=== PATIENT | female | born 1930 | race Caucasian/White ===

== ENCOUNTER 2017-12-04 20:55 | Inpatient (IN) | payer OTHER, BC ==
--- NOTE | 2017-12-04 21:02 | PDOC ---
History of Present Illness - General Stated Complaint: FALL/BACK PAIN Time Seen by Provider: 12/04/17 21:00 History Source: Patient - History of Present Illness Initial Comments: 12/04/17 21:14 87 y.o. female with a PMH of Breast CA (s/p radiation) presents following a fall @ home today. Patient states she was standing with her walker at home when her knees felt weak and she fell backward hitting her head. At baseline patient ambulates with a walker. Patient is uncertain of LOC and has no active medical complaints besides dry throat. Patient denies any pre-fall chest pain, shortness of breath, lightheadedness, palpitations. Allergy: Penicillin Surgery: B/L knee repair, R hip repair PMD: Dr. Saldivar Past History - Past Medical History Allergies/Adverse Reactions: Allergies Allergy/AdvReac Type Severity Reaction Status Date / Time Penicillins Allergy Hives Verified 12/04/17 21:05 Home Medications: Ambulatory Orders Aspirin Coated [Ecotrin -] 81 mg PO DAILY 12/21/11 Clopidogrel Bisulfate [Plavix -] 75 mg PO DAILY 12/21/11 Montelukast Na [Singulair -] 10 mg PO HS 12/21/11 [place]-3/Dha/Epa/Fish Oil [Fish Oil 1,000 mg Softgel] 1 tab PO DAILY 12/21/11 Tramadol HCl/Acetaminophen [Tramadol-Acetaminophn 37.5-325] 1 tab PO DAILY 03/01 Hydrochlorothiazide [Hctz] 25 mg PO DAILY 03/05/12 Atorvastatin Ca [Lipitor] 40 mg PO HS 05/22/12 Lidocaine 5% Patch [Lidoderm -] 1 each TD DAILY PRN 05/22/12 Metoprolol Succinate [Toprol XL -] 25 mg PO BID 05/22/12 Multivitamin [Multivitamins] 1 each PO DAILY 05/22/12 Pregabalin [Lyrica] 25 mg PO BID 05/22/12 Amlodipine Besylate [Norvasc -] 5 mg PO DAILY 08/16/13 Omeprazole [Prilosec (RX)] 40 mg PO DAILY 08/16/13 Polyethylene Glycol 3350 [Miralax 119 gm Btl -] 17 gm PO BID 10/03/14 Esomeprazole Mag Trihydrate [Nexium] 40 mg PO DAILY 12/16/14 Quinapril HCl [Accupril] 20 mg PO DAILY 12/16/14 Tamoxifen Citrate 20 mg PO DAILY 12/16/14 Anemia: No Asthma: No Cancer: Yes (BREAST W/ LUMPECTOMY & RADIATION) Cardiac Disorders: Yes (ASHD W/ CARDIAC STENT) CVA: No COPD: No CHF: No Dementia: No Diabetes: No GI Disorders: Yes (REFLUX,DIVERTICULOSIS) Disorders: No HTN: Yes Hypercholesterolemia: Yes Liver Disease: No Seizures: No Thyroid Disease: No - Surgical History Abdominal Surgery: Yes () Appendectomy: No (?) Cardiac Surgery: Yes (Stents 2005) Cholecystectomy: No Lung Surgery: No Neurologic Surgery: Yes (Epidural) Orthopedic Surgery: Yes (Hip Replacement Right,Juan Knee Replacements) - Family Disease History Family Disease History: Heart Disease: Father, Mother, Brother, CA: Grandparents - Suicide/Smoking/Psychosocial Hx Smoking History: Never smoked Have you smoked in the past 12 months: No If you are a former smoker, when did you quit?: Hx Alcohol Use: No Drug/Substance Use Hx: No Substance Use Type: None Hx Substance Use Treatment: No Review of Systems - Review of Systems Constitutional: No: Chills, Fever HEENTM: Yes: Cataracts. No: Recent change in vision, Double Vision Cardiac (ROS): No: Chest Pain, Palpitations, Syncope, Chest Tightness ABD/GI: No: Nausea, Vomiting : No: Burning, Dysuria Musculoskeletal: Yes: Muscle Weakness *Physical Exam - Physical Exam General Appearance: Yes: Nourished, Other (alert, no C-spine, vertebral tenderness, moving all 4 extremities) HEENT: positive: EOMI, RADHA, TMs Normal, Other ((-) aguilera sign; no oral lacerations/lesions). negative: TM Bulging, TM Dull, TM Erythema Neck: positive: Trachea midline, Supple. negative: Rigidity Respiratory/Chest: positive: Lungs Clear Cardiovascular: positive: S1, S2 Extremity: positive: Normal Capillary Refill, Normal Inspection Integumentary: positive: Normal Color, Warm Neurologic: positive: Fully Oriented, Alert, Other (labored non-slurred speech) . negative: Confused, Disoriented Deep Tendon Reflexes: Knee (L): 2+, Knee (R): 2+, Bicep (L): 2+, Bicep (R): 2+ ED Treatment Course - LABORATORY CBC & Chemistry Diagram: 12/05/17 06:30 12/05/17 06:30 Medical Decision Making - Medical Decision Making 12/04/17 21:03 44 y.o. female presents following fall @ home. Patient is limited historian -- will do broad spectrum w/u to r/o infectious, cardiac, neurologic etiology of possible syncope and LOC including Head CT, Troponin, CBC/CMP and UA. Reasess. 12/04/17 21:[address] negative for acute bleed or ischemia. Patient's family @ bedside, note patient's labored speech is baseline. 12/04/17 22:54 Troponin 0.7 - case d/w Dr. Rogers, as patient not c/o chest pain, non-ischemic EKG, will trend troponin and withold Heparin at this time. Case d/w hospitalist. Agrees with admission and troponin trend. Pain control with Tylenol + Tramadol (patient notes she takes ultram @ home with minimal adverse effects). Patient and patient family counseled on plan of care. Will continue to monitor while in ED. Patient signed out to Dr. Hernandez (Resident) under care of Dr. Christensen (Attending). *DC/Admit/Observation/Transfer Diagnosis at time of Disposition: Falls - Referrals - Patient Instructions - Post Discharge Activity
--- NOTE | 2017-12-04 21:03 | PDOC ---
Attending Attestation - Resident Resident Name: Veronica Truong - ED Attending Attestation I have performed the following: I have examined & evaluated the patient, The case was reviewed & discussed with the resident, I agree w/resident's findings & plan, Exceptions are as noted - HPI HPI: 12/04/17 21:02 87 yo female BIBA from home . Her neighbors found her on the floor and called an ambulance - Physicial Exam PE: 12/04/17 22:47 alert and conversant 87 yo female found onher floor, states her knees gave out about 3pm and she is not clear if she actually had LOC head no scalp laceration neck supple lung cta b/l cvs [id number] abd nontender ext no deformities neuro axox3,no gross focal deficits skin dry mucus membranes - Medical Decision Making 12/04/17 22:50 - ct scan of head negative for any acute intracranial pathology positive trop 0.7, pt denies any chest pain Dr Pepe Rogers consulted ADMIT telemetry 12/04/17 23:00
[2017-12-04 21:57] LABS: BASO % 0.5 % (0-2.0); EOS % 0.3 % (0-4.5); HEMATOCRIT 36.9 % (32.4-45.2); HEMOGLOBIN 12.2 GM/dL (10.7-15.3); LYMPH % 7.9 % (8-40); MCHC 32.9 g/dl (32.0-36.0); MEAN CELL VOLUME 91.1 fl (80-96); MEAN PLT VOLUME 10.1 fl (7.5-11.1); MONO % 5.3 % (3.8-10.2); PLATELET COUNT 193 K/MM3 (134-434); RBC 4.05 M/mm3 (3.60-5.2); RDW 14.6 % (11.6-15.6); WHITE BLOOD COUNT 12.5 K/mm3 (4.0-10.0)
[2017-12-04 22:14] LABS: INR 0.99 (0.82-1.09); PROTHROMBIN TIME (PATIENT) 11.2 SEC (9.98-11.88)
[2017-12-04 22:26] LABS: ALBUMIN 3.9 g/dl (3.4-5.0); ALK PHOS 62 U/L (45-117); ANION GAP 11 (8-16); BILIRUBIN,TOTAL 0.5 mg/dL (0.2-1.0); BLOOD UREA NITROGEN 47 mg/dL (7-18); CALCIUM 8.5 mg/dL (8.5-10.1); CHLORIDE 106 mmol/L (98-107); CO2 20 mmol/L (21-32); CREATININE 1.4 mg/dL (0.55-1.02); GLUCOSE,RANDOM 110 mg/dL (74-106); POTASSIUM 3.8 mmol/L (3.5-5.1); SGOT/AST 24 U/L (15-37); SGPT/ALT 24 U/L (12-78); SODIUM 137 mmol/L (136-145); TOT PROT 6.7 g/dl (6.4-8.2)
[2017-12-04] MEDS ORDERED: ACETAMINOPHEN 1000 MG/100 ML VIAL (NON FORMULARY) IVPB ONE ×2 (22:32→22:35)
[2017-12-04] MEDS ORDERED: traMADol HCL 50 MG TABLET PO ONE (22:32)
[2017-12-04] MEDS ORDERED: traMADol HCL 50 MG TABLET ONE (22:44)
[2017-12-04] MEDS ORDERED: ACETAMINOPHEN INJECTION 100 ML IVPB ONE (22:44)
[2017-12-04] MEDS ORDERED: HEPARIN NA (PORCINE) 5,000 UNITS/ML 1ML VIAL SQ ONE (22:47)
[2017-12-04] MEDS ORDERED: HEPARIN NA (PORCINE) 5,000 UNITS/ML 1ML VIAL IVPUSH PRN ×2 (22:48)
[2017-12-04] MEDS ORDERED: HEPARIN - 25,000 UNIT in SODIUM CHLORIDE 495 ML IV SCH (23:00)
--- NOTE | 2017-12-04 23:12 | PN ---
Teaching Attending Note Name of Resident: Erica Miller ATTENDING PHYSICIAN STATEMENT I saw and evaluated the patient. I reviewed the resident's note and discussed the case with the resident. I agree with the resident's findings and plan as documented. SUBJECTIVE: 87 yo F with Pmhx of Breast Ca (s/p radiation/lumpectomy), ASHD s/p Stent (06), GERD, diverticulosis, htn, Hld, who presents s/p fall. Notes she felt her knees go weak as she was standing with a walker. She fell and hit the back of her head , unsure if she hit the back of her neck. States she felt her legs have the shakes, but states she was consciouss the whole time and she fell. Denies any prior chest pain, pressure, dizziness, or ligthheadedness. No fevers or chills. States she currently has neck pain. Notes she often has chronic low back pain. States she is often constipated, Notes last BM yesterday OBJECTIVE: Physical: VS: Vital Signs Period Temp Pulse Resp BP Sys/Canas Pulse Ox Last 24 Hr 98.7 F 76 14 119/82 97 GEN: NAD, resting in bed, AA0X3 HEENT: NCAT, PERRL, Throat without erythema or exudates CARD: RRR S1, S2 RESP: CTAB ABD: BSx4, NTD to palpation, Distended EXT:- C/C/E MS + 5/5 UE, +3/5 LE. Sensation intact CBCD WBC 12.5 K/mm3 (4.0-10.0) H D 12/04/17 21:50 RBC 4.05 M/mm3 (3.60-5.2) 12/04/17 21:50 Hgb 12.2 GM/dL (10.7-15.3) 12/04/17 21:50 Hct 36.9 % (32.4-45.2) 12/04/17 21:50 MCV 91.1 fl (80-96) 12/04/17 21:50 MCHC 32.9 g/dl (32.0-36.0) 12/04/17 21:50 RDW 14.6 % (11.6-15.6) 12/04/17 21:50 Plt Count 193 K/MM3 (134-434) 12/04/17 21:50 MPV 10.1 fl (7.5-11.1) 12/04/17 21:50 CMP Sodium 137 mmol/L (136-145) 12/04/17 21:50 Potassium 3.8 mmol/L (3.5-5.1) 12/04/17 21:50 Chloride 106 mmol/L (98-107) 12/04/17 21:50 Carbon Dioxide 20 mmol/L (21-32) L 12/04/17 21:50 Anion Gap 11 (8-16) 12/04/17 21:50 BUN 47 mg/dL (7-18) H 12/04/17 21:50 Creatinine 1.4 mg/dL (0.55-1.02) H 12/04/17 21:50 Creat Clearance w eGFR 35.74 (>60) 12/04/17 21:50 Random Glucose 110 mg/dL (74-106) H 12/04/17 21:50 Calcium 8.5 mg/dL (8.5-10.1) 12/04/17 21:50 Total Bilirubin 0.5 mg/dL (0.2-1.0) D 12/04/17 21:50 AST 24 U/L (15-37) 12/04/17 21:50 ALT 24 U/L (12-78) 12/04/17 21:50 Alkaline Phosphatase 62 U/L (45-117) 12/04/17 21:50 Total Protein 6.7 g/dl (6.4-8.2) 12/04/17 21:50 Albumin 3.9 g/dl (3.4-5.0) 12/04/17 21:50 CARDIAC ENZYMES Creatine Kinase 288 IU/L (26-192) H 12/04/17 21:38 Troponin I Cancelled 12/04/17 21:50 EKG: CXR- PENDING CT HEAD- No definate interval change from 12/16/14. No acute intercranial Hemmorage, mass effect or Hydrocephalus. Ambulatory Orders Ambulatory Orders Aspirin Coated [Ecotrin -] 81 mg PO DAILY 12/21/11 Clopidogrel Bisulfate [Plavix -] 75 mg PO DAILY 12/21/11 Montelukast Na [Singulair -] 10 mg PO HS 12/21/11 [place]-3/Dha/Epa/Fish Oil [Fish Oil 1,000 mg Softgel] 1 tab PO DAILY 12/21/11 Tramadol HCl/Acetaminophen [Tramadol-Acetaminophn 37.5-325] 1 tab PO DAILY 03/01 Hydrochlorothiazide [Hctz] 25 mg PO DAILY 03/05/12 Atorvastatin Ca [Lipitor] 40 mg PO HS 05/22/12 Lidocaine 5% Patch [Lidoderm -] 1 each TD DAILY PRN 05/22/12 Metoprolol Succinate [Toprol XL -] 25 mg PO BID 05/22/12 Multivitamin [Multivitamins] 1 each PO DAILY 05/22/12 Pregabalin [Lyrica] 25 mg PO BID 05/22/12 Amlodipine Besylate [Norvasc -] 5 mg PO DAILY 08/16/13 Omeprazole [Prilosec (RX)] 40 mg PO DAILY 08/16/13 Polyethylene Glycol 3350 [Miralax 119 gm Btl -] 17 gm PO BID 10/03/14 Esomeprazole Mag Trihydrate [Nexium] 40 mg PO DAILY 12/16/14 Quinapril HCl [Accupril] 20 mg PO DAILY 12/16/14 Tamoxifen Citrate 20 mg PO DAILY 12/16/14 ASSESSMENT AND PLAN: 87 F with Pmhx of breast ca, HTN, HLD, CAD, Bilateral knee replacements, who presents with fall, 1.) Fall - Mechanical - CT Neck wo Con - CT Head as above - PT/OT - NEEDS repeat CT HEAD as, pt. was on Plavix 2.) Weakness LE - B12/Folate/TSH - When Able consider MRI T/L spine 3.) Elevated Troponin/CAD - Most likely Demand - Cardio consulted by ED, No hep. gtt at this time - ASA - Hold Plavix until repeat CT Head - , - Echo/Trend Trop/EKg 4.) HLD - Chk. Lipid Panel - C/W Statin 5.) HTN - C/W Home meds 6.) Dvt ppx - Scds
--- NOTE | 2017-12-05 00:38 | HP ---
CHIEF COMPLAINT: fall PCP: Dr. Saldivar HISTORY OF PRESENT ILLNESS: The patient is an 87 yo f w/ PMH Breast Ca, CAD, HTN who comes into the ED c/o fall at home. Patient was walking around her house with her walker when her "knees started shaking" and she fell backwards, striking her bottom and head on the floor. The patient was on the floor for 5 hours before being found by neighbors. Patient states she felt dizzy prior to falling, but denies any changes in vision, palpitations, chest pain, SOB or loss of consciousness. Patient complains of pain on the back of her head and in her neck. The patient also complains of abdominal distension over the past few days. She has a history of constipation and her last bowel movement was yesterday. Patient denies fevers, chills, abdominal pain. Patient lives at home alone and has an aide for 2 hrs per day. ER course was notable for: (1) CT head negative (2) troponin .7 (3) CXR negative Recent Travel: none PAST MEDICAL HISTORY: Breast Ca CAD GERD HTN PAST SURGICAL HISTORY: Stenting Hip replacement Spinal surgery Social History: Smoking: previous smoker, quit in Alcohol: socially Drugs: denies Family History: non-contributory Allergies Penicillins Allergy (Verified 12/04/17 21:05) Hives HOME MEDICATIONS: Home Medications Medication Instructions Recorded Aspirin Coated [Ecotrin -] 81 mg PO DAILY 12/21/11 Clopidogrel Bisulfate [Plavix -] 75 mg PO DAILY 12/21/11 Montelukast Na [Singulair -] 10 mg PO HS 12/21/11 [place]-3/Dha/Epa/Fish Oil [Fish Oil 1 tab PO DAILY 12/21/11 1,000 mg Softgel] Tramadol HCl/Acetaminophen 1 tab PO DAILY 03/01/12 [Tramadol-Acetaminophn 37.5-325] Hydrochlorothiazide [Hctz] 25 mg PO DAILY 03/05/12 Atorvastatin Ca [Lipitor] 40 mg PO HS 05/22/12 Lidocaine 5% Patch [Lidoderm -] 1 each TD DAILY PRN 05/22/12 Metoprolol Succinate [Toprol XL -] 25 mg PO BID 05/22/12 Multivitamin [Multivitamins] 1 each PO DAILY 05/22/12 Pregabalin [Lyrica] 25 mg PO BID 05/22/12 Amlodipine Besylate [Norvasc -] 5 mg PO DAILY 08/16/13 Omeprazole [Prilosec (RX)] 40 mg PO DAILY 08/16/13 Polyethylene Glycol 3350 [Miralax 17 gm PO BID 10/03/14 119 gm Btl -] Esomeprazole Mag Trihydrate 40 mg PO DAILY 12/16/14 [Nexium] Quinapril HCl [Accupril] 20 mg PO DAILY 12/16/14 Tamoxifen Citrate 20 mg PO DAILY 12/16/14 REVIEW OF SYSTEMS CONSTITUTIONAL: Absent: fever, chills, diaphoresis, generalized weakness, malaise, loss of appetite, weight change HEENT: Absent: rhinorrhea, nasal congestion, throat pain, throat swelling, difficulty swallowing, mouth swelling, ear pain, eye pain, visual changes CARDIOVASCULAR: Absent: chest pain, syncope, palpitations, irregular heart rate, peripheral edema RESPIRATORY: Absent: cough, shortness of breath, dyspnea with exertion, orthopnea, wheezing, stridor, hemoptysis GASTROINTESTINAL: Absent: abdominal pain, nausea, vomiting, melena, hematochezia GENITOURINARY: Absent: dysuria, frequency, urgency, hesitancy, hematuria, flank pain, genital pain MUSCULOSKELETAL: Absent: myalgia, arthralgia, joint swelling SKIN: Absent: rash, itching, pallor HEMATOLOGIC/IMMUNOLOGIC: Absent: easy bleeding, easy bruising, lymphadenopathy, frequent infections ENDOCRINE: Absent: unexplained weight gain, unexplained weight loss, heat intolerance, cold intolerance NEUROLOGIC: Absent: headache, focal weakness or paresthesias, dizziness, unsteady gait, seizure, mental status changes, bladder or bowel incontinence PSYCHIATRIC: Absent: anxiety, depression, suicidal or homicidal ideation, hallucinations. PHYSICAL EXAMINATION Vital Signs - 24 hr 12/04/17 21:05 Temperature 98.7 F Pulse Rate 76 Respiratory 14 Rate Blood Pressure 119/82 O2 Sat by Pulse 97 Oximetry (%) GENERAL: Awake, alert, and fully oriented, in no acute distress. HEAD: Normal with no signs of trauma. EYES: Pupils equal, round and reactive to light, extraocular movements intact, sclera anicteric, conjunctiva clear. No lid lag. EARS, NOSE, THROAT: Ears normal, nares patent, oropharynx clear without exudates. Moist mucous membranes. NECK: Normal range of motion, supple without lymphadenopathy, JVD, or masses. LUNGS: Breath sounds equal, clear to auscultation bilaterally. No wheezes, and no crackles. No accessory muscle use. HEART: Regular rate and rhythm, normal S1 and S2 without murmur, rub or gallop. ABDOMEN: Soft, nontender, normoactive bowel sounds, no guarding, no rebound, no masses. abdomen markedly distended. MUSCULOSKELETAL: Normal range of motion at all joints. No bony deformities or tenderness. No CVA tenderness. UPPER EXTREMITIES: 2+ pulses, warm, well-perfused. No cyanosis. No clubbing. No peripheral edema. LOWER EXTREMITIES: 2+ pulses, warm, well-perfused. No calf tenderness. No peripheral edema. NEUROLOGICAL: Cranial nerves II-X intact. Normal speech. 2/5 strength in both lower extremities. PSYCHIATRIC: Cooperative. Good eye contact. Appropriate mood and affect. SKIN: Warm, dry, normal turgor, no rashes or lesions noted, normal capillary refill. Laboratory Results - last 24 hr 12/04/17 12/04/17 12/04/17 21:38 21:50 21:50 WBC 12.5 H D RBC 4.05 Hgb 12.2 Hct 36.9 MCV 91.1 MCH 30.0 MCHC 32.9 RDW 14.6 Plt Count 193 MPV 10.1 Neutrophils % 86.0 H D Lymphocytes % 7.9 L D Monocytes % 5.3 Eosinophils % 0.3 D Basophils % 0.5 PT with INR 11.20 INR 0.99 Sodium Potassium Chloride Carbon Dioxide Anion Gap BUN Creatinine Creat Clearance w eGFR Random Glucose Calcium Total Bilirubin AST ALT Alkaline Phosphatase Creatine Kinase 288 H Creatine Kinase Index 2.4 CK-MB (CK-2) 7.002 H Troponin I 0.70 H* Total Protein Albumin 12/04/17 12/04/17 21:50 21:50 WBC RBC Hgb Hct MCV MCH MCHC RDW Plt Count MPV Neutrophils % Lymphocytes % Monocytes % Eosinophils % Basophils % PT with INR INR Sodium 137 Potassium 3.8 Chloride 106 Carbon Dioxide 20 L Anion Gap 11 BUN 47 H Creatinine 1.4 H Creat Clearance w eGFR 35.74 Random Glucose 110 H Calcium 8.5 Total Bilirubin 0.5 D AST 24 ALT 24 Alkaline Phosphatase 62 Creatine Kinase Creatine Kinase Index CK-MB (CK-2) Troponin I Cancelled Total Protein 6.7 Albumin 3.9 ASSESSMENT/PLAN: The patient is an 87 yo f w/ PMH HTN and CAD who is being admitted for further workup of a fall at home. #s/p fall 2/2 syncope r/o cardiac etiology -CT head negative x1, will repeat in 12 hr -TSH -Vit B12 -CT cspine as patient c/o neck pain -Will hold plavix this evening until bleed r/o -Neuro consult to eval leg weakness -UA #Troponemia likley 2/2 demand ischemia -patient not complaining of CP or SOB at this time -ED resident spoke w/ Dr. Rogers; less likely 2/2 ACS and holding heparin for now -Cardio consult -Echo in AM -carotid doppler in am -Trend troponin #Abdominal distension likely 2/2 constipation -KUB -laxatives #HLD -c/w statin -AM lipid panel #HTN -c/w home meds #FEN -no fluids -lytes wnl -fat controlled diet #Prophys -SCDs until bleed ruled out #Dispo -admit to tele Visit type - Emergency Visit Emergency Visit: Yes ED Registration Date: 12/04/17 Care time: The patient presented to the Emergency Department on the above date and was hospitalized for further evaluation of their emergent condition. - New Patient This patient is new to me today: Yes Date on this admission: 12/05/17 - Critical Care Critical Care patient: No Hospitalist Screening - Colonoscopy Questionnaire Colonoscopy Questionnaire: Colonoscopy Questionnaire - Patient: 50 - 75 years old and never had a screening colonoscopy: Unknown History of colon or rectal polyps, or CA: Unknown History of IBD, Crohn's disease or UC: Unknown History of abdominal radiation therapy as a child: Unknown - Relative: 1 with colon or rectal CA, or polyps at age 60 or younger: Unknown Colon or rectal CA diagnosed at age 45 or younger: Unknown Multiple relatives with colon or rectal CA: Unknown - Outcome: Screening Result: Negative Screen
[2017-12-05] MEDS ORDERED: SENNOSIDES 8.6MG TABLET (FP) PO ONE (01:39)
[2017-12-05] MEDS ORDERED: HEPARIN NA (PORCINE) 5,000 UNITS/ML 1ML VIAL SQ SCH (02:00)
[2017-12-05 03:09] VITALS: BMI 27.1
[2017-12-05 07:08] LABS: HEMATOCRIT 35.7 % (32.4-45.2); HEMOGLOBIN 11.9 GM/dL (10.7-15.3); MCH 30.1 pg (25.7-33.7); MCHC 33.2 g/dl (32.0-36.0); MEAN CELL VOLUME 90.6 fl (80-96); MEAN PLT VOLUME 9.9 fl (7.5-11.1); PLATELET COUNT 184 K/MM3 (134-434); RBC 3.94 M/mm3 (3.60-5.2); RDW 14.6 % (11.6-15.6); WHITE BLOOD COUNT 11.1 K/mm3 (4.0-10.0)
[2017-12-05 07:24] LABS: ALBUMIN 3.6 g/dl (3.4-5.0); CALCIUM 8.2 mg/dL (8.5-10.1); CHLORIDE 107 mmol/L (98-107); POTASSIUM 3.7 mmol/L (3.5-5.1); SODIUM 138 mmol/L (136-145)
[2017-12-05 07:35] LABS: CHOLESTEROL 133 mg/dL (50-200); HDL CHOLESTEROL 76 mg/dL (40-60); LDL CHOLESTEROL (ONLY SJRH) 49 mg/dL (5-100); TRIGLYCERIDES 96 mg/dL (35-160)
[2017-12-05 07:38] LABS: ALK PHOS 56 U/L (45-117); ANION GAP 12 (8-16); BILIRUBIN,TOTAL 0.6 mg/dL (0.2-1.0); BLOOD UREA NITROGEN 44 mg/dL (7-18); CO2 19 mmol/L (21-32); CREATININE 1.3 mg/dL (0.55-1.02); GLUCOSE,RANDOM 77 mg/dL (74-106); MAGNESIUM 1.7 mg/dL (1.8-2.4); PHOSPHOROUS 3.7 mg/dL (2.5-4.9); SGOT/AST 26 U/L (15-37); SGPT/ALT 23 U/L (12-78); TOT PROT 6.2 g/dl (6.4-8.2)
[2017-12-05] MEDS ORDERED: HYDROCHLOROTHIAZIDE 25 MG TABLET (FP) PO SCH (10:00)
[2017-12-05] MEDS ORDERED: POLYETHYLENE GLYCOL 3350 119 GM BTL PO SCH ×2 (10:00)
[2017-12-05] MEDS: TAMOXIFEN CITRATE 10 MG TABLET PO SCH (10:23)
[2017-12-05] MEDS: QUINAPRIL HCL 20 MG TABLET (FP) PO SCH (10:24)
[2017-12-05] MEDS: PANTOPRAZOLE 40 MG TABLET (FP) PO SCH (10:24)
[2017-12-05] MEDS: ASPIRIN COATED 81 MG TABLET.EC PO SCH (10:24)
[2017-12-05] MEDS: amLODIPine BESYLATE 5 MG TABLET (FP) PO SCH (10:24)
[2017-12-05] MEDS: PREGABALIN 25 MG CAPSULE PO SCH ×2 (10:24→21:52)
[2017-12-05] MEDS: metoPROLOL SUCCINATE 25 MG TAB.SR.24H (FP) PO SCH ×2 (10:24→21:52)
--- NOTE | 2017-12-05 12:16 | PN ---
Progress Note, Physician Chief Complaint: Pt lying in bed in no acute distress. noticed severe abd distention, appears right quadrant, firm, tender. pt reports she feels full upon po intake and has been having intermittent diarrhea. Pt denies chest discomfort, sob, n/v. - Current Medication List Current Medications: Active Medications Amlodipine Besylate (Norvasc -) 5 mg PO DAILY [facility] Last Admin: 12/05/17 10:24 Dose: 5 mg Aspirin (Ecotrin -) 81 mg PO DAILY [facility] Last Admin: 12/05/17 10:24 Dose: 81 mg Atorvastatin Calcium (Lipitor -) 40 mg PO HS [facility] Hydrochlorothiazide (Hctz -) 25 mg PO DAILY [facility] Last Admin: 12/05/17 10:24 Dose: 25 mg Metoprolol Succinate (Toprol Xl -) 25 mg PO BID [facility] Last Admin: 12/05/17 10:24 Dose: 25 mg Montelukast Sodium (Singulair -) 10 mg PO HS [facility] Pantoprazole Sodium (Protonix -) 40 mg PO DAILY [facility] Last Admin: 12/05/17 10:24 Dose: 40 mg Polyethylene Glycol (Miralax (For Daily Use) -) 17 gm PO BID [facility] Last Admin: 12/05/17 10:28 Dose: 17 gm Pregabalin (Lyrica -) 25 mg PO BID [facility] Last Admin: 12/05/17 10:24 Dose: 25 mg Quinapril HCl (Accupril -) 20 mg PO DAILY [facility] Last Admin: 12/05/17 10:24 Dose: 20 mg Senna (Senna -) 1 tab PO [facility] Tamoxifen Citrate (Tamoxifen Citrate) 20 mg PO DAILY [facility] Last Admin: 12/05/17 10:23 Dose: 20 mg - Objective Vital Signs: Vital Signs Temperature 98 F 12/05/17 08:15 Pulse Rate 75 12/05/17 08:15 Respiratory Rate 18 12/05/17 08:15 Blood Pressure 148/80 12/05/17 08:15 O2 Sat by Pulse Oximetry (%) 96 12/05/17 08:00 Constitutional: Yes: Well Nourished, No Distress Cardiovascular: Yes: WNL, Regular Rate and Rhythm. No: Bruit, Gallop, Murmur Respiratory: Yes: WNL, Regular, CTA Bilaterally. No: Rales, Rhonchi, SOB, Wheezes Gastrointestinal: Yes: Normal Bowel Sounds, Distention, Tenderness. No: Tenderness, Rebound, Vomiting Genitourinary: Yes: Bladder Distention Musculoskeletal: Yes: Back Pain Edema: No Neurological: Yes: Alert, Confusion Psychiatric: Yes: Alert Labs: CBC, BMP 12/05/17 06:30 12/05/17 06:30 INR, PTT INR 0.99 (0.82-1.09) 12/04/17 21:50 Problem List - Problems (1) Dehydration Assessment/Plan: appears dehydrated ns 500ml bolus NS 75mL/hr encourage po intake Code(s): E86.0 - DEHYDRATION (2) Fecal impaction Assessment/Plan: CT w/ fecal impaction with stercoral colitis disimpacted at bedside trial with po dulcolax miralax, colace gi consult appreciated will monitor Code(s): K56.41 - FECAL IMPACTION (3) Bladder distension Assessment/Plan: distended during assessment seen on CT improved s/p justice will monitor urology consult pending Code(s): N32.89 - OTHER SPECIFIED DISORDERS OF BLADDER (4) Acute metabolic encephalopathy Assessment/Plan: pt currently confused, mild leukocytosis friend reports pt has been having recent intermittent confusion UA/UC pending chest xray without sig changes ertapenem per ID ID consult appreciated neuro consult pending Code(s): G93.41 - METABOLIC ENCEPHALOPATHY (5) Elevated troponin Assessment/Plan: troponin elevated, trending down trend monitored carotid us reviewed, eca occlusion echo, mild dis dysfunction, pEF cardiology following Code(s): R74.8 - ABNORMAL LEVELS OF OTHER SERUM ENZYMES (6) JASMIN (acute kidney injury) Assessment/Plan: secondary to prerenal IVF monitor renal function Code(s): N17.9 - ACUTE KIDNEY FAILURE, UNSPECIFIED (7) Abdominal distension Assessment/Plan: severely distended upon assessment, pt confused Abd/pelvis CT stat ordered, case discussed with surgery and radiologist, no acute obstruction, however fecal impaction with stercoral colitis lactic acid level wnl mild leukocytosis, possibly due to dehydration justice inserted - 1950ml uop disimpaction performed, moderate amount, distention improved after disimpaction Miralax, colace, dulcolax 500mL NS bolus IVF GI/Surgery/ID consult appreciated Code(s): R14.0 - ABDOMINAL DISTENSION (GASEOUS) (8) Fall Assessment/Plan: s/p fall at home with trauma to head repeat head CT neg PT cardiology consult appreciated Code(s): W19.XXXA - UNSPECIFIED FALL, INITIAL ENCOUNTER Qualifiers: Encounter type: initial encounter Qualified Code(s): W19.XXXA - Unspecified fall, initial encounter (9) HTN (hypertension) Assessment/Plan: stable continue home meds hold hct in the setting of dehydration Code(s): I10 - ESSENTIAL (PRIMARY) HYPERTENSION Qualifiers: Hypertension type: essential hypertension Qualified Code(s): I10 - Essential (primary) hypertension (10) HLD (hyperlipidemia) Assessment/Plan: stable continue atorvastatin Code(s): E78.5 - HYPERLIPIDEMIA, UNSPECIFIED Qualifiers: Hyperlipidemia type: unspecified Qualified Code(s): E78.5 - Hyperlipidemia , unspecified (11) CAD (coronary artery disease) Assessment/Plan: s/p GLEN LAD, 2006 continue aspirin plavix d/c'd per cardiology recs Code(s): I25.10 - ATHSCL HEART DISEASE OF [place] CORONARY ARTERY W/O ANG PCTRS Qualifiers: Coronary Disease-Associated Artery/Lesion type: [place] artery [place] vs. transplanted heart: [place] heart Associated angina: without angina Qualified Code(s): I25.10 - Atherosclerotic heart disease of [place] coronary artery without angina pectoris (12) Osteoarthritis Assessment/Plan: back, b/l knees continue PT Code(s): M19.90 - UNSPECIFIED OSTEOARTHRITIS, UNSPECIFIED SITE Qualifiers: Osteoarthritis location: knee Osteoarthritis type: primary Laterality: bilateral Qualified Code(s): M17.0 - Bilateral primary osteoarthritis of knee (13) History of total bilateral knee replacement (TKR) Assessment/Plan: s/p b/l tkr in 2009 Code(s): Z96.653 - PRESENCE OF ARTIFICIAL KNEE JOINT, BILATERAL (14) History of breast cancer Assessment/Plan: s/p left partial mastectomy/radiation on tamoxifen Code(s): Z85.3 - PERSONAL HISTORY OF MALIGNANT NEOPLASM OF BREAST (15) History of right hip replacement Assessment/Plan: s/p r hip replacement, 1995 Code(s): Z96.641 - PRESENCE OF RIGHT ARTIFICIAL HIP JOINT (16) Spinal stenosis Assessment/Plan: moderate, c5-6,c6-7 followed by outpt Code(s): M48.00 - SPINAL STENOSIS, SITE UNSPECIFIED Qualifiers: Spinal region: cervical Qualified Code(s): M48.02 - Spinal stenosis, cervical region
[2017-12-05] MEDS ORDERED: MAGNESIUM SULF 50% (8.12 MEQ/2 ML-1 GM VIAL) IVPB ONE ×2 (12:27→17:00)
[2017-12-05] MEDS ORDERED: POTASSIUM CHLORIDE TABS 20 MEQ TABLET.ER (FP) PO ONE ×2 (12:27→15:45)
[2017-12-05] MEDS ORDERED: BISACODYL 5 MG TABLET.DR (FP) PO ONE ×2 (12:47→16:15)
--- NOTE | 2017-12-05 13:38 | CON.ID ---
Consult Consult Specialty:: infectious diseases Reason for Consultation:: intestinal obstruction,abd pain - History of Present Illness Chief Complaint: abd pain,fall History of Present Illness: 87yo F with multiple medical issues including HTN, HLD, CAD s/p stent on asa/ plavix, macular degeneration , h/o left breast CA s/p lumpectomy on tamoxifen, h /o multiple joint replacements, who fell at home when her knees gave out while she was standing with her walker and was found after 5 hours downtime (per H&P) - remembers landing on her behind; patient on the floor was admitted by the hospitalist team. I was called to see the patient because of leukocytosis and dirrhoea and also suspicion of uti as we did not know when was the last time patient had urinated. patient also was having high wbc and looks like the patient was also dehydrated patient was c/o of abd pain and was very frustrated about the lump which was seen and it was bothering her patient has her daughter in room she has been started on iv fluids and on her lab work up is showing leukocytosis patient does not know when she had last bowel movement - History Source History Provided By: Patient, Medical Record Limitations to Obtaining History: Poor Historian - Past Medical History Cardio/Vascular: Yes: CAD, HTN Musculoskeletal: Yes: Osteoarthritis ENT: Yes: Other - Past Surgical History Past Surgical History: Yes: Joint Replacement, Stent - Alcohol/Substance Use Hx Alcohol Use: No - Smoking History Smoking history: Never smoked Have you smoked in the past 12 months: No If you are a former smoker, when did you quit?: Home Medications - Allergies Allergies/Adverse Reactions: Allergies Allergy/AdvReac Type Severity Reaction Status Date / Time Penicillins Allergy Hives Verified 12/04/17 21:05 - Home Medications Home Medications: Ambulatory Orders Aspirin Coated [Ecotrin -] 81 mg PO DAILY 12/21/11 Clopidogrel Bisulfate [Plavix -] 75 mg PO DAILY 12/21/11 Montelukast Na [Singulair -] 10 mg PO HS 12/21/11 [place]-3/Dha/Epa/Fish Oil [Fish Oil 1,000 mg Softgel] 1 tab PO DAILY 12/21/11 Tramadol HCl/Acetaminophen [Tramadol-Acetaminophn 37.5-325] 1 tab PO DAILY 03/01 Hydrochlorothiazide [Hctz] 25 mg PO DAILY 03/05/12 Atorvastatin Ca [Lipitor] 40 mg PO HS 05/22/12 Lidocaine 5% Patch [Lidoderm -] 1 each TD DAILY PRN 05/22/12 Metoprolol Succinate [Toprol XL -] 25 mg PO BID 05/22/12 Multivitamin [Multivitamins] 1 each PO DAILY 05/22/12 Pregabalin [Lyrica] 25 mg PO BID 05/22/12 Amlodipine Besylate [Norvasc -] 5 mg PO DAILY 08/16/13 Omeprazole [Prilosec (RX)] 40 mg PO DAILY 08/16/13 Polyethylene Glycol 3350 [Miralax 119 gm Btl -] 17 gm PO BID 10/03/14 Esomeprazole Mag Trihydrate [Nexium] 40 mg PO DAILY 12/16/14 Quinapril HCl [Accupril] 20 mg PO DAILY 12/16/14 Tamoxifen Citrate 20 mg PO DAILY 12/16/14 Review of Systems - Review of Systems Constitutional: reports: No Symptoms, Weakness. denies: Chills, Fever Eyes: reports: No Symptoms HENT: reports: No Symptoms Neck: reports: No Symptoms Cardiovascular: reports: No Symptoms Respiratory: reports: No Symptoms Gastrointestinal: reports: Abdominal Pain, Bloating, Constipation. denies: Vomiting Genitourinary: reports: Other Musculoskeletal: reports: No Symptoms Integumentary: reports: No Symptoms Neurological: reports: No Symptoms Endocrine: reports: No Symptoms Hematology/Lymphatic: reports: No Symptoms Psychiatric: reports: No Symptoms Physical Exam Vital Signs: Vital Signs Temperature 98 F 12/05/17 08:15 Pulse Rate 75 12/05/17 08:15 Respiratory Rate 18 12/05/17 08:15 Blood Pressure 148/80 12/05/17 08:15 O2 Sat by Pulse Oximetry (%) 96 12/05/17 08:00 Constitutional: Yes: Calm, Mild Distress, Thin Eyes: Yes: Conjunctiva Clear Cardiovascular: Yes: Regular Rate and Rhythm Respiratory: Yes: Regular, CTA Bilaterally Gastrointestinal: Yes: Distention, Tenderness, Other (absent bowel sounds) Musculoskeletal: Yes: WNL Extremities: Yes: WNL Neurological: Yes: Alert, Oriented, Confusion Psychiatric: Yes: Alert Labs: CBC, BMP 12/05/17 06:30 12/05/17 06:30 Assessment/Plan after evaluating the patient and looking at the abd xray patient has developed intestinal obstruction which could be mainly due to fecal impaction as well could ahve other process going on she has no gas seen in the rectum Problem List - Problems (1) Fecal impaction Thank you for the opportunity to participate in the care of this patient. Code(s): K56.41 - FECAL IMPACTION (2) Acute urinary retention Code(s): R33.8 - OTHER RETENTION OF URINE (3) Dehydration Code(s): E86.0 - DEHYDRATION (4) JASMIN (acute kidney injury) Code(s): N17.9 - ACUTE KIDNEY FAILURE, UNSPECIFIED (5) Fall as cause of accidental injury in home as place of occurrence Code(s): W19.XXXA - UNSPECIFIED FALL, INITIAL ENCOUNTER; Y92.009 - UNSP PLACE IN UNSP NON-INSTITUT (PRIVATE) RESIDENCE PLACE Qualifiers: Encounter type: initial encounter Qualified Code(s): W19.XXXA - Unspecified fall, initial encounter; Y92.009 - Unspecified place in unspecified non-institutional (private) residence as the place of occurrence of the external cause; Y92.009 - Unspecified place in unspecified non-institutional ( private) residence as the place of occurrence of the external cause (6) Encephalopathy acute Code(s): G93.40 - ENCEPHALOPATHY, UNSPECIFIED (7) CAD (coronary artery disease) Code(s): I25.10 - ATHSCL HEART DISEASE OF [place] CORONARY ARTERY W/O ANG PCTRS Qualifiers: Coronary Disease-Associated Artery/Lesion type: [place] artery [place] vs. transplanted heart: [place] heart Associated angina: without angina Qualified Code(s): I25.10 - Atherosclerotic heart disease of [place] coronary artery without angina pectoris (8) HTN (hypertension) Code(s): I10 - ESSENTIAL (PRIMARY) HYPERTENSION Qualifiers: Hypertension type: essential hypertension Qualified Code(s): I10 - Essential (primary) hypertension (9) HLD (hyperlipidemia) Code(s): E78.5 - HYPERLIPIDEMIA, UNSPECIFIED Qualifiers: Hyperlipidemia type: unspecified Qualified Code(s): E78.5 - Hyperlipidemia , unspecified (10) History of breast cancer Code(s): Z85.3 - PERSONAL HISTORY OF MALIGNANT NEOPLASM OF BREAST plan will start patient on abx as there is chance of translocation of bacteria ct scan of the abdomen surgical consult npo hydration once we have diagnosis will decide how to proceed further
[2017-12-05] MEDS ORDERED: DOCUSATE SODIUM 100 MG CAPSULE (FP) PO SCH (14:00)
--- NOTE | 2017-12-05 14:11 | EKG ---
Test Reason : Blood Pressure : / mmHG Vent. Rate : 076 BPM Atrial Rate : 076 BPM P-R Int : 256 ms QRS Dur : 082 ms QT Int : 422 ms P-R-T Axes : 027 006 066 degrees QTc Int : 474 ms SINUS RHYTHM WITH 1ST DEGREE A-V BLOCK OTHERWISE NORMAL ECG WHEN COMPARED WITH ECG OF 04-DEC-2017 21:36, SINUS RHYTHM IS NO LONGER WITH 2ND DEGREE A-V BLOCK (MOBITZ I) Confirmed by MD Hillary, Pedro ([id number]) on 12/05/2017 2:10:54 PM Referred By: JORGE MERCADO Confirmed By:Pedro Thornton MD
--- NOTE | 2017-12-05 14:17 | EKG ---
Test Reason : Blood Pressure : / mmHG Vent. Rate : 073 BPM Atrial Rate : 080 BPM P-R Int : 000 ms QRS Dur : 078 ms QT Int : 402 ms P-R-T Axes : 060 003 032 degrees QTc Int : 442 ms SINUS RHYTHM WITH 2ND DEGREE A-V BLOCK (MOBITZ I) LOW VOLTAGE QRS ABNORMAL ECG WHEN COMPARED WITH ECG OF 16-DEC-2014 12:10, SINUS RHYTHM IS NOW WITH 2ND DEGREE A-V BLOCK (MOBITZ I) Confirmed by MD Hillary, Pedro ([id number]) on 12/05/2017 2:17:03 PM Referred By: Confirmed By:Pedro Thornton MD
[2017-12-05] MEDS ORDERED: SODIUM CHLORIDE 500 ML IV STA (14:28)
--- NOTE | 2017-12-05 16:12 | CONSULT ---
Consult Consult Specialty:: General Surgery Referred by:: Dr. Gill/Leana Graves Reason for Consultation:: abdominal distention ?obstruction - History of Present Illness Chief Complaint: abdominal distention, constipation, fell at home History of Present Illness: 87yo F with multiple medical issues including HTN, HLD, CAD s/p stent on asa/ plavix, macular degeneration (per friend), h/o left breast CA s/p lumpectomy on tamoxifen, h/o multiple joint replacements, who fell at home when her knees gave out while she was standing with her walker and was found after 5 hours downtime (per H&P) - remembers landing on her behind; ER note states she fell backward and hit her head. She was admitted to telemetry through the ER yesterday. Head and c-spine CTs showed no acute injuries but some chronic changes. She was afebrile, wbc slightly up at 12.5, down to 11 today, BUN/Cr elevated at 47/1.4, down to 44/1.3 today, though she had not been on maintenance fluids. She reported a history of constipation, and recent abdominal distention, with some diarrhea, and told the ER her last BM had been the day before. It is unclear from the history when she had last urinated, though she has had some wetness in diapers here. Troponin was elevated 0.7 and edgardo today to 1.85, though she denies chest pain. She had all her home antihypertensives this morning, including HCTZ. BEN Graves started IV fluids today, and ID saw patient, who was concerned about abdominal distention and possible obstruction, so surgery was consulted. Abd/pelv CT was pending and pt was taken for it just prior to my exam, though AXR had already been done showing likely fecal impaction and additional pelvic opacity, possibly related to bladder distention. By report, pt had been noted to be distended but nontender. Pt seen and examined with BEN Graves just after CT scan, reported as large fecal impaction and bladder distention. 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 Court does not think pt has any history of dementia or Alzheimer's disease, but admits that the patient's current level of confusion is more than she has observed in the past. ER noted no specific confusion. Pt was unclear about possible LOC at the time of the fall. Patient denies chest pain or trouble breathing. She did admit to self- disimpaction at times at home during our performance of the same. "I can do that myself, I do it at home." - History Source History Provided By: Patient, Friend (Court at bedside), Medical Record Limitations to Obtaining History: Poor Historian (pt very confused, mostly from record) - Past Medical History Cardio/Vascular: Yes: CAD, HTN Reproductive: Yes: Postmenopausal Heme/Onc: Yes: Cancer (breast s/p left lumpectomy/radiation, on tamoxifen) Musculoskeletal: Yes: Osteoarthritis Additional Medical History: macular degeneration - Past Surgical History Past Surgical History: Yes: Breast Biopsy (with left lumpectomy), Joint Replacement (hip), Stent Additional Surgical History: lower midline scar - Alcohol/Substance Use Hx Alcohol Use: No - Smoking History Smoking history: Former smoker Have you smoked in the past 12 months: No If you are a former smoker, when did you quit?: Home Medications - Allergies Allergies/Adverse Reactions: Allergies Allergy/AdvReac Type Severity Reaction Status Date / Time Penicillins Allergy Hives Verified 12/04/17 21:05 - Home Medications Home Medications: Ambulatory Orders Aspirin Coated [Ecotrin -] 81 mg PO DAILY 12/21/11 Clopidogrel Bisulfate [Plavix -] 75 mg PO DAILY 12/21/11 Montelukast Na [Singulair -] 10 mg PO HS 12/21/11 [place]ma-3/Dha/Epa/Fish Oil [Fish Oil 1,000 mg Softgel] 1 tab PO DAILY 12/21/11 Tramadol HCl/Acetaminophen [Tramadol-Acetaminophn 37.5-325] 1 tab PO DAILY 03/01 Hydrochlorothiazide [Hctz] 25 mg PO DAILY 03/05/12 Atorvastatin Ca [Lipitor] 40 mg PO HS 05/22/12 Lidocaine 5% Patch [Lidoderm -] 1 each TD DAILY PRN 05/22/12 Metoprolol Succinate [Toprol XL -] 25 mg PO BID 05/22/12 Multivitamin [Multivitamins] 1 each PO DAILY 05/22/12 Pregabalin [Lyrica] 25 mg PO BID 05/22/12 Amlodipine Besylate [Norvasc -] 5 mg PO DAILY 08/16/13 Omeprazole [Prilosec (RX)] 40 mg PO DAILY 08/16/13 Polyethylene Glycol 3350 [Miralax 119 gm Btl -] 17 gm PO BID 10/03/14 Esomeprazole Mag Trihydrate [Nexium] 40 mg PO DAILY 12/16/14 Quinapril HCl [Accupril] 20 mg PO DAILY 12/16/14 Tamoxifen Citrate 20 mg PO DAILY 12/16/14 Family Disease History - Family Disease History Family History: Unable to Obtain (pt confused) Review of Systems Unable to obtain ROS, reason: ltd, very confused - Review of Systems Constitutional: reports: Weakness HENT: reports: Difficult Swallowing ("something sticks in my throat sometimes") Cardiovascular: denies: Chest Pain, Shortness of Breath Respiratory: denies: SOB Gastrointestinal: reports: Bloating, Constipation Neurological: reports: Confusion (per friend - has been getting intermittently confused at home recently but has no history of dementia), Unsteady Gait (uses walker at home), Other (fell at home and was down 5 hours, says she landed on her bottom) Physical Exam Vital Signs: Vital Signs Temperature 98 F 12/05/17 08:15 Pulse Rate 75 12/05/17 08:15 Respiratory Rate 18 12/05/17 08:15 Blood Pressure 148/80 12/05/17 08:15 O2 Sat by Pulse Oximetry (%) 96 12/05/17 08:00 Constitutional: Yes: Well Nourished, No Distress, Anxious Eyes: Yes: Conjunctiva Clear, EOM Intact HENT: Yes: Atraumatic, Normocephalic Neck: Yes: Supple, Trachea Midline Cardiovascular: Yes: Regular Rate and Rhythm. No: Murmur Respiratory: Yes: Regular, CTA Bilaterally Gastrointestinal: Yes: Soft, Distention (prior to Valdovinos placement - flat afterward), Tenderness (mild lower abd after Valdovinos and disimpaction), Other ( well-healed lower midline scar). No: Tenderness, Rebound ...Rectal Exam: Yes: Sphincter Tone Poor, Other (few external skin tags; one piece of soft, formed brown stool evacuated after Valdovinos placed; with [employer] PACK[employer] Star, disimpacted of moderate to large amount of more soft, formed brown stool; got to much softer, pasty stool higher up in vault and stopped for now) Renal/: Yes: Bladder Distention, Incontinence (likely overflow), Other (16 Fr Valdovinos catheter placed with 2L of yellow urine output initially, UA and Cx sent off Valdovinos port - distended abdomen became flat after bladder evacuation and disimpaction) Musculoskeletal: Yes: Joint Stiffness (hips somewhat), Other (scar on right knee ) Extremities: No: Cool, Cyanosis Edema: No Peripheral Pulses WNL: Yes Integumentary: No: Jaundice, Rash Neurological: Yes: Alert, Confusion (states bedrail "doesn't belong to me," wants to go "upstairs" to get dressed; asked where she was, she stated "at the races here," but when told she is at hospital, "I knew that." Knows today is Monday, knows friend's full name. Able to say she was down for five hours at home, remembers falling and landing on her bottom. Was trying to get out of bed after our exam while with friend, who indicated she is more confused than she had ever seen her before. VS normal at that time (BP 137/70s, pulse ox high 90s) ) Psychiatric: Yes: Alert, Agitated (very mildly - confused and at times trying to get out of bed) Labs: CBC, BMP 12/05/17 06:30 12/05/17 06:30 CMP Sodium 138 mmol/L (136-145) 12/05/17 06:30 Potassium 3.7 mmol/L (3.5-5.1) 12/05/17 06:30 Chloride 107 mmol/L (98-107) 12/05/17 06:30 Carbon Dioxide 19 mmol/L (21-32) L 12/05/17 06:30 Anion Gap 12 (8-16) 12/05/17 06:30 BUN 44 mg/dL (7-18) H 12/05/17 06:30 Creatinine 1.3 mg/dL (0.55-1.02) H 12/05/17 06:30 Creat Clearance w eGFR 38.93 (>60) 12/05/17 06:30 Random Glucose 77 mg/dL (74-106) 12/05/17 06:30 Lactic Acid 0.9 mmol/L (0.0-2.0) 12/05/17 13:48 Calcium 8.2 mg/dL (8.5-10.1) L 12/05/17 06:30 Phosphorus 3.7 mg/dL (2.5-4.9) 12/05/17 06:30 Magnesium 1.7 mg/dL (1.8-2.4) L 12/05/17 06:30 Total Bilirubin 0.6 mg/dL (0.2-1.0) 12/05/17 06:30 AST 26 U/L (15-37) 12/05/17 06:30 ALT 23 U/L (12-78) 12/05/17 06:30 Alkaline Phosphatase 56 U/L (45-117) 12/05/17 06:30 Creatine Kinase 288 IU/L (26-192) H 12/04/17 21:38 Creatine Kinase Index 2.4 % (0.0-5.0) 12/04/17 21:38 CK-MB (CK-2) 7.002 ng/mL (0.5-3.6) H 12/04/17 21:38 Troponin I 1.61 ng/ml (0.00-0.05) H* 12/05/17 13:25 Total Protein 6.2 g/dl (6.4-8.2) L 12/05/17 06:30 Albumin 3.6 g/dl (3.4-5.0) 12/05/17 06:30 Triglycerides 96 mg/dL (35-160) 12/05/17 06:30 Cholesterol 133 mg/dL (50-200) 12/05/17 06:30 Total LDL Cholesterol 49 mg/dL (5-100) 12/05/17 06:30 HDL Cholesterol 76 mg/dL (40-60) H 12/05/17 06:30 Vitamin B12 700 pg/ml (180-914) 12/05/17 06:30 TSH 0.57 uIU/ml (0.358-3.74) 12/05/17 06:30 INR, PTT INR 0.99 (0.82-1.09) 12/04/17 21:50 Urine Test Results Urine Color Yellow 12/05/17 15:30 Urine Appearance Clear 12/05/17 15:30 Urine pH 5.0 (5.0-8.0) 12/05/17 15:30 Ur Specific Omar 1.015 (1.001-1.035) 12/05/17 15:30 Urine Protein Negative (NEGATIVE) 12/05/17 15:30 Urine Glucose (UA) Negative (NEGATIVE) 12/05/17 15:30 Urine Ketones Trace (NEGATIVE) H 12/05/17 15:30 Urine Blood Negative (NEGATIVE) 12/05/17 15:30 Urine Nitrite Negative (NEGATIVE) 12/05/17 15:30 Urine Bilirubin Negative (NEGATIVE) 12/05/17 15:30 Ur Leukocyte Esterase Negative (NEGATIVE) 12/05/17 15:30 Imaging - Results X-ray: Report Reviewed, Image Reviewed (image personally seen - appears to be significant fecal impaction, possibly with bladder distention superimposed ( prior to CT)) Cat Scan: Image Reviewed (massive urinary retention and significant fecal impaction noted - images seen and reviewed with BEN Graves just prior to examining patient with her) EKG: Report Reviewed Problem List - Problems (1) Fecal impaction Assessment/Plan: pt able to pass first stool spontaneously, but significantly more soft, formed stool manually disimpacted by myself and BEN Graves at bedside pt admits to self-disimpacting at times at home perineal bulging resolved after vault disimpacted much softer, pasty stool reached after a while primary team will address with po dulcolax initially and repeated SENTHIL's with disimpaction as indicated at some point, soap suds enemas may help with evacuation of remaining stool would avoid mag citrate, Fleet's until JASMIN resolves could follow stool burden with AXR/KUB once no stool left in vault on SENTHIL ( could take a couple days or more) recommend incorporating motility agent(s) into pt's home bowel regimen eventually - she is on Miralax at home, which is only softener/osmotic agent consider regular use of dulcolax or senna po discussed and patient seen and examined with EBN Graves no acute surgical issues at this time will remain available and follow peripherally please call with any questions Thank you for the opportunity to participate in the care of this patient. Code(s): K56.41 - FECAL IMPACTION (2) Acute urinary retention Assessment/Plan: Valdovinos placed at bedside - 16Fr under sterile conditions by myself with [employer] Star present 2L yellow urine initial output UA and culture sent off port abdomen flattened almost entirely after placement pt reports feeling better would plan to leave Valdovinos at least 5-7 days to allow bladder to regain tone fecal impaction should be fully cleared or retention is likely to recur consider urology consultation pt might need to be discharged with Valdovinos for a time, pending clinical course Code(s): R33.8 - OTHER RETENTION OF URINE (3) Dehydration Assessment/Plan: agree with IVF resuscitation, strict I/O's monitor labs replete lytes prn Code(s): E86.0 - DEHYDRATION (4) JASMIN (acute kidney injury) Assessment/Plan: most likely prerenal and partially related to retention now with Valdovinos catheter hold home diuretic agree with continuing fluid resuscitation monitor output with strict I/O's Code(s): N17.9 - ACUTE KIDNEY FAILURE, UNSPECIFIED (5) Fall as cause of accidental injury in home as place of occurrence Assessment/Plan: pt remembers falling at home head CT and c-spine CT negative for acute injuries was down for 5 hours before being found and brought to hospital likely contributed to dehydration could still have concussion? Code(s): W19.XXXA - UNSPECIFIED FALL, INITIAL ENCOUNTER; Y92.009 - UNSP PLACE IN UNSP NON-INSTITUT (PRIVATE) RESIDENCE PLACE Qualifiers: Encounter type: initial encounter Qualified Code(s): W19.XXXA - Unspecified fall, initial encounter; Y92.009 - Unspecified place in unspecified non-institutional (private) residence as the place of occurrence of the external cause; Y92.009 - Unspecified place in unspecified non-institutional ( private) residence as the place of occurrence of the external cause (6) Encephalopathy acute Assessment/Plan: unclear if pt has recently been having symptoms of mild dementia neurology consulted head CT neg for acute injuries, bleed could still have concussion? pt confused - monitor fluid status, vitals, labs/electrolytes closely consider 1 to 1 if needed Code(s): G93.40 - ENCEPHALOPATHY, UNSPECIFIED (7) CAD (coronary artery disease) Assessment/Plan: troponin peaked, but elevated cardio consulted Code(s): I25.10 - ATHSCL HEART DISEASE OF [place] CORONARY ARTERY W/O ANG PCTRS Qualifiers: Coronary Disease-Associated Artery/Lesion type: [place] artery [place] vs. transplanted heart: [place] heart Associated angina: without angina Qualified Code(s): I25.10 - Atherosclerotic heart disease of [place] coronary artery without angina pectoris (8) HTN (hypertension) Assessment/Plan: continue home meds but would hold diuretic cardiology consulted for elevated troponins Code(s): I10 - ESSENTIAL (PRIMARY) HYPERTENSION Qualifiers: Hypertension type: essential hypertension Qualified Code(s): I10 - Essential (primary) hypertension (9) HLD (hyperlipidemia) Code(s): E78.5 - HYPERLIPIDEMIA, UNSPECIFIED Qualifiers: Hyperlipidemia type: unspecified Qualified Code(s): E78.5 - Hyperlipidemia , unspecified (10) History of breast cancer Assessment/Plan: left, on tamoxifen, s/p lumpectomy Code(s): Z85.3 - PERSONAL HISTORY OF MALIGNANT NEOPLASM OF BREAST
[2017-12-05] MEDS: SODIUM CHLORIDE 1,000 ML IV SCH (16:35)
[2017-12-05] MEDS: MEROPENEM 1 GM in DEXTROSE 5%-WATER - 100 ML IVPB SCH (16:35)
[2017-12-05 16:59] LABS: URINE APPEARANCE CLEAR; URINE BILIRUBIN NEGATIVE (NEGATIVE); URINE BLOOD NEGATIVE (NEGATIVE); URINE COLOR YELLOW; URINE GLUCOSE (UA) NEGATIVE (NEGATIVE); URINE KETONE TRACE (NEGATIVE); URINE LEUK ESTERASE NEGATIVE (NEGATIVE); URINE NITRITE NEGATIVE (NEGATIVE); URINE PROTEIN NEGATIVE (NEGATIVE); URINE UROBILINOGEN NEGATIVE mg/dL (0.2-1.0)
[2017-12-05] MEDS ORDERED: traMADol HCL 50 MG TABLET PO PRN (17:09)
[2017-12-05] MEDS ORDERED: MAG HYDROX/AL HYDROX/SIMETH 30 ML UNIT-DOSE CUP PO ONE (17:15)
--- NOTE | 2017-12-05 18:48 | CON.GI ---
Consult Consult Specialty:: Gastroeneterology Referred by:: CHRIS San Reason for Consultation:: Distended abdomen - History of Present Illness Chief Complaint: Nola is confused. Answers simple questions. Denies abdominal pain. History of Present Illness: 87F apparently told the ER staff that she fall backward striking the back of her head at home and was unable to summon help. Head CT unremarkable. She was found to have a distended abdomen and told the ER staff that she had moved her bowel one day before the fall. She admits to chronic constipation with me and denies pain but is not able to give a reliable history and does nit recognize me. She has been managed by our team for constipation and fecal impaction in the past. 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 Her brother had colon cancer ( see attached office data). CT scan revealed a fecal impaction and bladder distension leading to ureteral dilation. The abdominal distension was relieved by insertion of a Valdovinos catheter which yielded over 2 liters. - History Source History Provided By: Patient, Medical Record Limitations to Obtaining History: Other (confused) - Past Medical History Cardio/Vascular: Yes: CAD (has coronary stent), HTN, Hyperlipdemia Gastrointestinal: Yes: Constipation, Diverticulosis, GI Bleed ([place] related duodenal ulcer and cecal ulceration bleed 1996), Peptic Ulcer Disease ([place] related duodenal ulcer and cecal ulceration bleed 1996), Other (serrated cecal adenoma removed 08/14) Reproductive: Yes: Postmenopausal Musculoskeletal: Yes: Chronic low back pain (lumbar radiculopathy and disc disease, spinal stenosis), Osteoarthritis (severe degenerative) ENT: Yes: Other Additional Medical History: macular degeneration. detached retina. spinal stenosis - Past Surgical History Past Surgical History: Yes: Breast Biopsy, Cataract Removal (bilateral), Colonoscopy, Joint Replacement (right hip and bilateral knees), Mastectomy ( left lumpectomy for breast cancer), Stent (coronary stent), Tonsillectomy Additional Surgical History: exploratory laparotomy for sepsis. 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 Place of : [facility] Home Medications - Allergies Allergies/Adverse Reactions: Allergies Allergy/AdvReac Type Severity Reaction Status Date / Time Penicillins Allergy Hives Verified 12/04/17 21:05 - Home Medications Home Medications: Ambulatory Orders Aspirin Coated [Ecotrin -] 81 mg PO DAILY 12/21/11 Clopidogrel Bisulfate [Plavix -] 75 mg PO DAILY 12/21/11 Montelukast Na [Singulair -] 10 mg PO HS 12/21/11 [place]-3/Dha/Epa/Fish Oil [Fish Oil 1,000 mg Softgel] 1 tab PO DAILY 12/21/11 Tramadol HCl/Acetaminophen [Tramadol-Acetaminophn 37.5-325] 1 tab PO DAILY 03/01 Hydrochlorothiazide [Hctz] 25 mg PO DAILY 03/05/12 Atorvastatin Ca [Lipitor] 40 mg PO HS 05/22/12 Lidocaine 5% Patch [Lidoderm -] 1 each TD DAILY PRN 05/22/12 Metoprolol Succinate [Toprol XL -] 25 mg PO BID 05/22/12 Multivitamin [Multivitamins] 1 each PO DAILY 05/22/12 Pregabalin [Lyrica] 25 mg PO BID 05/22/12 Amlodipine Besylate [Norvasc -] 5 mg PO DAILY 08/16/13 Omeprazole [Prilosec (RX)] 40 mg PO DAILY 08/16/13 Polyethylene Glycol 3350 [Miralax 119 gm Btl -] 17 gm PO BID 10/03/14 Esomeprazole Mag Trihydrate [Nexium] 40 mg PO DAILY 12/16/14 Quinapril HCl [Accupril] 20 mg PO DAILY 12/16/14 Tamoxifen Citrate 20 mg PO DAILY 12/16/14 Family Disease History - Family Disease History Family Disease History: Heart Disease: Father ( [place] age 80, had ulcer), Mother ( [place] age 70), CA: Brother (colon cancer) Other Family History: aunt with breast and kidney cancer. aunt with sarcoma Review of Systems Unable to obtain ROS, reason: patient confused Physical Exam-GI Vital Signs: Vital Signs Temperature 98 F 12/05/17 08:15 Pulse Rate 75 12/05/17 08:15 Respiratory Rate 18 12/05/17 08:15 Blood Pressure 148/80 12/05/17 08:15 O2 Sat by Pulse Oximetry (%) 96 12/05/17 08:00 CBC,CMP WBC 11.1 K/mm3 (4.0-10.0) H 12/05/17 06:30 RBC 3.94 M/mm3 (3.60-5.2) 12/05/17 06:30 Hgb 11.9 GM/dL (10.7-15.3) 12/05/17 06:30 Hct 35.7 % (32.4-45.2) 12/05/17 06:30 MCV 90.6 fl (80-96) 12/05/17 06:30 MCH 30.1 pg (25.7-33.7) 12/05/17 06:30 MCHC 33.2 g/dl (32.0-36.0) 12/05/17 06:30 RDW 14.6 % (11.6-15.6) 12/05/17 06:30 Plt Count 184 K/MM3 (134-434) 12/05/17 06:30 MPV 9.9 fl (7.5-11.1) 12/05/17 06:30 Neutrophils % 86.0 % (42.8-82.8) H D 12/04/17 21:50 Lymphocytes % 7.9 % (8-40) L D 12/04/17 21:50 Monocytes % 5.3 % (3.8-10.2) 12/04/17 21:50 Eosinophils % 0.3 % (0-4.5) D 12/04/17 21:50 Basophils % 0.5 % (0-2.0) 12/04/17 21:50 Sodium 138 mmol/L (136-145) 12/05/17 06:30 Potassium 3.7 mmol/L (3.5-5.1) 12/05/17 06:30 Chloride 107 mmol/L (98-107) 12/05/17 06:30 Carbon Dioxide 19 mmol/L (21-32) L 12/05/17 06:30 Anion Gap 12 (8-16) 12/05/17 06:30 BUN 44 mg/dL (7-18) H 12/05/17 06:30 Creatinine 1.3 mg/dL (0.55-1.02) H 12/05/17 06:30 Creat Clearance w eGFR 38.93 (>60) 12/05/17 06:30 Random Glucose 77 mg/dL (74-106) 12/05/17 06:30 Lactic Acid 0.9 mmol/L (0.0-2.0) 12/05/17 13:48 Calcium 8.2 mg/dL (8.5-10.1) L 12/05/17 06:30 Phosphorus 3.7 mg/dL (2.5-4.9) 12/05/17 06:30 Magnesium 1.7 mg/dL (1.8-2.4) L 12/05/17 06:30 Total Bilirubin 0.6 mg/dL (0.2-1.0) 12/05/17 06:30 AST 26 U/L (15-37) 12/05/17 06:30 ALT 23 U/L (12-78) 12/05/17 06:30 Alkaline Phosphatase 56 U/L (45-117) 12/05/17 06:30 Creatine Kinase 288 IU/L (26-192) H 12/04/17 21:38 Creatine Kinase Index 2.4 % (0.0-5.0) 12/04/17 21:38 CK-MB (CK-2) 7.002 ng/mL (0.5-3.6) H 12/04/17 21:38 Troponin I 1.61 ng/ml (0.00-0.05) H* 12/05/17 13:25 Total Protein 6.2 g/dl (6.4-8.2) L 12/05/17 06:30 Albumin 3.6 g/dl (3.4-5.0) 12/05/17 06:30 Triglycerides 96 mg/dL (35-160) 12/05/17 06:30 Cholesterol 133 mg/dL (50-200) 12/05/17 06:30 Total LDL Cholesterol 49 mg/dL (5-100) 12/05/17 06:30 HDL Cholesterol 76 mg/dL (40-60) H 12/05/17 06:30 Vitamin B12 700 pg/ml (180-914) 12/05/17 06:30 TSH 0.57 uIU/ml (0.358-3.74) 12/05/17 06:30 Current Medications Generic Name Dose Route Start Last Admin Trade Name Jenniffer PRN Reason Stop Dose Admin Amlodipine Besylate 5 mg 12/05/17 10:00 12/05/17 10:24 Norvasc - PO 5 mg DAILY MEG Administration Aspirin 81 mg 12/05/17 10:00 12/05/17 10:24 Ecotrin - PO 81 mg DAILY MEG Administration Atorvastatin Calcium 40 mg 12/05/17 22:00 Lipitor - PO HS MEG Clopidogrel Bisulfate 75 mg 12/06/17 10:00 Plavix - PO DAILY MEG Docusate Sodium 100 mg 12/05/17 22:00 Colace - PO TID MEG Sodium Chloride 1,000 mls @ 75 mls/hr 12/05/17 12:30 12/05/17 16:35 Normal Saline - IV 75 mls/hr ASDIR MEG Administration Meropenem 1 gm/ Dextrose 100 mls @ 100 mls/hr 12/05/17 14:45 12/05/17 16:35 IVPB 100 mls/hr BID MEG Administration Protocol Metoprolol Succinate 25 mg 12/05/17 10:00 12/05/17 10:24 Toprol Xl - PO 25 mg BID MEG Administration Montelukast Sodium 10 mg 12/05/17 22:00 Singulair - PO HS MEG Pantoprazole Sodium 40 mg 12/05/17 10:00 12/05/17 10:24 Protonix - PO 40 mg DAILY MEG Administration Polyethylene Glycol 17 gm 12/05/17 22:00 Miralax (For Daily Use) - PO BID MEG Pregabalin 25 mg 12/05/17 10:00 12/05/17 10:24 Lyrica - PO 25 mg BID MEG Administration Quinapril HCl 20 mg 12/05/17 10:00 12/05/17 10:24 Accupril - PO 20 mg DAILY MEG Administration Tamoxifen Citrate 20 mg 12/05/17 10:00 12/05/17 10:23 Tamoxifen Citrate PO 20 mg DAILY MEG Administration Constitutional: Yes: No Distress, Other (confused) Eyes: Yes: Conjunctiva Clear HENT: Yes: Normocephalic Neck: Yes: Supple Cardiovascular: Yes: Regular Rate and Rhythm Respiratory: Yes: CTA Bilaterally Gastrointestinal Inspection: Yes: Distention, Scars (midline suprapubic incision ) ...Auscultate: Yes: Hypoactive Bowel Sounds ...Palpate: Yes: Soft, Other (nontender) ...Percussion: Yes: Dullness, Tympanitic ...Rectal Exam: Yes: Guaiac Negative, Hemorrhoids/External, Sphincter Tone Normal, Other (impavted with soft stool which was partially removed and then 2 mineral oil enemas administered) Edema: No Peripheral Pulses WNL: Yes Neurological: Yes: Confusion Labs: CBC, BMP 12/05/17 06:30 12/05/17 06:30 INR, PTT INR 0.99 (0.82-1.09) 12/04/17 21:50 Imaging - Results Cat Scan: Report Reviewed (Shanae Esthela Name: [facility] DEPARTMENT OF RADIOLOGY Phys: Leana Graves : 1930 Age: 87 Sex: F [facility] Acct: [id number] Loc: [address] Exam Date: 12/05/17 Status: [place] [address] Unit Number: [id number] EXAM#: TYPE/EXAM: RESULT: [id number] CT/ABDOMEN PELVIS CT W/O CONTR Indication: Rule out obstruction TECHNIQUE: Helical images of the abdomen and pelvis were obtained without contrast. FINDINGS: Liver: Negative. Gallbladder: Negative. Bile ducts: Negative. Pancreas: Unremarkable on this unenhanced study. Spleen: Calcified granuloma seen. Adrenals: Negative. Kidneys: Mild fullness of the collecting systems and ureter. No calcifications of the trajectory of the ureters seen. Aorta: Tortuous aorta. Calcified plaque. Lymph nodes: Negative. Bowel: No evidence of bowel obstruction. Foodstuff within the stomach. Small bowel loops are normal caliber. The appendix was not visualized. Diverticulosis with no evidence to suggest acute diverticulitis. Fecal impaction is identified within the rectosigmoid. Thickening of the rectum suggesting stercoral colitis. No free air/fluid identified. No drainable fluid collections are seen. Fat-containing paraumbilical hernia. Pelvis: The bladder is distended above the level of the umbilicus. No bladder stones seen. Others: Demineralization noted. Spondylotic changes are present of the spine. Discogenic disease seen. No aggressive bone lesions noted. No insufficiency fractures are present. Emphysematous changes are present at both bases with bronchiectasis. Calcified right hilar adenopathy is noted likely granulomatous in nature. IMPRESSION: Fecal impaction with stercoral colitis. Distended bladder in the of a Valdovinos. Mild dilatation of the collecting systems bilaterally likely secondary to the bladder distention. Granulomatous disease as described above. Additional comments noted above. Findings were personally informed to the nurse practitioner in charge of this patient at the time of this dictation. Reported By: Rogelio Painter MD 12/05/17 1514 Technologist: Apolinar Jesus Transcribed Date/Time: 12/05/17 1514 Clinical Nurse Reviewer: Rogelio Painter Printed Date/Time: By: Signed by: Rogelio Painter Signed on: 05-Dec-2017 15:15) Problem List - Problems (1) Fecal impaction Assessment/Plan: Although the abdominal distension appears to have been related to a markedly distended bladder she does have a large fecal impaction which requires colon lavage. I will start Miralax when she can swallow safely. This is not clear cut at present. Given her FH of colon cancer and serrated adenoma she should ideally have repeat colonoscopy to exclude an obstructing colon cancer or to remove a recurrent premalignant polyp. This decision will need to be deferred until her mental and clinical status improves. If confusion persists she will need a swallowing evaluation. Code(s): K56.41 - FECAL IMPACTION (2) Serrated adenoma of colon Code(s): D12.6 - BENIGN NEOPLASM OF COLON, UNSPECIFIED (3) Diverticulosis of colon Code(s): K57.30 - DVRTCLOS OF LG INT W/O PERFORATION OR ABSCESS W/O BLEEDING (4) Constipation Code(s): K59.00 - CONSTIPATION, UNSPECIFIED (5) Stented coronary artery Code(s): Z95.5 - PRESENCE OF CORONARY ANGIOPLASTY IMPLANT AND GRAFT
--- NOTE | 2017-12-05 18:50 | CON.CARD ---
Consult Consult Specialty:: Cardiology Referred by:: Dr. Saldivar Reason for Consultation:: Cardiac evaluation - History of Present Illness Chief Complaint: Post fall and abdominal fullness History of Present Illness: Patient is an 87 year old female with underlying history of coronary artery disease s/p PCI/stent at [facility] 10 years ago (but did not follow up with a peoplesoft according to patient), hypertension, hypercholesterolemia and breast CA post radiation therapy and possible resection of the cancer now presents after a fall in her house. She does not appear to have lost conciousness, but it is unclear as she was found confused before the event not recognizing that she was in her house. She also had some shakes in her lower extremities and fell backward hitting her head to the floor. In the hospital, head CT was performed twice and did not show any intracranial bleed. She complains of abdominal fullness and had difficulty going to the bathroom. Troponin was elevated at 1.9. She denies chest pain, shortness of breath or palpitations. She denies paroxysmal nocturnal dyspnea or orthopnea. She denies fever or chills. She denies nausea or vomiting. She denies headache or lightheadedness at this time. - History Source History Provided By: Patient, Medical Record Limitations to Obtaining History: Clinical Condition - Past Medical History FUR LINER: Yes: Dementia Cardio/Vascular: Yes: CAD, HTN Heme/Onc: Yes: Cancer (Breast CA) Musculoskeletal: Yes: Osteoarthritis Additional Medical History: macular degeneration - Past Surgical History Past Surgical History: Yes: Breast Biopsy (with left lumpectomy), Joint Replacement (hip and knee), Stent Additional Surgical History: lower midline scar - Alcohol/Substance Use Hx Alcohol Use: No - Smoking History Smoking history: Former smoker Have you smoked in the past 12 months: No If you are a former smoker, when did you quit?: Home Medications - Allergies Allergies/Adverse Reactions: Allergies Allergy/AdvReac Type Severity Reaction Status Date / Time Penicillins Allergy Hives Verified 12/04/17 21:05 - Home Medications Home Medications: Ambulatory Orders Aspirin Coated [Ecotrin -] 81 mg PO DAILY 12/21/11 Clopidogrel Bisulfate [Plavix -] 75 mg PO DAILY 12/21/11 Montelukast Na [Singulair -] 10 mg PO HS 12/21/11 [place]-3/Dha/Epa/Fish Oil [Fish Oil 1,000 mg Softgel] 1 tab PO DAILY 12/21/11 Tramadol HCl/Acetaminophen [Tramadol-Acetaminophn 37.5-325] 1 tab PO DAILY 03/01 Hydrochlorothiazide [Hctz] 25 mg PO DAILY 03/05/12 Atorvastatin Ca [Lipitor] 40 mg PO HS 05/22/12 Lidocaine 5% Patch [Lidoderm -] 1 each TD DAILY PRN 05/22/12 Metoprolol Succinate [Toprol XL -] 25 mg PO BID 05/22/12 Multivitamin [Multivitamins] 1 each PO DAILY 05/22/12 Pregabalin [Lyrica] 25 mg PO BID 05/22/12 Amlodipine Besylate [Norvasc -] 5 mg PO DAILY 08/16/13 Omeprazole [Prilosec (RX)] 40 mg PO DAILY 08/16/13 Polyethylene Glycol 3350 [Miralax 119 gm Btl -] 17 gm PO BID 10/03/14 Esomeprazole Mag Trihydrate [Nexium] 40 mg PO DAILY 12/16/14 Quinapril HCl [Accupril] 20 mg PO DAILY 12/16/14 Tamoxifen Citrate 20 mg PO DAILY 12/16/14 Review of Systems - Review of Systems Constitutional: denies: Chills, Fever Cardiovascular: denies: Chest Pain, Palpitations, Shortness of Breath Respiratory: denies: Cough, Hemoptysis, Orthopnea, PND, SOB, SOB on Exertion Gastrointestinal: reports: Abdominal Pain, Bloating, Constipation, Diarrhea. denies: Melena, Nausea, Rectal Bleeding, Vomiting Neurological: reports: Unsteady Gait, Weakness. denies: Dizziness, Headache, Seizure, Syncope Vital Signs: Vital Signs Temperature 98 F 12/05/17 08:15 Pulse Rate 75 12/05/17 08:15 Respiratory Rate 18 12/05/17 08:15 Blood Pressure 148/80 12/05/17 08:15 O2 Sat by Pulse Oximetry (%) 96 12/05/17 08:00 Neck: Yes: Supple Respiratory: Yes: Diminished Gastrointestinal: Yes: Distention. No: Tenderness Cardiovascular: Yes: Regular Rate and Rhythm JVD: No Carotid Bruit: No PMI: Non-Displaced Heart Sounds: Yes: S1, S2. No: Gallop Murmur: Yes: Systolic Murmur, Grade 1 Edema: No - Other Data Labs, Other Data: CBC, BMP 12/05/17 06:30 12/05/17 06:30 INR, PTT INR 0.99 (0.82-1.09) 12/04/17 21:50 Troponin, BNP 12/04/17 12/04/17 12/05/17 21:38 21:50 03:43 Troponin I 0.70 H* Cancelled 1.85 H* 12/05/17 12/05/17 12/05/17 06:30 08:45 13:25 Troponin I 1.90 H* Cancelled 1.61 H* Laboratory Results - last 24 hr 12/04/17 12/04/17 12/04/17 21:38 21:50 21:50 WBC 12.5 H D RBC 4.05 Hgb 12.2 Hct 36.9 MCV 91.1 MCH 30.0 MCHC 32.9 RDW 14.6 Plt Count 193 MPV 10.1 Neutrophils % 86.0 H D Lymphocytes % 7.9 L D Monocytes % 5.3 Eosinophils % 0.3 D Basophils % 0.5 PT with INR 11.20 INR 0.99 Sodium Potassium Chloride Carbon Dioxide Anion Gap BUN Creatinine Creat Clearance w eGFR Random Glucose Lactic Acid Calcium Phosphorus Magnesium Total Bilirubin AST ALT Alkaline Phosphatase Creatine Kinase 288 H Creatine Kinase Index 2.4 CK-MB (CK-2) 7.002 H Troponin I 0.70 H* Total Protein Albumin Triglycerides Cholesterol Total LDL Cholesterol HDL Cholesterol Vitamin B12 TSH Urine Color Urine Appearance Urine pH Ur Specific [place] Urine Protein Urine Glucose (UA) Urine Ketones Urine Blood Urine Nitrite Urine Bilirubin Urine Urobilinogen Ur Leukocyte Esterase Blood Type Antibody Screen 12/04/17 12/04/17 12/04/17 21:50 21:50 21:50 WBC RBC Hgb Hct MCV MCH MCHC RDW Plt Count MPV Neutrophils % Lymphocytes % Monocytes % Eosinophils % Basophils % PT with INR INR Sodium 137 Potassium 3.8 Chloride 106 Carbon Dioxide 20 L Anion Gap 11 BUN 47 H Creatinine 1.4 H Creat Clearance w eGFR 35.74 Random Glucose 110 H Lactic Acid Calcium 8.5 Phosphorus Magnesium Total Bilirubin 0.5 D AST 24 ALT 24 Alkaline Phosphatase 62 Creatine Kinase Creatine Kinase Index CK-MB (CK-2) Troponin I Cancelled Total Protein 6.7 Albumin 3.9 Triglycerides Cholesterol Total LDL Cholesterol HDL Cholesterol Vitamin B12 TSH Urine Color Urine Appearance Urine pH Ur Specific [place] Urine Protein Urine Glucose (UA) Urine Ketones Urine Blood Urine Nitrite Urine Bilirubin Urine Urobilinogen Ur Leukocyte Esterase Blood Type O NEGATIVE Antibody Screen Negative 12/05/17 12/05/17 12/05/17 03:43 06:30 06:30 WBC 11.1 H RBC 3.94 Hgb 11.9 Hct 35.7 MCV 90.6 MCH 30.1 MCHC 33.2 RDW 14.6 Plt Count 184 MPV 9.9 Neutrophils % Lymphocytes % Monocytes % Eosinophils % Basophils % PT with INR INR Sodium 138 Potassium 3.7 Chloride 107 Carbon Dioxide 19 L Anion Gap 12 BUN 44 H Creatinine 1.3 H Creat Clearance w eGFR 38.93 Random Glucose 77 Lactic Acid Calcium 8.2 L Phosphorus 3.7 Magnesium 1.7 L Total Bilirubin 0.6 AST 26 ALT 23 Alkaline Phosphatase 56 Creatine Kinase Creatine Kinase Index CK-MB (CK-2) Troponin I 1.85 H* 1.90 H* Total Protein 6.2 L Albumin 3.6 Triglycerides 96 Cholesterol 133 Total LDL Cholesterol 49 HDL Cholesterol 76 H Vitamin B12 700 TSH 0.57 Urine Color Urine Appearance Urine pH Ur Specific [place] Urine Protein Urine Glucose (UA) Urine Ketones Urine Blood Urine Nitrite Urine Bilirubin Urine Urobilinogen Ur Leukocyte Esterase Blood Type Antibody Screen 12/05/17 12/05/17 13:48 15:30 WBC RBC Hgb Hct MCV MCH MCHC RDW Plt Count MPV Neutrophils % Lymphocytes % Monocytes % Eosinophils % Basophils % PT with INR INR Sodium Potassium Chloride Carbon Dioxide Anion Gap BUN Creatinine Creat Clearance w eGFR Random Glucose Lactic Acid 0.9 Calcium Phosphorus Magnesium Total Bilirubin AST ALT Alkaline Phosphatase Creatine Kinase Creatine Kinase Index CK-MB (CK-2) Troponin I Total Protein Albumin Triglycerides Cholesterol Total LDL Cholesterol HDL Cholesterol Vitamin B12 TSH Urine Color Yellow Urine Appearance Clear Urine pH 5.0 Ur Specific [place] 1.015 Urine Protein Negative Urine Glucose (UA) Negative Urine Ketones Trace H Urine Blood Negative Urine Nitrite Negative Urine Bilirubin Negative Urine Urobilinogen Negative Ur Leukocyte Esterase Negative Blood Type Antibody Screen Sinus rhythm [place] 1 2nd degree AV block Echo: Report Reviewed Imaging - Results Chest X-ray: Report Reviewed (No infiltrates) Cat Scan: Report Reviewed (Head CT noted. Abdominal CT fecal impaction) EKG: Report Reviewed Assessment/Plan 1. Post fall with unsteady gait, doubt syncope 2. CAD s/p PCI/stent, angina pectoris, demand ischemia 3. Hypertension 4. Hypercholesterolemia 5. 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 Diastolic LV dysfunction PLAN: 1. Continue Metoprolol, Accupril and Amlodipine as tolerated 2. Continue ASA, but if stent is more than 1 year old, would discontinue Plavix 3. Continue Atorvastatin 4. Trend troponin peak 5. GI evaluation 6. Monitor neuro status 7. Fall precaution, PT 8. Echocardiography was reviewed. Further plans are to follow Art West MD
[2017-12-05] MEDS ORDERED: MINERAL OIL ENEMA 133 ML ENEMA PR ONE (19:16)
[2017-12-05] MEDS: DOCUSATE SODIUM 100 MG CAPSULE (FP) PO SCH (21:53)
[2017-12-05] MEDS: POLYETHYLENE GLYCOL 3350 119 GM BTL PO SCH (21:54)
[2017-12-05] MEDS ORDERED: MONTELUKAST NA 10 MG TABLET PO SCH (22:00)
[2017-12-05] MEDS ORDERED: ATORVASTATIN CA 40 MG TABLET (FP) PO SCH (22:00)
[2017-12-05] MEDS ORDERED: SENNOSIDES 8.6MG TABLET (FP) PO SCH ×2 (22:00)
[2017-12-06] MEDS: MEROPENEM 1 GM in DEXTROSE 5%-WATER - 100 ML IVPB SCH ×3 (00:30→21:28)
[2017-12-06] MEDS: SODIUM CHLORIDE 1,000 ML IV SCH ×3 (05:14→15:08)
[2017-12-06] MEDS: DOCUSATE SODIUM 100 MG CAPSULE (FP) PO SCH ×3 (06:08→21:28)
[2017-12-06 07:02] LABS: BASO % 0.5 % (0-2.0); EOS % 1.1 % (0-4.5); HEMATOCRIT 34.8 % (32.4-45.2); HEMOGLOBIN 11.6 GM/dL (10.7-15.3); LYMPH % 14.1 % (8-40); MCHC 33.3 g/dl (32.0-36.0); MEAN CELL VOLUME 89.9 fl (80-96); MEAN PLT VOLUME 9.8 fl (7.5-11.1); MONO % 11.7 % (3.8-10.2); NEUT % 72.6 % (42.8-82.8); PLATELET COUNT 182 K/MM3 (134-434); RBC 3.87 M/mm3 (3.60-5.2); RDW 14.3 % (11.6-15.6); WHITE BLOOD COUNT 11.5 K/mm3 (4.0-10.0)
[2017-12-06 07:24] LABS: ANION GAP 11 (8-16); BLOOD UREA NITROGEN 36 mg/dL (7-18); CALCIUM 8.5 mg/dL (8.5-10.1); CHLORIDE 110 mmol/L (98-107); CO2 22 mmol/L (21-32); CREATININE 1.2 mg/dL (0.55-1.02); GLUCOSE,RANDOM 88 mg/dL (74-106); MAGNESIUM 2.6 mg/dL (1.8-2.4); POTASSIUM 3.7 mmol/L (3.5-5.1); SODIUM 143 mmol/L (136-145)
--- NOTE | 2017-12-06 09:20 | PN ---
Progress Note, Physician History of Present Illness: Abd still distended. No further near or true syncope. - Current Medication List Current Medications: Active Medications Amlodipine Besylate (Norvasc -) 5 mg PO DAILY [facility] Last Admin: 12/05/17 10:24 Dose: 5 mg Aspirin (Ecotrin -) 81 mg PO DAILY [facility] Last Admin: 12/05/17 10:24 Dose: 81 mg Atorvastatin Calcium (Lipitor -) 40 mg PO HS [facility] Last Admin: 12/05/17 21:52 Dose: 40 mg Docusate Sodium (Colace -) 100 mg PO TID [facility] Last Admin: 12/06/17 06:08 Dose: 100 mg Sodium Chloride (Normal Saline -) 1,000 mls @ 75 mls/hr IV ASDIR [facility] Last Admin: 12/06/17 05:14 Dose: 75 mls/hr Meropenem 1 gm/ Dextrose 100 mls @ 100 mls/hr IVPB BID [facility] PRN Reason: Protocol Last Admin: 12/06/17 00:30 Dose: 100 mls/hr Metoprolol Succinate (Toprol Xl -) 25 mg PO BID [facility] Last Admin: 12/05/17 21:52 Dose: 25 mg Montelukast Sodium (Singulair -) 10 mg PO HS [facility] Last Admin: 12/05/17 21:52 Dose: 10 mg Pantoprazole Sodium (Protonix -) 40 mg PO DAILY [facility] Last Admin: 12/05/17 10:24 Dose: 40 mg Polyethylene Glycol (Miralax (For Daily Use) -) 17 gm PO BID [facility] Last Admin: 12/05/17 21:54 Dose: 17 gm Pregabalin (Lyrica -) 25 mg PO BID [facility] Last Admin: 12/05/17 21:52 Dose: 25 mg Quinapril HCl (Accupril -) 20 mg PO DAILY [facility] Last Admin: 12/05/17 10:24 Dose: 20 mg Senna (Senna -) 2 tab PO [facility] Last Admin: 12/05/17 21:52 Dose: 2 tab Tamoxifen Citrate (Tamoxifen Citrate) 20 mg PO DAILY [facility] Last Admin: 12/05/17 10:23 Dose: 20 mg - Objective Vital Signs: Vital Signs Temperature 98.7 F 12/06/17 05:38 Pulse Rate 71 12/06/17 05:38 Respiratory Rate 18 03/07/18 05:38 Blood Pressure 102/58 03/07/18 05:38 O2 Sat by Pulse Oximetry (%) 99 12/05/17 21:00 Constitutional: Yes: No Distress, Calm, Thin Neck: Yes: Supple Cardiovascular: Yes: Regular Rate and Rhythm Respiratory: Yes: Regular, Diminished Gastrointestinal: Yes: Normal Bowel Sounds, Distention Edema: No Labs: CBC, BMP 12/06/17 05:05 12/06/17 05:05 INR, PTT INR 0.99 (0.82-1.09) 12/04/17 21:50 Problem List - Problems (1) Gait disturbance Code(s): R26.9 - UNSPECIFIED ABNORMALITIES OF GAIT AND MOBILITY (2) JASMIN (acute kidney injury) Code(s): N17.9 - ACUTE KIDNEY FAILURE, UNSPECIFIED (3) Abdominal distension Code(s): R14.0 - ABDOMINAL DISTENSION (GASEOUS) (4) Acute urinary retention Code(s): R33.8 - OTHER RETENTION OF URINE (5) Bladder distension Code(s): N32.89 - OTHER SPECIFIED DISORDERS OF BLADDER (6) CAD (coronary artery disease) Code(s): I25.10 - ATHSCL HEART DISEASE OF [place] CORONARY ARTERY W/O ANG PCTRS Qualifiers: Coronary Disease-Associated Artery/Lesion type: [place] artery [place] vs. transplanted heart: [place] heart Associated angina: without angina Qualified Code(s): I25.10 - Atherosclerotic heart disease of [place] coronary artery without angina pectoris (7) Fecal impaction Code(s): K56.41 - FECAL IMPACTION (8) HLD (hyperlipidemia) Code(s): E78.5 - HYPERLIPIDEMIA, UNSPECIFIED Qualifiers: Hyperlipidemia type: unspecified Qualified Code(s): E78.5 - Hyperlipidemia , unspecified (9) HTN (hypertension) Code(s): I10 - ESSENTIAL (PRIMARY) HYPERTENSION Qualifiers: Hypertension type: essential hypertension Qualified Code(s): I10 - Essential (primary) hypertension (10) Stented coronary artery Code(s): Z95.5 - PRESENCE OF CORONARY ANGIOPLASTY IMPLANT AND GRAFT (11) Demand ischemia Code(s): I24.8 - OTHER FORMS OF ACUTE ISCHEMIC HEART DISEASE (12) Elevated troponin Code(s): R74.8 - ABNORMAL LEVELS OF OTHER SERUM ENZYMES Assessment/Plan 1. Post fall with unsteady gait, doubt syncope 2. CAD s/p PCI/stent, angina pectoris, demand ischemia 3. Hypertension 4. Hypercholesterolemia 5. 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 Urinary retention and mild bilateral hydro referable to fecal impaction PLAN: 1. Continue Metoprolol 25 bid, Accupril 20 qd and Amlodipine 5 qd as tolerated 2. Continue ASA 81 qd and have d/lanette Plavix due to remote stent 3. Continue Atorvastatin 40 qhs 4. Troponin have peaked 5. GI input noted, bowel regimen eventual colonoscopy 6. Monitor neuro status 7. Fall precaution, PT and gait training, justice 8. Echocardiography was reviewed.
--- NOTE | 2017-12-06 09:33 | CONSULT ---
Admitting History and Physical - Primary Care Physician PCP: Leana Graves - Past Medical History [employer]: Yes: Dementia Cardiovascular: Yes: CAD (has coronary stent), HTN, Hyperlipdemia Gastrointestinal: Yes: Constipation, Diverticulosis, GI Bleed (Voltaren related duodenal ulcer and cecal ulceration bleed 1996), Peptic Ulcer Disease (Voltaren related duodenal ulcer and cecal ulceration bleed 1996), Other (serrated cecal adenoma removed 08/14) Heme/Onc: Yes: Cancer (Breast CA) Musculoskeletal: Yes: Chronic low back pain (lumbar radiculopathy and disc disease, spinal stenosis), Osteoarthritis (severe degenerative) ENT: Yes: Other - Past Surgical History Past Surgical History: Yes: Breast Biopsy, Cataract Removal (bilateral), Colonoscopy, Joint Replacement (right hip and bilateral knees), Mastectomy ( left lumpectomy for breast cancer), Stent (coronary stent), Tonsillectomy - Smoking History Smoking history: Former smoker Have you smoked in the past 12 months: No If you are a former smoker, when did you quit?: 1983 - Alcohol/Substance Use Hx Alcohol Use: No (formerly had wine with dinner) - Social History ADL: Family Assistance 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
--- NOTE | 2017-12-06 09:34 | PN ---
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
[2017-12-06] MEDS: QUINAPRIL HCL 20 MG TABLET (FP) PO SCH (09:59)
[2017-12-06] MEDS: metoPROLOL SUCCINATE 25 MG TAB.SR.24H (FP) PO SCH ×2 (09:59→21:27)
[2017-12-06] MEDS: ASPIRIN COATED 81 MG TABLET.EC PO SCH (09:59)
[2017-12-06] MEDS: PREGABALIN 25 MG CAPSULE PO SCH ×2 (09:59→21:26)
[2017-12-06] MEDS: amLODIPine BESYLATE 5 MG TABLET (FP) PO SCH (09:59)
[2017-12-06] MEDS: PANTOPRAZOLE 40 MG TABLET (FP) PO SCH (09:59)
[2017-12-06] MEDS: TAMOXIFEN CITRATE 10 MG TABLET PO SCH (09:59)
[2017-12-06] MEDS: POLYETHYLENE GLYCOL 3350 119 GM BTL PO SCH ×2 (09:59→21:27)
--- NOTE | 2017-12-06 09:59 | PN ---
Progress Note, Physician Chief Complaint: Pt lying in bed in no acute distress. mental state improved from yesterday. less confused. Pt denies chest discomfort, sob, n/v. - Current Medication List Current Medications: Active Medications Amlodipine Besylate (Norvasc -) 5 mg PO DAILY [facility] Last Admin: 12/05/17 10:24 Dose: 5 mg Aspirin (Ecotrin -) 81 mg PO DAILY [facility] Last Admin: 12/05/17 10:24 Dose: 81 mg Atorvastatin Calcium (Lipitor -) 40 mg PO HS [facility] Last Admin: 12/05/17 21:52 Dose: 40 mg Docusate Sodium (Colace -) 100 mg PO TID [facility] Last Admin: 12/06/17 06:08 Dose: 100 mg Sodium Chloride (Normal Saline -) 1,000 mls @ 75 mls/hr IV ASDIR [facility] Last Admin: 12/06/17 05:14 Dose: 75 mls/hr Meropenem 1 gm/ Dextrose 100 mls @ 100 mls/hr IVPB BID [facility] PRN Reason: Protocol Last Admin: 12/06/17 00:30 Dose: 100 mls/hr Metoprolol Succinate (Toprol Xl -) 25 mg PO BID [facility] Last Admin: 12/05/17 21:52 Dose: 25 mg Montelukast Sodium (Singulair -) 10 mg PO [facility] Last Admin: 12/05/17 21:52 Dose: 10 mg Pantoprazole Sodium (Protonix -) 40 mg PO DAILY [facility] Last Admin: 12/05/17 10:24 Dose: 40 mg Polyethylene Glycol (Miralax (For Daily Use) -) 17 gm PO BID [facility] Last Admin: 12/05/17 21:54 Dose: 17 gm Pregabalin (Lyrica -) 25 mg PO BID [facility] Last Admin: 12/05/17 21:52 Dose: 25 mg Quinapril HCl (Accupril -) 20 mg PO DAILY [facility] Last Admin: 12/05/17 10:24 Dose: 20 mg Senna (Senna -) 2 tab PO [facility] Last Admin: 12/05/17 21:52 Dose: 2 tab Tamoxifen Citrate (Tamoxifen Citrate) 20 mg PO DAILY [facility] Last Admin: 12/05/17 10:23 Dose: 20 mg - Objective Vital Signs: Vital Signs Temperature 98.7 F 12/06/17 05:38 Pulse Rate 71 12/06/17 05:38 Respiratory Rate 18 12/06/17 05:38 Blood Pressure 102/58 12/06/17 05:38 O2 Sat by Pulse Oximetry (%) 99 12/05/17 21:00 Constitutional: Yes: Well Nourished, No Distress Cardiovascular: Yes: WNL, Regular Rate and Rhythm. No: Bruit, Gallop, Murmur Respiratory: Yes: WNL, Regular, CTA Bilaterally. No: Rales, Rhonchi, SOB Gastrointestinal: Yes: Normal Bowel Sounds, Soft, Distention. No: Tenderness ...Rectal Exam: Yes: Deferred (pt currently having BM) Genitourinary: Yes: Justice Present Extremities: Yes: WNL Edema: No Neurological: Yes: WNL, Alert, Oriented Psychiatric: Yes: WNL, Alert, Oriented Labs: CBC, BMP 12/06/17 05:05 12/06/17 05:05 INR, PTT INR 0.99 (0.82-1.09) 12/04/17 21:50 - ....Imaging X-ray: Pending Problem List - Problems (1) Dehydration Code(s): E86.0 - DEHYDRATION (2) Fecal impaction Code(s): K56.41 - FECAL IMPACTION (3) Bladder distension Code(s): N32.89 - OTHER SPECIFIED DISORDERS OF [place] (4) Acute metabolic encephalopathy Code(s): G93.41 - METABOLIC ENCEPHALOPATHY (5) Elevated troponin Code(s): R74.8 - ABNORMAL LEVELS OF OTHER SERUM ENZYMES (6) JASMIN (acute kidney injury) Code(s): N17.9 - ACUTE KIDNEY FAILURE, UNSPECIFIED (7) Abdominal distension Code(s): R14.0 - ABDOMINAL DISTENSION (GASEOUS) (8) Fall Code(s): W19.XXXA - UNSPECIFIED FALL, INITIAL ENCOUNTER Qualifiers: Encounter type: initial encounter Qualified Code(s): W19.XXXA - Unspecified fall, initial encounter (9) HTN (hypertension) Code(s): I10 - ESSENTIAL (PRIMARY) HYPERTENSION Qualifiers: Hypertension type: essential hypertension Qualified Code(s): I10 - Essential (primary) hypertension (10) HLD (hyperlipidemia) Code(s): E78.5 - HYPERLIPIDEMIA, UNSPECIFIED Qualifiers: Hyperlipidemia type: unspecified Qualified Code(s): E78.5 - Hyperlipidemia , unspecified (11) CAD (coronary artery disease) Code(s): I25.10 - ATHSCL HEART DISEASE OF [place] CORONARY ARTERY W/O ANG PCTRS Qualifiers: Coronary Disease-Associated Artery/Lesion type: [place] artery [place] vs. transplanted heart: [place] heart Associated angina: without angina Qualified Code(s): I25.10 - Atherosclerotic heart disease of [place] coronary artery without angina pectoris (12) Osteoarthritis Code(s): M19.90 - UNSPECIFIED OSTEOARTHRITIS, UNSPECIFIED SITE Qualifiers: Osteoarthritis location: knee Osteoarthritis type: primary Laterality: bilateral Qualified Code(s): M17.0 - Bilateral primary osteoarthritis of knee (13) History of total bilateral knee replacement (TKR) Code(s): Z96.653 - PRESENCE OF ARTIFICIAL KNEE JOINT, BILATERAL (14) History of breast cancer Code(s): Z85.3 - PERSONAL HISTORY OF MALIGNANT NEOPLASM OF BREAST (15) History of right hip replacement Code(s): Z96.641 - PRESENCE OF RIGHT ARTIFICIAL HIP JOINT (16) Spinal stenosis Code(s): M48.00 - SPINAL STENOSIS, SITE UNSPECIFIED Qualifiers: Spinal region: cervical Qualified Code(s): M48.02 - Spinal stenosis, cervical region (17) Constipation Code(s): K59.00 - CONSTIPATION, UNSPECIFIED (18) Serrated adenoma of colon Code(s): D12.6 - BENIGN NEOPLASM OF COLON, UNSPECIFIED Assessment/Plan (1) Dehydration Assessment/Plan: improved NS 75mL/hr encourage po intake Code(s): E86.0 - DEHYDRATION (2) Fecal impaction Assessment/Plan: CT w/ fecal impaction with stercoral colitis repeat abd xray pending disimpacted at bedside yesterday miralax, colace GI following will monitor Code(s): K56.41 - FECAL IMPACTION (3) Abdominal distension Assessment/Plan: secondary to fecal impaction improved, still distended, but soft upon palpation Abd/pelvis CT fecal impaction with stercoral colitis lactic acid level wnl mild leukocytosis, possibly due to dehydration disimpacted yesterday Miralax, colace, dulcolax IVF GI/Surgery/ID consult appreciated Code(s): R14.0 - ABDOMINAL DISTENSION (GASEOUS) (4) Bladder distension Assessment/Plan: justice in place s/p acute urinary retention/distention urology consult appreciated keep justice until resolution of fecal impaction will monitor Code(s): N32.89 - OTHER SPECIFIED DISORDERS OF [place] (5) Acute metabolic encephalopathy Assessment/Plan: improved UA neg/ UC pending chest xray without sig changes ertapenem per ID ID consult appreciated neuro consult pending Code(s): G93.41 - METABOLIC ENCEPHALOPATHY (6) Elevated troponin Assessment/Plan: elevated,trending down carotid us reviewed, eca occlusion echo, mild dis dysfunction, pEF ekg mobits 1, no changes ok to d/c tele per cardiology cardiology following Code(s): R74.8 - ABNORMAL LEVELS OF OTHER SERUM ENZYMES (7) JASMIN (acute kidney injury) Assessment/Plan: secondary to prerenal improving IVF monitor renal function Code(s): N17.9 - ACUTE KIDNEY FAILURE, UNSPECIFIED (8) Fall Assessment/Plan: s/p fall at home with trauma to head repeat head CT neg PT cardiology consult appreciated Code(s): W19.XXXA - UNSPECIFIED FALL, INITIAL ENCOUNTER Qualifiers: Encounter type: initial encounter Qualified Code(s): W19.XXXA - Unspecified fall, initial encounter (9) HTN (hypertension) Assessment/Plan: stable continue home meds hold hct in the setting of dehydration Code(s): I10 - ESSENTIAL (PRIMARY) HYPERTENSION Qualifiers: Hypertension type: essential hypertension Qualified Code(s): I10 - Essential (primary) hypertension (10) HLD (hyperlipidemia) Assessment/Plan: stable continue atorvastatin Code(s): E78.5 - HYPERLIPIDEMIA, UNSPECIFIED Qualifiers: Hyperlipidemia type: unspecified Qualified Code(s): E78.5 - Hyperlipidemia , unspecified (11) CAD (coronary artery disease) Assessment/Plan: s/p GLEN LAD, 2006 continue aspirin plavix d/c'd per cardiology recs Code(s): I25.10 - ATHSCL HEART DISEASE OF [place] CORONARY ARTERY W/O ANG PCTRS Qualifiers: Coronary Disease-Associated Artery/Lesion type: [place] artery [place] vs. transplanted heart: [place] heart Associated angina: without angina Qualified Code(s): I25.10 - Atherosclerotic heart disease of [place] coronary artery without angina pectoris (12) Osteoarthritis Assessment/Plan: back, b/l knees continue PT Code(s): M19.90 - UNSPECIFIED OSTEOARTHRITIS, UNSPECIFIED SITE Qualifiers: Osteoarthritis location: knee Osteoarthritis type: primary Laterality: bilateral Qualified Code(s): M17.0 - Bilateral primary osteoarthritis of knee (13) History of total bilateral knee replacement (TKR) Assessment/Plan: s/p b/l tkr in 2009 Code(s): Z96.653 - PRESENCE OF ARTIFICIAL KNEE JOINT, BILATERAL (14) History of breast cancer Assessment/Plan: s/p left partial mastectomy/radiation on tamoxifen Code(s): Z85.3 - PERSONAL HISTORY OF MALIGNANT NEOPLASM OF BREAST (15) History of right hip replacement Assessment/Plan: s/p r hip replacement, 1995 Code(s): Z96.641 - PRESENCE OF RIGHT ARTIFICIAL HIP JOINT (16) Spinal stenosis Assessment/Plan: moderate, c5-6,c6-7 followed by outpt Code(s): M48.00 - SPINAL STENOSIS, SITE UNSPECIFIED Qualifiers: Spinal region: cervical Qualified Code(s): M48.02 - Spinal stenosis, cervical region
[2017-12-06] MEDS ORDERED: CLOPIDOGREL BISULFATE 75 MG TABLET (FP) PO SCH (10:00)
--- NOTE | 2017-12-06 11:19 | CONSULT ---
Admitting History and Physical - Primary Care Physician PCP: Leana Graves - Admission History of Present Illness: Reported to be less confused than yesterday. Forgetful. 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 Cardiovascular: Yes: CAD (has coronary stent), HTN, Hyperlipdemia Gastrointestinal: Yes: Constipation, Diverticulosis, GI Bleed ([place] related duodenal ulcer and cecal ulceration bleed 1996), Peptic Ulcer Disease ([place] related duodenal ulcer and cecal ulceration bleed 1996), Other (serrated cecal adenoma removed 08/14) Heme/Onc: Yes: Cancer (Breast CA) Musculoskeletal: Yes: Chronic low back pain (lumbar radiculopathy and disc disease, spinal stenosis), Osteoarthritis (severe degenerative) ENT: Yes: Other - Past Surgical History Past Surgical History: Yes: Breast Biopsy, Cataract Removal (bilateral), Colonoscopy, Joint Replacement (right hip and bilateral knees), Mastectomy ( left lumpectomy for breast cancer), Stent (coronary stent), Tonsillectomy - Smoking History Smoking history: Former smoker Have you smoked in the past 12 months: No If you are a former smoker, when did you quit?: 1983 - Alcohol/Substance Use Hx Alcohol Use: No (formerly had wine with dinner) - Social History ADL: Family Assistance 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 History - Admission Reason For Visit: ELEVATED TROPIN LEVEL - Diagnostics X-ray: Report Reviewed CT Scan: Report Reviewed - General Mental Status: Alert and Oriented (grossly oriented, but corrects herself eg 80 for year.), Awake and Alert, Able to Follow Commands, Forgetful Attention: Intact Ability to Follow Directions: Good Head/Neck Control: Good - Hearing Hearing: Functional Speech Evaluation - Communication Primary Language: DANISH Communication: Yes: Within Normal Limits, Simple Responses - Speech Characteristics Voice Loudness: Normal Voice Pitch: Yes: Normal Voice Phonatory-based Quality: Yes: Normal Speech Pattern: Normal Speech Clarity: < 100% Nasal Resonance: Normal Articulation: Yes: Precise Rate of Speech: Intact - Language/Verbal Expression Able to Respond to Simple Queries: Yes: WNL Able to Communicate Wants and Needs: Yes: WNL Functional Communication Status: Yes: WNL - Swallow Evaluation/Bedside Assessment Current Nutritional Intake: Regular, Thin Liquids Oral Secretions: Yes: WFL Dentition: Yes: Adequate Facial Symmetry at Rest: Symmetrical Facial Symmetry on Retraction: Symmetrical Facial Movement: Controlled Sensation: Normal Against Resistance Opening: Normal Against Resistance Closing: Normal Pucker Lips: Normal Smile: Normal Lingual Movement: Normal, Symmetric Lingual Speed of Movement: Normal Lingual Movement Strgth Against Opposition: Normal Lingual Movement Characteristics: Normal Velopharyngeal Movement: Normal Laryngeal Elevation: WFL Laryngeal Movement: Able to Palpate Rate of Intake: WFL Bolus Size: WFL Labial Seal: WFL Chewing: WFL Oral Prep Time: WFL A-P Transit: WFL Pocketing: None Timing of Swallow: WFL Coughing/Throat Clear: No Change in Voice: No Recommendations - Speech Evaluation, Impression/Plan Impression: Confused, vague, forgetful. Grossly oriented. Verbal. Swallowing overtly intact. - Disposition Discharge to: To be Determined - Dysphagia Impressions/Plan Swallowing Skills: [facility] Dysphagia Impressions: No Impairment *Silent aspiration: cannot be R/O at bedside Recommendations: Modified Barium Swallow (monitor for signs of dysphagia.) - Recommendations Diet Consistency: Regular Medication Administration: Whole with water Liquids: Thin Liquids
--- NOTE | 2017-12-06 11:19 | CON.GU ---
Consult Consult Specialty:: Referred by:: Medicine Reason for Consultation:: hydronephrosis - History of Present Illness Chief Complaint: hydronephrosis History of Present Illness: 87 year old female admitted after a fall.. CT scan reveals hydronephrosis and fecal retention. 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 detached retina. spinal stenosis - Past Surgical History Past Surgical History: Yes: Breast Biopsy, Cataract Removal (bilateral), Colonoscopy, Joint Replacement (right hip and bilateral knees), Mastectomy ( left lumpectomy for breast cancer), Stent (coronary stent), Tonsillectomy Additional Surgical History: exploratory laparotomy for sepsis. 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 Home Medications - Allergies Allergies/Adverse Reactions: Allergies Allergy/AdvReac Type Severity Reaction Status Date / Time Penicillins Allergy Hives Verified 12/04/17 21:05 - Home Medications Home Medications: Ambulatory Orders Aspirin Coated [Ecotrin -] 81 mg PO DAILY 12/21/11 Clopidogrel Bisulfate [Plavix -] 75 mg PO DAILY 12/21/11 Montelukast Na [Singulair -] 10 mg PO HS 12/21/11 [place]-3/Dha/Epa/Fish Oil [Fish Oil 1,000 mg Softgel] 1 tab PO DAILY 12/21/11 Tramadol HCl/Acetaminophen [Tramadol-Acetaminophn 37.5-325] 1 tab PO DAILY 03/01 Hydrochlorothiazide [Hctz] 25 mg PO DAILY 03/05/12 Atorvastatin Ca [Lipitor] 40 mg PO HS 05/22/12 Lidocaine 5% Patch [Lidoderm -] 1 each TD DAILY PRN 05/22/12 Metoprolol Succinate [Toprol XL -] 25 mg PO BID 05/22/12 Multivitamin [Multivitamins] 1 each PO DAILY 05/22/12 Pregabalin [Lyrica] 25 mg PO BID 05/22/12 Amlodipine Besylate [Norvasc -] 5 mg PO DAILY 08/16/13 Omeprazole [Prilosec (RX)] 40 mg PO DAILY 08/16/13 Polyethylene Glycol 3350 [Miralax 119 gm Btl -] 17 gm PO BID 10/03/14 Esomeprazole Mag Trihydrate [Nexium] 40 mg PO DAILY 12/16/14 Quinapril HCl [Accupril] 20 mg PO DAILY 12/16/14 Tamoxifen Citrate 20 mg PO DAILY 12/16/14 Family Disease History - Family Disease History Family Disease History: Heart Disease: Father ( [place] age 80, had ulcer), Mother ( [place] age 70), [place]: Brother (colon cancer) Other Family History: aunt with breast and kidney cancer. aunt with sarcoma Review of Systems - Review of Systems Genitourinary: reports: No Symptoms Physical Exam- Vital Signs: Vital Signs Temperature 98.1 F 12/06/17 08:00 Pulse Rate 74 12/06/17 08:00 Respiratory Rate 18 12/06/17 08:00 Blood Pressure 129/59 12/06/17 08:00 O2 Sat by Pulse Oximetry (%) 99 12/05/17 21:00 Constitutional: Yes: Well Nourished, No Distress, Calm Renal/: Yes: Justice Present. No: CVA Tenderness - Left, CVA Tenderness - Right , Hematuria Kidneys: No: Flank Pain Left, FLank Pain Right Labs: CBC, BMP 12/06/17 05:05 12/06/17 05:05 Imaging - Results Cat Scan: Report Reviewed Problem List - Problems (1) Urinary retention Assessment/Plan: Patient with mild bilateral hydro secondary to urinary retention. Maintain justice for now until she is fecally disimpacted. Code(s): R33.9 - RETENTION OF URINE, UNSPECIFIED (2) Fecal impaction Assessment/Plan: urinary retention secondary to fecal impaction. Disimpaction recommended., Code(s): K56.41 - FECAL IMPACTION
[2017-12-06] MEDS ORDERED: SENNOSIDES 8.6MG TABLET (FP) PO ONE (13:23)
[2017-12-06] MEDS ORDERED: MAG HYDROX/AL HYDROX/SIMETH 30 ML UNIT-DOSE CUP PO ONE (13:23)
--- NOTE | 2017-12-06 13:39 | PN ---
GI Progress Note Subjective: GI NOte: Jeannette has been having BMs after disempaction and enemas. More alert today. Denies pain. Does not recognize me. - Objective Vital Signs: Vital Signs Temperature 98.1 F 12/06/17 08:00 Pulse Rate 74 12/06/17 08:00 Respiratory Rate 16 12/06/17 08:00 Blood Pressure 129/59 12/06/17 08:00 O2 Sat by Pulse Oximetry (%) 98 12/06/17 08:00 Laboratory Tests 12/04/17 12/06/17 12/06/17 21:50 05:05 05:05 Hgb 12.2 11.6 BUN 36 H Creatinine 1.2 H Constitutional: No Distress Gastrointestinal Inspection: Yes: Distention ...Auscultate: Yes: Normoactive Bowel Sounds ...Palpate: Yes: Soft, Other (nontender) ...Percussion: Yes: Tympanitic Labs: CBC, BMP 12/06/17 05:05 12/06/17 05:05 INR, PTT INR 0.99 (0.82-1.09) 12/04/17 21:50 Problem List - Problems (1) Fecal impaction Assessment/Plan: Fecal impaction being relieved. I will start Miralax TID as she has been swallowing well according to nursing staff. Her mental status remains altered. Await neurology consultation. Code(s): K56.41 - FECAL IMPACTION (2) Serrated adenoma of colon Code(s): D12.6 - BENIGN NEOPLASM OF COLON, UNSPECIFIED (3) Diverticulosis of colon Code(s): K57.30 - DVRTCLOS OF LG INT W/O PERFORATION OR ABSCESS W/O BLEEDING (4) Constipation Code(s): K59.00 - CONSTIPATION, UNSPECIFIED (5) Stented coronary artery Code(s): Z95.5 - PRESENCE OF CORONARY ANGIOPLASTY IMPLANT AND GRAFT
--- NOTE | 2017-12-06 16:42 | PN ---
Progress Note, Physician History of Present Illness: doing well findings noted patient had a large amount of fecal impaction also noted was urinary retention which was relieved patient starting to feel better abd more softer - Current Medication List Current Medications: Active Medications Amlodipine Besylate (Norvasc -) 5 mg PO DAILY [facility] Aspirin (Ecotrin -) 81 mg PO DAILY [facility] Atorvastatin Calcium (Lipitor -) 40 mg PO HS [facility] Docusate Sodium (Colace -) 100 mg PO TID [facility] Last Admin: 12/06/17 14:33 Dose: 100 mg Meropenem 1 gm/ Dextrose 100 mls @ 100 mls/hr IVPB BID [facility] PRN Reason: Protocol Sodium Chloride (Normal Saline -) 1,000 mls @ 75 mls/hr IV ASDIR [facility] Last Admin: 12/06/17 14:33 Dose: 75 mls/hr Metoprolol Succinate (Toprol Xl -) 25 mg PO BID [facility] Montelukast Sodium (Singulair -) 10 mg PO HS [facility] Pantoprazole Sodium (Protonix -) 40 mg PO DAILY [facility] Polyethylene Glycol (Miralax (For Daily Use) -) 17 gm PO BID [facility] Pregabalin (Lyrica -) 25 mg PO BID [facility] Quinapril HCl (Accupril -) 20 mg PO DAILY [facility] Senna (Senna -) 2 tab PO HS [facility] Tamoxifen Citrate (Tamoxifen Citrate) 20 mg PO DAILY [facility] - Objective Vital Signs: Vital Signs Temperature 97.4 F L 12/06/17 14:03 Pulse Rate 83 12/06/17 14:03 Respiratory Rate 20 12/06/17 14:03 Blood Pressure 116/55 12/06/17 14:03 O2 Sat by Pulse Oximetry (%) 98 12/06/17 08:00 Constitutional: Yes: No Distress, Calm Cardiovascular: Yes: Regular Rate and Rhythm Respiratory: Yes: Regular, CTA Bilaterally Gastrointestinal: Yes: Soft, Hypoactive Bowel Sounds Genitourinary: Yes: [place] Present Musculoskeletal: Yes: WNL Extremities: Yes: WNL Neurological: Yes: Alert, Oriented Psychiatric: Yes: Alert, Oriented Labs: CBC, BMP 12/06/17 05:05 12/06/17 05:05 INR, PTT INR 0.99 (0.82-1.09) 12/04/17 21:50 Assessment/Plan after evaluating the patient and looking at the abd xray patient has developed intestinal obstruction which could be mainly due to fecal impaction as well could ahve other process going on she has no gas seen in the rectum Problem List - Problems (1) Fecal impaction Thank you for the opportunity to participate in the care of this patient. Code(s): K56.41 - FECAL IMPACTION (2) Acute urinary retention Code(s): R33.8 - OTHER RETENTION OF URINE (3) Dehydration Code(s): E86.0 - DEHYDRATION (4) JASMIN (acute kidney injury) Code(s): N17.9 - ACUTE KIDNEY FAILURE, UNSPECIFIED (5) Fall as cause of accidental injury in home as place of occurrence Code(s): W19.XXXA - UNSPECIFIED FALL, INITIAL ENCOUNTER; Y92.009 - UNSP PLACE IN UNSP NON-INSTITUT (PRIVATE) RESIDENCE PLACE Qualifiers: Encounter type: initial encounter Qualified Code(s): W19.XXXA - Unspecified fall, initial encounter; Y92.009 - Unspecified place in unspecified non-institutional (private) residence as the place of occurrence of the external cause; Y92.009 - Unspecified place in unspecified non-institutional ( private) residence as the place of occurrence of the external cause (6) Encephalopathy acute Code(s): G93.40 - ENCEPHALOPATHY, UNSPECIFIED (7) CAD (coronary artery disease) Code(s): I25.10 - ATHSCL HEART DISEASE OF [place] CORONARY ARTERY W/O ANG PCTRS Qualifiers: Coronary Disease-Associated Artery/Lesion type: [place] artery [place] vs. transplanted heart: [place] heart Associated angina: without angina Qualified Code(s): I25.10 - Atherosclerotic heart disease of [place] coronary artery without angina pectoris (8) HTN (hypertension) Code(s): I10 - ESSENTIAL (PRIMARY) HYPERTENSION Qualifiers: Hypertension type: essential hypertension Qualified Code(s): I10 - Essential (primary) hypertension (9) HLD (hyperlipidemia) Code(s): E78.5 - HYPERLIPIDEMIA, UNSPECIFIED Qualifiers: Hyperlipidemia type: unspecified Qualified Code(s): E78.5 - Hyperlipidemia , unspecified (10) History of breast cancer Code(s): Z85.3 - PERSONAL HISTORY OF MALIGNANT NEOPLASM OF BREAST plan continue abx urine cx noted if patient continues to have bowel movement will stop abx tomorrow rest as per gi and gu
--- NOTE | 2017-12-06 19:05 | CONSULT ---
Consult - text type - Consultation Consultation Note: NEUROLOGY CONSULTATION is greatly appreciated: This 87 yo RH s woman lives alone with a HH Aide 2 hrs M-F and a Nephew who frequently visits and helps with shopping. PMH sig for HTN, Chol, COPD, GERD and Breast Ca, on multiple meds. Severe OA- s/p R THR 1998 and B/L TKR in 2009. She never walked well after the knee surgery and, in fact, has had progressive gait deterioration since that time. Has "many walkers" but still prefers to use "2 canes." Seen by me in evaluation of falling 07/18/15. Since then, progressive loss of bowel and bladder continence. Using 2 canes her legs became wobbly and she fell at home on 12/04 at 10 AM and couldn't get up until a neighbor brought her mail at 3:[address] of head (reviewed): Mild-mod atrophy without CVA's. MRI of Cervical spine (09/23/16): Severe spondylosis with degerative fusion at C5C6 with retrolithiasis and severe cord displacement/compression MRI of LS spine (11/28/15): Severe, multilevel, DJD with scoliosis and moderate spinal stenosis at many levels EXAM: No bruits, no head trauma. reduced neck ROM NEURO: Awake alert, mild OMS Fluent speech Slight stare and masked facies. Otherwise normal CN's and gag No drift. Normal strength except mild Left ankle dorsiflexion weakness. Areflexic in legs. B/L [place]. No FTN dystaxia Decreased vibration both legs to the knees. Gait, frozen and retropulsive. 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 This also explains bowel and bladder incontinence SUGGEST: Check B12 Update MRI of C and LS spines if desired. Neurosurgical opinion if desired. PT for gait with Walker (Pt is NOT stable with two canes). printing services coordinator to expand home care. Thank you very much, Roger Adan MD
[2017-12-06] MEDS: MONTELUKAST NA 10 MG TABLET PO SCH (21:26)
[2017-12-06] MEDS: SENNOSIDES 8.6MG TABLET (FP) PO SCH (21:27)
[2017-12-06] MEDS: ATORVASTATIN CA 40 MG TABLET (FP) PO SCH (21:27)
[2017-12-06] MEDS ORDERED: PT OWN MED DRAWER 7, Y5N ONE (22:18)
[2017-12-07] MEDS: SODIUM CHLORIDE 1,000 ML IV SCH (05:52)
[2017-12-07] MEDS: DOCUSATE SODIUM 100 MG CAPSULE (FP) PO SCH ×3 (05:53→21:32)
[2017-12-07 07:54] LABS: BASO % 0.3 % (0-2.0); EOS % 0.5 % (0-4.5); HEMATOCRIT 32.8 % (32.4-45.2); HEMOGLOBIN 11.2 GM/dL (10.7-15.3); LYMPH % 9.9 % (8-40); MCH 30.7 pg (25.7-33.7); MCHC 34.3 g/dl (32.0-36.0); MEAN CELL VOLUME 89.6 fl (80-96); MEAN PLT VOLUME 9.8 fl (7.5-11.1); MONO % 8.4 % (3.8-10.2); NEUT % 80.9 % (42.8-82.8); PLATELET COUNT 166 K/MM3 (134-434); RBC 3.66 M/mm3 (3.60-5.2); RDW 14.2 % (11.6-15.6)
[2017-12-07 08:18] LABS: ALBUMIN 2.7 g/dl (3.4-5.0); ANION GAP 12 (8-16); BLOOD UREA NITROGEN 20 mg/dL (7-18); CALCIUM 7.5 mg/dL (8.5-10.1); CHLORIDE 114 mmol/L (98-107); CO2 20 mmol/L (21-32); GLUCOSE,RANDOM 90 mg/dL (74-106); MAGNESIUM 1.8 mg/dL (1.8-2.4); PHOSPHOROUS 1.6 mg/dL (2.5-4.9); SGOT/AST 23 U/L (15-37); SODIUM 146 mmol/L (136-145)
[2017-12-07 08:46] LABS: ALK PHOS 47 U/L (45-117); BILIRUBIN,TOTAL 0.7 mg/dL (0.2-1.0); CREATININE 0.8 mg/dL (0.55-1.02); SGPT/ALT 20 U/L (12-78); TOT PROT 5.2 g/dl (6.4-8.2)
[2017-12-07 08:52] LABS: POTASSIUM 2.9 mmol/L (3.5-5.1)
[2017-12-07] MEDS ORDERED: POTASSIUM CHLORIDE TABS 20 MEQ TABLET.ER (FP) PO ONE (09:45)
[2017-12-07] MEDS ORDERED: MAGNESIUM SULF 50% (8.12 MEQ/2 ML-1 GM VIAL) IVPB ONE (09:45)
[2017-12-07] MEDS ORDERED: PT OWN MED DRAWER 7, Y5N ONE (09:57)
[2017-12-07] MEDS ORDERED: traMADol HCL 50 MG TABLET PO PRN (10:01)
[2017-12-07] MEDS: PREGABALIN 25 MG CAPSULE PO SCH ×2 (11:01→21:32)
[2017-12-07] MEDS: metoPROLOL SUCCINATE 25 MG TAB.SR.24H (FP) PO SCH ×2 (11:02→21:32)
[2017-12-07] MEDS: PANTOPRAZOLE 40 MG TABLET (FP) PO SCH (11:02)
[2017-12-07] MEDS: ASPIRIN COATED 81 MG TABLET.EC PO SCH (11:02)
[2017-12-07] MEDS: amLODIPine BESYLATE 5 MG TABLET (FP) PO SCH (11:04)
[2017-12-07] MEDS: QUINAPRIL HCL 20 MG TABLET (FP) PO SCH (11:04)
[2017-12-07] MEDS: TAMOXIFEN CITRATE 10 MG TABLET PO SCH (11:04)
[2017-12-07] MEDS: MEROPENEM 1 GM in DEXTROSE 5%-WATER - 100 ML IVPB SCH (11:05)
[2017-12-07] MEDS: POTASSIUM CHLORIDE 10 MEQ in SODIUM CHLORIDE 100 ML IVPB SCH ×3 (11:08→16:00)
[2017-12-07] MEDS: POLYETHYLENE GLYCOL 3350 119 GM BTL PO SCH ×3 (11:13→21:31)
--- NOTE | 2017-12-07 11:34 | PN ---
Progress Note, Physician Chief Complaint: Pt lying in bed in no acute distress. mental state improved from yesterday. Pt denies chest discomfort, sob, n/v. - Current Medication List Current Medications: Active Medications Acetaminophen (Tylenol -) 650 mg PO Q6H PRN PRN Reason: PAIN LEVEL 4 - 6 Amlodipine Besylate (Norvasc -) 5 mg PO DAILY [facility] Last Admin: 12/07/17 11:04 Dose: 5 mg Aspirin (Ecotrin -) 81 mg PO DAILY [facility] Last Admin: 12/07/17 11:02 Dose: 81 mg Atorvastatin Calcium (Lipitor -) 40 mg PO HS [facility] Last Admin: 12/06/17 21:27 Dose: 40 mg Docusate Sodium (Colace -) 100 mg PO TID [facility] Last Admin: 12/07/17 05:53 Dose: 100 mg Meropenem 1 gm/ Dextrose 100 mls @ 100 mls/hr IVPB BID [facility] PRN Reason: Protocol Last Admin: 12/07/17 11:05 Dose: 100 mls/hr Potassium Chloride 10 meq/ (Sodium Chloride) 105 mls @ 100 mls/hr IVPB Q60M [facility] Stop: 12/07/17 12:59 Last Admin: 12/07/17 11:08 Dose: 100 mls/hr Metoprolol Succinate (Toprol Xl -) 25 mg PO BID [facility] Last Admin: 12/07/17 11:02 Dose: 25 mg Montelukast Sodium (Singulair -) 10 mg PO HS [facility] Last Admin: 12/06/17 21:26 Dose: 10 mg Pantoprazole Sodium (Protonix -) 40 mg PO DAILY [facility] Last Admin: 12/07/17 11:02 Dose: 40 mg Polyethylene Glycol (Miralax (For Daily Use) -) 17 gm PO BID [facility] Last Admin: 12/06/17 21:27 Dose: 17 gm Pregabalin (Lyrica -) 25 mg PO BID [facility] Last Admin: 12/07/17 11:01 Dose: 25 mg Quinapril HCl (Accupril -) 20 mg PO DAILY [facility] Last Admin: 12/07/17 11:04 Dose: 20 mg Senna (Senna -) 2 tab PO HS [facility] Last Admin: 12/06/17 21:27 Dose: 2 tab Tamoxifen Citrate (Tamoxifen Citrate) 20 mg PO DAILY [facility] Last Admin: 12/07/17 11:04 Dose: 20 mg Tramadol HCl (Ultram -) 50 mg PO Q8H PRN PRN Reason: PAIN LEVEL 7 - 10 - Objective Vital Signs: Vital Signs Temperature 98.4 F 12/07/17 06:00 Pulse Rate 82 12/07/17 06:00 Respiratory Rate 20 12/07/17 06:00 Blood Pressure 130/73 12/07/17 06:00 O2 Sat by Pulse Oximetry (%) 97 12/06/17 21:00 Constitutional: Yes: Well Nourished Cardiovascular: Yes: Regular Rate and Rhythm. No: Gallop, Murmur, Rub Respiratory: Yes: Regular, Diminished, Rales (bibasilar) Gastrointestinal: Yes: Normal Bowel Sounds, Soft, Distention. No: Tenderness Genitourinary: Yes: [place] Present Extremities: Yes: WNL Edema: No Neurological: Yes: WNL, Alert, Oriented, Other (intermittent confusion) Psychiatric: Yes: WNL, Alert Labs: CBC, BMP 12/07/17 07:00 12/07/17 07:00 INR, PTT INR 0.99 (0.82-1.09) 12/04/17 21:50 Problem List - Problems (1) Dehydration Code(s): E86.0 - DEHYDRATION (2) Fecal impaction Code(s): K56.41 - FECAL IMPACTION (3) Bladder distension Code(s): N32.89 - OTHER SPECIFIED DISORDERS OF [place] (4) Acute metabolic encephalopathy Code(s): G93.41 - METABOLIC ENCEPHALOPATHY (5) Elevated troponin Code(s): R74.8 - ABNORMAL LEVELS OF OTHER SERUM ENZYMES (6) JASMIN (acute kidney injury) Code(s): N17.9 - ACUTE KIDNEY FAILURE, UNSPECIFIED (7) Abdominal distension Code(s): R14.0 - ABDOMINAL DISTENSION (GASEOUS) (8) Fall Code(s): W19.XXXA - UNSPECIFIED FALL, INITIAL ENCOUNTER Qualifiers: Encounter type: initial encounter Qualified Code(s): W19.XXXA - Unspecified fall, initial encounter (9) HTN (hypertension) Code(s): I10 - ESSENTIAL (PRIMARY) HYPERTENSION Qualifiers: Hypertension type: essential hypertension Qualified Code(s): I10 - Essential (primary) hypertension (10) HLD (hyperlipidemia) Code(s): E78.5 - HYPERLIPIDEMIA, UNSPECIFIED Qualifiers: Hyperlipidemia type: unspecified Qualified Code(s): E78.5 - Hyperlipidemia , unspecified (11) CAD (coronary artery disease) Code(s): I25.10 - ATHSCL HEART DISEASE OF [place] CORONARY ARTERY W/O ANG PCTRS Qualifiers: Coronary Disease-Associated Artery/Lesion type: [place] artery [place] vs. transplanted heart: [place] heart Associated angina: without angina Qualified Code(s): I25.10 - Atherosclerotic heart disease of [place] coronary artery without angina pectoris (12) Osteoarthritis Code(s): M19.90 - UNSPECIFIED OSTEOARTHRITIS, UNSPECIFIED SITE Qualifiers: Osteoarthritis location: knee Osteoarthritis type: primary Laterality: bilateral Qualified Code(s): M17.0 - Bilateral primary osteoarthritis of knee (13) History of total bilateral knee replacement (TKR) Code(s): Z96.653 - PRESENCE OF ARTIFICIAL KNEE JOINT, BILATERAL (14) History of breast cancer Code(s): Z85.3 - PERSONAL HISTORY OF MALIGNANT NEOPLASM OF BREAST (15) History of right hip replacement Code(s): Z96.641 - PRESENCE OF RIGHT ARTIFICIAL HIP JOINT (16) Spinal stenosis Code(s): M48.00 - SPINAL STENOSIS, SITE UNSPECIFIED Qualifiers: Spinal region: cervical Qualified Code(s): M48.02 - Spinal stenosis, cervical region (17) Constipation Code(s): K59.00 - CONSTIPATION, UNSPECIFIED (18) Serrated adenoma of colon Code(s): D12.6 - BENIGN NEOPLASM OF COLON, UNSPECIFIED Assessment/Plan (1) Dehydration Assessment/Plan: improved encourage po intake Code(s): E86.0 - DEHYDRATION (2) Fecal impaction Assessment/Plan: CT w/ fecal impaction with stercoral colitis repeat abd xray w/out obstruc, improved impact disimpacted x1 pt now having soft BMs miralax, colace GI following will monitor Code(s): K56.41 - FECAL IMPACTION (3) Abdominal distension Assessment/Plan: secondary to fecal impaction, pt having soft bms now improved, still distended, but soft upon palpation Abd/pelvis CT fecal impaction with stercoral colitis lactic acid level wnl mild leukocytosis, possibly due to dehydration disimpacted x1 Miralax, colace, dulcolax GI/Surgery/ID consult appreciated Code(s): R14.0 - ABDOMINAL DISTENSION (GASEOUS) (4) Bladder distension Assessment/Plan: justice in place s/p acute urinary retention/distention urology consult appreciated will do trial of void today bladder scan q6hrs will monitor Code(s): N32.89 - OTHER SPECIFIED DISORDERS OF [place] (5) Acute metabolic encephalopathy Assessment/Plan: improved UA neg/ UC neg chest xray without sig changes d/c antibiotic ID consult appreciated neuro consult appreciated Code(s): G93.41 - METABOLIC ENCEPHALOPATHY (6) Elevated troponin Assessment/Plan: elevated,trending down carotid us reviewed, eca occlusion echo, mild dis dysfunction, pEF ekg mobits 1, no changes cardiology following Code(s): R74.8 - ABNORMAL LEVELS OF OTHER SERUM ENZYMES (7) JASMIN (acute kidney injury) Assessment/Plan: improved d/c ivf Code(s): N17.9 - ACUTE KIDNEY FAILURE, UNSPECIFIED (8) Fall Assessment/Plan: s/p fall at home with trauma to head repeat head CT neg PT cardiology consult appreciated Code(s): W19.XXXA - UNSPECIFIED FALL, INITIAL ENCOUNTER Qualifiers: Encounter type: initial encounter Qualified Code(s): W19.XXXA - Unspecified fall, initial encounter (9) HTN (hypertension) Assessment/Plan: stable continue home meds hold hct in the setting of dehydration Code(s): I10 - ESSENTIAL (PRIMARY) HYPERTENSION Qualifiers: Hypertension type: essential hypertension Qualified Code(s): I10 - Essential (primary) hypertension (10) HLD (hyperlipidemia) Assessment/Plan: stable continue atorvastatin Code(s): E78.5 - HYPERLIPIDEMIA, UNSPECIFIED Qualifiers: Hyperlipidemia type: unspecified Qualified Code(s): E78.5 - Hyperlipidemia , unspecified (11) CAD (coronary artery disease) Assessment/Plan: s/p GLEN LAD, 2006 continue aspirin plavix d/c'd per cardiology recs Code(s): I25.10 - ATHSCL HEART DISEASE OF [place] CORONARY ARTERY W/O ANG PCTRS Qualifiers: Coronary Disease-Associated Artery/Lesion type: [place] artery [place] vs. transplanted heart: [place] heart Associated angina: without angina Qualified Code(s): I25.10 - Atherosclerotic heart disease of [place] coronary artery without angina pectoris (12) Osteoarthritis Assessment/Plan: back, b/l knees continue PT Code(s): M19.90 - UNSPECIFIED OSTEOARTHRITIS, UNSPECIFIED SITE Qualifiers: Osteoarthritis location: knee Osteoarthritis type: primary Laterality: bilateral Qualified Code(s): M17.0 - Bilateral primary osteoarthritis of knee (13) History of total bilateral knee replacement (TKR) Assessment/Plan: s/p b/l tkr in 2009 Code(s): Z96.653 - PRESENCE OF ARTIFICIAL KNEE JOINT, BILATERAL (14) History of breast cancer Assessment/Plan: s/p left partial mastectomy/radiation on tamoxifen Code(s): Z85.3 - PERSONAL HISTORY OF MALIGNANT NEOPLASM OF BREAST (15) History of right hip replacement Assessment/Plan: s/p r hip replacement, 1995 Code(s): Z96.641 - PRESENCE OF RIGHT ARTIFICIAL HIP JOINT (16) Spinal stenosis Assessment/Plan: moderate, c5-6,c6-7 increased pain today restart tramadol, tylenol followed by outpt Code(s): M48.00 - SPINAL STENOSIS, SITE UNSPECIFIED Qualifiers: Spinal region: cervical Qualified Code(s): M48.02 - Spinal stenosis, cervical region Dispo: SNF
--- NOTE | 2017-12-07 11:44 | PN ---
Progress Note, Physician History of Present Illness: Abd less distended after BM. No further near or true syncope. - Current Medication List Current Medications: Active Medications Acetaminophen (Tylenol -) 650 mg PO Q6H PRN PRN Reason: PAIN LEVEL 4 - 6 Amlodipine Besylate (Norvasc -) 5 mg PO DAILY [facility] Last Admin: 12/07/17 11:04 Dose: 5 mg Aspirin (Ecotrin -) 81 mg PO DAILY [facility] Last Admin: 12/07/17 11:02 Dose: 81 mg Atorvastatin Calcium (Lipitor -) 40 mg PO [facility] Last Admin: 12/06/17 21:27 Dose: 40 mg Docusate Sodium (Colace -) 100 mg PO TID [facility] Last Admin: 12/07/17 05:53 Dose: 100 mg Meropenem 1 gm/ Dextrose 100 mls @ 100 mls/hr IVPB BID [facility] PRN Reason: Protocol Last Admin: 12/07/17 11:05 Dose: 100 mls/hr Potassium Chloride 10 meq/ (Sodium Chloride) 105 mls @ 100 mls/hr IVPB Q60M [facility] Stop: 12/07/17 12:59 Last Admin: 12/07/17 11:08 Dose: 100 mls/hr Metoprolol Succinate (Toprol Xl -) 25 mg PO BID [facility] Last Admin: 12/07/17 11:02 Dose: 25 mg Montelukast Sodium (Singulair -) 10 mg PO [facility] Last Admin: 12/06/17 21:26 Dose: 10 mg Pantoprazole Sodium (Protonix -) 40 mg PO DAILY [facility] Last Admin: 12/07/17 11:02 Dose: 40 mg Polyethylene Glycol (Miralax (For Daily Use) -) 17 gm PO TID [facility] Pregabalin (Lyrica -) 25 mg PO BID [facility] Last Admin: 12/07/17 11:01 Dose: 25 mg Quinapril HCl (Accupril -) 20 mg PO DAILY [facility] Last Admin: 12/07/17 11:04 Dose: 20 mg Senna (Senna -) 2 tab PO [facility] Last Admin: 12/06/17 21:27 Dose: 2 tab Tamoxifen Citrate (Tamoxifen Citrate) 20 mg PO DAILY [facility] Last Admin: 12/07/17 11:04 Dose: 20 mg Tramadol HCl (Ultram -) 50 mg PO Q8H PRN PRN Reason: PAIN LEVEL 7 - 10 - Objective Vital Signs: Vital Signs Temperature 98.4 F 12/07/17 06:00 Pulse Rate 82 12/07/17 06:00 Respiratory Rate 20 12/07/17 06:00 Blood Pressure 130/73 12/07/17 06:00 O2 Sat by Pulse Oximetry (%) 97 12/06/17 21:00 Constitutional: Yes: No Distress, Calm, Thin Neck: Yes: Supple Cardiovascular: Yes: Regular Rate and Rhythm Respiratory: Yes: Regular, Diminished Gastrointestinal: Yes: Normal Bowel Sounds, Soft Edema: No Labs: CBC, BMP 12/07/17 07:00 12/07/17 07:00 INR, PTT INR 0.99 (0.82-1.09) 12/04/17 21:50 Problem List - Problems (1) Gait disturbance Code(s): R26.9 - UNSPECIFIED ABNORMALITIES OF GAIT AND MOBILITY (2) JASMIN (acute kidney injury) Code(s): N17.9 - ACUTE KIDNEY FAILURE, UNSPECIFIED (3) Abdominal distension Code(s): R14.0 - ABDOMINAL DISTENSION (GASEOUS) (4) Acute urinary retention Code(s): R33.8 - OTHER RETENTION OF URINE (5) Bladder distension Code(s): N32.89 - OTHER SPECIFIED DISORDERS OF [place] (6) CAD (coronary artery disease) Code(s): I25.10 - ATHSCL HEART DISEASE OF [place] CORONARY ARTERY W/O ANG PCTRS Qualifiers: Coronary Disease-Associated Artery/Lesion type: [place] artery [place] vs. transplanted heart: [place] heart Associated angina: without angina Qualified Code(s): I25.10 - Atherosclerotic heart disease of [place] coronary artery without angina pectoris (7) Fecal impaction Code(s): K56.41 - FECAL IMPACTION (8) HLD (hyperlipidemia) Code(s): E78.5 - HYPERLIPIDEMIA, UNSPECIFIED Qualifiers: Hyperlipidemia type: unspecified Qualified Code(s): E78.5 - Hyperlipidemia , unspecified (9) HTN (hypertension) Code(s): I10 - ESSENTIAL (PRIMARY) HYPERTENSION Qualifiers: Hypertension type: essential hypertension Qualified Code(s): I10 - Essential (primary) hypertension (10) Stented coronary artery Code(s): Z95.5 - PRESENCE OF CORONARY ANGIOPLASTY IMPLANT AND GRAFT (11) Demand ischemia Code(s): I24.8 - OTHER FORMS OF ACUTE ISCHEMIC HEART DISEASE (12) Elevated troponin Code(s): R74.8 - ABNORMAL LEVELS OF OTHER SERUM ENZYMES Assessment/Plan 12/05/2017 Echocardiography: Normal LV size and fxn, mild TR, AR 1. 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 2. CAD s/p PCI/stent, angina pectoris, demand ischemia 3. Hypertension 4. Hypercholesterolemia 5. 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 Urinary retention and mild bilateral hydro referable to fecal impaction PLAN: 1. Continue Metoprolol 25 bid, Accupril 20 qd and Amlodipine 5 qd as tolerated 2. Continue ASA 81 qd and have d/lanette Plavix due to remote stent 3. Continue Atorvastatin 40 qhs 4. Troponin have peaked 5. GI input noted, bowel regimen eventual colonoscopy 6. Monitor neuro status 7. Fall precaution, PT and gait training with vinh edward, d/c empiric abx
--- NOTE | 2017-12-07 11:58 | PN ---
Progress Note, CREDIT ADMINISTRATOR - Note Progress Note: Selected Entries 12/06/17 12/06/17 12/06/17 02:00 05:38 08:00 Breakfast Lunch Supper Temperature 98.4 F 98.7 F 98.1 F 12/06/17 12/06/17 12/06/17 14:03 18:00 18:10 Breakfast Lunch 50% Supper 75% Temperature 97.4 F L 97.7 F 12/07/17 12/07/17 06:00 09:41 Breakfast 100% Lunch Supper Temperature 98.4 F Speaking well, o x 3, swallowing well. No further f/u indicated.
--- NOTE | 2017-12-07 14:59 | PN ---
Progress Note, Physician History of Present Illness: patient evaluated having good bowel movement abd much softer no new issues says he feels better - Current Medication List Current Medications: Active Medications Acetaminophen (Tylenol -) 650 mg PO Q6H PRN PRN Reason: PAIN LEVEL 4 - 6 Amlodipine Besylate (Norvasc -) 5 mg PO DAILY [facility] Last Admin: 12/07/17 11:04 Dose: 5 mg Aspirin (Ecotrin -) 81 mg PO DAILY [facility] Last Admin: 12/07/17 11:02 Dose: 81 mg Atorvastatin Calcium (Lipitor -) 40 mg PO [facility] Last Admin: 12/06/17 21:27 Dose: 40 mg Docusate Sodium (Colace -) 100 mg PO TID [facility] Last Admin: 12/07/17 14:48 Dose: 100 mg Metoprolol Succinate (Toprol Xl -) 25 mg PO BID [facility] Last Admin: 12/07/17 11:02 Dose: 25 mg Montelukast Sodium (Singulair -) 10 mg PO [facility] Last Admin: 12/06/17 21:26 Dose: 10 mg Pantoprazole Sodium (Protonix -) 40 mg PO DAILY [facility] Last Admin: 12/07/17 11:02 Dose: 40 mg Polyethylene Glycol (Miralax (For Daily Use) -) 17 gm PO TID [facility] Last Admin: 12/07/17 14:50 Dose: 17 gm Pregabalin (Lyrica -) 25 mg PO BID [facility] Last Admin: 12/07/17 11:01 Dose: 25 mg Quinapril HCl (Accupril -) 20 mg PO DAILY [facility] Last Admin: 12/07/17 11:04 Dose: 20 mg Senna (Senna -) 2 tab PO [facility] Last Admin: 12/06/17 21:27 Dose: 2 tab Tamoxifen Citrate (Tamoxifen Citrate) 20 mg PO DAILY [facility] Last Admin: 12/07/17 11:04 Dose: 20 mg Tramadol HCl (Ultram -) 50 mg PO Q8H PRN PRN Reason: PAIN LEVEL 7 - 10 Last Admin: 12/07/17 13:44 Dose: 50 mg - Objective Vital Signs: Vital Signs Temperature 97.7 F 12/07/17 13:57 Pulse Rate 108 H 12/07/17 13:57 Respiratory Rate 20 12/07/17 13:57 Blood Pressure 144/74 12/07/17 13:57 O2 Sat by Pulse Oximetry (%) 97 12/06/17 21:00 Constitutional: Yes: No Distress, Calm Cardiovascular: Yes: Regular Rate and Rhythm Respiratory: Yes: Regular, CTA Bilaterally Gastrointestinal: Yes: Normal Bowel Sounds, Soft Musculoskeletal: Yes: WNL Extremities: Yes: WNL Neurological: Yes: Alert, Oriented Psychiatric: Yes: Alert, Oriented Labs: CBC, BMP 12/07/17 07:00 12/07/17 07:00 INR, PTT INR 0.99 (0.82-1.09) 12/04/17 21:50 - ....Imaging X-ray: Report Reviewed, Image Reviewed Cat Scan: Report Reviewed, Image Reviewed Assessment/Plan after evaluating the patient and looking at the abd xray patient has developed intestinal obstruction which could be mainly due to fecal impaction as well could ahve other process going on she has no gas seen in the rectum Problem List - Problems (1) Fecal impaction Thank you for the opportunity to participate in the care of this patient. Code(s): K56.41 - FECAL IMPACTION (2) Acute urinary retention Code(s): R33.8 - OTHER RETENTION OF URINE (3) Dehydration Code(s): E86.0 - DEHYDRATION (4) JASMIN (acute kidney injury) Code(s): N17.9 - ACUTE KIDNEY FAILURE, UNSPECIFIED (5) Fall as cause of accidental injury in home as place of occurrence Code(s): W19.XXXA - UNSPECIFIED FALL, INITIAL ENCOUNTER; Y92.009 - UNSP PLACE IN UNSP NON-INSTITUT (PRIVATE) RESIDENCE PLACE Qualifiers: Encounter type: initial encounter Qualified Code(s): W19.XXXA - Unspecified fall, initial encounter; Y92.009 - Unspecified place in unspecified non-institutional (private) residence as the place of occurrence of the external cause; Y92.009 - Unspecified place in unspecified non-institutional ( private) residence as the place of occurrence of the external cause (6) Encephalopathy acute Code(s): G93.40 - ENCEPHALOPATHY, UNSPECIFIED (7) CAD (coronary artery disease) Code(s): I25.10 - ATHSCL HEART DISEASE OF [place] CORONARY ARTERY W/O ANG PCTRS Qualifiers: Coronary Disease-Associated Artery/Lesion type: [place] artery [place] vs. transplanted heart: [place] heart Associated angina: without angina Qualified Code(s): I25.10 - Atherosclerotic heart disease of [place] coronary artery without angina pectoris (8) HTN (hypertension) Code(s): I10 - ESSENTIAL (PRIMARY) HYPERTENSION Qualifiers: Hypertension type: essential hypertension Qualified Code(s): I10 - Essential (primary) hypertension (9) HLD (hyperlipidemia) Code(s): E78.5 - HYPERLIPIDEMIA, UNSPECIFIED Qualifiers: Hyperlipidemia type: unspecified Qualified Code(s): E78.5 - Hyperlipidemia , unspecified (10) History of breast cancer Code(s): Z85.3 - PERSONAL HISTORY OF MALIGNANT NEOPLASM OF BREAST plan will stop abx and watch continue current mgmt avoid constipation nutrition rest as per primary team
[2017-12-07 16:27] LABS: ANION GAP 14 (8-16); BLOOD UREA NITROGEN 18 mg/dL (7-18); CALCIUM 8.4 mg/dL (8.5-10.1); CHLORIDE 105 mmol/L (98-107); CO2 21 mmol/L (21-32); POTASSIUM 3.6 mmol/L (3.5-5.1); SODIUM 140 mmol/L (136-145)
[2017-12-07 16:31] LABS: GLUCOSE,RANDOM 315 mg/dL (74-106)
[2017-12-07] MEDS: SENNOSIDES 8.6MG TABLET (FP) PO SCH (21:32)
[2017-12-07] MEDS: ATORVASTATIN CA 40 MG TABLET (FP) PO SCH (21:32)
[2017-12-07] MEDS: MONTELUKAST NA 10 MG TABLET PO SCH (21:32)
[2017-12-08] MEDS: POLYETHYLENE GLYCOL 3350 119 GM BTL PO SCH ×3 (05:15→22:13)
[2017-12-08] MEDS: DOCUSATE SODIUM 100 MG CAPSULE (FP) PO SCH (05:15)
[2017-12-08 08:22] LABS: BASO % 0.4 % (0-2.0); EOS % 0.1 % (0-4.5); HEMATOCRIT 36.6 % (32.4-45.2); HEMOGLOBIN 12.3 GM/dL (10.7-15.3); LYMPH % 7.4 % (8-40); MCH 30.1 pg (25.7-33.7); MCHC 33.6 g/dl (32.0-36.0); MEAN CELL VOLUME 89.4 fl (80-96); MEAN PLT VOLUME 10.2 fl (7.5-11.1); MONO % 7.4 % (3.8-10.2); NEUT % 84.7 % (42.8-82.8); PLATELET COUNT 180 K/MM3 (134-434); RDW 14.4 % (11.6-15.6); WHITE BLOOD COUNT 14.3 K/mm3 (4.0-10.0)
[2017-12-08 08:43] LABS: ANION GAP 11 (8-16); BLOOD UREA NITROGEN 15 mg/dL (7-18); CALCIUM 8.3 mg/dL (8.5-10.1); CHLORIDE 109 mmol/L (98-107); CO2 22 mmol/L (21-32); CREATININE 0.7 mg/dL (0.55-1.02); GLUCOSE,RANDOM 101 mg/dL (74-106); MAGNESIUM 1.9 mg/dL (1.8-2.4); POTASSIUM 3.8 mmol/L (3.5-5.1); SODIUM 142 mmol/L (136-145)
[2017-12-08] MEDS ORDERED: PT OWN MED DRAWER 7, Y5N ONE ×2 (09:39→12:07)
[2017-12-08] MEDS: PREGABALIN 25 MG CAPSULE PO SCH ×2 (09:42→22:13)
[2017-12-08] MEDS: ASPIRIN COATED 81 MG TABLET.EC PO SCH (09:42)
[2017-12-08] MEDS: metoPROLOL SUCCINATE 25 MG TAB.SR.24H (FP) PO SCH ×2 (09:42→22:13)
[2017-12-08] MEDS: PANTOPRAZOLE 40 MG TABLET (FP) PO SCH (09:42)
[2017-12-08] MEDS: amLODIPine BESYLATE 5 MG TABLET (FP) PO SCH (09:42)
[2017-12-08] MEDS: QUINAPRIL HCL 20 MG TABLET (FP) PO SCH (09:43)
[2017-12-08] MEDS: TAMOXIFEN CITRATE 10 MG TABLET PO SCH (09:43)
[2017-12-08] MEDS ORDERED: BISACODYL 10 MG SUPP.RECT RC ONE (11:10)
--- NOTE | 2017-12-08 11:21 | PN ---
Progress Note, Physician History of Present Illness: Pt with fecal impaction with stercoral colitis on CT and urinary retention requiring Valdovinos (2L initial output). Was initially disimpacted of large amount of soft formed stool, has been having some soft BMs since on bowel regimen. AXR day after disimpaction showed stool still in rectosigmoid but less in proximal colon. She is still confused - unclear if close to new baseline or worse than recently at home. PT just worked with patient, was standing at bedside. Valdovinos was removed and replaced yesterday for failure to void. Pt seen and examined in bed with DISHWASHER BUSSER Star present. - Current Medication List Current Medications: Active Medications Acetaminophen (Tylenol -) 650 mg PO Q6H PRN PRN Reason: PAIN LEVEL 4 - 6 Amlodipine Besylate (Norvasc -) 5 mg PO DAILY [facility] Last Admin: 12/08/17 09:42 Dose: 5 mg Aspirin (Ecotrin -) 81 mg PO DAILY [facility] Last Admin: 12/08/17 09:42 Dose: 81 mg Atorvastatin Calcium (Lipitor -) 40 mg PO [facility] Last Admin: 12/07/17 21:32 Dose: 40 mg Docusate Sodium (Colace -) 100 mg PO TID [facility] Last Admin: 12/08/17 05:15 Dose: 100 mg Metoprolol Succinate (Toprol Xl -) 25 mg PO BID [facility] Last Admin: 12/08/17 09:42 Dose: 25 mg Montelukast Sodium (Singulair -) 10 mg PO [facility] Last Admin: 12/07/17 21:32 Dose: 10 mg Pantoprazole Sodium (Protonix -) 40 mg PO DAILY [facility] Last Admin: 12/08/17 09:42 Dose: 40 mg Polyethylene Glycol (Miralax (For Daily Use) -) 17 gm PO TID [facility] Last Admin: 12/08/17 05:15 Dose: 17 gm Pregabalin (Lyrica -) 25 mg PO BID [facility] Last Admin: 12/08/17 09:42 Dose: 25 mg Quinapril HCl (Accupril -) 20 mg PO DAILY [facility] Last Admin: 12/08/17 09:43 Dose: 20 mg Senna (Senna -) 2 tab PO [facility] Last Admin: 12/07/17 21:32 Dose: 2 tab Tamoxifen Citrate (Tamoxifen Citrate) 20 mg PO DAILY [facility] Last Admin: 12/08/17 09:43 Dose: 20 mg - Objective Vital Signs: Vital Signs Temperature 98.2 F 12/08/17 11:01 Pulse Rate 92 H 12/08/17 11:01 Respiratory Rate 18 12/08/17 11:01 Blood Pressure 155/75 12/08/17 11:01 O2 Sat by Pulse Oximetry (%) 95 12/07/17 21:00 Intake & Output 12/07/17 12/08/17 12/08/17 23:59 07:59 15:59 Intake Total 400 500 200 Output Total 1450 Balance 400 -950 200 Intake: Oral 400 500 200 Output: Urine 1450 Valdovinos 1450 Other: Voiding Method Diaper Indwelling Catheter Diaper Bowel Movement Yes Yes # Bowel Movements 2 Constitutional: Yes: Well Nourished, No Distress, Calm, Thin Eyes: Yes: Conjunctiva Clear, EOM Intact HENT: Yes: Atraumatic, Normocephalic Gastrointestinal: Yes: Soft, Distention (minimal). No: Tenderness ...Rectal Exam: Yes: Hemorrhoids/External (skin tags present), Sphincter Tone Normal, Other (extremely soft light brown stool far up in vault - can feel mass of very soft stool at upper aspect of vault, but difficult to evacuate much more than smears) Genitourinary: Yes: Valdovinos Present. No: Hematuria Extremities: No: Cool, Cyanosis Integumentary: No: Jaundice, Rash Neurological: Yes: Alert, Confusion, Unsteady Gait (using walker with PT but did not ambulate more than steps) Labs: CBC, BMP 12/08/17 07:00 12/08/17 07:00 CMP Sodium 142 mmol/L (136-145) 12/08/17 07:00 Potassium 3.8 mmol/L (3.5-5.1) 12/08/17 07:00 Chloride 109 mmol/L (98-107) H 12/08/17 07:00 Carbon Dioxide 22 mmol/L (21-32) 12/08/17 07:00 Anion Gap 11 (8-16) 12/08/17 07:00 BUN 15 mg/dL (7-18) 12/08/17 07:00 Creatinine 0.7 mg/dL (0.55-1.02) 12/08/17 07:00 Creat Clearance w eGFR > 60 (>60) 12/07/17 07:00 Random Glucose 101 mg/dL (74-106) 12/08/17 07:00 Lactic Acid 0.9 mmol/L (0.0-2.0) 12/05/17 13:48 Calcium 8.3 mg/dL (8.5-10.1) L 12/08/17 07:00 Phosphorus 1.6 mg/dL (2.5-4.9) L 12/07/17 07:00 Magnesium 1.9 mg/dL (1.8-2.4) 12/08/17 07:00 Total Bilirubin 0.7 mg/dL (0.2-1.0) 12/07/17 07:00 AST 23 U/L (15-37) 12/07/17 07:00 ALT 20 U/L (12-78) 12/07/17 07:00 Alkaline Phosphatase 47 U/L (45-117) 12/07/17 07:00 Troponin I 0.27 ng/ml (0.00-0.05) H 12/07/17 07:00 C-Reactive Protein 3.7 MG/DL (0.00-0.3) H 12/06/17 05:05 Total Protein 5.2 g/dl (6.4-8.2) L 12/07/17 07:00 Albumin 2.7 g/dl (3.4-5.0) L 12/07/17 07:00 Vitamin B12 568 pg/ml (180-914) 12/07/17 07:00 TSH 0.57 uIU/ml (0.358-3.74) 12/05/17 06:30 wbc up a little, H/H also up a little lytes improved, Phos not rechecked Microbiology 12/05/17 15:30 Urine Culture - Final Urine - Urine - Catheterized NO GROWTH OBTAINED - ....Imaging Chest X-ray: Pending X-ray: Image Reviewed (image seen from several days ago - still with stool in rectosigmoid and pelvis) Problem List - Problems (1) Fecal impaction Assessment/Plan: stool burden lessened, but may still have a lot of very soft stool in upper vault and sigmoid colon pt on stool softeners and senna 2 tabs nightly needs continued motility agents to facilitate evacuation at this point, soap suds enemas may help with evacuation of remaining stool could reassess stool burden with AXR/KUB recommend significant decrease in softener agents and use of only one - miralax once daily should be sufficient recommend routine dulcolax and/or senna po - could give extra dose of senna now (2 tabs) and continue nightly also would continue SENTHIL daily discussed and patient seen and examined with BEN Graves no acute surgical issues at this time will remain available and follow peripherally please call with any questions Thank you for the opportunity to participate in the care of this patient. Code(s): K56.41 - FECAL IMPACTION (2) Acute urinary retention Assessment/Plan: would plan to leave Valdovinos at least 5-7 days to allow bladder to regain tone fecal impaction should be fully cleared (by AXR) or retention is likely to recur urology note seen pt might need to be discharged with Valdovinos for a time, pending clinical course Code(s): R33.8 - OTHER RETENTION OF URINE (3) Dehydration Assessment/Plan: agree with IVF resuscitation, strict I/O's monitor labs replete lytes prn Code(s): E86.0 - DEHYDRATION (4) JASMIN (acute kidney injury) Assessment/Plan: improved/resolved Code(s): N17.9 - ACUTE KIDNEY FAILURE, UNSPECIFIED (5) Fall as cause of accidental injury in home as place of occurrence Code(s): W19.XXXA - UNSPECIFIED FALL, INITIAL ENCOUNTER; Y92.009 - UNSP PLACE IN UNSP NON-INSTITUT (PRIVATE) RESIDENCE PLACE Qualifiers: Encounter type: initial encounter Qualified Code(s): W19.XXXA - Unspecified fall, initial encounter; Y92.009 - Unspecified place in unspecified non-institutional (private) residence as the place of occurrence of the external cause; Y92.009 - Unspecified place in unspecified non-institutional ( private) residence as the place of occurrence of the external cause (6) Encephalopathy acute Assessment/Plan: unclear if pt has recently been having symptoms of mild dementia neurology consulted Code(s): G93.40 - ENCEPHALOPATHY, UNSPECIFIED (7) CAD (coronary artery disease) Code(s): I25.10 - ATHSCL HEART DISEASE OF [place] CORONARY ARTERY W/O ANG PCTRS Qualifiers: Coronary Disease-Associated Artery/Lesion type: [place] artery [place] vs. transplanted heart: [place] heart Associated angina: without angina Qualified Code(s): I25.10 - Atherosclerotic heart disease of [place] coronary artery without angina pectoris (8) HTN (hypertension) Assessment/Plan: continue home meds but would hold diuretic cardiology consulted for elevated troponins Code(s): I10 - ESSENTIAL (PRIMARY) HYPERTENSION Qualifiers: Hypertension type: essential hypertension Qualified Code(s): I10 - Essential (primary) hypertension (9) HLD (hyperlipidemia) Code(s): E78.5 - HYPERLIPIDEMIA, UNSPECIFIED Qualifiers: Hyperlipidemia type: unspecified Qualified Code(s): E78.5 - Hyperlipidemia , unspecified (10) History of breast cancer Assessment/Plan: left, on tamoxifen, s/p lumpectomy Code(s): Z85.3 - PERSONAL HISTORY OF MALIGNANT NEOPLASM OF BREAST
[2017-12-08] MEDS ORDERED: POTASSIUM CHLORIDE TABS 20 MEQ TABLET.ER (FP) PO ONE (12:00)
[2017-12-08] MEDS ORDERED: MAGNESIUM OXIDE 400 MG TABLET (FP) PO ONE (12:00)
--- NOTE | 2017-12-08 12:21 | PN ---
Progress Note, Physician History of Present Illness: patient evaluated patient is very confused today much more than baseline went into urinary retention foleys had to be reinserted currently patient is calm but very confused also of note is that the patients wbc has jumped up and also she was tachy patient also has not had a bowel movement - Current Medication List Current Medications: Active Medications Acetaminophen (Tylenol -) 650 mg PO Q6H PRN PRN Reason: PAIN LEVEL 4 - 6 Amlodipine Besylate (Norvasc -) 5 mg PO DAILY [facility] Last Admin: 12/08/17 09:42 Dose: 5 mg Aspirin (Ecotrin -) 81 mg PO DAILY [facility] Last Admin: 12/08/17 09:42 Dose: 81 mg Atorvastatin Calcium (Lipitor -) 40 mg PO [facility] Last Admin: 12/07/17 21:32 Dose: 40 mg Metoprolol Succinate (Toprol Xl -) 25 mg PO BID [facility] Last Admin: 12/08/17 09:42 Dose: 25 mg Montelukast Sodium (Singulair -) 10 mg PO [facility] Last Admin: 12/07/17 21:32 Dose: 10 mg Pantoprazole Sodium (Protonix -) 40 mg PO DAILY [facility] Last Admin: 12/08/17 09:42 Dose: 40 mg Polyethylene Glycol (Miralax (For Daily Use) -) 17 gm PO TID [facility] Last Admin: 12/08/17 05:15 Dose: 17 gm Pregabalin (Lyrica -) 25 mg PO BID [facility] Last Admin: 12/08/17 09:42 Dose: 25 mg Quinapril HCl (Accupril -) 20 mg PO DAILY [facility] Last Admin: 12/08/17 09:43 Dose: 20 mg Senna (Senna -) 2 tab PO [facility] Last Admin: 12/07/17 21:32 Dose: 2 tab Tamoxifen Citrate (Tamoxifen Citrate) 20 mg PO DAILY [facility] Last Admin: 12/08/17 09:43 Dose: 20 mg - Objective Vital Signs: Vital Signs Temperature 98.2 F 12/08/17 11:01 Pulse Rate 92 H 12/08/17 11:01 Respiratory Rate 18 12/08/17 11:01 Blood Pressure 155/75 12/08/17 11:01 O2 Sat by Pulse Oximetry (%) 95 12/07/17 21:00 Constitutional: Yes: No Distress, Calm, Other Cardiovascular: Yes: Regular Rate and Rhythm Respiratory: Yes: Regular, CTA Bilaterally Gastrointestinal: Yes: Soft, Hypoactive Bowel Sounds Genitourinary: Yes: Valdovinos Present Musculoskeletal: Yes: WNL Extremities: Yes: WNL Neurological: Yes: Alert, Confusion Psychiatric: Yes: Other Labs: CBC, BMP 12/08/17 07:00 12/08/17 07:00 INR, PTT INR 0.99 (0.82-1.09) 12/04/17 21:50 Assessment/Plan after evaluating the patient and looking at the abd xray patient has developed intestinal obstruction which could be mainly due to fecal impaction as well could ahve other process going on she has no gas seen in the rectum Problem List - Problems (1) Fecal impaction Thank you for the opportunity to participate in the care of this patient. Code(s): K56.41 - FECAL IMPACTION (2) Acute urinary retention Code(s): R33.8 - OTHER RETENTION OF URINE (3) Dehydration Code(s): E86.0 - DEHYDRATION (4) JASMIN (acute kidney injury) Code(s): N17.9 - ACUTE KIDNEY FAILURE, UNSPECIFIED (5) Fall as cause of accidental injury in home as place of occurrence Code(s): W19.XXXA - UNSPECIFIED FALL, INITIAL ENCOUNTER; Y92.009 - UNSP PLACE IN UNSP NON-INSTITUT (PRIVATE) RESIDENCE PLACE Qualifiers: Encounter type: initial encounter Qualified Code(s): W19.XXXA - Unspecified fall, initial encounter; Y92.009 - Unspecified place in unspecified non-institutional (private) residence as the place of occurrence of the external cause; Y92.009 - Unspecified place in unspecified non-institutional ( private) residence as the place of occurrence of the external cause (6) Encephalopathy acute Code(s): G93.40 - ENCEPHALOPATHY, UNSPECIFIED (7) CAD (coronary artery disease) Code(s): I25.10 - ATHSCL HEART DISEASE OF [place] CORONARY ARTERY W/O ANG PCTRS Qualifiers: Coronary Disease-Associated Artery/Lesion type: [place] artery [place] vs. transplanted heart: [place] heart Associated angina: without angina Qualified Code(s): I25.10 - Atherosclerotic heart disease of [place] coronary artery without angina pectoris (8) HTN (hypertension) Code(s): I10 - ESSENTIAL (PRIMARY) HYPERTENSION Qualifiers: Hypertension type: essential hypertension Qualified Code(s): I10 - Essential (primary) hypertension (9) HLD (hyperlipidemia) Code(s): E78.5 - HYPERLIPIDEMIA, UNSPECIFIED Qualifiers: Hyperlipidemia type: unspecified Qualified Code(s): E78.5 - Hyperlipidemia , unspecified (10) History of breast cancer Code(s): Z85.3 - PERSONAL HISTORY OF MALIGNANT NEOPLASM OF BREAST 11 leukocytosis patients wbc has increased as well as increased confusion and tachy this all could be because patient went into urinary retention or could be sepsis --which i have low thought process at this time her confusion continues--the chances could be uti also she has not had bm and if she is again going into fecal impaction plan will hold of on starting abx for now send urine for culture if spikes fever then blood cx to eb done will see what wbc shows if still going up then will start abx
--- NOTE | 2017-12-08 14:13 | PN ---
Progress Note, Physician Chief Complaint: Pt lying in bed in no acute distress. pt confused. friend at bedside reports she is more confused than usual. Pt denies chest discomfort, sob, n/v. - Current Medication List Current Medications: Active Medications Acetaminophen (Tylenol -) 650 mg PO Q6H PRN PRN Reason: PAIN LEVEL 4 - 6 Amlodipine Besylate (Norvasc -) 5 mg PO DAILY [facility] Last Admin: 12/08/17 09:42 Dose: 5 mg Aspirin (Ecotrin -) 81 mg PO DAILY [facility] Last Admin: 12/08/17 09:42 Dose: 81 mg Atorvastatin Calcium (Lipitor -) 40 mg PO [facility] Last Admin: 12/07/17 21:32 Dose: 40 mg Metoprolol Succinate (Toprol Xl -) 25 mg PO BID [facility] Last Admin: 12/08/17 09:42 Dose: 25 mg Montelukast Sodium (Singulair -) 10 mg PO [facility] Last Admin: 12/07/17 21:32 Dose: 10 mg Pantoprazole Sodium (Protonix -) 40 mg PO DAILY [facility] Last Admin: 12/08/17 09:42 Dose: 40 mg Polyethylene Glycol (Miralax (For Daily Use) -) 17 gm PO TID [facility] Last Admin: 12/08/17 05:15 Dose: 17 gm Pregabalin (Lyrica -) 25 mg PO BID [facility] Last Admin: 12/08/17 09:42 Dose: 25 mg Quinapril HCl (Accupril -) 20 mg PO DAILY [facility] Last Admin: 12/08/17 09:43 Dose: 20 mg Senna (Senna -) 2 tab PO [facility] Last Admin: 12/07/17 21:32 Dose: 2 tab Tamoxifen Citrate (Tamoxifen Citrate) 20 mg PO DAILY [facility] Last Admin: 12/08/17 09:43 Dose: 20 mg - Objective Vital Signs: Vital Signs Temperature 98.2 F 12/08/17 11:01 Pulse Rate 92 H 12/08/17 11:01 Respiratory Rate 18 12/08/17 11:01 Blood Pressure 155/75 12/08/17 11:01 O2 Sat by Pulse Oximetry (%) 95 12/07/17 21:00 Constitutional: Yes: Well Nourished, No Distress Cardiovascular: Yes: WNL, Regular Rate and Rhythm. No: Bruit, Gallop, Murmur Respiratory: Yes: Regular, Diminished, Rales (bibasilar) Gastrointestinal: Yes: WNL, Normal Bowel Sounds, Soft. No: Distention, Tenderness Genitourinary: Yes: Justice Present Edema: No Neurological: Yes: Alert, Confusion Psychiatric: Yes: Alert Labs: CBC, BMP 12/08/17 07:00 12/08/17 07:00 INR, PTT INR 0.99 (0.82-1.09) 12/04/17 21:50 - ....Imaging Chest X-ray: Report Reviewed X-ray: Pending Problem List - Problems (1) Dehydration Code(s): E86.0 - DEHYDRATION (2) Fecal impaction Code(s): K56.41 - FECAL IMPACTION (3) Bladder distension Code(s): N32.89 - OTHER SPECIFIED DISORDERS OF BLADDER (4) Acute metabolic encephalopathy Code(s): G93.41 - METABOLIC ENCEPHALOPATHY (5) Elevated troponin Code(s): R74.8 - ABNORMAL LEVELS OF OTHER SERUM ENZYMES (6) JASMIN (acute kidney injury) Code(s): N17.9 - ACUTE KIDNEY FAILURE, UNSPECIFIED (7) Abdominal distension Code(s): R14.0 - ABDOMINAL DISTENSION (GASEOUS) (8) Fall Code(s): W19.XXXA - UNSPECIFIED FALL, INITIAL ENCOUNTER Qualifiers: Encounter type: initial encounter Qualified Code(s): W19.XXXA - Unspecified fall, initial encounter (9) HTN (hypertension) Code(s): I10 - ESSENTIAL (PRIMARY) HYPERTENSION Qualifiers: Hypertension type: essential hypertension Qualified Code(s): I10 - Essential (primary) hypertension (10) HLD (hyperlipidemia) Code(s): E78.5 - HYPERLIPIDEMIA, UNSPECIFIED Qualifiers: Hyperlipidemia type: unspecified Qualified Code(s): E78.5 - Hyperlipidemia , unspecified (11) CAD (coronary artery disease) Code(s): I25.10 - ATHSCL HEART DISEASE OF [place] CORONARY ARTERY W/O ANG PCTRS Qualifiers: Coronary Disease-Associated Artery/Lesion type: [place] artery [place] vs. transplanted heart: [place] heart Associated angina: without angina Qualified Code(s): I25.10 - Atherosclerotic heart disease of [place] coronary artery without angina pectoris (12) Osteoarthritis Code(s): M19.90 - UNSPECIFIED OSTEOARTHRITIS, UNSPECIFIED SITE Qualifiers: Osteoarthritis location: knee Osteoarthritis type: primary Laterality: bilateral Qualified Code(s): M17.0 - Bilateral primary osteoarthritis of knee (13) History of total bilateral knee replacement (TKR) Code(s): Z96.653 - PRESENCE OF ARTIFICIAL KNEE JOINT, BILATERAL (14) History of breast cancer Code(s): Z85.3 - PERSONAL HISTORY OF MALIGNANT NEOPLASM OF BREAST (15) History of right hip replacement Code(s): Z96.641 - PRESENCE OF RIGHT ARTIFICIAL HIP JOINT (16) Spinal stenosis Code(s): M48.00 - SPINAL STENOSIS, SITE UNSPECIFIED Qualifiers: Spinal region: cervical Qualified Code(s): M48.02 - Spinal stenosis, cervical region (17) Constipation Code(s): K59.00 - CONSTIPATION, UNSPECIFIED (18) Serrated adenoma of colon Code(s): D12.6 - BENIGN NEOPLASM OF COLON, UNSPECIFIED (19) SIRS (systemic inflammatory response syndrome) Code(s): R65.10 - SIRS OF NON-INFECTIOUS ORIGIN W/O ACUTE ORGAN DYSFUNCTION Assessment/Plan (1) SIRS (systemic inflammatory response syndrome) Assessment/Plan: febrile 100.6, tachy, +leukocytosis UC/BCs ordered chest pa/lateral ordered abd KUB scan ordered ID informed Code(s): R65.10 - SIRS OF NON-INFECTIOUS ORIGIN W/O ACUTE ORGAN DYSFUNCTION (2) Fecal impaction Assessment/Plan: CT w/ fecal impaction with stercoral colitis repeat abd xray w/out obstruc, improved impact disimpacted x1 pt now having soft BMs miralax, senna GI following will monitor Code(s): K56.41 - FECAL IMPACTION (3) Abdominal distension Assessment/Plan: secondary to fecal impaction, pt having soft bms now improved, non distended, soft upon palpation Abd/pelvis CT fecal impaction with stercoral colitis KUB abd pending lactic acid level wnl disimpacted x1 Miralax, senna dulcolax supp x 1 GI/Surgery/ID consult appreciated Code(s): R14.0 - ABDOMINAL DISTENSION (GASEOUS) (4) Bladder distension Assessment/Plan: justice in place s/p acute urinary retention/distention urology consult appreciated failed TOV keep justice in for now will monitor Code(s): N32.89 - OTHER SPECIFIED DISORDERS OF BLADDER (5) Acute metabolic encephalopathy Assessment/Plan: more confused than usual r/u infec etiology work up as above ID consult appreciated neuro consult appreciated Code(s): G93.41 - METABOLIC ENCEPHALOPATHY (6) Elevated troponin Assessment/Plan: elevated,trending down carotid us reviewed, eca occlusion echo, mild dis dysfunction, pEF ekg mobits 1, no changes cardiology following Code(s): R74.8 - ABNORMAL LEVELS OF OTHER SERUM ENZYMES (7) JASMIN (acute kidney injury) Assessment/Plan: improved Code(s): N17.9 - ACUTE KIDNEY FAILURE, UNSPECIFIED (8) Fall Assessment/Plan: s/p fall at home with trauma to head repeat head CT neg PT cardiology consult appreciated Code(s): W19.XXXA - UNSPECIFIED FALL, INITIAL ENCOUNTER Qualifiers: Encounter type: initial encounter Qualified Code(s): W19.XXXA - Unspecified fall, initial encounter (9) HTN (hypertension) Assessment/Plan: stable continue home meds hold hct in the setting of dehydration Code(s): I10 - ESSENTIAL (PRIMARY) HYPERTENSION Qualifiers: Hypertension type: essential hypertension Qualified Code(s): I10 - Essential (primary) hypertension (10) HLD (hyperlipidemia) Assessment/Plan: stable continue atorvastatin Code(s): E78.5 - HYPERLIPIDEMIA, UNSPECIFIED Qualifiers: Hyperlipidemia type: unspecified Qualified Code(s): E78.5 - Hyperlipidemia , unspecified (11) CAD (coronary artery disease) Assessment/Plan: s/p GLEN LAD, 2006 continue aspirin plavix d/c'd per cardiology recs Code(s): I25.10 - ATHSCL HEART DISEASE OF [place] CORONARY ARTERY W/O ANG PCTRS Qualifiers: Coronary Disease-Associated Artery/Lesion type: [place] artery [place] vs. transplanted heart: [place] heart Associated angina: without angina Qualified Code(s): I25.10 - Atherosclerotic heart disease of [place] coronary artery without angina pectoris (12) Osteoarthritis Assessment/Plan: back, b/l knees continue PT Code(s): M19.90 - UNSPECIFIED OSTEOARTHRITIS, UNSPECIFIED SITE Qualifiers: Osteoarthritis location: knee Osteoarthritis type: primary Laterality: bilateral Qualified Code(s): M17.0 - Bilateral primary osteoarthritis of knee (13) History of total bilateral knee replacement (TKR) Assessment/Plan: s/p b/l tkr in 2009 Code(s): Z96.653 - PRESENCE OF ARTIFICIAL KNEE JOINT, BILATERAL (14) History of breast cancer Assessment/Plan: s/p left partial mastectomy/radiation on tamoxifen Code(s): Z85.3 - PERSONAL HISTORY OF MALIGNANT NEOPLASM OF BREAST (15) History of right hip replacement Assessment/Plan: s/p r hip replacement, 1995 Code(s): Z96.641 - PRESENCE OF RIGHT ARTIFICIAL HIP JOINT (16) Spinal stenosis Assessment/Plan: moderate, c5-6,c6-7 increased pain today restart tramadol, tylenol followed by outpt Code(s): M48.00 - SPINAL STENOSIS, SITE UNSPECIFIED Qualifiers: Spinal region: cervical Qualified Code(s): M48.02 - Spinal stenosis, cervical region (17) Leukocytosis Assessment/Plan: spike in wbcs altered mental status ID consult appreciated will monitor Dispo: SNF I spoke to pt's friends and family and they have told me that pt has intermittent confusion at home as well. However, it seems like she is slightly more confused here which might be due to unfamiliar setting. Will r/o infectious etiology considering pt was febrile today with tachycardia. ID informed.
--- NOTE | 2017-12-08 14:21 | PN ---
Progress Note, Physician History of Present Illness: Abd less distended after BM. No further near or true syncope. - Current Medication List Current Medications: Active Medications Acetaminophen (Tylenol -) 650 mg PO Q6H PRN PRN Reason: PAIN LEVEL 4 - 6 Amlodipine Besylate (Norvasc -) 5 mg PO DAILY [facility] Last Admin: 12/08/17 09:42 Dose: 5 mg Aspirin (Ecotrin -) 81 mg PO DAILY [facility] Last Admin: 12/08/17 09:42 Dose: 81 mg Atorvastatin Calcium (Lipitor -) 40 mg PO [facility] Last Admin: 12/07/17 21:32 Dose: 40 mg Metoprolol Succinate (Toprol Xl -) 25 mg PO BID [facility] Last Admin: 12/08/17 09:42 Dose: 25 mg Montelukast Sodium (Singulair -) 10 mg PO [facility] Last Admin: 12/07/17 21:32 Dose: 10 mg Pantoprazole Sodium (Protonix -) 40 mg PO DAILY [facility] Last Admin: 12/08/17 09:42 Dose: 40 mg Polyethylene Glycol (Miralax (For Daily Use) -) 17 gm PO TID [facility] Last Admin: 12/08/17 05:15 Dose: 17 gm Pregabalin (Lyrica -) 25 mg PO BID [facility] Last Admin: 12/08/17 09:42 Dose: 25 mg Quinapril HCl (Accupril -) 20 mg PO DAILY [facility] Last Admin: 12/08/17 09:43 Dose: 20 mg Senna (Senna -) 2 tab PO [facility] Last Admin: 12/07/17 21:32 Dose: 2 tab Tamoxifen Citrate (Tamoxifen Citrate) 20 mg PO DAILY [facility] Last Admin: 12/08/17 09:43 Dose: 20 mg - Objective Vital Signs: Vital Signs Temperature 100.6 F H 12/08/17 14:17 Pulse Rate 95 H 12/08/17 14:17 Respiratory Rate 20 12/08/17 14:17 Blood Pressure 128/86 12/08/17 14:17 O2 Sat by Pulse Oximetry (%) 95 12/07/17 21:00 Constitutional: Yes: No Distress, Calm Neck: Yes: Supple Cardiovascular: Yes: Regular Rate and Rhythm Respiratory: Yes: Regular, Diminished Gastrointestinal: Yes: Normal Bowel Sounds, Soft Edema: No Labs: CBC, BMP 12/08/17 07:00 12/08/17 07:00 INR, PTT INR 0.99 (0.82-1.09) 12/04/17 21:50 Problem List - Problems (1) Gait disturbance Code(s): R26.9 - UNSPECIFIED ABNORMALITIES OF GAIT AND MOBILITY (2) JASMIN (acute kidney injury) Code(s): N17.9 - ACUTE KIDNEY FAILURE, UNSPECIFIED (3) Abdominal distension Code(s): R14.0 - ABDOMINAL DISTENSION (GASEOUS) (4) Acute urinary retention Code(s): R33.8 - OTHER RETENTION OF URINE (5) Bladder distension Code(s): N32.89 - OTHER SPECIFIED DISORDERS OF [place] (6) CAD (coronary artery disease) Code(s): I25.10 - ATHSCL HEART DISEASE OF [place] CORONARY ARTERY W/O ANG PCTRS Qualifiers: Coronary Disease-Associated Artery/Lesion type: [place] artery [place] vs. transplanted heart: [place] heart Associated angina: without angina Qualified Code(s): I25.10 - Atherosclerotic heart disease of [place] coronary artery without angina pectoris (7) Fecal impaction Code(s): K56.41 - FECAL IMPACTION (8) HLD (hyperlipidemia) Code(s): E78.5 - HYPERLIPIDEMIA, UNSPECIFIED Qualifiers: Hyperlipidemia type: unspecified Qualified Code(s): E78.5 - Hyperlipidemia , unspecified (9) HTN (hypertension) Code(s): I10 - ESSENTIAL (PRIMARY) HYPERTENSION Qualifiers: Hypertension type: essential hypertension Qualified Code(s): I10 - Essential (primary) hypertension (10) Stented coronary artery Code(s): Z95.5 - PRESENCE OF CORONARY ANGIOPLASTY IMPLANT AND GRAFT (11) Demand ischemia Code(s): I24.8 - OTHER FORMS OF ACUTE ISCHEMIC HEART DISEASE (12) Elevated troponin Code(s): R74.8 - ABNORMAL LEVELS OF OTHER SERUM ENZYMES Assessment/Plan 12/05/2017 Echocardiography: Normal LV size and fxn, mild TR, AR 1. 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 2. CAD s/p PCI/stent, angina pectoris, demand ischemia 3. Hypertension 4. Hypercholesterolemia 5. 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 Urinary retention and mild bilateral hydro referable to fecal impaction PLAN: 1. Continue Metoprolol 25 bid, Accupril 20 qd and Amlodipine 5 qd as tolerated 2. Continue ASA 81 qd and have d/lanette Plavix due to remote stent 3. Continue Atorvastatin 40 qhs 4. Troponin have peaked 5. GI input noted, bowel regimen eventual colonoscopy 6. Monitor neuro status 7. Fall precaution, PT and gait training with walker, justice, empiric abx d/lanette
[2017-12-08] MEDS: MEROPENEM 1 GM PUSH 1 GM/20 ML DISP.SYRIN IVPUSH SCH (22:12)
[2017-12-08] MEDS: ATORVASTATIN CA 40 MG TABLET (FP) PO SCH (22:12)
[2017-12-08] MEDS: SENNOSIDES 8.6MG TABLET (FP) PO SCH (22:13)
[2017-12-08] MEDS: MONTELUKAST NA 10 MG TABLET PO SCH (22:13)
[2017-12-09] MEDS: MEROPENEM 1 GM PUSH 1 GM/20 ML DISP.SYRIN IVPUSH SCH ×3 (02:11→17:43)
[2017-12-09] MEDS: POLYETHYLENE GLYCOL 3350 119 GM BTL PO SCH ×3 (06:59→21:56)
[2017-12-09 08:30] LABS: BASO % 0.4 % (0-2.0); EOS % 0.4 % (0-4.5); HEMATOCRIT 36.1 % (32.4-45.2); HEMOGLOBIN 12.2 GM/dL (10.7-15.3); LYMPH % 9.3 % (8-40); MCHC 33.8 g/dl (32.0-36.0); MEAN CELL VOLUME 88.7 fl (80-96); MONO % 9.9 % (3.8-10.2); PLATELET COUNT 188 K/MM3 (134-434); RBC 4.07 M/mm3 (3.60-5.2); WHITE BLOOD COUNT 13.1 K/mm3 (4.0-10.0)
[2017-12-09 08:49] LABS: ANION GAP 10 (8-16); BLOOD UREA NITROGEN 15 mg/dL (7-18); CALCIUM 8.3 mg/dL (8.5-10.1); CHLORIDE 108 mmol/L (98-107); CO2 23 mmol/L (21-32); CREATININE 0.8 mg/dL (0.55-1.02); GLUCOSE,RANDOM 98 mg/dL (74-106); MAGNESIUM 1.8 mg/dL (1.8-2.4); PHOSPHOROUS 2.6 mg/dL (2.5-4.9); SODIUM 141 mmol/L (136-145)
[2017-12-09] MEDS ORDERED: PT OWN MED DRAWER 7, Y5N ONE (10:00)
[2017-12-09] MEDS: ACETAMINOPHEN 325 MG TABLET (FP) PO PRN (10:07)
[2017-12-09] MEDS: QUINAPRIL HCL 20 MG TABLET (FP) PO SCH (10:08)
[2017-12-09] MEDS: ASPIRIN COATED 81 MG TABLET.EC PO SCH (10:09)
[2017-12-09] MEDS: PREGABALIN 25 MG CAPSULE PO SCH ×2 (10:09→21:55)
[2017-12-09] MEDS: metoPROLOL SUCCINATE 25 MG TAB.SR.24H (FP) PO SCH ×3 (10:10→22:46)
[2017-12-09] MEDS: TAMOXIFEN CITRATE 10 MG TABLET PO SCH (10:11)
[2017-12-09] MEDS: amLODIPine BESYLATE 5 MG TABLET (FP) PO SCH (10:12)
[2017-12-09] MEDS: PANTOPRAZOLE 40 MG TABLET (FP) PO SCH (10:12)
--- NOTE | 2017-12-09 10:54 | PN ---
Progress Note, Physician Chief Complaint: No fever over night denies any abd pain - Current Medication List Current Medications: Active Medications Acetaminophen (Tylenol -) 650 mg PO Q6H PRN PRN Reason: PAIN LEVEL 4 - 6 Last Admin: 12/09/17 10:07 Dose: 650 mg Amlodipine Besylate (Norvasc -) 5 mg PO DAILY [facility] Last Admin: 12/09/17 10:12 Dose: 5 mg Aspirin (Ecotrin -) 81 mg PO DAILY [facility] Last Admin: 12/09/17 10:09 Dose: 81 mg Atorvastatin Calcium (Lipitor -) 40 mg PO HS [facility] Last Admin: 12/08/17 22:12 Dose: 40 mg Meropenem (Merrem (Restricted To Id) -) 1 gm in 20 mls @ 100 mls/hr IVPUSH Q8H- IV MEG PRN Reason: Protocol Last Admin: 12/09/17 10:09 Dose: 100 mls/hr Metoprolol Succinate (Toprol Xl -) 25 mg PO BID [facility] Last Admin: 12/09/17 10:10 Dose: 25 mg Montelukast Sodium (Singulair -) 10 mg PO HS [facility] Last Admin: 12/08/17 22:13 Dose: 10 mg Pantoprazole Sodium (Protonix -) 40 mg PO DAILY [facility] Last Admin: 12/09/17 10:12 Dose: 40 mg Polyethylene Glycol (Miralax (For Daily Use) -) 17 gm PO TID [facility] Last Admin: 12/09/17 06:59 Dose: 17 gm Pregabalin (Lyrica -) 25 mg PO BID [facility] Last Admin: 12/09/17 10:09 Dose: 25 mg Quinapril HCl (Accupril -) 20 mg PO DAILY [facility] Last Admin: 12/09/17 10:08 Dose: 20 mg Senna (Senna -) 2 tab PO HS [facility] Last Admin: 12/08/17 22:13 Dose: 2 tab Tamoxifen Citrate (Tamoxifen Citrate) 20 mg PO DAILY [facility] Last Admin: 12/09/17 10:11 Dose: 20 mg - Objective Vital Signs: Vital Signs Temperature 97.2 F L 12/09/17 06:00 Pulse Rate 80 12/09/17 06:00 Respiratory Rate 20 12/09/17 06:00 Blood Pressure 124/71 12/09/17 06:00 O2 Sat by Pulse Oximetry (%) 95 12/08/17 21:00 Constitutional: Yes: Well Nourished, No Distress, Calm HENT: Yes: Atraumatic, Normocephalic. No: Drooling Neck: Yes: Supple, Trachea Midline Cardiovascular: Yes: Regular Rate and Rhythm, S1, S2. No: Gallop, Murmur Respiratory: Yes: Regular, CTA Bilaterally Gastrointestinal: Yes: Normal Bowel Sounds, Soft, Distention. No: Tenderness, Rebound Extremities: Yes: WNL Edema: No Peripheral Pulses: Left Doralis Pedis: 1+, Right Dorsalis Pedis: 1+ Integumentary: No: Bruising, Erythema Neurological: Yes: WNL, Oriented ...Motor Strength: WNL, LUE, LLE, RUE, RLE Labs: CBC, BMP 12/09/17 07:20 12/09/17 07:20 INR, PTT INR 0.99 (0.82-1.09) 12/04/17 21:50 Problem List - Problems (1) Abdominal distension Assessment/Plan: Improving with bowel prep Code(s): R14.0 - ABDOMINAL DISTENSION (GASEOUS) (2) CAD (coronary artery disease) Assessment/Plan: Stable no acute changes mild elevation of Trop ion Hospitalization Code(s): I25.10 - ATHSCL HEART DISEASE OF [place] CORONARY ARTERY W/O ANG PCTRS Qualifiers: Coronary Disease-Associated Artery/Lesion type: [place] artery [place] vs. transplanted heart: [place] heart Associated angina: without angina Qualified Code(s): I25.10 - Atherosclerotic heart disease of [place] coronary artery without angina pectoris (3) Dehydration Assessment/Plan: resolved Code(s): E86.0 - DEHYDRATION (4) HTN (hypertension) Assessment/Plan: Well controlled cont all home meds Code(s): I10 - ESSENTIAL (PRIMARY) HYPERTENSION Qualifiers: Hypertension type: essential hypertension Qualified Code(s): I10 - Essential (primary) hypertension (5) History of breast cancer Assessment/Plan: On Tamoxifen Code(s): Z85.3 - PERSONAL HISTORY OF MALIGNANT NEOPLASM OF BREAST (6) Elevated WBC count Assessment/Plan: Evaluated by ID no source on IV abx pending cultures Code(s): D72.829 - ELEVATED WHITE BLOOD CELL COUNT, UNSPECIFIED
--- NOTE | 2017-12-09 11:04 | PN ---
Progress Note, Physician History of Present Illness: 87yo female fecal impaction with stercoral colitis on CT and urinary retention requiring Valdovinos. Was initially disimpacted of large amount of soft formed stool , has been having some soft BM since on bowel regimen. AXR day after disimpaction showed stool still in rectosigmoid but less in proximal colon. She is still confused. Had a large BM this morning per nurse. no acute events overnight - Current Medication List Current Medications: Active Medications Acetaminophen (Tylenol -) 650 mg PO Q6H PRN PRN Reason: PAIN LEVEL 4 - 6 Last Admin: 12/09/17 10:07 Dose: 650 mg Amlodipine Besylate (Norvasc -) 5 mg PO DAILY [facility] Last Admin: 12/09/17 10:12 Dose: 5 mg Aspirin (Ecotrin -) 81 mg PO DAILY [facility] Last Admin: 12/09/17 10:09 Dose: 81 mg Atorvastatin Calcium (Lipitor -) 40 mg PO HS [facility] Last Admin: 12/08/17 22:12 Dose: 40 mg Meropenem (Merrem (Restricted To Id) -) 1 gm in 20 mls @ 100 mls/hr IVPUSH Q8H- IV MEG PRN Reason: Protocol Last Admin: 12/09/17 10:09 Dose: 100 mls/hr Metoprolol Succinate (Toprol Xl -) 25 mg PO BID [facility] Last Admin: 12/09/17 10:10 Dose: 25 mg Montelukast Sodium (Singulair -) 10 mg PO HS [facility] Last Admin: 12/08/17 22:13 Dose: 10 mg Pantoprazole Sodium (Protonix -) 40 mg PO DAILY [facility] Last Admin: 12/09/17 10:12 Dose: 40 mg Polyethylene Glycol (Miralax (For Daily Use) -) 17 gm PO TID [facility] Last Admin: 12/09/17 06:59 Dose: 17 gm Pregabalin (Lyrica -) 25 mg PO BID [facility] Last Admin: 12/09/17 10:09 Dose: 25 mg Quinapril HCl (Accupril -) 20 mg PO DAILY [facility] Last Admin: 12/09/17 10:08 Dose: 20 mg Senna (Senna -) 2 tab PO [facility] Last Admin: 12/08/17 22:13 Dose: 2 tab Tamoxifen Citrate (Tamoxifen Citrate) 20 mg PO DAILY [facility] Last Admin: 12/09/17 10:11 Dose: 20 mg - Objective Vital Signs: Vital Signs Temperature 97.2 F L 12/09/17 06:00 Pulse Rate 80 12/09/17 06:00 Respiratory Rate 20 12/09/17 06:00 Blood Pressure 124/71 12/09/17 06:00 O2 Sat by Pulse Oximetry (%) 95 12/08/17 21:00 Vital Signs Period Temp Pulse Resp BP Sys/Canas Pulse Ox Last 24 Hr 97.2 F-100.6 F 80-96 20-20 124-141/71-86 95 Intake & Output 12/08/17 12/09/17 12/09/17 23:59 07:59 15:59 Intake Total 410 200 Output Total 300 600 Balance 110 -400 Intake: IVPB 200 Oral 410 Output: Urine 300 600 Valdovinos 300 600 Other: Voiding Method Indwelling Catheter Indwelling Catheter Bowel Movement Yes No Constitutional: Yes: No Distress, Calm, Thin Eyes: Yes: Conjunctiva Clear, EOM Intact HENT: Yes: Atraumatic, Normocephalic Neck: Yes: Supple, Trachea Midline Cardiovascular: Yes: Regular Rate and Rhythm, S1, S2 Respiratory: Yes: Regular, CTA Bilaterally Gastrointestinal: Yes: Normal Bowel Sounds, Soft, Distention (upper abdomen). No: Tenderness, Tenderness, Epigastrium, Tenderness, Rebound ...Rectal Exam: Yes: Sphincter Tone Normal, Other (non-formed pasty brown stool. ). No: Hemorrhoids/External, Mass Genitourinary: Yes: Valdovinos Present. No: CVA Tenderness - Left, CVA Tenderness - Right Musculoskeletal: Yes: Back Pain. No: Muscle Pain, Muscle Weakness Extremities: No: Cool, Cyanosis Edema: No Peripheral Pulses WNL: Yes Peripheral Pulses: Left Doralis Pedis: 2+, Right Dorsalis Pedis: 2+ Integumentary: No: Jaundice, Rash Neurological: Yes: Alert, Confusion Labs: CBC, BMP 12/09/17 07:20 12/09/17 07:20 INR, PTT INR 0.99 (0.82-1.09) 12/04/17 21:50 - ....Imaging X-ray: Report Reviewed, Image Reviewed (12/08/2017 evaluated LBO fecal impaction) Problem List - Problems (1) Constipation Assessment/Plan: 87 yo female with fecal impaction, no having some BMs, no current bowel regimen , distended but non-tender abdomen and non-formed brown stool on exam. no acute surgical issues at this time. Reassess stool burden with AXR in AM continue stool softener and miralax recommend routine dulcolax and/or senna po - could give extra dose of senna now (2 tabs) and continue nightly continue SENTHIL daily will remain available and follow peripherally Code(s): K59.00 - CONSTIPATION, UNSPECIFIED (2) Fecal impaction Code(s): K56.41 - FECAL IMPACTION (3) Bladder distension Code(s): N32.89 - OTHER SPECIFIED DISORDERS OF BLADDER (4) HTN (hypertension) Code(s): I10 - ESSENTIAL (PRIMARY) HYPERTENSION Qualifiers: Hypertension type: essential hypertension Qualified Code(s): I10 - Essential (primary) hypertension (5) Osteoarthritis Code(s): M19.90 - UNSPECIFIED OSTEOARTHRITIS, UNSPECIFIED SITE Qualifiers: Osteoarthritis location: knee Osteoarthritis type: primary Laterality: bilateral Qualified Code(s): M17.0 - Bilateral primary osteoarthritis of knee (6) Spinal stenosis Code(s): M48.00 - SPINAL STENOSIS, SITE UNSPECIFIED Qualifiers: Spinal region: cervical Qualified Code(s): M48.02 - Spinal stenosis, cervical region
--- NOTE | 2017-12-09 11:24 | PN ---
Progress Note, Physician Chief Complaint: Not in distress History of Present Illness: Patient was seen and examined. Awake. Chart was reviewed Denies chest pain, SOB or palpitations Less abdominal distension - Current Medication List Current Medications: Active Medications Acetaminophen (Tylenol -) 650 mg PO Q6H PRN PRN Reason: PAIN LEVEL 4 - 6 Last Admin: 12/09/17 10:07 Dose: 650 mg Amlodipine Besylate (Norvasc -) 5 mg PO DAILY [facility] Last Admin: 12/09/17 10:12 Dose: 5 mg Aspirin (Ecotrin -) 81 mg PO DAILY [facility] Last Admin: 12/09/17 10:09 Dose: 81 mg Atorvastatin Calcium (Lipitor -) 40 mg PO HS [facility] Last Admin: 12/08/17 22:12 Dose: 40 mg Meropenem (Merrem (Restricted To Id) -) 1 gm in 20 mls @ 100 mls/hr IVPUSH Q8H- IV MEG PRN Reason: Protocol Last Admin: 12/09/17 10:09 Dose: 100 mls/hr Metoprolol Succinate (Toprol Xl -) 25 mg PO BID [facility] Last Admin: 12/09/17 10:10 Dose: 25 mg Montelukast Sodium (Singulair -) 10 mg PO HS [facility] Last Admin: 12/08/17 22:13 Dose: 10 mg Pantoprazole Sodium (Protonix -) 40 mg PO DAILY [facility] Last Admin: 12/09/17 10:12 Dose: 40 mg Polyethylene Glycol (Miralax (For Daily Use) -) 17 gm PO TID [facility] Last Admin: 12/09/17 06:59 Dose: 17 gm Pregabalin (Lyrica -) 25 mg PO BID [facility] Last Admin: 12/09/17 10:09 Dose: 25 mg Quinapril HCl (Accupril -) 20 mg PO DAILY [facility] Last Admin: 12/09/17 10:08 Dose: 20 mg Senna (Senna -) 2 tab PO HS [facility] Last Admin: 12/08/17 22:13 Dose: 2 tab Tamoxifen Citrate (Tamoxifen Citrate) 20 mg PO DAILY [facility] Last Admin: 12/09/17 10:11 Dose: 20 mg - Objective Vital Signs: Vital Signs Temperature 97.2 F L 12/09/17 06:00 Pulse Rate 80 12/09/17 06:00 Respiratory Rate 20 12/09/17 06:00 Blood Pressure 124/71 12/09/17 06:00 O2 Sat by Pulse Oximetry (%) 95 12/08/17 21:00 Neck: Yes: Supple Cardiovascular: Yes: Regular Rate and Rhythm, S1, S2 Respiratory: Yes: CTA Bilaterally Gastrointestinal: Yes: Normal Bowel Sounds, Distention. No: Tenderness Edema: No Labs: CBC, BMP 12/09/17 07:20 12/09/17 07:20 Problem List - Problems (1) Acute metabolic encephalopathy Code(s): G93.41 - METABOLIC ENCEPHALOPATHY (2) CAD (coronary artery disease) Code(s): I25.10 - ATHSCL HEART DISEASE OF [place] CORONARY ARTERY W/O ANG PCTRS Qualifiers: Coronary Disease-Associated Artery/Lesion type: [place] artery [place] vs. transplanted heart: [place] heart Associated angina: without angina Qualified Code(s): I25.10 - Atherosclerotic heart disease of [place] coronary artery without angina pectoris (3) Demand ischemia Code(s): I24.8 - OTHER FORMS OF ACUTE ISCHEMIC HEART DISEASE (4) Fall Code(s): W19.XXXA - UNSPECIFIED FALL, INITIAL ENCOUNTER Qualifiers: Encounter type: initial encounter Qualified Code(s): W19.XXXA - Unspecified fall, initial encounter (5) Gait disturbance Code(s): R26.9 - UNSPECIFIED ABNORMALITIES OF GAIT AND MOBILITY (6) HLD (hyperlipidemia) Code(s): E78.5 - HYPERLIPIDEMIA, UNSPECIFIED Qualifiers: Hyperlipidemia type: unspecified Qualified Code(s): E78.5 - Hyperlipidemia , unspecified (7) HTN (hypertension) Code(s): I10 - ESSENTIAL (PRIMARY) HYPERTENSION Qualifiers: Hypertension type: essential hypertension Qualified Code(s): I10 - Essential (primary) hypertension (8) Osteoarthritis Code(s): M19.90 - UNSPECIFIED OSTEOARTHRITIS, UNSPECIFIED SITE Qualifiers: Osteoarthritis location: knee Osteoarthritis type: primary Laterality: bilateral Qualified Code(s): M17.0 - Bilateral primary osteoarthritis of knee Assessment/Plan 1. 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 2. CAD s/p PCI/stent, angina pectoris, demand ischemia 3. Hypertension 4. Hypercholesterolemia 5. 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 Urinary retention and mild bilateral hydronephrosis referable to fecal impaction PLAN: 1. Continue Metoprolol 25 bid, Accupril 20 qd and Amlodipine 5 qd as tolerated 2. Continue ASA 81 qd 3. Continue Atorvastatin 40 qhs 4. Eventually consider colonoscopy 5. Monitor neurology status 6. Fall precaution, PT and gait training with walker Further plans are to follow Art West MD
--- NOTE | 2017-12-09 12:02 | PN ---
Progress Note, Physician History of Present Illness: events noted patient spiking fevers less confused today was very confused last night - Current Medication List Current Medications: Active Medications Acetaminophen (Tylenol -) 650 mg PO Q6H PRN PRN Reason: PAIN LEVEL 4 - 6 Last Admin: 12/09/17 10:07 Dose: 650 mg Amlodipine Besylate (Norvasc -) 5 mg PO DAILY [facility] Last Admin: 12/09/17 10:12 Dose: 5 mg Aspirin (Ecotrin -) 81 mg PO DAILY [facility] Last Admin: 12/09/17 10:09 Dose: 81 mg Atorvastatin Calcium (Lipitor -) 40 mg PO HS [facility] Last Admin: 12/08/17 22:12 Dose: 40 mg Meropenem (Merrem (Restricted To Id) -) 1 gm in 20 mls @ 100 mls/hr IVPUSH Q8H- IV MEG PRN Reason: Protocol Last Admin: 12/09/17 10:09 Dose: 100 mls/hr Metoprolol Succinate (Toprol Xl -) 25 mg PO BID [facility] Last Admin: 12/09/17 10:10 Dose: 25 mg Montelukast Sodium (Singulair -) 10 mg PO HS [facility] Last Admin: 12/08/17 22:13 Dose: 10 mg Pantoprazole Sodium (Protonix -) 40 mg PO DAILY [facility] Last Admin: 12/09/17 10:12 Dose: 40 mg Polyethylene Glycol (Miralax (For Daily Use) -) 17 gm PO TID [facility] Last Admin: 12/09/17 06:59 Dose: 17 gm Pregabalin (Lyrica -) 25 mg PO BID [facility] Last Admin: 12/09/17 10:09 Dose: 25 mg Quinapril HCl (Accupril -) 20 mg PO DAILY [facility] Last Admin: 12/09/17 10:08 Dose: 20 mg Senna (Senna -) 2 tab PO HS [facility] Last Admin: 12/08/17 22:13 Dose: 2 tab Tamoxifen Citrate (Tamoxifen Citrate) 20 mg PO DAILY [facility] Last Admin: 12/09/17 10:11 Dose: 20 mg - Objective Vital Signs: Vital Signs Temperature 97.2 F L 12/09/17 06:00 Pulse Rate 80 12/09/17 06:00 Respiratory Rate 20 12/09/17 06:00 Blood Pressure 124/71 12/09/17 06:00 O2 Sat by Pulse Oximetry (%) 95 12/08/17 21:00 Constitutional: Yes: No Distress, Calm Neck: Yes: Supple Cardiovascular: Yes: Regular Rate and Rhythm Respiratory: Yes: Regular, CTA Bilaterally Gastrointestinal: Yes: Soft, Hypoactive Bowel Sounds Genitourinary: Yes: [place] Present Musculoskeletal: Yes: WNL Extremities: Yes: WNL Neurological: Yes: Alert, Confusion, Other Psychiatric: Yes: Alert, Other Labs: CBC, BMP 12/09/17 07:20 12/09/17 07:20 INR, PTT INR 0.99 (0.82-1.09) 12/04/17 21:50 - ....Imaging X-ray: Report Reviewed, Image Reviewed Assessment/Plan after evaluating the patient and looking at the abd xray patient has developed intestinal obstruction which could be mainly due to fecal impaction as well could ahve other process going on she has no gas seen in the rectum Problem List - Problems (1) Fecal impaction Thank you for the opportunity to participate in the care of this patient. Code(s): K56.41 - FECAL IMPACTION (2) Acute urinary retention Code(s): R33.8 - OTHER RETENTION OF URINE (3) Dehydration Code(s): E86.0 - DEHYDRATION (4) JASMIN (acute kidney injury) Code(s): N17.9 - ACUTE KIDNEY FAILURE, UNSPECIFIED (5) Fall as cause of accidental injury in home as place of occurrence Code(s): W19.XXXA - UNSPECIFIED FALL, INITIAL ENCOUNTER; Y92.009 - UNSP PLACE IN UNSP NON-INSTITUT (PRIVATE) RESIDENCE PLACE Qualifiers: Encounter type: initial encounter Qualified Code(s): W19.XXXA - Unspecified fall, initial encounter; Y92.009 - Unspecified place in unspecified non-institutional (private) residence as the place of occurrence of the external cause; Y92.009 - Unspecified place in unspecified non-institutional ( private) residence as the place of occurrence of the external cause (6) Encephalopathy acute Code(s): G93.40 - ENCEPHALOPATHY, UNSPECIFIED (7) CAD (coronary artery disease) Code(s): I25.10 - ATHSCL HEART DISEASE OF [place] CORONARY ARTERY W/O ANG PCTRS Qualifiers: Coronary Disease-Associated Artery/Lesion type: [place] artery [place] vs. transplanted heart: [place] heart Associated angina: without angina Qualified Code(s): I25.10 - Atherosclerotic heart disease of [place] coronary artery without angina pectoris (8) HTN (hypertension) Code(s): I10 - ESSENTIAL (PRIMARY) HYPERTENSION Qualifiers: Hypertension type: essential hypertension Qualified Code(s): I10 - Essential (primary) hypertension (9) HLD (hyperlipidemia) Code(s): E78.5 - HYPERLIPIDEMIA, UNSPECIFIED Qualifiers: Hyperlipidemia type: unspecified Qualified Code(s): E78.5 - Hyperlipidemia , unspecified (10) History of breast cancer Code(s): Z85.3 - PERSONAL HISTORY OF MALIGNANT NEOPLASM OF BREAST 11 leukocytosis patient had a bm today plan started on abx awaiting cx reports rest ct current mgmt hydration
[2017-12-09] MEDS: MONTELUKAST NA 10 MG TABLET PO SCH (21:55)
[2017-12-09] MEDS: ATORVASTATIN CA 40 MG TABLET (FP) PO SCH (21:55)
[2017-12-09] MEDS: SENNOSIDES 8.6MG TABLET (FP) PO SCH (21:58)
[2017-12-10] MEDS: MEROPENEM 1 GM PUSH 1 GM/20 ML DISP.SYRIN IVPUSH SCH ×3 (01:41→18:03)
[2017-12-10] MEDS: POLYETHYLENE GLYCOL 3350 119 GM BTL PO SCH ×3 (05:52→21:01)
[2017-12-10 07:32] LABS: BASO % 0.7 % (0-2.0); EOS % 1.6 % (0-4.5); HEMATOCRIT 34.5 % (32.4-45.2); HEMOGLOBIN 11.5 GM/dL (10.7-15.3); LYMPH % 12.8 % (8-40); MCH 29.9 pg (25.7-33.7); MCHC 33.4 g/dl (32.0-36.0); MEAN CELL VOLUME 89.5 fl (80-96); MEAN PLT VOLUME 10.3 fl (7.5-11.1); MONO % 8.7 % (3.8-10.2); NEUT % 76.2 % (42.8-82.8); PLATELET COUNT 195 K/MM3 (134-434); RBC 3.85 M/mm3 (3.60-5.2); RDW 14.3 % (11.6-15.6); WHITE BLOOD COUNT 11.1 K/mm3 (4.0-10.0)
[2017-12-10 08:24] LABS: ANION GAP 11 (8-16); BLOOD UREA NITROGEN 24 mg/dL (7-18); CALCIUM 8.2 mg/dL (8.5-10.1); CHLORIDE 107 mmol/L (98-107); CO2 23 mmol/L (21-32); CREATININE 1.3 mg/dL (0.55-1.02); GLUCOSE,RANDOM 89 mg/dL (74-106); POTASSIUM 4.5 mmol/L (3.5-5.1); SODIUM 141 mmol/L (136-145)
[2017-12-10] MEDS: ACETAMINOPHEN 325 MG TABLET (FP) PO PRN (09:46)
[2017-12-10] MEDS ORDERED: PT OWN MED DRAWER 7, Y5N ONE ×2 (09:55→17:53)
[2017-12-10] MEDS: amLODIPine BESYLATE 5 MG TABLET (FP) PO SCH (09:56)
[2017-12-10] MEDS: metoPROLOL SUCCINATE 25 MG TAB.SR.24H (FP) PO SCH ×2 (09:57→21:01)
[2017-12-10] MEDS: QUINAPRIL HCL 20 MG TABLET (FP) PO SCH (09:57)
[2017-12-10] MEDS: TAMOXIFEN CITRATE 10 MG TABLET PO SCH (11:46)
[2017-12-10] MEDS: PREGABALIN 25 MG CAPSULE PO SCH ×2 (11:46→21:01)
[2017-12-10] MEDS: PANTOPRAZOLE 40 MG TABLET (FP) PO SCH (11:46)
[2017-12-10] MEDS: ASPIRIN COATED 81 MG TABLET.EC PO SCH (11:46)
[2017-12-10] MEDS ORDERED: SODIUM CHLORIDE 1,000 ML IV STA ×2 (12:05→12:07)
--- NOTE | 2017-12-10 12:10 | PN ---
Progress Note, Physician Chief Complaint: No fever over night denies any abd pain - Current Medication List Current Medications: Active Medications Acetaminophen (Tylenol -) 650 mg PO Q6H PRN PRN Reason: PAIN LEVEL 4 - 6 Last Admin: 12/10/17 09:46 Dose: 650 mg Amlodipine Besylate (Norvasc -) 5 mg PO DAILY [facility] Last Admin: 12/10/17 09:56 Dose: Not Given Aspirin (Ecotrin -) 81 mg PO DAILY [facility] Last Admin: 12/10/17 11:46 Dose: 81 mg Atorvastatin Calcium (Lipitor -) 40 mg PO HS [facility] Last Admin: 12/09/17 21:55 Dose: 40 mg Meropenem (Merrem (Restricted To Id) -) 1 gm in 20 mls @ 100 mls/hr IVPUSH Q8H- IV MEG PRN Reason: Protocol Last Admin: 12/10/17 11:45 Dose: 100 mls/hr Metoprolol Succinate (Toprol Xl -) 25 mg PO BID [facility] Last Admin: 12/10/17 09:57 Dose: Not Given Montelukast Sodium (Singulair -) 10 mg PO HS [facility] Last Admin: 12/09/17 21:55 Dose: 10 mg Pantoprazole Sodium (Protonix -) 40 mg PO DAILY [facility] Last Admin: 12/10/17 11:46 Dose: 40 mg Polyethylene Glycol (Miralax (For Daily Use) -) 17 gm PO TID [facility] Last Admin: 12/10/17 05:52 Dose: 17 gm Pregabalin (Lyrica -) 25 mg PO BID [facility] Last Admin: 12/10/17 11:46 Dose: 25 mg Quinapril HCl (Accupril -) 20 mg PO DAILY [facility] Last Admin: 12/10/17 09:57 Dose: Not Given Senna (Senna -) 2 tab PO HS [facility] Last Admin: 12/09/17 21:58 Dose: 2 tab Tamoxifen Citrate (Tamoxifen Citrate) 20 mg PO DAILY [facility] Last Admin: 12/10/17 11:46 Dose: 20 mg - Objective Vital Signs: Vital Signs Temperature 99.0 F 12/10/17 06:00 Pulse Rate 76 12/10/17 06:00 Respiratory Rate 18 12/10/17 06:00 Blood Pressure 104/50 12/10/17 06:00 O2 Sat by Pulse Oximetry (%) 96 12/09/17 21:00 Constitutional: Yes: Well Nourished, No Distress, Calm HENT: Yes: Atraumatic, Normocephalic. No: Drooling Neck: Yes: Supple, Trachea Midline Cardiovascular: Yes: Regular Rate and Rhythm, S1, S2. No: Gallop, Murmur Respiratory: Yes: Regular, CTA Bilaterally Gastrointestinal: Yes: Normal Bowel Sounds, Soft, Distention. No: Tenderness, Rebound Extremities: Yes: WNL Edema: No Peripheral Pulses: Left Doralis Pedis: 1+, Right Dorsalis Pedis: 1+ Neurological: Yes: WNL, Oriented. Motor Strength: WNL, LUE, LLE, RUE, RLE Labs: CBC, BMP 12/10/17 07:05 12/10/17 07:05 INR, PTT INR 0.99 (0.82-1.09) 12/04/17 21:50 Problem List - Problems (1) Abdominal distension Assessment/Plan: Improving with bowel prep Code(s): R14.0 - ABDOMINAL DISTENSION (GASEOUS) (2) CAD (coronary artery disease) Assessment/Plan: Stable no acute changes mild elevation of Trop ion Hospitalization Code(s): I25.10 - ATHSCL HEART DISEASE OF [place] CORONARY ARTERY W/O ANG PCTRS Qualifiers: Coronary Disease-Associated Artery/Lesion type: [place] artery [place] vs. transplanted heart: [place] heart Associated angina: without angina Qualified Code(s): I25.10 - Atherosclerotic heart disease of [place] coronary artery without angina pectoris (3) Dehydration Assessment/Plan: Elevated BUN/Creat start IV Hydration F/U BP and BMP Code(s): E86.0 - DEHYDRATION (4) HTN (hypertension) Assessment/Plan: low BP hold medss Code(s): I10 - ESSENTIAL (PRIMARY) HYPERTENSION Qualifiers: Hypertension type: essential hypertension Qualified Code(s): I10 - Essential (primary) hypertension (5) History of breast cancer Assessment/Plan: On Tamoxifen Code(s): Z85.3 - PERSONAL HISTORY OF MALIGNANT NEOPLASM OF BREAST (6) Elevated WBC count Assessment/Plan: Evaluated by ID no source on IV abx pending cultures Code(s): D72.829 - ELEVATED WHITE BLOOD CELL COUNT, UNSPECIFIED (7) JASMIN (acute kidney injury) Assessment/Plan: Iv Hydration F/U BMP Code(s): N17.9 - ACUTE KIDNEY FAILURE, UNSPECIFIED
[2017-12-10] MEDS: SODIUM CHLORIDE 1,000 ML IV SCH (15:31)
--- NOTE | 2017-12-10 15:33 | PN ---
Progress Note, Physician - Current Medication List Current Medications: Active Medications Acetaminophen (Tylenol -) 650 mg PO Q6H PRN PRN Reason: PAIN LEVEL 4 - 6 Last Admin: 12/10/17 09:46 Dose: 650 mg Amlodipine Besylate (Norvasc -) 5 mg PO DAILY [facility] Last Admin: 12/10/17 09:56 Dose: Not Given Aspirin (Ecotrin -) 81 mg PO DAILY [facility] Last Admin: 12/10/17 11:46 Dose: 81 mg Atorvastatin Calcium (Lipitor -) 40 mg PO HS [facility] Last Admin: 12/09/17 21:55 Dose: 40 mg Meropenem (Merrem (Restricted To Id) -) 1 gm in 20 mls @ 100 mls/hr IVPUSH Q8H- IV MEG PRN Reason: Protocol Last Admin: 12/10/17 11:45 Dose: 100 mls/hr Sodium Chloride (Normal Saline -) 1,000 mls @ 100 mls/hr IV ASDIR [facility] Last Admin: 12/10/17 15:31 Dose: 100 mls/hr Metoprolol Succinate (Toprol Xl -) 25 mg PO BID [facility] Last Admin: 12/10/17 09:57 Dose: Not Given Montelukast Sodium (Singulair -) 10 mg PO HS [facility] Last Admin: 12/09/17 21:55 Dose: 10 mg Pantoprazole Sodium (Protonix -) 40 mg PO DAILY [facility] Last Admin: 12/10/17 11:46 Dose: 40 mg Polyethylene Glycol (Miralax (For Daily Use) -) 17 gm PO TID [facility] Last Admin: 12/10/17 14:50 Dose: 17 gm Pregabalin (Lyrica -) 25 mg PO BID [facility] Last Admin: 12/10/17 11:46 Dose: 25 mg Quinapril HCl (Accupril -) 20 mg PO DAILY [facility] Last Admin: 12/10/17 09:57 Dose: Not Given Senna (Senna -) 2 tab PO HS [facility] Last Admin: 12/09/17 21:58 Dose: 2 tab Tamoxifen Citrate (Tamoxifen Citrate) 20 mg PO DAILY [facility] Last Admin: 12/10/17 11:46 Dose: 20 mg - Objective Vital Signs: Vital Signs Temperature 98.6 F 12/10/17 14:53 Pulse Rate 72 12/10/17 14:53 Respiratory Rate 17 12/10/17 09:00 Blood Pressure 115/54 12/10/17 14:53 O2 Sat by Pulse Oximetry (%) 96 12/10/17 09:00 Labs: CBC, BMP 12/10/17 07:05 12/10/17 07:05 INR, PTT INR 0.99 (0.82-1.09) 12/04/17 21:50
--- NOTE | 2017-12-10 15:36 | PN ---
Progress Note, Physician History of Present Illness: patient better had a drop in blood pressure no fevers wbc trending down foleys removed - Current Medication List Current Medications: Active Medications Acetaminophen (Tylenol -) 650 mg PO Q6H PRN PRN Reason: PAIN LEVEL 4 - 6 Last Admin: 12/10/17 09:46 Dose: 650 mg Amlodipine Besylate (Norvasc -) 5 mg PO DAILY [facility] Last Admin: 12/10/17 09:56 Dose: Not Given Aspirin (Ecotrin -) 81 mg PO DAILY [facility] Last Admin: 12/10/17 11:46 Dose: 81 mg Atorvastatin Calcium (Lipitor -) 40 mg PO HS [facility] Last Admin: 12/09/17 21:55 Dose: 40 mg Meropenem (Merrem (Restricted To Id) -) 1 gm in 20 mls @ 100 mls/hr IVPUSH Q8H- IV MEG PRN Reason: Protocol Last Admin: 12/10/17 11:45 Dose: 100 mls/hr Sodium Chloride (Normal Saline -) 1,000 mls @ 100 mls/hr IV ASDIR [facility] Last Admin: 12/10/17 15:31 Dose: 100 mls/hr Metoprolol Succinate (Toprol Xl -) 25 mg PO BID [facility] Last Admin: 12/10/17 09:57 Dose: Not Given Montelukast Sodium (Singulair -) 10 mg PO HS [facility] Last Admin: 12/09/17 21:55 Dose: 10 mg Pantoprazole Sodium (Protonix -) 40 mg PO DAILY [facility] Last Admin: 12/10/17 11:46 Dose: 40 mg Polyethylene Glycol (Miralax (For Daily Use) -) 17 gm PO TID [facility] Last Admin: 12/10/17 14:50 Dose: 17 gm Pregabalin (Lyrica -) 25 mg PO BID [facility] Last Admin: 12/10/17 11:46 Dose: 25 mg Quinapril HCl (Accupril -) 20 mg PO DAILY [facility] Last Admin: 12/10/17 09:57 Dose: Not Given Senna (Senna -) 2 tab PO HS [facility] Last Admin: 12/09/17 21:58 Dose: 2 tab Tamoxifen Citrate (Tamoxifen Citrate) 20 mg PO DAILY [facility] Last Admin: 12/10/17 11:46 Dose: 20 mg - Objective Vital Signs: Vital Signs Temperature 98.6 F 12/10/17 14:53 Pulse Rate 72 12/10/17 14:53 Respiratory Rate 17 12/10/17 09:00 Blood Pressure 115/54 12/10/17 14:53 O2 Sat by Pulse Oximetry (%) 96 12/10/17 09:00 Constitutional: Yes: No Distress, Calm Cardiovascular: Yes: Regular Rate and Rhythm Respiratory: Yes: Regular, CTA Bilaterally Gastrointestinal: Yes: Soft, Hypoactive Bowel Sounds Musculoskeletal: Yes: WNL Extremities: Yes: WNL Neurological: Yes: Alert Psychiatric: Yes: Alert Labs: CBC, BMP 12/10/17 07:05 12/10/17 07:05 INR, PTT INR 0.99 (0.82-1.09) 12/04/17 21:50 Assessment/Plan after evaluating the patient and looking at the abd xray patient has developed intestinal obstruction which could be mainly due to fecal impaction as well could ahve other process going on she has no gas seen in the rectum Problem List - Problems (1) Fecal impaction Thank you for the opportunity to participate in the care of this patient. Code(s): K56.41 - FECAL IMPACTION (2) Acute urinary retention Code(s): R33.8 - OTHER RETENTION OF URINE (3) Dehydration Code(s): E86.0 - DEHYDRATION (4) JASMIN (acute kidney injury) Code(s): N17.9 - ACUTE KIDNEY FAILURE, UNSPECIFIED (5) Fall as cause of accidental injury in home as place of occurrence Code(s): W19.XXXA - UNSPECIFIED FALL, INITIAL ENCOUNTER; Y92.009 - UNSP PLACE IN UNSP NON-INSTITUT (PRIVATE) RESIDENCE PLACE Qualifiers: Encounter type: initial encounter Qualified Code(s): W19.XXXA - Unspecified fall, initial encounter; Y92.009 - Unspecified place in unspecified non-institutional (private) residence as the place of occurrence of the external cause; Y92.009 - Unspecified place in unspecified non-institutional ( private) residence as the place of occurrence of the external cause (6) Encephalopathy acute Code(s): G93.40 - ENCEPHALOPATHY, UNSPECIFIED (7) CAD (coronary artery disease) Code(s): I25.10 - ATHSCL HEART DISEASE OF [place] CORONARY ARTERY W/O ANG PCTRS Qualifiers: Coronary Disease-Associated Artery/Lesion type: [place] artery [place] vs. transplanted heart: [place] heart Associated angina: without angina Qualified Code(s): I25.10 - Atherosclerotic heart disease of [place] coronary artery without angina pectoris (8) HTN (hypertension) Code(s): I10 - ESSENTIAL (PRIMARY) HYPERTENSION Qualifiers: Hypertension type: essential hypertension Qualified Code(s): I10 - Essential (primary) hypertension (9) HLD (hyperlipidemia) Code(s): E78.5 - HYPERLIPIDEMIA, UNSPECIFIED Qualifiers: Hyperlipidemia type: unspecified Qualified Code(s): E78.5 - Hyperlipidemia , unspecified (10) History of breast cancer Code(s): Z85.3 - PERSONAL HISTORY OF MALIGNANT NEOPLASM OF BREAST 11 leukocytosis wbc trending down plan continue abx monitor wbc monitor for urinary obstruction post justice removal patient getting iv fluids rest as per the team
[2017-12-10] MEDS ORDERED: INSULIN (NOVOLOG) ASPART 100 UNITS/ML 10ML VIAL ONE (17:52)
[2017-12-10] MEDS: ATORVASTATIN CA 40 MG TABLET (FP) PO SCH (21:01)
[2017-12-10] MEDS: SENNOSIDES 8.6MG TABLET (FP) PO SCH (21:01)
[2017-12-10] MEDS: MONTELUKAST NA 10 MG TABLET PO SCH (21:01)
[2017-12-11] MEDS: MEROPENEM 1 GM PUSH 1 GM/20 ML DISP.SYRIN IVPUSH SCH ×3 (02:05→17:35)
[2017-12-11] MEDS: POLYETHYLENE GLYCOL 3350 119 GM BTL PO SCH ×3 (05:18→22:05)
[2017-12-11] MEDS: SODIUM CHLORIDE 1,000 ML IV SCH (05:18)
[2017-12-11 08:16] LABS: ANION GAP 11 (8-16); BLOOD UREA NITROGEN 23 mg/dL (7-18); CALCIUM 8.1 mg/dL (8.5-10.1); CHLORIDE 110 mmol/L (98-107); CO2 23 mmol/L (21-32); GLUCOSE,RANDOM 80 mg/dL (74-106); MAGNESIUM 1.8 mg/dL (1.8-2.4); POTASSIUM 4.4 mmol/L (3.5-5.1); SODIUM 144 mmol/L (136-145)
[2017-12-11 08:29] LABS: BASO % 1.2 % (0-2.0); EOS % 2.6 % (0-4.5); HEMATOCRIT 33.5 % (32.4-45.2); HEMOGLOBIN 11.4 GM/dL (10.7-15.3); LYMPH % 16.8 % (8-40); MCH 30.5 pg (25.7-33.7); MCHC 34.1 g/dl (32.0-36.0); MEAN CELL VOLUME 89.6 fl (80-96); MEAN PLT VOLUME 10.1 fl (7.5-11.1); MONO % 8.6 % (3.8-10.2); NEUT % 70.8 % (42.8-82.8); PLATELET COUNT 216 K/MM3 (134-434); RBC 3.73 M/mm3 (3.60-5.2); WHITE BLOOD COUNT 9.3 K/mm3 (4.0-10.0)
[2017-12-11] MEDS: PANTOPRAZOLE 40 MG TABLET (FP) PO SCH (09:20)
[2017-12-11] MEDS: PREGABALIN 25 MG CAPSULE PO SCH ×2 (09:21→22:05)
[2017-12-11] MEDS: QUINAPRIL HCL 20 MG TABLET (FP) PO SCH (09:21)
[2017-12-11] MEDS: amLODIPine BESYLATE 5 MG TABLET (FP) PO SCH (09:21)
[2017-12-11] MEDS: TAMOXIFEN CITRATE 10 MG TABLET PO SCH (09:21)
[2017-12-11] MEDS: metoPROLOL SUCCINATE 25 MG TAB.SR.24H (FP) PO SCH ×2 (09:21→22:05)
[2017-12-11] MEDS: ASPIRIN COATED 81 MG TABLET.EC PO SCH (09:21)
[2017-12-11] MEDS ORDERED: MAGNESIUM OXIDE 400 MG TABLET (FP) PO ONE (10:00)
--- NOTE | 2017-12-11 11:43 | PN ---
Progress Note, Physician Chief Complaint: Pt lying in bed in no acute distress. mental status improved. Pt denies chest discomfort, sob, n/v. - Current Medication List Current Medications: Active Medications Acetaminophen (Tylenol -) 650 mg PO Q6H PRN PRN Reason: PAIN LEVEL 4 - 6 Last Admin: 12/10/17 09:46 Dose: 650 mg Amlodipine Besylate (Norvasc -) 5 mg PO DAILY [facility] Last Admin: 12/11/17 09:21 Dose: 5 mg Aspirin (Ecotrin -) 81 mg PO DAILY [facility] Last Admin: 12/11/17 09:21 Dose: 81 mg Atorvastatin Calcium (Lipitor -) 40 mg PO HS [facility] Last Admin: 12/10/17 21:01 Dose: 40 mg Meropenem (Merrem (Restricted To Id) -) 1 gm in 20 mls @ 100 mls/hr IVPUSH Q8H- IV MEG PRN Reason: Protocol Last Admin: 12/11/17 09:20 Dose: 100 mls/hr Metoprolol Succinate (Toprol Xl -) 25 mg PO BID [facility] Last Admin: 12/11/17 09:21 Dose: 25 mg Montelukast Sodium (Singulair -) 10 mg PO HS [facility] Last Admin: 12/10/17 21:01 Dose: 10 mg Pantoprazole Sodium (Protonix -) 40 mg PO DAILY [facility] Last Admin: 12/11/17 09:20 Dose: 40 mg Polyethylene Glycol (Miralax (For Daily Use) -) 17 gm PO TID [facility] Last Admin: 12/11/17 05:18 Dose: 17 gm Pregabalin (Lyrica -) 25 mg PO BID [facility] Last Admin: 12/11/17 09:21 Dose: 25 mg Quinapril HCl (Accupril -) 20 mg PO DAILY [facility] Last Admin: 12/11/17 09:21 Dose: 20 mg Senna (Senna -) 2 tab PO HS [facility] Last Admin: 12/10/17 21:01 Dose: 2 tab Tamoxifen Citrate (Tamoxifen Citrate) 20 mg PO DAILY [facility] Last Admin: 12/11/17 09:21 Dose: 20 mg - Objective Vital Signs: Vital Signs Temperature 99.2 F 12/11/17 10:00 Pulse Rate 78 12/11/17 10:00 Respiratory Rate 14 12/11/17 10:00 Blood Pressure 136/60 12/11/17 10:00 O2 Sat by Pulse Oximetry (%) 96 12/10/17 21:00 Constitutional: Yes: Well Nourished, No Distress Cardiovascular: Yes: Regular Rate and Rhythm. No: Gallop, Murmur, Rub Respiratory: Yes: Regular, Diminished, Rales (bibasilar). No: Rhonchi, SOB, Tachypnea, Wheezes Gastrointestinal: Yes: WNL, Normal Bowel Sounds, Soft. No: Distention, Tenderness ...Rectal Exam: Yes: WNL, Hemorrhoids/External Genitourinary: Yes: Justice Present Edema: No Neurological: Yes: WNL, Alert, Confusion Labs: CBC, BMP 12/11/17 06:40 12/11/17 06:40 INR, PTT INR 0.99 (0.82-1.09) 12/04/17 21:50 Problem List - Problems (1) Dehydration Code(s): E86.0 - DEHYDRATION (2) Fecal impaction Code(s): K56.41 - FECAL IMPACTION (3) Bladder distension Code(s): N32.89 - OTHER SPECIFIED DISORDERS OF BLADDER (4) Acute metabolic encephalopathy Code(s): G93.41 - METABOLIC ENCEPHALOPATHY (5) Elevated troponin Code(s): R74.8 - ABNORMAL LEVELS OF OTHER SERUM ENZYMES (6) JASMIN (acute kidney injury) Code(s): N17.9 - ACUTE KIDNEY FAILURE, UNSPECIFIED (7) Abdominal distension Code(s): R14.0 - ABDOMINAL DISTENSION (GASEOUS) (8) Fall Code(s): W19.XXXA - UNSPECIFIED FALL, INITIAL ENCOUNTER Qualifiers: Encounter type: initial encounter Qualified Code(s): W19.XXXA - Unspecified fall, initial encounter (9) HTN (hypertension) Code(s): I10 - ESSENTIAL (PRIMARY) HYPERTENSION Qualifiers: Hypertension type: essential hypertension Qualified Code(s): I10 - Essential (primary) hypertension (10) HLD (hyperlipidemia) Code(s): E78.5 - HYPERLIPIDEMIA, UNSPECIFIED Qualifiers: Hyperlipidemia type: unspecified Qualified Code(s): E78.5 - Hyperlipidemia , unspecified (11) CAD (coronary artery disease) Code(s): I25.10 - ATHSCL HEART DISEASE OF [place] CORONARY ARTERY W/O ANG PCTRS Qualifiers: Coronary Disease-Associated Artery/Lesion type: [place] artery [place] vs. transplanted heart: [place] heart Associated angina: without angina Qualified Code(s): I25.10 - Atherosclerotic heart disease of [place] coronary artery without angina pectoris (12) Osteoarthritis Code(s): M19.90 - UNSPECIFIED OSTEOARTHRITIS, UNSPECIFIED SITE Qualifiers: Osteoarthritis location: knee Osteoarthritis type: primary Laterality: bilateral Qualified Code(s): M17.0 - Bilateral primary osteoarthritis of knee (13) History of total bilateral knee replacement (TKR) Code(s): Z96.653 - PRESENCE OF ARTIFICIAL KNEE JOINT, BILATERAL (14) History of breast cancer Code(s): Z85.3 - PERSONAL HISTORY OF MALIGNANT NEOPLASM OF BREAST (15) History of right hip replacement Code(s): Z96.641 - PRESENCE OF RIGHT ARTIFICIAL HIP JOINT (16) Spinal stenosis Code(s): M48.00 - SPINAL STENOSIS, SITE UNSPECIFIED Qualifiers: Spinal region: cervical Qualified Code(s): M48.02 - Spinal stenosis, cervical region (17) Constipation Code(s): K59.00 - CONSTIPATION, UNSPECIFIED (18) Serrated adenoma of colon Code(s): D12.6 - BENIGN NEOPLASM OF COLON, UNSPECIFIED (19) SIRS (systemic inflammatory response syndrome) Code(s): R65.10 - SIRS OF NON-INFECTIOUS ORIGIN W/O ACUTE ORGAN DYSFUNCTION Assessment/Plan (1) SIRS (systemic inflammatory response syndrome) Assessment/Plan: afebrile over 24 hrs, hr wnl, leukocytosis resolved UC/BCs neg lactic acid wnl chest pa/lateral without sig changes abd KUB scan, resolved impaction ID following Code(s): R65.10 - SIRS OF NON-INFECTIOUS ORIGIN W/O ACUTE ORGAN DYSFUNCTION (2) Fecal impaction Assessment/Plan: IMPROVED CT w/ fecal impaction with stercoral colitis repeat KUB scan today, resolved impaction disimpacted x1 pt now having soft BMs miralax, senna GI /Surgery following will monitor Code(s): K56.41 - FECAL IMPACTION (3) Abdominal distension Assessment/Plan: RESOLVED secondary to fecal impaction, pt having soft bms now Abd/pelvis CT fecal impaction with stercoral colitis KUB abd , resolved impaction disimpacted x1 SSE today Miralax, senna GI/Surgery/ID following Code(s): R14.0 - ABDOMINAL DISTENSION (GASEOUS) (4) Bladder distension Assessment/Plan: justice in place s/p acute urinary retention/distention failed TOV x2 keep justice in for now until further assistance from urology will monitor Code(s): N32.89 - OTHER SPECIFIED DISORDERS OF [place] (5) Acute metabolic encephalopathy Assessment/Plan: improved, intermittent confusion infect work up neg Neuro/ID following Code(s): G93.41 - METABOLIC ENCEPHALOPATHY (6) Elevated troponin Assessment/Plan: peaked carotid us reviewed, eca occlusion echo, mild dis dysfunction, pEF ekg mobits 1, no changes cardiology following Code(s): R74.8 - ABNORMAL LEVELS OF OTHER SERUM ENZYMES (7) JASMIN (acute kidney injury) Assessment/Plan: improved Code(s): N17.9 - ACUTE KIDNEY FAILURE, UNSPECIFIED (8) Fall Assessment/Plan: s/p fall at home with trauma to head repeat head CT neg PT cardiology consult appreciated Code(s): W19.XXXA - UNSPECIFIED FALL, INITIAL ENCOUNTER Qualifiers: Encounter type: initial encounter Qualified Code(s): W19.XXXA - Unspecified fall, initial encounter (9) HTN (hypertension) Assessment/Plan: stable continue home meds hold hct in the setting of dehydration Code(s): I10 - ESSENTIAL (PRIMARY) HYPERTENSION Qualifiers: Hypertension type: essential hypertension Qualified Code(s): I10 - Essential (primary) hypertension (10) HLD (hyperlipidemia) Assessment/Plan: stable continue atorvastatin Code(s): E78.5 - HYPERLIPIDEMIA, UNSPECIFIED Qualifiers: Hyperlipidemia type: unspecified Qualified Code(s): E78.5 - Hyperlipidemia , unspecified (11) CAD (coronary artery disease) Assessment/Plan: s/p GLEN LAD, 2006 continue aspirin plavix d/c'd per cardiology recs Code(s): I25.10 - ATHSCL HEART DISEASE OF [place] CORONARY ARTERY W/O ANG PCTRS Qualifiers: Coronary Disease-Associated Artery/Lesion type: [place] artery [place] vs. transplanted heart: [place] heart Associated angina: without angina Qualified Code(s): I25.10 - Atherosclerotic heart disease of [place] coronary artery without angina pectoris (12) Osteoarthritis Assessment/Plan: back, b/l knees continue PT Code(s): M19.90 - UNSPECIFIED OSTEOARTHRITIS, UNSPECIFIED SITE Qualifiers: Osteoarthritis location: knee Osteoarthritis type: primary Laterality: bilateral Qualified Code(s): M17.0 - Bilateral primary osteoarthritis of knee (13) History of total bilateral knee replacement (TKR) Assessment/Plan: s/p b/l tkr in 2009 Code(s): Z96.653 - PRESENCE OF ARTIFICIAL KNEE JOINT, BILATERAL (14) History of breast cancer Assessment/Plan: s/p left partial mastectomy/radiation on tamoxifen Code(s): Z85.3 - PERSONAL HISTORY OF MALIGNANT NEOPLASM OF BREAST (15) History of right hip replacement Assessment/Plan: s/p r hip replacement, 1995 Code(s): Z96.641 - PRESENCE OF RIGHT ARTIFICIAL HIP JOINT (16) Spinal stenosis Assessment/Plan: moderate, c5-6,c6-7 increased pain today restart tramadol, tylenol followed by outpt Code(s): M48.00 - SPINAL STENOSIS, SITE UNSPECIFIED Qualifiers: Spinal region: cervical Qualified Code(s): M48.02 - Spinal stenosis, cervical region (17) Leukocytosis Assessment/Plan: resolved ID following Dispo: SNF I spoke to pt's friends and family and they have told me that pt has intermittent confusion at home as well. However, it seems like she is slightly more confused here which might be due to unfamiliar setting. D/C to SNF tomorrow after last antibiotic dose. Justice decision pending urology consult
--- NOTE | 2017-12-11 12:38 | PN ---
Progress Note, Physician History of Present Illness: Pt admitted last Monday evening with fecal impaction with stercoral colitis on CT and urinary retention requiring Valdovinos (2L initial output Monday). Was initially disimpacted of large amount of soft formed stool, has been having some soft BMs since on bowel regimen. AXR day after disimpaction showed stool still in rectosigmoid but less in proximal colon. Has been on antibiotics, wbc now normal. She is now less confused - but reportedly has been having some confusion at home recently as well. Valdovinos had been removed and replaced for failure to void. Pt has been disimpacted further Monday and Monday, had enema earlier today with large BM, per pt "the first time I was able to control it in a while." She felt a large evacuation, though it was not very formed. AXR just done shows minimal stool burden above vault, and possibly minimal in vault. Valdovinos with 250ml currently in meter. Pt wakes easily, and is ready for lunch after my exam. No nausea or vomiting, no fevers. - Current Medication List Current Medications: Active Medications Acetaminophen (Tylenol -) 650 mg PO Q6H PRN PRN Reason: PAIN LEVEL 4 - 6 Last Admin: 12/10/17 09:46 Dose: 650 mg Amlodipine Besylate (Norvasc -) 5 mg PO DAILY [facility] Last Admin: 12/11/17 09:21 Dose: 5 mg Aspirin (Ecotrin -) 81 mg PO DAILY [facility] Last Admin: 12/11/17 09:21 Dose: 81 mg Atorvastatin Calcium (Lipitor -) 40 mg PO [facility] Last Admin: 12/10/17 21:01 Dose: 40 mg Meropenem (Merrem (Restricted To Id) -) 1 gm in 20 mls @ 100 mls/hr IVPUSH Q8H- IV MEG PRN Reason: Protocol Last Admin: 12/11/17 09:20 Dose: 100 mls/hr Metoprolol Succinate (Toprol Xl -) 25 mg PO BID [facility] Last Admin: 12/11/17 09:21 Dose: 25 mg Montelukast Sodium (Singulair -) 10 mg PO HS [facility] Last Admin: 12/10/17 21:01 Dose: 10 mg Pantoprazole Sodium (Protonix -) 40 mg PO DAILY [facility] Last Admin: 12/11/17 09:20 Dose: 40 mg Polyethylene Glycol (Miralax (For Daily Use) -) 17 gm PO TID [facility] Last Admin: 12/11/17 05:18 Dose: 17 gm Pregabalin (Lyrica -) 25 mg PO BID [facility] Last Admin: 12/11/17 09:21 Dose: 25 mg Quinapril HCl (Accupril -) 20 mg PO DAILY [facility] Last Admin: 12/11/17 09:21 Dose: 20 mg Senna (Senna -) 2 tab PO HS [facility] Last Admin: 12/10/17 21:01 Dose: 2 tab Tamoxifen Citrate (Tamoxifen Citrate) 20 mg PO DAILY [facility] Last Admin: 12/11/17 09:21 Dose: 20 mg - Objective Vital Signs: Vital Signs Temperature 99.2 F 12/11/17 10:00 Pulse Rate 78 12/11/17 10:00 Respiratory Rate 14 12/11/17 10:00 Blood Pressure 136/60 12/11/17 10:00 O2 Sat by Pulse Oximetry (%) 96 12/10/17 21:00 Intake & Output 12/10/17 12/11/17 12/11/17 23:59 07:59 15:59 Intake Total 810 1000 260 Output Total 600 1300 Balance 210 -300 260 Intake: IV 350 1000 Normal Saline - 1,000 ml 350 1000 @ 100 mls/hr IV ASDIR [facility] Rx#:[id number] IVPB 100 Oral 360 260 Output: Urine 600 1300 Valdovinos 600 1300 Other: Voiding Method Indwelling Catheter Indwelling Catheter Bowel Movement Yes No Constitutional: Yes: Well Nourished, No Distress, Calm, Thin Eyes: Yes: Conjunctiva Clear, EOM Intact HENT: Yes: Atraumatic, Normocephalic Gastrointestinal: Yes: Soft, Distention (mild, soft). No: Tenderness ...Rectal Exam: Yes: Hemorrhoids/External (skin tags present), Sphincter Tone Normal, Other (vault empty, cannot palpate any stool as high as finger can reach toward sigmoid, tiny brown smear on glove tip only) Genitourinary: Yes: Valdovinos Present. No: Hematuria Extremities: No: Cool, Cyanosis Integumentary: No: Jaundice, Rash Neurological: Yes: Alert, Oriented (more oriented today). No: Confusion (much less confused - converses appropriately) Labs: CBC, BMP 12/11/17 06:40 12/11/17 06:40 Microbiology 12/08/17 20:45 Blood Culture - Preliminary Blood - Peripheral Venous NO GROWTH OBTAINED AFTER 48 HOURS, INCUBATION TO CONTINUE FOR 3 DAYS. 12/08/17 20:20 Blood Culture - Preliminary Blood - Peripheral Venous NO GROWTH OBTAINED AFTER 48 HOURS, INCUBATION TO CONTINUE FOR 3 DAYS. 12/08/17 15:20 Urine Culture - Final Urine - Urine - Catheterized NO GROWTH OBTAINED - ....Imaging X-ray: Image Reviewed (AXR/KUB reviewed personally - minimal stool burden, possibly some in vault, but colon and SB with scattered gas above pubis. Given empty vault on SENTHIL, XR appears much improved.) Problem List - Problems (1) Fecal impaction Assessment/Plan: stool burden significantly lessened, impaction likely mostly resolved pt on stool softeners during day and senna 2 tabs nightly needs continued motility agents on discharge to facilitate daily evacuation and soap suds enemas periodically to help with evacuation of remaining stool recommend significant decrease in softener agents and use of only one - miralax once or twice daily should be sufficient recommend continue routine dulcolax and/or senna po also would continue SENTHIL every few days minimum to assess if stool being fully evacuated, should be disimpacted if vault gets full discussed with BEN Graves no acute surgical issues at this time will remain available and follow peripherally please call with any questions Thank you for the opportunity to participate in the care of this patient. Code(s): K56.41 - FECAL IMPACTION (2) Acute urinary retention Assessment/Plan: would plan to leave Valdovinos at least one more day to allow bladder to regain tone fecal impaction appears resolved, need to continue effective evacuation urology note seen might consider trial of void tomorrow, but if unsuccessful, will probably need Valdovinos for longer with urology followup after discharge Code(s): R33.8 - OTHER RETENTION OF URINE (3) Dehydration Assessment/Plan: volume status improved, but BUN/Cr up yesterday - coming back down today Code(s): E86.0 - DEHYDRATION (4) JASMIN (acute kidney injury) Assessment/Plan: see above Code(s): N17.9 - ACUTE KIDNEY FAILURE, UNSPECIFIED (5) Fall as cause of accidental injury in home as place of occurrence Code(s): W19.XXXA - UNSPECIFIED FALL, INITIAL ENCOUNTER; Y92.009 - UNSP PLACE IN UNSP NON-INSTITUT (PRIVATE) RESIDENCE PLACE Qualifiers: Encounter type: initial encounter Qualified Code(s): W19.XXXA - Unspecified fall, initial encounter; Y92.009 - Unspecified place in unspecified non-institutional (private) residence as the place of occurrence of the external cause; Y92.009 - Unspecified place in unspecified non-institutional ( private) residence as the place of occurrence of the external cause (6) Encephalopathy acute Code(s): G93.40 - ENCEPHALOPATHY, UNSPECIFIED (7) CAD (coronary artery disease) Code(s): I25.10 - ATHSCL HEART DISEASE OF [place] CORONARY ARTERY W/O ANG PCTRS Qualifiers: Coronary Disease-Associated Artery/Lesion type: [place] artery [place] vs. transplanted heart: [place] heart Associated angina: without angina Qualified Code(s): I25.10 - Atherosclerotic heart disease of [place] coronary artery without angina pectoris (8) HTN (hypertension) Assessment/Plan: continue home meds but would reevaluate need for diuretic cardiology on board - meds as per them Code(s): I10 - ESSENTIAL (PRIMARY) HYPERTENSION Qualifiers: Hypertension type: essential hypertension Qualified Code(s): I10 - Essential (primary) hypertension (9) HLD (hyperlipidemia) Code(s): E78.5 - HYPERLIPIDEMIA, UNSPECIFIED Qualifiers: Hyperlipidemia type: unspecified Qualified Code(s): E78.5 - Hyperlipidemia , unspecified (10) History of breast cancer Assessment/Plan: left, on tamoxifen, s/p lumpectomy/XRT Code(s): Z85.3 - PERSONAL HISTORY OF MALIGNANT NEOPLASM OF BREAST
--- NOTE | 2017-12-11 13:30 | PN ---
Progress Note, Physician History of Present Illness: Large BM with enema, abd distension improved. - Current Medication List Current Medications: Active Medications Acetaminophen (Tylenol -) 650 mg PO Q6H PRN PRN Reason: PAIN LEVEL 4 - 6 Last Admin: 12/10/17 09:46 Dose: 650 mg Amlodipine Besylate (Norvasc -) 5 mg PO DAILY [facility] Last Admin: 12/11/17 09:21 Dose: 5 mg Aspirin (Ecotrin -) 81 mg PO DAILY [facility] Last Admin: 12/11/17 09:21 Dose: 81 mg Atorvastatin Calcium (Lipitor -) 40 mg PO HS [facility] Last Admin: 12/10/17 21:01 Dose: 40 mg Meropenem (Merrem (Restricted To Id) -) 1 gm in 20 mls @ 100 mls/hr IVPUSH Q8H- IV MEG PRN Reason: Protocol Last Admin: 12/11/17 09:20 Dose: 100 mls/hr Metoprolol Succinate (Toprol Xl -) 25 mg PO BID [facility] Last Admin: 12/11/17 09:21 Dose: 25 mg Montelukast Sodium (Singulair -) 10 mg PO HS [facility] Last Admin: 12/10/17 21:01 Dose: 10 mg Pantoprazole Sodium (Protonix -) 40 mg PO DAILY [facility] Last Admin: 12/11/17 09:20 Dose: 40 mg Polyethylene Glycol (Miralax (For Daily Use) -) 17 gm PO TID [facility] Last Admin: 12/11/17 05:18 Dose: 17 gm Pregabalin (Lyrica -) 25 mg PO BID [facility] Last Admin: 12/11/17 09:21 Dose: 25 mg Quinapril HCl (Accupril -) 20 mg PO DAILY [facility] Last Admin: 12/11/17 09:21 Dose: 20 mg Senna (Senna -) 2 tab PO HS [facility] Last Admin: 12/10/17 21:01 Dose: 2 tab Tamoxifen Citrate (Tamoxifen Citrate) 20 mg PO DAILY [facility] Last Admin: 12/11/17 09:21 Dose: 20 mg - Objective Vital Signs: Vital Signs Temperature 99.2 F 12/11/17 10:00 Pulse Rate 78 12/11/17 10:00 Respiratory Rate 14 12/11/17 10:00 Blood Pressure 136/60 12/11/17 10:00 O2 Sat by Pulse Oximetry (%) 96 12/10/17 21:00 Constitutional: Yes: No Distress, Calm Neck: Yes: Supple Cardiovascular: Yes: Regular Rate and Rhythm Respiratory: Yes: Regular, Diminished Gastrointestinal: Yes: Normal Bowel Sounds, Soft Edema: No Labs: CBC, BMP 12/11/17 06:40 12/11/17 06:40 INR, PTT INR 0.99 (0.82-1.09) 12/04/17 21:50 Problem List - Problems (1) Gait disturbance Code(s): R26.9 - UNSPECIFIED ABNORMALITIES OF GAIT AND MOBILITY (2) JASMIN (acute kidney injury) Code(s): N17.9 - ACUTE KIDNEY FAILURE, UNSPECIFIED (3) Abdominal distension Code(s): R14.0 - ABDOMINAL DISTENSION (GASEOUS) (4) Acute urinary retention Code(s): R33.8 - OTHER RETENTION OF URINE (5) Bladder distension Code(s): N32.89 - OTHER SPECIFIED DISORDERS OF [place] (6) CAD (coronary artery disease) Code(s): I25.10 - ATHSCL HEART DISEASE OF [place] CORONARY ARTERY W/O ANG PCTRS Qualifiers: Coronary Disease-Associated Artery/Lesion type: [place] artery [place] vs. transplanted heart: [place] heart Associated angina: without angina Qualified Code(s): I25.10 - Atherosclerotic heart disease of [place] coronary artery without angina pectoris (7) Fecal impaction Code(s): K56.41 - FECAL IMPACTION (8) HLD (hyperlipidemia) Code(s): E78.5 - HYPERLIPIDEMIA, UNSPECIFIED Qualifiers: Hyperlipidemia type: unspecified Qualified Code(s): E78.5 - Hyperlipidemia , unspecified (9) HTN (hypertension) Code(s): I10 - ESSENTIAL (PRIMARY) HYPERTENSION Qualifiers: Hypertension type: essential hypertension Qualified Code(s): I10 - Essential (primary) hypertension (10) Stented coronary artery Code(s): Z95.5 - PRESENCE OF CORONARY ANGIOPLASTY IMPLANT AND GRAFT (11) Demand ischemia Code(s): I24.8 - OTHER FORMS OF ACUTE ISCHEMIC HEART DISEASE (12) Elevated troponin Code(s): R74.8 - ABNORMAL LEVELS OF OTHER SERUM ENZYMES Assessment/Plan 1. 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 2. CAD s/p PCI/stent, angina pectoris, demand ischemia 3. Hypertension 4. Hypercholesterolemia 5. 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 Urinary retention and mild bilateral hydronephrosis referable to fecal impaction PLAN: 1. Continue Metoprolol 25 bid, Accupril 20 qd and Amlodipine 5 qd as tolerated 2. Continue ASA 81 qd 3. Continue Atorvastatin 40 qhs 4. Eventually consider colonoscopy 5. Monitor neurology status 6. Fall precaution, PT and gait training with walker
--- NOTE | 2017-12-11 13:51 | PN ---
Progress Note, Physician History of Present Illness: patient had large bm with enema no new issues foleys reinserted again yesterday wbc has normalized - Current Medication List Current Medications: Active Medications Acetaminophen (Tylenol -) 650 mg PO Q6H PRN PRN Reason: PAIN LEVEL 4 - 6 Last Admin: 12/10/17 09:46 Dose: 650 mg Amlodipine Besylate (Norvasc -) 5 mg PO DAILY [facility] Last Admin: 12/11/17 09:21 Dose: 5 mg Aspirin (Ecotrin -) 81 mg PO DAILY [facility] Last Admin: 12/11/17 09:21 Dose: 81 mg Atorvastatin Calcium (Lipitor -) 40 mg PO HS [facility] Last Admin: 12/10/17 21:01 Dose: 40 mg Meropenem (Merrem (Restricted To Id) -) 1 gm in 20 mls @ 100 mls/hr IVPUSH Q8H- IV MEG PRN Reason: Protocol Last Admin: 12/11/17 09:20 Dose: 100 mls/hr Metoprolol Succinate (Toprol Xl -) 25 mg PO BID [facility] Last Admin: 12/11/17 09:21 Dose: 25 mg Montelukast Sodium (Singulair -) 10 mg PO HS [facility] Last Admin: 12/10/17 21:01 Dose: 10 mg Pantoprazole Sodium (Protonix -) 40 mg PO DAILY [facility] Last Admin: 12/11/17 09:20 Dose: 40 mg Polyethylene Glycol (Miralax (For Daily Use) -) 17 gm PO TID [facility] Last Admin: 12/11/17 05:18 Dose: 17 gm Pregabalin (Lyrica -) 25 mg PO BID [facility] Last Admin: 12/11/17 09:21 Dose: 25 mg Quinapril HCl (Accupril -) 20 mg PO DAILY [facility] Last Admin: 12/11/17 09:21 Dose: 20 mg Senna (Senna -) 2 tab PO HS [facility] Last Admin: 12/10/17 21:01 Dose: 2 tab Tamoxifen Citrate (Tamoxifen Citrate) 20 mg PO DAILY [facility] Last Admin: 12/11/17 09:21 Dose: 20 mg - Objective Vital Signs: Vital Signs Temperature 99.2 F 12/11/17 10:00 Pulse Rate 78 12/11/17 10:00 Respiratory Rate 14 12/11/17 10:00 Blood Pressure 136/60 12/11/17 10:00 O2 Sat by Pulse Oximetry (%) 96 12/10/17 21:00 Constitutional: Yes: No Distress, Calm, Thin Cardiovascular: Yes: Regular Rate and Rhythm Respiratory: Yes: Regular, CTA Bilaterally Gastrointestinal: Yes: Normal Bowel Sounds, Soft Musculoskeletal: Yes: WNL Extremities: Yes: WNL Neurological: Yes: Alert, Oriented Psychiatric: Yes: Alert, Oriented Labs: CBC, BMP 12/11/17 06:40 12/11/17 06:40 INR, PTT INR 0.99 (0.82-1.09) 12/04/17 21:50 Assessment/Plan after evaluating the patient and looking at the abd xray patient has developed intestinal obstruction which could be mainly due to fecal impaction as well could ahve other process going on she has no gas seen in the rectum Problem List - Problems (1) Fecal impaction Thank you for the opportunity to participate in the care of this patient. Code(s): K56.41 - FECAL IMPACTION (2) Acute urinary retention Code(s): R33.8 - OTHER RETENTION OF URINE (3) Dehydration Code(s): E86.0 - DEHYDRATION (4) JASMIN (acute kidney injury) Code(s): N17.9 - ACUTE KIDNEY FAILURE, UNSPECIFIED (5) Fall as cause of accidental injury in home as place of occurrence Code(s): W19.XXXA - UNSPECIFIED FALL, INITIAL ENCOUNTER; Y92.009 - UNSP PLACE IN UNSP NON-INSTITUT (PRIVATE) RESIDENCE PLACE Qualifiers: Encounter type: initial encounter Qualified Code(s): W19.XXXA - Unspecified fall, initial encounter; Y92.009 - Unspecified place in unspecified non-institutional (private) residence as the place of occurrence of the external cause; Y92.009 - Unspecified place in unspecified non-institutional ( private) residence as the place of occurrence of the external cause (6) Encephalopathy acute Code(s): G93.40 - ENCEPHALOPATHY, UNSPECIFIED (7) CAD (coronary artery disease) Code(s): I25.10 - ATHSCL HEART DISEASE OF [place] CORONARY ARTERY W/O ANG PCTRS Qualifiers: Coronary Disease-Associated Artery/Lesion type: [place] artery [place] vs. transplanted heart: [place] heart Associated angina: without angina Qualified Code(s): I25.10 - Atherosclerotic heart disease of [place] coronary artery without angina pectoris (8) HTN (hypertension) Code(s): I10 - ESSENTIAL (PRIMARY) HYPERTENSION Qualifiers: Hypertension type: essential hypertension Qualified Code(s): I10 - Essential (primary) hypertension (9) HLD (hyperlipidemia) Code(s): E78.5 - HYPERLIPIDEMIA, UNSPECIFIED Qualifiers: Hyperlipidemia type: unspecified Qualified Code(s): E78.5 - Hyperlipidemia , unspecified (10) History of breast cancer Code(s): Z85.3 - PERSONAL HISTORY OF MALIGNANT NEOPLASM OF BREAST 11 leukocytosis wbc trending down plan can stop abx tomorrow and watch foleys was reinserted avoid constipation rest as per primary
[2017-12-11] MEDS: BETHANECHOL CHLORIDE 25 MG TABLET PO SCH ×2 (16:03→22:04)
[2017-12-11] MEDS ORDERED: PT OWN MED DRAWER 7, Y5N ONE (17:15)
[2017-12-11] MEDS: ACETAMINOPHEN 325 MG TABLET (FP) PO PRN (17:35)
[2017-12-11] MEDS: MONTELUKAST NA 10 MG TABLET PO SCH (22:04)
[2017-12-11] MEDS: ATORVASTATIN CA 40 MG TABLET (FP) PO SCH (22:04)
[2017-12-11] MEDS: SENNOSIDES 8.6MG TABLET (FP) PO SCH (22:05)
[2017-12-12] MEDS: MEROPENEM 1 GM PUSH 1 GM/20 ML DISP.SYRIN IVPUSH SCH ×2 (01:06→09:12)
[2017-12-12] MEDS: POLYETHYLENE GLYCOL 3350 119 GM BTL PO SCH ×2 (05:54→13:52)
[2017-12-12] MEDS: BETHANECHOL CHLORIDE 25 MG TABLET PO SCH ×2 (05:56→13:53)
[2017-12-12 07:23] LABS: BASO % 1.2 % (0-2.0); EOS % 2.4 % (0-4.5); HEMATOCRIT 33.9 % (32.4-45.2); HEMOGLOBIN 11.3 GM/dL (10.7-15.3); LYMPH % 16.3 % (8-40); MCH 29.7 pg (25.7-33.7); MCHC 33.4 g/dl (32.0-36.0); MEAN CELL VOLUME 89.1 fl (80-96); MEAN PLT VOLUME 9.8 fl (7.5-11.1); NEUT % 71.1 % (42.8-82.8); PLATELET COUNT 231 K/MM3 (134-434)
[2017-12-12] MEDS: ACETAMINOPHEN 325 MG TABLET (FP) PO PRN (07:24)
[2017-12-12 08:07] LABS: ANION GAP 10 (8-16); BLOOD UREA NITROGEN 21 mg/dL (7-18); CALCIUM 7.9 mg/dL (8.5-10.1); CHLORIDE 108 mmol/L (98-107); CO2 25 mmol/L (21-32); CREATININE 0.9 mg/dL (0.55-1.02); GLUCOSE,RANDOM 80 mg/dL (74-106); MAGNESIUM 1.6 mg/dL (1.8-2.4); PHOSPHOROUS 2.4 mg/dL (2.5-4.9); POTASSIUM 4.2 mmol/L (3.5-5.1); SODIUM 143 mmol/L (136-145)
--- NOTE | 2017-12-12 08:40 | PN ---
Progress Note (short form) - Note Progress Note: justice removed this am has not voided yet on flomax/urecholine monitor today for voiding trial
[2017-12-12] MEDS ORDERED: PT OWN MED DRAWER 7, Y5N ONE ×2 (08:41→12:05)
[2017-12-12] MEDS: PANTOPRAZOLE 40 MG TABLET (FP) PO SCH (09:12)
[2017-12-12] MEDS: ASPIRIN COATED 81 MG TABLET.EC PO SCH (09:12)
[2017-12-12] MEDS: TAMOXIFEN CITRATE 10 MG TABLET PO SCH (09:13)
[2017-12-12] MEDS: PREGABALIN 25 MG CAPSULE PO SCH (09:14)
[2017-12-12] MEDS ORDERED: MAGNESIUM SULF 50% (8.12 MEQ/2 ML-1 GM VIAL) IVPB ONE (09:41)
[2017-12-12] MEDS ORDERED: MAGNESIUM SULFATE IN WATER 2 GM/50 ML IVPB IVPB ONE (10:30)
[2017-12-12] MEDS: QUINAPRIL HCL 20 MG TABLET (FP) PO SCH (11:05)
[2017-12-12] MEDS: metoPROLOL SUCCINATE 25 MG TAB.SR.24H (FP) PO SCH (11:06)
[2017-12-12] MEDS: amLODIPine BESYLATE 5 MG TABLET (FP) PO SCH (11:06)
--- NOTE | 2017-12-12 13:18 | PN ---
Progress Note, Physician History of Present Illness: Pt admitted last Monday evening with fecal impaction with stercoral colitis on CT and urinary retention requiring Valdovinos (2L initial output Monday). Was initially disimpacted of large amount of soft formed stool, has been having some soft BMs since on bowel regimen. AXR day after disimpaction showed stool still in rectosigmoid but less in proximal colon. Had been on antibiotics, wbc now normal. She is much less confused than initially - but reportedly has been having some confusion at home recently as well. Valdovinos has been removed and replaced and again over the weekend for failure to void. Pt has been disimpacted further Monday and Monday, had enema yesterday with large BM. AXR yesterday showed essentially resolution of stool burden in rectosigmoid. Vault was empty yesterday on SENTHIL. Pt has had 2 BMs today per nursing. No nausea or vomiting, no fevers. Pt's Valdovinos was removed at 6am per urology today; flomax and urocholine started. She is just finishing lunch now. Has not voided yet, is hydrating herself (not on IVF). With palpation, feels some urge, but has not been OOB yet today. Nurse is about to do bladder scan and get pt OOB to chair. Plan is for d/c to SNF today, with Valdovinos back if unable to void first. No specific complaints except abdomen distended. - Current Medication List Current Medications: Active Medications Acetaminophen (Tylenol -) 650 mg PO Q6H PRN PRN Reason: PAIN LEVEL 4 - 6 Last Admin: 12/12/17 07:24 Dose: 650 mg Amlodipine Besylate (Norvasc -) 5 mg PO DAILY [facility] Last Admin: 12/12/17 11:06 Dose: 5 mg Aspirin (Ecotrin -) 81 mg PO DAILY [facility] Last Admin: 12/12/17 09:12 Dose: 81 mg Atorvastatin Calcium (Lipitor -) 40 mg PO HS [facility] Last Admin: 12/11/17 22:04 Dose: 40 mg Bethanechol Chloride (Urecholine -) 25 mg PO TID [facility] Last Admin: 12/12/17 05:56 Dose: 25 mg Meropenem (Merrem (Restricted To Id) -) 1 gm in 20 mls @ 100 mls/hr IVPUSH Q8H- IV MEG PRN Reason: Protocol Last Admin: 12/12/17 09:12 Dose: 100 mls/hr Metoprolol Succinate (Toprol Xl -) 25 mg PO BID [facility] Last Admin: 12/12/17 11:06 Dose: 25 mg Montelukast Sodium (Singulair -) 10 mg PO [facility] Last Admin: 12/11/17 22:04 Dose: 10 mg Pantoprazole Sodium (Protonix -) 40 mg PO DAILY [facility] Last Admin: 12/12/17 09:12 Dose: 40 mg Polyethylene Glycol (Miralax (For Daily Use) -) 17 gm PO TID [facility] Last Admin: 12/12/17 05:54 Dose: Not Given Potassium Phos/Sodium Phos (Phos-Nak Packet -) 1 packet PO TID [facility] Pregabalin (Lyrica -) 25 mg PO BID [facility] Last Admin: 12/12/17 09:14 Dose: 25 mg Quinapril HCl (Accupril -) 20 mg PO DAILY [facility] Last Admin: 12/12/17 11:05 Dose: 20 mg Senna (Senna -) 2 tab PO [facility] Last Admin: 12/11/17 22:05 Dose: 2 tab Tamoxifen Citrate (Tamoxifen Citrate) 20 mg PO DAILY [facility] Last Admin: 12/12/17 09:13 Dose: 20 mg Tamsulosin HCl (Flomax -) 0.4 mg PO DAILY@0830 [facility] - Objective Vital Signs: Vital Signs Temperature 97.9 F 12/12/17 09:00 Pulse Rate 88 12/12/17 09:00 Respiratory Rate 20 12/12/17 09:00 Blood Pressure 118/58 12/12/17 09:00 O2 Sat by Pulse Oximetry (%) 96 12/11/17 21:00 Constitutional: Yes: Well Nourished, No Distress, Calm, Thin Eyes: Yes: Conjunctiva Clear, EOM Intact HENT: Yes: Atraumatic, Normocephalic Gastrointestinal: Yes: Soft, Distention (softly, but significantly). No: Tenderness ...Rectal Exam: Yes: Deferred Genitourinary: Yes: Other. No: Valdovinos Present, Incontinence Extremities: No: Cool, Cyanosis Integumentary: No: Jaundice, Rash Neurological: Yes: Alert, Oriented (seems mainly oriented) Labs: CBC, BMP 12/12/17 06:40 12/12/17 06:40 INR, PTT INR 0.99 (0.82-1.09) 12/04/17 21:50 Problem List - Problems (1) Fecal impaction Assessment/Plan: stool burden resolved - + BM x2 today so far pt on stool softeners during day and senna 2 tabs nightly needs continued motility agents on discharge to facilitate daily evacuation and soap suds enemas periodically to help with evacuation of remaining stool recommend only one softener - miralax once or twice daily should be sufficient recommend continue routine dulcolax and/or senna po (daily) also would continue SENTHIL every few days minimum to assess if stool being fully evacuated, should be disimpacted if vault gets full discussed with [employer] [facility] no acute surgical issues at this time will remain available for questions Thank you for the opportunity to participate in the care of this patient. Code(s): K56.41 - FECAL IMPACTION (2) Acute urinary retention Assessment/Plan: fecal impaction appears resolved, need to continue effective evacuation urology on board trial of void underway; if pt requires Valdovinos for d/c, will need to f/u with urology Code(s): R33.8 - OTHER RETENTION OF URINE (3) Dehydration Assessment/Plan: volume status improved, BUN/Cr coming back down Code(s): E86.0 - DEHYDRATION (4) JASMIN (acute kidney injury) Assessment/Plan: see above Code(s): N17.9 - ACUTE KIDNEY FAILURE, UNSPECIFIED (5) Fall as cause of accidental injury in home as place of occurrence Code(s): W19.XXXA - UNSPECIFIED FALL, INITIAL ENCOUNTER; Y92.009 - UNSP PLACE IN UNSP NON-INSTITUT (PRIVATE) RESIDENCE PLACE Qualifiers: Encounter type: initial encounter Qualified Code(s): W19.XXXA - Unspecified fall, initial encounter; Y92.009 - Unspecified place in unspecified non-institutional (private) residence as the place of occurrence of the external cause; Y92.009 - Unspecified place in unspecified non-institutional ( private) residence as the place of occurrence of the external cause (6) Encephalopathy acute Assessment/Plan: much improved, though may have some recent baseline increase in confusion defer to PMD Code(s): G93.40 - ENCEPHALOPATHY, UNSPECIFIED (7) CAD (coronary artery disease) Code(s): I25.10 - ATHSCL HEART DISEASE OF [place] CORONARY ARTERY W/O ANG PCTRS Qualifiers: Coronary Disease-Associated Artery/Lesion type: [place] artery [place] vs. transplanted heart: [place] heart Associated angina: without angina Qualified Code(s): I25.10 - Atherosclerotic heart disease of [place] coronary artery without angina pectoris (8) HTN (hypertension) Assessment/Plan: continue home meds but would reevaluate need for diuretic cardiology on board - meds as per them Code(s): I10 - ESSENTIAL (PRIMARY) HYPERTENSION Qualifiers: Hypertension type: essential hypertension Qualified Code(s): I10 - Essential (primary) hypertension (9) HLD (hyperlipidemia) Code(s): E78.5 - HYPERLIPIDEMIA, UNSPECIFIED Qualifiers: Hyperlipidemia type: unspecified Qualified Code(s): E78.5 - Hyperlipidemia , unspecified (10) History of breast cancer Assessment/Plan: left, on tamoxifen, s/p lumpectomy/XRT Code(s): Z85.3 - PERSONAL HISTORY OF MALIGNANT NEOPLASM OF BREAST
--- NOTE | 2017-12-12 13:56 | PN ---
Progress Note, Physician History of Present Illness: doing well no new issues stable off of abx having bm - Current Medication List Current Medications: Active Medications Acetaminophen (Tylenol -) 650 mg PO Q6H PRN PRN Reason: PAIN LEVEL 4 - 6 Last Admin: 12/12/17 07:24 Dose: 650 mg Amlodipine Besylate (Norvasc -) 5 mg PO DAILY [facility] Last Admin: 12/12/17 11:06 Dose: 5 mg Aspirin (Ecotrin -) 81 mg PO DAILY [facility] Last Admin: 12/12/17 09:12 Dose: 81 mg Atorvastatin Calcium (Lipitor -) 40 mg PO [facility] Last Admin: 12/11/17 22:04 Dose: 40 mg Bethanechol Chloride (Urecholine -) 25 mg PO TID [facility] Last Admin: 12/12/17 13:53 Dose: 25 mg Metoprolol Succinate (Toprol Xl -) 25 mg PO BID [facility] Last Admin: 12/12/17 11:06 Dose: 25 mg Montelukast Sodium (Singulair -) 10 mg PO [facility] Last Admin: 12/11/17 22:04 Dose: 10 mg Pantoprazole Sodium (Protonix -) 40 mg PO DAILY [facility] Last Admin: 12/12/17 09:12 Dose: 40 mg Polyethylene Glycol (Miralax (For Daily Use) -) 17 gm PO TID [facility] Last Admin: 12/12/17 13:52 Dose: Not Given Potassium Phos/Sodium Phos (Phos-Nak Packet -) 1 packet PO TID [facility] Last Admin: 12/12/17 13:53 Dose: 1 packet Pregabalin (Lyrica -) 25 mg PO BID [facility] Last Admin: 12/12/17 09:14 Dose: 25 mg Quinapril HCl (Accupril -) 20 mg PO DAILY [facility] Last Admin: 12/12/17 11:05 Dose: 20 mg Senna (Senna -) 2 tab PO [facility] Last Admin: 12/11/17 22:05 Dose: 2 tab Tamoxifen Citrate (Tamoxifen Citrate) 20 mg PO DAILY [facility] Last Admin: 12/12/17 09:13 Dose: 20 mg Tamsulosin HCl (Flomax -) 0.4 mg PO DAILY@0830 [facility] Last Admin: 12/12/17 13:53 Dose: 0.4 mg - Objective Vital Signs: Vital Signs Temperature 97.9 F 12/12/17 09:00 Pulse Rate 88 12/12/17 09:00 Respiratory Rate 20 12/12/17 09:00 Blood Pressure 118/58 12/12/17 09:00 O2 Sat by Pulse Oximetry (%) 96 12/11/17 21:00 Constitutional: Yes: No Distress, Calm Cardiovascular: Yes: Regular Rate and Rhythm Respiratory: Yes: Regular, CTA Bilaterally Gastrointestinal: Yes: Normal Bowel Sounds, Soft Musculoskeletal: Yes: WNL Extremities: Yes: WNL Neurological: Yes: Alert, Oriented Psychiatric: Yes: Alert, Oriented Labs: CBC, BMP 12/12/17 06:40 12/12/17 06:40 INR, PTT INR 0.99 (0.82-1.09) 12/04/17 21:50 Assessment/Plan after evaluating the patient and looking at the abd xray patient has developed intestinal obstruction which could be mainly due to fecal impaction as well could ahve other process going on she has no gas seen in the rectum Problem List - Problems (1) Fecal impaction Thank you for the opportunity to participate in the care of this patient. Code(s): K56.41 - FECAL IMPACTION (2) Acute urinary retention Code(s): R33.8 - OTHER RETENTION OF URINE (3) Dehydration Code(s): E86.0 - DEHYDRATION (4) JASMIN (acute kidney injury) Code(s): N17.9 - ACUTE KIDNEY FAILURE, UNSPECIFIED (5) Fall as cause of accidental injury in home as place of occurrence Code(s): W19.XXXA - UNSPECIFIED FALL, INITIAL ENCOUNTER; Y92.009 - UNSP PLACE IN UNSP NON-INSTITUT (PRIVATE) RESIDENCE PLACE Qualifiers: Encounter type: initial encounter Qualified Code(s): W19.XXXA - Unspecified fall, initial encounter; Y92.009 - Unspecified place in unspecified non-institutional (private) residence as the place of occurrence of the external cause; Y92.009 - Unspecified place in unspecified non-institutional ( private) residence as the place of occurrence of the external cause (6) Encephalopathy acute Code(s): G93.40 - ENCEPHALOPATHY, UNSPECIFIED (7) CAD (coronary artery disease) Code(s): I25.10 - ATHSCL HEART DISEASE OF [place] CORONARY ARTERY W/O ANG PCTRS Qualifiers: Coronary Disease-Associated Artery/Lesion type: [place] artery [place] vs. transplanted heart: [place] heart Associated angina: without angina Qualified Code(s): I25.10 - Atherosclerotic heart disease of [place] coronary artery without angina pectoris (8) HTN (hypertension) Code(s): I10 - ESSENTIAL (PRIMARY) HYPERTENSION Qualifiers: Hypertension type: essential hypertension Qualified Code(s): I10 - Essential (primary) hypertension (9) HLD (hyperlipidemia) Code(s): E78.5 - HYPERLIPIDEMIA, UNSPECIFIED Qualifiers: Hyperlipidemia type: unspecified Qualified Code(s): E78.5 - Hyperlipidemia , unspecified (10) History of breast cancer Code(s): Z85.3 - PERSONAL HISTORY OF MALIGNANT NEOPLASM OF BREAST 11 leukocytosis plan stable off of abx continue to monitor as per urology avoid constipation
[2017-12-12] MEDS ORDERED: NAPH,MB-DB/K PH,MBDB POWDER PACKET PO SCH (14:00)
--- NOTE | 2017-12-12 14:16 | DS ---
Physical Examination Vital Signs: Vital Signs Temperature 97.9 F 12/12/17 09:00 Pulse Rate 88 12/12/17 09:00 Respiratory Rate 20 12/12/17 09:00 Blood Pressure 118/58 12/12/17 09:00 O2 Sat by Pulse Oximetry (%) 96 12/11/17 21:00 Constitutional: Yes: Well Nourished, No Distress Cardiovascular: Yes: WNL, Regular Rate and Rhythm. No: Bruit, Gallop, Murmur Respiratory: Yes: WNL, Regular, CTA Bilaterally. No: Rales, Rhonchi, SOB Gastrointestinal: Yes: WNL, Normal Bowel Sounds, Soft, Abdomen, Obese. No: Distention, Tenderness Renal/: Yes: Other (unable to void, acute urinary retention) Extremities: Yes: WNL Edema: No Neurological: Yes: WNL, Alert, Oriented, Confusion (intermittent confusion) Psychiatric: Yes: WNL, Alert, Oriented Labs: CBC, BMP 12/12/17 06:40 12/12/17 06:40 Discharge Summary Reason For Visit: ELEVATED TROPIN LEVEL Current Active Problems JASMIN (acute kidney injury) (Acute) JASMIN (acute kidney injury) (Acute) Abdominal distension (Acute) Acute metabolic encephalopathy (Acute) Acute urinary retention (Acute) Bladder distension (Acute) CAD (coronary artery disease) (Acute) Constipation (Acute) Dehydration (Acute) Demand ischemia (Acute) Diverticulosis of colon (Acute) Elevated WBC count (Acute) Elevated troponin (Acute) Encephalopathy acute (Acute) Fall (Acute) Fall as cause of accidental injury in home as place of occurrence (Acute) Falls (Acute) Fecal impaction (Acute) Gait disturbance (Acute) HLD (hyperlipidemia) (Acute) HTN (hypertension) (Acute) History of breast cancer (Acute) History of right hip replacement (Acute) History of total bilateral knee replacement (TKR) (Acute) Osteoarthritis (Acute) SIRS (systemic inflammatory response syndrome) (Acute) Sepsis (Acute) Serrated adenoma of colon (Acute) Spinal stenosis (Acute) Stented coronary artery (Acute) Urinary retention (Acute) Hospital Course: is a 87 year old female who came in s/p fall at home, head CTs were negative here. Also, pt found to have dehydration, severe abd distention secondary to fecal impaction, JASMIN, acute urinary retention, elevated troponins. Fecal impaction improved with disimpaction, senna, miralax. GI and surgery was consulted. Justice was placed in the setting of acute urinary retention. Pt failed trial of void x 3 perhaps due to loss of bladder tone from severe bladder dilation. Urology was consulted. JASMIN improved with IVF. Pt also had SIRS where she had elevated wbcs and fever. ID consulted and pt was started on iv antibiotics. Cardiology consulted for elevated troponins, ekg without changes. TOV was attempted today however pt had PVR of 300. Therefore, justice was placed and pt can follow up with Urology in 1 week outpt. Hydrochlorothiazide was stopped considering dehydration. Plavix d/c'd by cardiology. Pt also had worsened confusion during her stay here. Friends and family mentioned pt has intermittent confusion at home. However, it was slightly worsened in the setting of abd distention/acute urinary rentention. Her mental state has improved and has been evaluated by neurology. Pt doing well today, vital signs stable, wbcs wnl, UA/UC/blood cultures neg. Pt is medically cleared to be discharged from the hospital to SNF. Pt to f/u with providers as directed. Condition: Fair - Instructions Diet, Activity, Other Instructions: high fiber diet, improve hydration throughout the day Senna/Miralax daily Justice has been placed due to acute urinary retention and failure to void, please follow up with Urology in 1 week follow up with all providers as directed Referrals: Roger Adan MD [Staff Physician] - 2 Weeks Harinder Saldivar MD [Primary Care Provider] - 1 Week Talon Stephens MD [Staff Physician] - 2 Weeks Jignesh Chavarria MD [Staff Physician] - 1 Week [facility]position: [facility] - Home Medications Comprehensive Discharge Medication List: Ambulatory Orders Aspirin Coated [Ecotrin -] 81 mg PO DAILY 12/21/11 Montelukast Na [Singulair -] 10 mg PO HS 12/21/11 [place]-3/Dha/Epa/Fish Oil [Fish Oil 1,000 mg Softgel] 1 tab PO DAILY 12/21/11 Atorvastatin Ca [Lipitor] 40 mg PO HS 05/22/12 Lidocaine 5% Patch [Lidoderm -] 1 each TD DAILY PRN 05/22/12 Metoprolol Succinate [Toprol XL -] 25 mg PO BID 05/22/12 Multivitamin [Multivitamins] 1 each PO DAILY 05/22/12 Pregabalin [Lyrica] 25 mg PO BID 05/22/12 Amlodipine Besylate [Norvasc -] 5 mg PO DAILY 08/16/13 Omeprazole [Prilosec (RX)] 40 mg PO DAILY 08/16/13 Polyethylene Glycol 3350 [Miralax 119 gm Btl -] 17 gm PO BID 10/03/14 Esomeprazole Mag Trihydrate [Nexium] 40 mg PO DAILY 12/16/14 Quinapril HCl [Accupril -] 20 mg PO DAILY 12/16/14 Tamoxifen Citrate 20 mg PO DAILY 12/16/14 Acetaminophen [Tylenol .Regular Strength -] 650 mg PO Q6H PRN 30 Days tablet Sennosides [Senna -] 2 tab PO HS 30 Days tablet 12/12/17
[2017-12-12] MEDS ORDERED: TAMSULOSIN HCL 0.4 MG CAP.ER.24H (FP) PO SCH (14:28)
[2017-12-12 15:13] VITALS: BP 95/68; PULSE 89; TEMP 97.1
== END 2017-12-12 18:34 | DRG 388 ==
LOC: JER 20:55 → JERBED 23:21 → J4W 12-05 02:21 → J5S 12-06 12:05
PROVIDERS: ADMIT Internal Medicine; ATTEND Nurse Practitioner Family
DX: K56.41 Fecal impaction (principal); G93.41 Metabolic encephalopathy; N17.9 Acute kidney failure, unspecified; I24.8 Other forms of acute ischemic heart disease; N13.30 Unspecified hydronephrosis; M50.022 Cervical disc disorder at C5-C6 level with myelopathy; R65.10 Systemic inflammatory response syndrome (SIRS) of non-infectious origin without acute organ dysfunction; R33.8 Other retention of urine; E86.0 Dehydration; I25.10 Atherosclerotic heart disease of native coronary artery without angina pectoris; I10 Essential (primary) hypertension; E78.5 Hyperlipidemia, unspecified; K57.90 Diverticulosis of intestine, part unspecified, without perforation or abscess without bleeding; K21.9 Gastro-esophageal reflux disease without esophagitis; N32.89 Other specified disorders of bladder; M54.5 Low back pain; R74.8 Abnormal levels of other serum enzymes; M17.0 Bilateral primary osteoarthritis of knee; H35.30 Unspecified macular degeneration; M54.16 Radiculopathy, lumbar region; M51.36 Other intervertebral disc degeneration, lumbar region; I44.1 Atrioventricular block, second degree; D12.6 Benign neoplasm of colon, unspecified; F03.90 Unspecified dementia, unspecified severity, without behavioral disturbance, psychotic disturbance, mood disturbance, and anxiety; M48.02 Spinal stenosis, cervical region; D72.828 Other elevated white blood cell count; R00.0 Tachycardia, unspecified; R55 Syncope and collapse; R26.9 Unspecified abnormalities of gait and mobility; W18.39XA Other fall on same level, initial encounter; Y93.89 Activity, other specified; Y92.098 Other place in other non-institutional residence as the place of occurrence of the external cause; Z96.653 Presence of artificial knee joint, bilateral; Z96.641 Presence of right artificial hip joint; Z95.5 Presence of coronary angioplasty implant and graft; Z85.3 Personal history of malignant neoplasm of breast; Z87.891 Personal history of nicotine dependence; Z87.11 Personal history of peptic ulcer disease
CPT/HCPCS: 36415; 70450-TC; 71045-TC-FY; 71046-TC-FY; 72125-TC; 74018-TC-FY; 74019-TC-FY; 74021-TC-FY; 74176-TC; 80048; 80053; 80061; 81003; 82272; 82550; 82553; 82607; 83605; 83721; 83735; 84100; 84443; 84484; 85025; 85027; 85610; 85730; 86140; 86850; 86900; 86901; 87040; 87086; 93005; 93010; 93306-TC; 93880-TC; 97116-GP; 97161-GP; 99281-25; J0131; J7030

== ENCOUNTER 2017-12-20 02:07 | Inpatient (IN) | payer OTHER, BC ==
[2017-12-20] MEDS ORDERED: SODIUM CHLORIDE 1,000 ML IV STA (02:32)
--- NOTE | 2017-12-20 02:36 | PDOC ---
History of Present Illness - General History Source: Patient Exam Limitations: No Limitations - History of Present Illness Initial Comments: 12/20/17 02:42 The patient is an 87 year old female with a significant PMH of breast CA (s/p chemo), ASHD, HTN, hyperlipidemia, and GERD who presents to the emergency department from home with abdominal distension and constipation beginning approximately 3 days ago. The patient reports the last time she passed stool was on Monday. The patient notes being evaluated here on 12/04 for abdominal pain and constipation with associated decreased urinary output. She reports they placed a justice catheter at that time to drain her urine and after being able to pass stool she was subsequently discharged. She denies abdominal pain today but notes she feels distended. The patient denies nausea, vomiting or diarrhea. The patient denies fever and chills. Denies chest pain, shortness of breath, headache and dizziness. Denies dysuria, frequency, urgency and hematuria. Allergies: Penicillins Past surgical history: B/l knee repair. Right hip repair. Cardiac stent placement (2005). Epidural. Social history: Former smoker (remote past). No reported alcohol or drug use. PCP: Dr. Saldivar <Tomy Kendall - Last Filed: 12/20/17 02:43> - General History Source: Patient <Contreras Wharton - Last Filed: 12/20/17 19:12> - General Stated Complaint: ABD PAIN Time Seen by Provider: 12/20/17 02:29 Past History <Tomy Kendall - Last Filed: 12/20/17 02:43> - Past Medical History Anemia: No Asthma: No Cancer: Yes (BREAST W/ LUMPECTOMY & RADIATION) Cardiac Disorders: Yes (ASHD W/ CARDIAC STENT) CVA: No COPD: No CHF: No Dementia: No Diabetes: No GI Disorders: Yes (REFLUX,DIVERTICULOSIS) Disorders: No HTN: Yes Hypercholesterolemia: Yes Liver Disease: No Seizures: No Thyroid Disease: No - Surgical History Abdominal Surgery: Yes () Appendectomy: No (?) Cardiac Surgery: Yes (Stents 2005) Cholecystectomy: No Lung Surgery: No Neurologic Surgery: Yes (Epidural) Orthopedic Surgery: Yes (Hip Replacement Right,Juan Knee Replacements) - Family Disease History Family Disease History: Heart Disease: Father, Mother, Brother, CA: Grandparents - Immunization History Immunization Up to Date: No - Suicide/Smoking/Psychosocial Hx Smoking History: Never smoked Have you smoked in the past 12 months: No If you are a former smoker, when did you quit?: Hx Alcohol Use: No Drug/Substance Use Hx: No Substance Use Type: None Hx Substance Use Treatment: No <Contreras Wharton - Last Filed: 12/20/17 19:12> - Past Medical History Allergies/Adverse Reactions: Allergies Allergy/AdvReac Type Severity Reaction Status Date / Time Penicillins Allergy Hives Verified 12/04/17 21:05 Home Medications: Ambulatory Orders Aspirin Coated [Ecotrin -] 81 mg PO DAILY 12/21/11 Montelukast Na [Singulair -] 10 mg PO HS 12/21/11 [place]-3/Dha/Epa/Fish Oil [Fish Oil 1,000 mg Softgel] 1 tab PO DAILY 12/21/11 Atorvastatin Ca [Lipitor] 40 mg PO HS 05/22/12 Metoprolol Succinate [Toprol XL -] 25 mg PO BID 05/22/12 Amlodipine Besylate [Norvasc -] 5 mg PO DAILY 08/16/13 Omeprazole [Prilosec (RX)] 40 mg PO DAILY 08/16/13 Polyethylene Glycol 3350 [Miralax 119 gm Btl -] 17 gm PO BID 10/03/14 Tamoxifen Citrate 20 mg PO DAILY 12/16/14 Acetaminophen [Tylenol .Regular Strength -] 650 mg PO Q6H PRN 30 Days tablet Sennosides [Senna -] 2 tab PO HS 30 Days tablet 12/12/17 Review of Systems - Review of Systems Able to Perform ROS?: Yes Comments:: 12/20/17 02:42 CONSTITUTIONAL: Absent: fever, chills, diaphoresis, generalized weakness, malaise, loss of appetite HEENT: Absent: rhinorrhea, nasal congestion, throat pain, throat swelling, difficulty swallowing, mouth swelling, ear pain, eye pain, visual Changes CARDIOVASCULAR: Absent: chest pain, syncope, palpitations, irregular heart rate, lightheadedness , peripheral edema RESPIRATORY: Absent: cough, shortness of breath, dyspnea with exertion, orthopnea, wheezing, stridor, hemoptysis GASTROINTESTINAL: (+) Abdominal distension. (+) Constipation. Absent: abdominal pain, nausea, vomiting, diarrhea, melena, hematochezia GENITOURINARY: Absent: dysuria, frequency, urgency, hesitancy, hematuria, flank pain, genital pain MUSCULOSKELETAL: Absent: myalgia, arthralgia, joint swelling SKIN: Absent: rash, itching, pallor HEMATOLOGIC/IMMUNOLOGIC: Absent: easy bleeding, easy bruising, lymphadenopathy, frequent infections ENDOCRINE: Absent: unexplained weight gain, unexplained weight loss, heat intolerance, cold intolerance NEUROLOGIC: Absent: headache, focal weakness or paresthesias, dizziness, unsteady gait, seizure, mental status changes, bladder or bowel incontinence PSYCHIATRIC: Absent: anxiety, depression, suicidal or homicidal ideation, hallucinations. <Tomy Kendall - Last Filed: 12/20/17 02:43> *Physical Exam - Physical Exam Comments: 12/20/17 02:42 GENERAL: Well developed, well nourished. Awake and alert. No acute distress. HEENT: Normocephalic, atraumatic. PERRLA, EOMI. No conjunctival pallor. Sclera are non- icteric. Moist mucous membranes. Oropharynx is clear. NECK: Supple. Full ROM. No JVD. Carotid pulses 2+ and symmetric, without bruits. No thyromegaly. No lymphadenopathy. CARDIOVASCULAR: Regular rate and rhythm. No murmurs, rubs, or gallops. Distal pulses are 2+ and symmetric. PULMONARY: No evidence of respiratory distress. Lungs clear to auscultation bilaterally. No wheezing, rales or rhonchi. ABDOMINAL: (+) Abdominal distension. Soft. Non-tender. No rebound or guarding. No organomegaly. Normoactive bowel sounds. MUSCULOSKELETAL Normal range of motion at all joints. No bony deformities or tenderness. No CVA tenderness. EXTREMITIES: No cyanosis. No clubbing. No edema. No calf tenderness. SKIN: Warm and dry. Normal capillary refill. No rashes. No jaundice. NEUROLOGICAL: Alert, awake, appropriate. Cranial nerves 2-12 intact. No deficits to light touch and temperature in face, upper extremities and lower extremities. No motor deficits in the in face, upper extremities and lower extremities. Normoreflexic in the upper and lower extremities. Normal speech. Toes are downgoing bilaterally. Gait is normal without ataxia. PSYCHIATRIC: Cooperative. Good eye contact. Appropriate mood and affect. PE: Abdominal distension. Soft. No rebound or guarding. <Tomy Kendall - Last Filed: 12/20/17 02:43> Heart Score/ECG Review #1 12/20/17 02:43 Vent rate 88 bpm Sinus rhythm with 1st degree AV block Possible left atrial enlargement Borderline ECG <Tomy Kendall - Last Filed: 12/20/17 02:43> ED Treatment Course - LABORATORY CBC & Chemistry Diagram: 12/20/17 03:35 12/20/17 03:35 <Contreras Wharton - Last Filed: 12/20/17 19:12> Medical Decision Making - Medical Decision Making 12/20/17 19:11 Dr. Wharton: The scribe's documentation has been prepared under my direction and personally reviewed by me in its entirery. I confirm that the note above accurately reflects all work, treatment, procedures, and medical decision making performed by me. <Contreras Wharton - Last Filed: 12/20/17 19:12> *DC/Admit/Observation/Transfer - Attestations Scribe Attestion: 12/20/17 02:42 Documentation prepared by Tomy Kendall, acting as medical psychotherapist for Contreras Wharton DO. <Tomy Kendall - Last Filed: 12/20/17 02:43> - Discharge Dispostion Admit: Yes <Contreras Wharton - Last Filed: 12/20/17 19:12> Diagnosis at time of Disposition: UTI (lower urinary tract infection) - Discharge Dispostion Condition at time of disposition: Stable
[2017-12-20 03:42] LABS: HEMATOCRIT 41.6 % (32.4-45.2); HEMOGLOBIN 13.7 GM/dL (10.7-15.3); MCH 29.4 pg (25.7-33.7); MEAN CELL VOLUME 89.1 fl (80-96); MEAN PLT VOLUME 9.7 fl (7.5-11.1); PLATELET COUNT 342 K/MM3 (134-434); RBC 4.67 M/mm3 (3.60-5.2); RDW 13.9 % (11.6-15.6); WHITE BLOOD COUNT 14.6 K/mm3 (4.0-10.0)
[2017-12-20 03:55] LABS: URINE APPEARANCE SLCLOUDY; URINE BILIRUBIN NEGATIVE (NEGATIVE); URINE BLOOD NEGATIVE (NEGATIVE); URINE COLOR YELLOW; URINE GLUCOSE (UA) NEGATIVE (NEGATIVE); URINE KETONE TRACE (NEGATIVE); URINE LEUK ESTERASE NEGATIVE (NEGATIVE); URINE NITRITE POSITIVE (NEGATIVE); URINE PROTEIN NEGATIVE (NEGATIVE); URINE UROBILINOGEN NEGATIVE mg/dL (0.2-1.0)
[2017-12-20 03:55] LABS: PROTHROMBIN TIME (PATIENT) 11.3 SEC (9.98-11.88)
[2017-12-20 03:58] LABS: EPI CELLS RARE /HPF (FEW); URINE BACTERIA RARE /hpf (NONE SEEN); URINE HYALINE CAST 2 /lpf; URINE MUCUS RARE
[2017-12-20 04:19] LABS: ALBUMIN 3.5 g/dl (3.4-5.0); ALK PHOS 66 U/L (45-117); ANION GAP 15 (8-16); BILIRUBIN,TOTAL 0.5 mg/dL (0.2-1.0); BLOOD UREA NITROGEN 37 mg/dL (7-18); CALCIUM 9.4 mg/dL (8.5-10.1); CHLORIDE 106 mmol/L (98-107); CO2 24 mmol/L (21-32); CREATININE 1.1 mg/dL (0.55-1.02); GLUCOSE,RANDOM 178 mg/dL (74-106); LIPASE 80 U/L (73-393); MAGNESIUM 2.2 mg/dL (1.8-2.4); POTASSIUM 5.1 mmol/L (3.5-5.1); SGOT/AST 23 U/L (15-37); SGPT/ALT 28 U/L (12-78); SODIUM 145 mmol/L (136-145); TOT PROT 6.9 g/dl (6.4-8.2)
[2017-12-20] MEDS ORDERED: ACETAMINOPHEN 325 MG TABLET (FP) PO ONE (04:56)
[2017-12-20] MEDS ORDERED: ACETAMINOPHEN 325 MG TABLET (FP) ONE (05:05)
--- NOTE | 2017-12-20 05:09 | PN ---
Teaching Attending Note Name of Resident: Ata Land ATTENDING PHYSICIAN STATEMENT I saw and evaluated the patient. I reviewed the resident's note and discussed the case with the resident. I agree with the resident's findings and plan as documented. SUBJECTIVE: 87 yo F pmhx. of breast ca (s/p chemo), ASHD, HTN, HLD, and GERD who presents to the ED with inability to stool X 1 days. States she last passed stool on Monday. 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 Also she had urinary retention and was seen by urology. States she had vomited yesterda, but feels much improved today. Denies any nausea or vomiting today. States her abdomen has been distended since last admit. Notes she urinated when she initially reached the ED. Denies any urinary burning or increased frequency. No chest pain or pressure. No shortness of breath. OBJECTIVE: Physician: VS: Vital Signs Period Temp Pulse Resp BP Sys/[place]as Pulse Ox Last 24 Hr 100.1 F 93 18 169/105 98 GEN: NAD, Resting in bed, AA0X3 HEENT: NCAT, PERRL, Throat without erythema or exudates CARD: RRR S1, S2 RESP: CTAB ABD: BSx4, NTD to palpation EXT: - C/C/e CBCD WBC 14.6 K/mm3 (4.0-10.0) H D 12/20/17 03:35 RBC 4.67 M/mm3 (3.60-5.2) D 12/20/17 03:35 Hgb 13.7 GM/dL (10.7-15.3) D 12/20/17 03:35 Hct 41.6 % (32.4-45.2) D 12/20/17 03:35 MCV 89.1 fl (80-96) 12/20/17 03:35 MCHC 33.0 g/dl (32.0-36.0) 12/20/17 03:35 RDW 13.9 % (11.6-15.6) 12/20/17 03:35 Plt Count 342 K/MM3 (134-434) D 12/20/17 03:35 MPV 9.7 fl (7.5-11.1) 12/20/17 03:35 CMP Sodium 145 mmol/L (136-145) 12/20/17 03:35 Potassium 5.1 mmol/L (3.5-5.1) 12/20/17 03:35 Chloride 106 mmol/L (98-107) 12/20/17 03:35 Carbon Dioxide 24 mmol/L (21-32) 12/20/17 03:35 Anion Gap 15 (8-16) 12/20/17 03:35 BUN 37 mg/dL (7-18) H 12/20/17 03:35 Creatinine 1.1 mg/dL (0.55-1.02) H 12/20/17 03:35 Creat Clearance w eGFR 47.21 (>60) 12/20/17 03:35 Random Glucose 178 mg/dL (74-106) H 12/20/17 03:35 Calcium 9.4 mg/dL (8.5-10.1) 12/20/17 03:35 Total Bilirubin 0.5 mg/dL (0.2-1.0) D 12/20/17 03:35 AST 23 U/L (15-37) 12/20/17 03:35 ALT 28 U/L (12-78) 12/20/17 03:35 Alkaline Phosphatase 66 U/L (45-117) 12/20/17 03:35 Total Protein 6.9 g/dl (6.4-8.2) 12/20/17 03:35 Albumin 3.5 g/dl (3.4-5.0) 12/20/17 03:35 CARDIAC ENZYMES Creatine Kinase 47 IU/L (26-192) 12/20/17 03:35 Troponin I 0.02 ng/ml (0.00-0.05) 12/20/17 03:35 CXR- No acute process Urine Test Results Urine Color Yellow 12/20/17 03:40 Urine Appearance Slcloudy 12/20/17 03:40 Urine pH 5.0 (5.0-8.0) 12/20/17 03:40 Ur Specific [place] 1.014 (1.001-1.035) 12/20/17 03:40 Urine Protein Negative (NEGATIVE) 12/20/17 03:40 Urine Glucose (UA) Negative (NEGATIVE) 12/20/17 03:40 Urine Ketones Trace (NEGATIVE) H 12/20/17 03:40 Urine Blood Negative (NEGATIVE) 12/20/17 03:40 Urine Nitrite Positive (NEGATIVE) 12/20/17 03:40 Urine Bilirubin Negative (NEGATIVE) 12/20/17 03:40 Ur Leukocyte Esterase Negative (NEGATIVE) 12/20/17 03:40 Ur Epithelial Cells Rare /HPF (FEW) 12/20/17 03:40 Urine Bacteria Rare /hpf (NONE SEEN) 12/20/17 03:40 Urine Mucus Rare 12/20/17 03:40 Ambulatory Orders Aspirin Coated [Ecotrin -] 81 mg PO DAILY 12/21/11 Montelukast Na [Singulair -] 10 mg PO HS 12/21/11 [place]-3/Dha/Epa/Fish Oil [Fish Oil 1,000 mg Softgel] 1 tab PO DAILY 12/21/11 Atorvastatin Ca [Lipitor] 40 mg PO HS 05/22/12 Lidocaine 5% Patch [Lidoderm -] 1 each TD DAILY PRN 05/22/12 Metoprolol Succinate [Toprol XL -] 25 mg PO BID 05/22/12 Multivitamin [Multivitamins] 1 each PO DAILY 05/22/12 Pregabalin [Lyrica] 25 mg PO BID 05/22/12 Amlodipine Besylate [Norvasc -] 5 mg PO DAILY 08/16/13 Omeprazole [Prilosec (RX)] 40 mg PO DAILY 08/16/13 Polyethylene Glycol 3350 [Miralax 119 gm Btl -] 17 gm PO BID 10/03/14 Esomeprazole Mag Trihydrate [Nexium] 40 mg PO DAILY 12/16/14 Quinapril HCl [Accupril -] 20 mg PO DAILY 12/16/14 Tamoxifen Citrate 20 mg PO DAILY 12/16/14 Acetaminophen [Tylenol .Regular Strength -] 650 mg PO Q6H PRN 30 Days tablet Sennosides [Senna -] 2 tab PO HS 30 Days tablet 12/12/17 ASSESSMENT AND PLAN: 87 yo F pmhx. of breast ca (s/p chemo), ASHD, HTN, HLD, and GERD who presents to the ED with inability abdominal distension and constipation. 1.) Abdominal Distension ? Urinary Retention - Bladder scan - [place] - Urology consult 2.) Leukocytosis/Tachy/SIRS - No Source -Would hydrate and monitor for now - If no resolution- ID consult - Check Lactic Acid 3.) Constipation - Miralax, colace, senna 4.) ASHD - C/W ASA, BB, Ward 5.) ARF - Mild - Gentle IVF - Monitor 6.) Hx. Of Breast Ca - On Tamoxifen 7.) GERD - PPI 8.) Dvt Ppx - If anticipate >24-48 hr stay start hep. ppx Place in Obs
[2017-12-20 05:38] LABS: ACETONE SERUM NEGATIVE (NEGATIVE)
--- NOTE | 2017-12-20 05:52 | HP ---
CHIEF COMPLAINT: vomiting, abdominal distention PCP: Dr. Saldivar HISTORY OF PRESENT ILLNESS: 87 year old female with a hx of breast CA, atherosclerosis, HTN, HLD, GERD, back pain, presents for several day history of abdominal distention. Patient is a poor historian and does not remember much of her history. She states that she had a bowel movement on Monday and a couple very small BMs yesterday. She states that her abdominal distention is new and that her abdomen is distended near the suprapubic region. She also states she vomited 3-5x last night but was never nauseous. Has not vomited in several hours. She was admitted on 12/04 for abdominal pain and constipation, had urinary retention that was alleviated with a justice. She states that she urinated prior to arriving to the emergency department today. ER course was notable for: (1) WBC 14.6 (2) JASMIN w/ cre 1.1 (3) PAST MEDICAL HISTORY: breast CA, atherosclerosis, HTN, HLD, GERD, back pain PAST SURGICAL HISTORY: B/l knee repair. Right hip repair. Cardiac stent placement (2005). Social History: Smoking: former smoker Alcohol: none Drugs: none Family History: Allergies Penicillins Allergy (Verified 12/04/17 21:05) Hives HOME MEDICATIONS: Home Medications Medication Instructions Recorded Aspirin Coated [Ecotrin -] 81 mg PO DAILY 12/21/11 Montelukast Na [Singulair -] 10 mg PO HS 12/21/11 [place]-3/Dha/Epa/Fish Oil [Fish Oil 1 tab PO DAILY 12/21/11 1,000 mg Softgel] Atorvastatin Ca [Lipitor] 40 mg PO HS 05/22/12 Lidocaine 5% Patch [Lidoderm -] 1 each TD DAILY PRN 05/22/12 Metoprolol Succinate [Toprol XL -] 25 mg PO BID 05/22/12 Multivitamin [Multivitamins] 1 each PO DAILY 05/22/12 Pregabalin [Lyrica] 25 mg PO BID 05/22/12 Amlodipine Besylate [Norvasc -] 5 mg PO DAILY 08/16/13 Omeprazole [Prilosec (RX)] 40 mg PO DAILY 08/16/13 Polyethylene Glycol 3350 [Miralax 17 gm PO BID 10/03/14 119 gm Btl -] Esomeprazole Mag Trihydrate 40 mg PO DAILY 12/16/14 [Nexium] Quinapril HCl [Accupril -] 20 mg PO DAILY 12/16/14 Tamoxifen Citrate 20 mg PO DAILY 12/16/14 Acetaminophen [Tylenol .Regular 650 mg PO Q6H PRN 30 Days tablet 12/12/17 Strength -] Sennosides [Senna -] 2 tab PO HS 30 Days tablet 12/12/17 REVIEW OF SYSTEMS CONSTITUTIONAL: Absent: fever, chills, diaphoresis, generalized weakness, malaise, loss of appetite, weight change HEENT: Absent: rhinorrhea, nasal congestion, throat pain, throat swelling, difficulty swallowing, mouth swelling, ear pain, eye pain, visual changes CARDIOVASCULAR: Absent: chest pain, syncope, palpitations, irregular heart rate, lightheadedness , peripheral edema RESPIRATORY: Absent: cough, shortness of breath, dyspnea with exertion, orthopnea, wheezing, stridor, hemoptysis GASTROINTESTINAL: abdominal pain Absent: , abdominal distension, nausea, vomiting, diarrhea, constipation, melena , hematochezia GENITOURINARY: Absent: dysuria, frequency, urgency, hesitancy, hematuria, flank pain, genital pain MUSCULOSKELETAL: Absent: myalgia, arthralgia, joint swelling, back pain, neck pain SKIN: Absent: rash, itching, pallor HEMATOLOGIC/IMMUNOLOGIC: Absent: easy bleeding, easy bruising, lymphadenopathy, frequent infections ENDOCRINE: Absent: unexplained weight gain, unexplained weight loss, heat intolerance, cold intolerance NEUROLOGIC: Absent: headache, focal weakness or paresthesias, dizziness, unsteady gait, seizure, mental status changes, bladder or bowel incontinence PSYCHIATRIC: Absent: anxiety, depression, suicidal or homicidal ideation, hallucinations. PHYSICAL EXAMINATION Vital Signs - 24 hr 12/20/17 03:23 Temperature 100.1 F H Pulse Rate 93 H Respiratory 18 Rate Blood Pressure 169/105 O2 Sat by Pulse 98 Oximetry (%) GENERAL: A&O x 3 EYES: PERRLA, EOMI ENT: Dry mucus membranes NECK: No JVD LUNGS: CTA, no rales HEART: RRR, no murmurs appreciated ABDOMEN: distended but soft, mildly tender to palpation in the RLQ and LLQ, diminished bowel sounds present MSK: No CVA tenderness LOWER EXTREMITIES: 2+ puleses, no edema NEUROLOGICAL: Cranial nerves II-XII intact Laboratory Results - last 24 hr 12/20/17 12/20/17 12/20/17 03:35 03:35 03:35 WBC 14.6 H D RBC 4.67 D Hgb 13.7 D Hct 41.6 D MCV 89.1 MCH 29.4 MCHC 33.0 RDW 13.9 Plt Count 342 D MPV 9.7 Neutrophils % No Result Required. Lymphocytes % No Result Required. PT with INR 11.30 INR 1.00 Sodium 145 Potassium 5.1 Chloride 106 Carbon Dioxide 24 Anion Gap 15 BUN 37 H Creatinine 1.1 H Creat Clearance w eGFR 47.21 Random Glucose 178 H Calcium 9.4 Magnesium 2.2 Total Bilirubin 0.5 D AST 23 ALT 28 Alkaline Phosphatase 66 Creatine Kinase 47 Troponin I 0.02 Total Protein 6.9 Albumin 3.5 Lipase 80 Urine Color Urine Appearance Urine pH Ur Specific [place] Urine Protein Urine Glucose (UA) Urine Ketones Urine Blood Urine Nitrite Urine Bilirubin Urine Urobilinogen Ur Leukocyte Esterase Urine WBC (Auto) Urine RBC (Auto) Ur Epithelial Cells Urine Bacteria Hyaline Casts Urine Mucus Acetone, Qual Negative L 12/20/17 03:40 WBC RBC Hgb Hct MCV MCH MCHC RDW Plt Count MPV Neutrophils % Lymphocytes % PT with INR INR Sodium Potassium Chloride Carbon Dioxide Anion Gap BUN Creatinine Creat Clearance w eGFR Random Glucose Calcium Magnesium Total Bilirubin AST ALT Alkaline Phosphatase Creatine Kinase Troponin I Total Protein Albumin Lipase Urine Color Yellow Urine Appearance Slcloudy Urine pH 5.0 Ur Specific [place] 1.014 Urine Protein Negative Urine Glucose (UA) Negative Urine Ketones Trace H Urine Blood Negative Urine Nitrite Positive Urine Bilirubin Negative Urine Urobilinogen Negative Ur Leukocyte Esterase Negative Urine WBC (Auto) 1 Urine RBC (Auto) 1 Ur Epithelial Cells Rare Urine Bacteria Rare Hyaline Casts 2 Urine Mucus Rare Acetone, Qual Home Medications Medication Instructions Recorded Aspirin Coated [Ecotrin -] 81 mg PO DAILY 12/21/11 Montelukast Na [Singulair -] 10 mg PO HS 12/21/11 [place]-3/Dha/Epa/Fish Oil [Fish Oil 1 tab PO DAILY 12/21/11 1,000 mg Softgel] Atorvastatin Ca [Lipitor] 40 mg PO HS 05/22/12 Metoprolol Succinate [Toprol XL -] 25 mg PO BID 05/22/12 Amlodipine Besylate [Norvasc -] 5 mg PO DAILY 11/15/13 Omeprazole [Prilosec (RX)] 40 mg PO DAILY 08/16/13 Polyethylene Glycol 3350 [Miralax 17 gm PO BID 10/03/14 119 gm Btl -] Quinapril HCl [Accupril -] 20 mg PO DAILY 12/16/14 Tamoxifen Citrate 20 mg PO DAILY 12/16/14 Acetaminophen [Tylenol .Regular 650 mg PO Q6H PRN 30 Days tablet 12/12/17 Strength -] Sennosides [Senna -] 2 tab PO HS 30 Days tablet 12/12/17 ASSESSMENT/PLAN: 87 year old female with a hx of breast CA, atherosclerosis, HTN, HLD, GERD presents to the hospital with abdominal distention and vomiting #Abdominal Distention: monitor for bowel movements, likely constipated, could be contributing to SIRS criteria if severely impacted -continue senna -give miralax -give colace -monitor WBC #Urinary Retention: patient reports urinating today, but is unreliable as a historian, unlikely UTI -bladder scan now -insert justice if >300 residual -ED gave levoquin in Ed -Dr. Chavarria consult appreciated #JASMIN: cre 1.1, likely prerenal -gentle fluid hydration at 83cc/hr #GERD: stable -continue omeprazole #Hypertension: patient is hypertensive -continue metoprolol 25 PO BID -continue amlodipine 5 QD -continue quinapril 20 PO QD #Atherosclerosis: stable -continue aspirin #Hyperlipidemia: stable -continue atorvastatin 40mg PO #History of Breast CA: not an acute complaint -on tamoxifen #FEN: -gentle fluid hydration -sodium controlled diet -replete lytes in AM #Prophylaxis -heparin 5000 subq TID #Disposition -admit for observation Visit type - Emergency Visit Emergency Visit: Yes ED Registration Date: 12/20/17 Care time: The patient presented to the Emergency Department on the above date and was hospitalized for further evaluation of their emergent condition. - New Patient This patient is new to me today: Yes Date on this admission: 12/20/17 - Critical Care Critical Care patient: No Hospitalist Screening - Colonoscopy Questionnaire Colonoscopy Questionnaire: Colonoscopy Questionnaire - Patient: 50 - 75 years old and never had a screening colonoscopy: No History of colon or rectal polyps, or CA: No History of IBD, Crohn's disease or UC: No History of abdominal radiation therapy as a child: No - Relative: 1 with colon or rectal CA, or polyps at age 60 or younger: No Colon or rectal CA diagnosed at age 45 or younger: No Multiple relatives with colon or rectal CA: No - Outcome: Screening Result: Negative Screen
[2017-12-20] MEDS: SODIUM CHLORIDE 1,000 ML IV SCH ×2 (08:02→17:13)
--- NOTE | 2017-12-20 09:56 | EKG ---
Test Reason : Blood Pressure : / mmHG Vent. Rate : 088 BPM Atrial Rate : 088 BPM P-R Int : 248 ms QRS Dur : 070 ms QT Int : 374 ms P-R-T Axes : 013 003 048 degrees QTc Int : 452 ms SINUS RHYTHM WITH 1ST DEGREE A-V BLOCK POSSIBLE LEFT ATRIAL ENLARGEMENT BORDERLINE ECG WHEN COMPARED WITH ECG OF 05-DEC-2017 13:45, NO SIGNIFICANT CHANGE WAS FOUND Confirmed by SHE CARDOZO MD ([id number]) on 12/20/2017 9:55:30 AM Referred By: Confirmed By:SHE CARDOZO MD
[2017-12-20] MEDS ORDERED: POLYETHYLENE GLYCOL 3350 119 GM BTL PO SCH (10:00)
[2017-12-20] MEDS ORDERED: DOCUSATE SODIUM 100 MG CAPSULE (FP) PO SCH (10:00)
[2017-12-20] MEDS ORDERED: PT OWN MED DRAWER 7, Y5N ONE (11:33)
[2017-12-20] MEDS: ASPIRIN COATED 81 MG TABLET.EC PO SCH (11:47)
[2017-12-20] MEDS: OMEGA-3 ACID ETHYL ESTERS (FATTY-ACIDS) 1 GM CAPSULE (FP) PO SCH (11:47)
[2017-12-20] MEDS: PANTOPRAZOLE 40 MG TABLET (FP) PO SCH (11:47)
[2017-12-20] MEDS: amLODIPine BESYLATE 5 MG TABLET (FP) PO SCH (11:47)
[2017-12-20] MEDS: HEPARIN NA (PORCINE) 5,000 UNITS/ML 1ML VIAL SQ SCH ×2 (11:48→17:14)
[2017-12-20] MEDS: metoPROLOL SUCCINATE 25 MG TAB.SR.24H (FP) PO SCH ×2 (11:48→22:24)
--- NOTE | 2017-12-20 12:36 | CON.GU ---
Consult Consult Specialty:: Referred by:: medicine Reason for Consultation:: urinary retention - History of Present Illness Chief Complaint: urinary retention History of Present Illness: 87 year old female with abdominal pain and distension. she has a history of urinary retention in the past. She claims to be voiding but is a poor historian. 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 detached retina. 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 Home Medications - Allergies Allergies/Adverse Reactions: Allergies Allergy/AdvReac Type Severity Reaction Status Date / Time Penicillins Allergy Hives Verified 12/04/17 21:05 - Home Medications Home Medications: Ambulatory Orders Aspirin Coated [Ecotrin -] 81 mg PO DAILY 12/21/11 Montelukast Na [Singulair -] 10 mg PO HS 12/21/11 Lane-3/Dha/Epa/Fish Oil [Fish Oil 1,000 mg Softgel] 1 tab PO DAILY 12/21/11 Atorvastatin Ca [Lipitor] 40 mg PO HS 05/22/12 Metoprolol Succinate [Toprol XL -] 25 mg PO BID 05/22/12 Amlodipine Besylate [Norvasc -] 5 mg PO DAILY 08/16/13 Omeprazole [Prilosec (RX)] 40 mg PO DAILY 08/16/13 Polyethylene Glycol 3350 [Miralax 119 gm Btl -] 17 gm PO BID 10/03/14 Tamoxifen Citrate 20 mg PO DAILY 12/16/14 Acetaminophen [Tylenol .Regular Strength -] 650 mg PO Q6H PRN 30 Days tablet Sennosides [Senna -] 2 tab PO HS 30 Days tablet 12/12/17 Family Disease History - Family Disease History Family Disease History: Heart Disease: Father ( [place] age 80, had ulcer), Mother ( [place] age 70), [place]: Brother (colon cancer) Review of Systems - Review of Systems Gastrointestinal: reports: Abdominal Pain Physical Exam- Vital Signs: Vital Signs Temperature 100.1 F H 12/20/17 03:23 Pulse Rate 88 12/20/17 07:53 Respiratory Rate 20 12/20/17 07:53 Blood Pressure 138/95 12/20/17 07:53 O2 Sat by Pulse Oximetry (%) 99 12/20/17 07:53 Renal/: No: Bladder Distention, CVA Tenderness - Left, CVA Tenderness - Right , Justice Present Labs: CBC, BMP 12/20/17 03:35 12/20/17 03:35 Problem List - Problems (1) Urinary retention Assessment/Plan: patient reporting lower abdominal pain. Could be related to urinary and/or retention. If bladder scan >300 recommend justice cath placement and bowel management as needed. Code(s): R33.9 - RETENTION OF URINE, UNSPECIFIED
--- NOTE | 2017-12-20 13:55 | PN ---
Progress Note, Physician Chief Complaint: Ms Thibodeaux says she is not eating well today. No nausea or vomiting currently but happened prior to admission. No cp or sob. - Current Medication List Current Medications: Active Medications Amlodipine Besylate (Norvasc -) 5 mg PO DAILY [facility] Last Admin: 12/20/17 11:47 Dose: 5 mg Aspirin (Ecotrin -) 81 mg PO DAILY [facility] Last Admin: 12/20/17 11:47 Dose: 81 mg Atorvastatin Calcium (Lipitor -) 40 mg PO HS [facility] Docusate Sodium (Colace -) 100 mg PO DAILY [facility] Last Admin: 12/20/17 11:47 Dose: 100 mg Heparin Sodium (Porcine) (Heparin -) 5,000 unit SQ Q8H-IV [facility] Last Admin: 12/20/17 11:48 Dose: 5,000 unit Sodium Chloride (Normal Saline -) 1,000 mls @ 83 mls/hr IV ASDIR [facility] Last Admin: 12/20/17 08:02 Dose: 83 mls/hr Metoprolol Succinate (Toprol Xl -) 25 mg PO BID [facility] Last Admin: 12/20/17 11:48 Dose: 25 mg Montelukast Sodium (Singulair -) 10 mg PO HS [facility] Oensz-4-Rcqs Ethyl Esters (Lovaza -) 1 gm PO DAILY [facility] Last Admin: 12/20/17 11:47 Dose: 1 gm Pantoprazole Sodium (Protonix -) 40 mg PO DAILY [facility] Last Admin: 12/20/17 11:47 Dose: 40 mg Polyethylene Glycol (Miralax (For Daily Use) -) 17 gm PO BID [facility] Last Admin: 12/20/17 11:47 Dose: 17 gm Quinapril HCl (Accupril -) 20 mg PO DAILY [facility] Senna (Senna -) 2 tab PO HS [facility] Tamoxifen Citrate (Tamoxifen Citrate) 20 mg PO DAILY [facility] - Objective Vital Signs: Vital Signs Temperature 37.8 C H 12/20/17 03:23 Pulse Rate 88 12/20/17 07:53 Respiratory Rate 20 12/20/17 07:53 Blood Pressure 138/95 12/20/17 07:53 O2 Sat by Pulse Oximetry (%) 99 12/20/17 07:53 Constitutional: Yes: Well Nourished, No Distress, Calm Cardiovascular: Yes: Regular Rate and Rhythm. No: Gallop, Murmur, Rub Respiratory: Yes: Regular, CTA Bilaterally. No: Rales, Rhonchi, Wheezes Gastrointestinal: Yes: Normal Bowel Sounds, Soft, Distention. No: Tenderness Extremities: Yes: WNL Edema: No Labs: CBC, BMP 12/20/17 03:35 12/20/17 03:35 INR, PTT INR 1.00 (0.82-1.09) 12/20/17 03:35 Problem List - Problems (1) Fecal impaction Assessment/Plan: -case d/w Dr Frank -will place on senna bid -mineral enema x3 -continue hydration -will keep npo currently -monitor for obstruction Code(s): K56.41 - FECAL IMPACTION (2) Acute urinary retention Assessment/Plan: -appreciate urology assistance -justice placed Code(s): R33.8 - OTHER RETENTION OF URINE (3) SIRS (systemic inflammatory response syndrome) Assessment/Plan: -patient with low grade fevers and leukocytosis -will check lactic acid -consult ID for possible antibiotics -benign abdomen currently Code(s): R65.10 - SIRS OF NON-INFECTIOUS ORIGIN W/O ACUTE ORGAN DYSFUNCTION (4) CAD (coronary artery disease) Assessment/Plan: -quiescent -continue home regimen Code(s): I25.10 - ATHSCL HEART DISEASE OF [place] CORONARY ARTERY W/O ANG PCTRS Qualifiers: Coronary Disease-Associated Artery/Lesion type: [place] artery [place] vs. transplanted heart: [place] heart Associated angina: without angina Qualified Code(s): I25.10 - Atherosclerotic heart disease of [place] coronary artery without angina pectoris (5) Constipation Assessment/Plan: -as above Code(s): K59.00 - CONSTIPATION, UNSPECIFIED (6) HLD (hyperlipidemia) Assessment/Plan: -continue statin Code(s): E78.5 - HYPERLIPIDEMIA, UNSPECIFIED Qualifiers: Hyperlipidemia type: unspecified Qualified Code(s): E78.5 - Hyperlipidemia , unspecified (7) HTN (hypertension) Assessment/Plan: -controlled -continue toprol xl and norvasc Code(s): I10 - ESSENTIAL (PRIMARY) HYPERTENSION Qualifiers: Hypertension type: essential hypertension Qualified Code(s): I10 - Essential (primary) hypertension
[2017-12-20] MEDS ORDERED: MINERAL OIL ENEMA 133 ML ENEMA PR ONE ×3 (14:37)
[2017-12-20] MEDS ORDERED: SENNOSIDES/DOCUSATE COMBO (SENNA PLUS) TABLET (UD) PO SCH (14:45)
[2017-12-20] MEDS ORDERED: SENNOSIDES 8.6MG TABLET (FP) PO ONE (16:15)
--- NOTE | 2017-12-20 16:17 | CONSULT ---
Consult Consult Specialty:: General Surgery Referred by:: Dr. Huddleston Reason for Consultation:: fecal impaction - History of Present Illness Chief Complaint: abd distention, constipation, n/v History of Present Illness: Pt known to me from previous admission 12/05- with fecal impaction and acute urinary retention, who had Valdovinos placed by me 12/05 with 2L out, then was disimpacted several times of soft, formed stool with eventual clearance of stool burden on AXR after disimpaction, senna, enemas and stool softeners. She was d/c to [facility] on senna 2 nightly, miralax bid and colace bid 8 days ago. She reports last BM Mon-Mon. She also reports urinating multiple times daily, though she is sometimes incontinent vs using a bedpan. Yesterday, she began having nausea and vomiting, has had decreased appetite, and increasing abdominal distention with pain, and was sent back to ER last night. AXR showed rectosigmoid stool, superimposed opacity (?bladder), and some air in a few central SB loops. Today, Valdovinos was just placed with 1.4L out, and surgery is consulted to evaluate for fecal impaction again. Pt reports no abdominal pain now, is somewhat confused (baseline dementia), but is able to state that she cannot push the soft stool out. 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 detached retina. 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 Home Medications - Allergies Allergies/Adverse Reactions: Allergies Allergy/AdvReac Type Severity Reaction Status Date / Time Penicillins Allergy Hives Verified 12/04/17 21:05 - Home Medications Home Medications: Ambulatory Orders Aspirin Coated [Ecotrin -] 81 mg PO DAILY 12/21/11 Montelukast Na [Singulair -] 10 mg PO HS 12/21/11 [place]-3/Dha/Epa/Fish Oil [Fish Oil 1,000 mg Softgel] 1 tab PO DAILY 12/21/11 Atorvastatin Ca [Lipitor] 40 mg PO HS 05/22/12 Metoprolol Succinate [Toprol XL -] 25 mg PO BID 05/22/12 Amlodipine Besylate [Norvasc -] 5 mg PO DAILY 08/16/13 Omeprazole [Prilosec (RX)] 40 mg PO DAILY 08/16/13 Polyethylene Glycol 3350 [Miralax 119 gm Btl -] 17 gm PO BID 10/03/14 Tamoxifen Citrate 20 mg PO DAILY 12/16/14 Acetaminophen [Tylenol .Regular Strength -] 650 mg PO Q6H PRN 30 Days tablet Sennosides [Senna -] 2 tab PO HS 30 Days tablet 12/12/17 Family Disease History - Family Disease History Family Disease History: Heart Disease: Father ( [place] 80, had ulcer), Mother ( [place] age 70), [place]: Brother (colon cancer) Review of Systems Unable to obtain ROS, reason: ltd from patient - Review of Systems Constitutional: reports: Loss of Appetite. denies: Chills, Fever HENT: denies: Difficult Swallowing, Throat Pain Cardiovascular: denies: Chest Pain, Shortness of Breath Gastrointestinal: reports: Abdominal Pain, Constipation (last BM Sun and Mon), Nausea, Vomiting. denies: Diarrhea Genitourinary: reports: Incontinence, Other (retention - recent Valdovinos was out when pt came from [facility], unclear how long ago removed (had been placed 3/6 w/ 2L out and trialed out 3 times first week unsuccessfully)) Neurological: reports: Confusion (baseline dementia) Physical Exam Vital Signs: Vital Signs Temperature 100.1 F H 12/20/17 03:23 Pulse Rate 88 12/20/17 07:53 Respiratory Rate 20 12/20/17 07:53 Blood Pressure 138/95 12/20/17 07:53 O2 Sat by Pulse Oximetry (%) 99 12/20/17 07:53 Constitutional: Yes: No Distress, Calm, Thin Eyes: Yes: Conjunctiva Clear, EOM Intact HENT: Yes: Atraumatic, Normocephalic Neck: Yes: Supple, Trachea Midline Gastrointestinal: Yes: Soft, Distention (with tympany). No: Tenderness ...Rectal Exam: Yes: Hemorrhoids/External (few skin tags), Sphincter Tone Normal , Other (copious soft/loose/stirrable stool in vault - too soft to evacuate manually (smears only), and too soft for pt to evacuate herself) Renal/: Yes: Bladder Distention (prior to Valdovinos placement (1.4L out per nurse) ), Valdovinos Present. No: Hematuria Musculoskeletal: No: Joint Stiffness, Joint Swelling Extremities: No: Cool, Cyanosis Integumentary: No: Jaundice, Rash Neurological: Yes: Alert, Oriented (partly, but with dementia - seems appropriate to conversation) Psychiatric: Yes: Alert. No: Agitated Labs: CBC, BMP 12/20/17 03:35 12/20/17 03:35 CMP Sodium 145 mmol/L (136-145) 12/20/17 03:35 Potassium 5.1 mmol/L (3.5-5.1) 12/20/17 03:35 Chloride 106 mmol/L (98-107) 12/20/17 03:35 Carbon Dioxide 24 mmol/L (21-32) 12/20/17 03:35 Anion Gap 15 (8-16) 12/20/17 03:35 BUN 37 mg/dL (7-18) H 12/20/17 03:35 Creatinine 1.1 mg/dL (0.55-1.02) H 12/20/17 03:35 Creat Clearance w eGFR 47.21 (>60) 12/20/17 03:35 Random Glucose 178 mg/dL (74-106) H 12/20/17 03:35 Lactic Acid 1.1 mmol/L (0.0-2.0) 12/20/17 15:00 Calcium 9.4 mg/dL (8.5-10.1) 12/20/17 03:35 Magnesium 2.2 mg/dL (1.8-2.4) 12/20/17 03:35 Total Bilirubin 0.5 mg/dL (0.2-1.0) D 12/20/17 03:35 AST 23 U/L (15-37) 12/20/17 03:35 ALT 28 U/L (12-78) 12/20/17 03:35 Alkaline Phosphatase 66 U/L (45-117) 12/20/17 03:35 Creatine Kinase 47 IU/L (26-192) 12/20/17 03:35 Troponin I 0.02 ng/ml (0.00-0.05) 12/20/17 03:35 Total Protein 6.9 g/dl (6.4-8.2) 12/20/17 03:35 Albumin 3.5 g/dl (3.4-5.0) 12/20/17 03:35 Lipase 80 U/L (73-393) 12/20/17 03:35 INR, PTT INR 1.00 (0.82-1.09) 12/20/17 03:35 Urine Test Results Urine Color Yellow 12/20/17 03:40 Urine Appearance Slcloudy 12/20/17 03:40 Urine pH 5.0 (5.0-8.0) 12/20/17 03:40 Ur Specific [place] 1.014 (1.001-1.035) 12/20/17 03:40 Urine Protein Negative (NEGATIVE) 12/20/17 03:40 Urine Glucose (UA) Negative (NEGATIVE) 12/20/17 03:40 Urine Ketones Trace (NEGATIVE) H 12/20/17 03:40 Urine Blood Negative (NEGATIVE) 12/20/17 03:40 Urine Nitrite Positive (NEGATIVE) 12/20/17 03:40 Urine Bilirubin Negative (NEGATIVE) 12/20/17 03:40 Ur Leukocyte Esterase Negative (NEGATIVE) 12/20/17 03:40 Ur Epithelial Cells Rare /HPF (FEW) 12/20/17 03:40 Urine Bacteria Rare /hpf (NONE SEEN) 12/20/17 03:40 Urine Mucus Rare 12/20/17 03:40 Imaging - Results X-ray: Image Reviewed (image personally reviewed - shows significant stool (soft ) in rectosigmoid, likely superimposed full bladder, some air in central sb loops) Problem List - Problems (1) Fecal impaction Assessment/Plan: admitted to medicine Valdovinos replaced for bladder decompression stool in vault is too soft for patient to evacuate or to be able to manually disimpact/evacuate firmer stool likely higher up in rectosigmoid unreachable with finger need motility agents to facilitate colon movement soap suds (not mineral oil) enemas to help evacuate vault of stool to start will give senna now and nightly stop stool softeners for now - pt needs formed stool to be able to evacuate NPO ok until impaction cleared Code(s): K56.41 - FECAL IMPACTION (2) Constipation Code(s): K59.00 - CONSTIPATION, UNSPECIFIED Qualifiers: Constipation type: unspecified constipation type Qualified Code(s): K59.00 - Constipation, unspecified (3) Acute urinary retention Assessment/Plan: Valdovinos replaced 1.4L out initially anticipate bladder is large, floppy, atonic will need extended catheter time to allow bladder to regain tone, and until impaction is cleared and constipation is well-managed retention likely significantly related to fecal impaction, but also poor bladder tone (given recent episode 15 days ago) urology on board Code(s): R33.8 - OTHER RETENTION OF URINE (4) JASMIN (acute kidney injury) Assessment/Plan: likely secondary to acute retention, possibly element of dehydration monitor for improvement avoid nephrotoxics would not use Fleet's enemas or mag citrate at this point Code(s): N17.9 - ACUTE KIDNEY FAILURE, UNSPECIFIED
[2017-12-20] MEDS: TAMOXIFEN CITRATE 10 MG TABLET PO SCH (18:53)
[2017-12-20] MEDS: QUINAPRIL HCL 20 MG TABLET (FP) PO SCH (18:53)
[2017-12-20 20:19] VITALS: BMI 26.5
[2017-12-20] MEDS ORDERED: SENNOSIDES 8.6MG TABLET (FP) PO SCH (22:00)
[2017-12-20] MEDS: MONTELUKAST NA 10 MG TABLET PO SCH (22:24)
[2017-12-20] MEDS: ATORVASTATIN CA 40 MG TABLET (FP) PO SCH (22:24)
[2017-12-20] MEDS: SENNOSIDES 8.6MG TABLET (FP) PO SCH (22:25)
[2017-12-21] MEDS: HEPARIN NA (PORCINE) 5,000 UNITS/ML 1ML VIAL SQ SCH ×3 (03:00→18:04)
[2017-12-21] MEDS: SODIUM CHLORIDE 1,000 ML IV SCH ×2 (05:36→18:36)
[2017-12-21] MEDS ORDERED: ONDANSETRON 4 MG/2 ML VIAL IVPUSH ONE (06:10)
[2017-12-21 07:57] LABS: HEMATOCRIT 36.4 % (32.4-45.2); HEMOGLOBIN 12.3 GM/dL (10.7-15.3); MCH 29.6 pg (25.7-33.7); MCHC 33.7 g/dl (32.0-36.0); MEAN CELL VOLUME 87.8 fl (80-96); MEAN PLT VOLUME 9.5 fl (7.5-11.1); PLATELET COUNT 301 K/MM3 (134-434); RBC 4.14 M/mm3 (3.60-5.2); RDW 13.6 % (11.6-15.6); WHITE BLOOD COUNT 12.1 K/mm3 (4.0-10.0)
[2017-12-21 08:10] LABS: ANION GAP 12 (8-16); BLOOD UREA NITROGEN 26 mg/dL (7-18); CALCIUM 8.5 mg/dL (8.5-10.1); CHLORIDE 109 mmol/L (98-107); CO2 21 mmol/L (21-32); GLUCOSE,RANDOM 132 mg/dL (74-106); POTASSIUM 4.3 mmol/L (3.5-5.1); SODIUM 142 mmol/L (136-145)
[2017-12-21 08:11] LABS: CREATININE 0.8 mg/dL (0.55-1.02); PHOSPHOROUS 3.2 mg/dL (2.5-4.9)
[2017-12-21] MEDS: OMEGA-3 ACID ETHYL ESTERS (FATTY-ACIDS) 1 GM CAPSULE (FP) PO SCH (11:32)
[2017-12-21] MEDS: metoPROLOL SUCCINATE 25 MG TAB.SR.24H (FP) PO SCH ×2 (11:32→22:07)
[2017-12-21] MEDS: amLODIPine BESYLATE 5 MG TABLET (FP) PO SCH (11:33)
[2017-12-21] MEDS: PANTOPRAZOLE 40 MG TABLET (FP) PO SCH (11:33)
[2017-12-21] MEDS: ASPIRIN COATED 81 MG TABLET.EC PO SCH (11:33)
[2017-12-21] MEDS ORDERED: PT OWN MED DRAWER 7, Y5N ONE (11:34)
[2017-12-21] MEDS: TAMOXIFEN CITRATE 10 MG TABLET PO SCH (11:35)
[2017-12-21] MEDS: QUINAPRIL HCL 20 MG TABLET (FP) PO SCH (11:35)
--- NOTE | 2017-12-21 13:52 | PN ---
Progress Note (short form) - Note Progress Note: ID Consult dictated Low grade fever/ leukocytosis Constipation/ Fecal impection Acute urinary retention s/p justice catheter Obtain blood c/s Observe off antibiotics
--- NOTE | 2017-12-21 14:36 | CONS ---
DATE OF CONSULTATION: DATE OF DICTATION: 12/21/2017 REASON FOR CONSULTATION: The patient is an 87-year-old female who is evaluated for low-grade fever and elevated white blood cell count. HISTORY OF PRESENT ILLNESS: The patient was admitted to the hospital on December 20, 2017, from home with a 3-day history of complaints of abdominal distention, constipation, nausea and vomiting. She was found to have a distended abdomen. She was seen in consultation by Surgery to rule out the possibility of bowel obstruction. She was felt to have fecal impaction with constipation. Her course was complicated by a low-grade fever to 100.1 and a white blood cell count of 14.6. At the present time, she is comfortable. She has no complaints of abdominal pain. Patient states that she had a small bowel movement this morning. She denies any recurrent nausea or vomiting. During her hospitalization, she developed acute urinary retention requiring the insertion of a Valdovinos catheter. Catheter is in place at the present time and urine does not appear grossly purulent. She denies any chest pain, shortness of breath, cough or sputum production. Denied prior history of dysuria or hematuria. PAST MEDICAL HISTORY: Positive for breast cancer, coronary artery disease, status post coronary artery stent, hypertension, hyperlipidemia, gastroesophageal reflux, peptic ulcer disease. PAST SURGICAL HISTORY: Status post right total hip replacement, bilateral knee replacements. ALLERGIES: PENICILLIN (hives). HOME MEDICATIONS: Include tamoxifen, omeprazole, Toprol, Lipitor, Ecotrin, Norvasc, Tylenol. SOCIAL HISTORY: Lives at home. Former smoker. SYSTEMS REVIEW:Neurologic: No loss of consciousness, seizure activity, focal weakness. Cardiac: Negative chest pain or palpitations.Respiratory: Negative cough or sputum production. Gastrointestinal: As per HPI. Genitourinary: Positive for acute urinary retention. No urinary tract infection. LABORATORY DATA: White count on admission 14.6, presently 12.1, hematocrit 36.4, platelets 301. BUN 26, creatinine 0.8. Urinalysis: White cell 1. PHYSICAL EXAMINATION:General: She is awake. However, she is mildly confused. She is supine in bed, in no acute distress. Vital Signs: Temperature 97.9, T-max 100.1, pulse 88, regular, respirations 20 per minute, blood pressure 158/99. HEENT: Sclerae are anicteric. Dry mucous membranes. Cardiac: Heart sounds S1, S2. Lungs: A few crepitations at the bases bilaterally. Abdomen: Distended. It is soft. No tenderness elicited. No mass, rebound or rigidity. Extremities: Negative for edema. IMPRESSION: 1. Low-grade fever/leukocytosis. 2. Constipation/fecal impaction. 3. Acute urinary retention, status post Valdovinos catheter insertion. RECOMMENDATIONS: No clear source for elevated temperature and white blood cell count. At the present time, patient is not toxic appearing. She appears comfortable. No obvious infectious focus for low-grade fever and leukocytosis. We will obtain blood cultures. Repeat CBC. Observe off antibiotic therapy. Monitor temperatures. Case discussed with patient's nephew present at the time of the examination. Thank you for the kind referral. OREN DIAZ M.D. [id number]
--- NOTE | 2017-12-21 15:29 | PN ---
Progress Note, Physician Chief Complaint: Ms Thibodeaux says she still feels bad, still with slight nausea and decreased appetite. However says she is feeling better. No cp or sob. +bm this am. - Current Medication List Current Medications: Active Medications Amlodipine Besylate (Norvasc -) 5 mg PO DAILY [facility] Last Admin: 12/21/17 11:33 Dose: 5 mg Aspirin (Ecotrin -) 81 mg PO DAILY [facility] Last Admin: 12/21/17 11:33 Dose: 81 mg Atorvastatin Calcium (Lipitor -) 40 mg PO HS [facility] Last Admin: 12/20/17 22:24 Dose: 40 mg Heparin Sodium (Porcine) (Heparin -) 5,000 unit SQ Q8H-IV [facility] Last Admin: 12/21/17 11:33 Dose: 5,000 unit Sodium Chloride (Normal Saline -) 1,000 mls @ 83 mls/hr IV ASDIR [facility] Last Admin: 12/21/17 05:36 Dose: 83 mls/hr Metoprolol Succinate (Toprol Xl -) 25 mg PO BID [facility] Last Admin: 12/21/17 11:32 Dose: 25 mg Montelukast Sodium (Singulair -) 10 mg PO HS [facility] Last Admin: 12/20/17 22:24 Dose: 10 mg [id number] Ethyl Esters (Lovaza -) 1 gm PO DAILY [facility] Last Admin: 12/21/17 11:32 Dose: 1 gm Pantoprazole Sodium (Protonix -) 40 mg PO DAILY [facility] Last Admin: 12/21/17 11:33 Dose: 40 mg Quinapril HCl (Accupril -) 20 mg PO DAILY [facility] Last Admin: 12/21/17 11:35 Dose: 20 mg Senna (Senna -) 2 tab PO HS [facility] Last Admin: 12/20/17 22:25 Dose: 2 tab Tamoxifen Citrate (Tamoxifen Citrate) 20 mg PO DAILY [facility] Last Admin: 12/21/17 11:35 Dose: 20 mg - Objective Vital Signs: Vital Signs Temperature 36.5 C 12/21/17 14:48 Pulse Rate 89 12/21/17 14:48 Respiratory Rate 20 12/21/17 08:00 Blood Pressure 153/90 12/21/17 14:48 O2 Sat by Pulse Oximetry (%) 96 12/21/17 09:00 Constitutional: Yes: Well Nourished, No Distress, Calm Cardiovascular: Yes: Regular Rate and Rhythm. No: Gallop, Murmur, Rub Respiratory: Yes: Regular, CTA Bilaterally. No: Rales, Rhonchi, Wheezes Gastrointestinal: Yes: Soft, Distention, Hypoactive Bowel Sounds. No: Tenderness Extremities: Yes: WNL Edema: No Labs: CBC, BMP 12/21/17 06:00 12/21/17 06:00 INR, PTT INR 1.00 (0.82-1.09) 12/20/17 03:35 Problem List - Problems (1) Fecal impaction Code(s): K56.41 - FECAL IMPACTION (2) Acute urinary retention Code(s): R33.8 - OTHER RETENTION OF URINE (3) SIRS (systemic inflammatory response syndrome) Code(s): R65.10 - SIRS OF NON-INFECTIOUS ORIGIN W/O ACUTE ORGAN DYSFUNCTION (4) CAD (coronary artery disease) Code(s): I25.10 - ATHSCL HEART DISEASE OF [place] CORONARY ARTERY W/O ANG PCTRS Qualifiers: Coronary Disease-Associated Artery/Lesion type: [place] artery [place] vs. transplanted heart: [place] heart Associated angina: without angina Qualified Code(s): I25.10 - Atherosclerotic heart disease of [place] coronary artery without angina pectoris (5) Constipation Code(s): K59.00 - CONSTIPATION, UNSPECIFIED Qualifiers: Constipation type: unspecified constipation type Qualified Code(s): K59.00 - Constipation, unspecified (6) HLD (hyperlipidemia) Code(s): E78.5 - HYPERLIPIDEMIA, UNSPECIFIED Qualifiers: Hyperlipidemia type: unspecified Qualified Code(s): E78.5 - Hyperlipidemia , unspecified (7) HTN (hypertension) Code(s): I10 - ESSENTIAL (PRIMARY) HYPERTENSION Qualifiers: Hypertension type: essential hypertension Qualified Code(s): I10 - Essential (primary) hypertension Assessment/Plan (1) Fecal impaction Assessment/Plan: -s/p disimpaction and enemas -continue senna -+bm today per patient -monitor for improvement -clear liquid diet, advance as tolerated Code(s): K56.41 - FECAL IMPACTION (2) Acute urinary retention Assessment/Plan: -appreciate urology assistance -justice placed -will need to be discharged with justice Code(s): R33.8 - OTHER RETENTION OF URINE (3) SIRS (systemic inflammatory response syndrome) Assessment/Plan: -appreciate ID assistance and case discussed -continue hydration -no need for antibiotics Code(s): R65.10 - SIRS OF NON-INFECTIOUS ORIGIN W/O ACUTE ORGAN DYSFUNCTION (4) CAD (coronary artery disease) Assessment/Plan: -quiescent -continue home regimen Code(s): I25.10 - ATHSCL HEART DISEASE OF [place] CORONARY ARTERY W/O ANG PCTRS Qualifiers: Coronary Disease-Associated Artery/Lesion type: [place] artery [place] vs. transplanted heart: [place] heart Associated angina: without angina Qualified Code(s): I25.10 - Atherosclerotic heart disease of [place] coronary artery without angina pectoris (5) Constipation Assessment/Plan: -as above Code(s): K59.00 - CONSTIPATION, UNSPECIFIED (6) HLD (hyperlipidemia) Assessment/Plan: -continue statin Code(s): E78.5 - HYPERLIPIDEMIA, UNSPECIFIED Qualifiers: Hyperlipidemia type: unspecified Qualified Code(s): E78.5 - Hyperlipidemia , unspecified (7) HTN (hypertension) Assessment/Plan: -controlled -continue toprol xl and norvasc Code(s): I10 - ESSENTIAL (PRIMARY) HYPERTENSION Qualifiers: Hypertension type: essential hypertension Qualified Code(s): I10 - Essential (primary) hypertension
[2017-12-21] MEDS: SENNOSIDES 8.6MG TABLET (FP) PO SCH (22:06)
[2017-12-21] MEDS: ATORVASTATIN CA 40 MG TABLET (FP) PO SCH (22:06)
[2017-12-21] MEDS: MONTELUKAST NA 10 MG TABLET PO SCH (22:06)
[2017-12-22] MEDS: HEPARIN NA (PORCINE) 5,000 UNITS/ML 1ML VIAL SQ SCH ×3 (01:45→17:56)
[2017-12-22] MEDS: SODIUM CHLORIDE 1,000 ML IV SCH ×2 (06:06→19:52)
[2017-12-22 08:16] LABS: BASO % 0.5 % (0-2.0); EOS % 0.1 % (0-4.5); HEMATOCRIT 36.5 % (32.4-45.2); MCH 29.3 pg (25.7-33.7); MCHC 32.8 g/dl (32.0-36.0); MEAN CELL VOLUME 89.2 fl (80-96); MEAN PLT VOLUME 9.9 fl (7.5-11.1); MONO % 7.5 % (3.8-10.2); NEUT % 82.9 % (42.8-82.8); PLATELET COUNT 308 K/MM3 (134-434); RBC 4.09 M/mm3 (3.60-5.2); RDW 13.9 % (11.6-15.6); WHITE BLOOD COUNT 12.2 K/mm3 (4.0-10.0)
[2017-12-22 08:54] LABS: CHLORIDE 111 mmol/L (98-107); SODIUM 144 mmol/L (136-145)
[2017-12-22 09:04] LABS: ANION GAP 12 (8-16); BLOOD UREA NITROGEN 24 mg/dL (7-18); CALCIUM 8.1 mg/dL (8.5-10.1); CO2 21 mmol/L (21-32); CREATININE 0.8 mg/dL (0.55-1.02); GLUCOSE,RANDOM 113 mg/dL (74-106); MAGNESIUM 2.1 mg/dL (1.8-2.4)
[2017-12-22] MEDS ORDERED: PT OWN MED DRAWER 7, Y5N ONE (09:22)
[2017-12-22] MEDS: OMEGA-3 ACID ETHYL ESTERS (FATTY-ACIDS) 1 GM CAPSULE (FP) PO SCH (09:24)
[2017-12-22] MEDS: metoPROLOL SUCCINATE 25 MG TAB.SR.24H (FP) PO SCH ×2 (09:24→21:58)
[2017-12-22] MEDS: amLODIPine BESYLATE 5 MG TABLET (FP) PO SCH (09:24)
[2017-12-22] MEDS: QUINAPRIL HCL 20 MG TABLET (FP) PO SCH (09:25)
[2017-12-22] MEDS: TAMOXIFEN CITRATE 10 MG TABLET PO SCH (09:25)
[2017-12-22] MEDS: ASPIRIN COATED 81 MG TABLET.EC PO SCH (09:25)
[2017-12-22] MEDS: PANTOPRAZOLE 40 MG TABLET (FP) PO SCH (09:25)
--- NOTE | 2017-12-22 12:51 | PN ---
Progress Note, Physician Chief Complaint: Ms Thibodeaux says she is still not hungry. No bm today. No cp or sob. - Current Medication List Current Medications: Active Medications Amlodipine Besylate (Norvasc -) 5 mg PO DAILY [facility] Last Admin: 12/22/17 09:24 Dose: 5 mg Aspirin (Ecotrin -) 81 mg PO DAILY [facility] Last Admin: 12/22/17 09:25 Dose: 81 mg Atorvastatin Calcium (Lipitor -) 40 mg PO HS [facility] Last Admin: 12/21/17 22:06 Dose: 40 mg Heparin Sodium (Porcine) (Heparin -) 5,000 unit SQ Q8H-IV [facility] Last Admin: 12/22/17 09:25 Dose: 5,000 unit Sodium Chloride (Normal Saline -) 1,000 mls @ 83 mls/hr IV ASDIR [facility] Last Admin: 12/22/17 06:06 Dose: 83 mls/hr Metoprolol Succinate (Toprol Xl -) 25 mg PO BID [facility] Last Admin: 12/22/17 09:24 Dose: 25 mg Montelukast Sodium (Singulair -) 10 mg PO HS [facility] Last Admin: 12/21/17 22:06 Dose: 10 mg Ygyiv-0-Xdpw Ethyl Esters (Lovaza -) 1 gm PO DAILY [facility] Last Admin: 12/22/17 09:24 Dose: 1 gm Pantoprazole Sodium (Protonix -) 40 mg PO DAILY [facility] Last Admin: 12/22/17 09:25 Dose: 40 mg Quinapril HCl (Accupril -) 20 mg PO DAILY [facility] Last Admin: 12/22/17 09:25 Dose: 20 mg Senna (Senna -) 2 tab PO HS [facility] Last Admin: 12/21/17 22:06 Dose: 2 tab Tamoxifen Citrate (Tamoxifen Citrate) 20 mg PO DAILY [facility] Last Admin: 12/22/17 09:25 Dose: 20 mg - Objective Vital Signs: Vital Signs Temperature 36.9 C 12/22/17 08:00 Pulse Rate 68 12/22/17 08:00 Respiratory Rate 20 12/22/17 08:00 Blood Pressure 123/71 12/22/17 08:00 O2 Sat by Pulse Oximetry (%) 96 12/22/17 08:00 Constitutional: Yes: Well Nourished, No Distress, Calm Cardiovascular: Yes: Regular Rate and Rhythm. No: Gallop, Murmur, Rub Respiratory: Yes: Regular, CTA Bilaterally. No: Rales, Rhonchi, Wheezes Gastrointestinal: Yes: Normal Bowel Sounds, Soft, Distention. No: Tenderness Extremities: Yes: WNL Edema: No Labs: CBC, BMP 12/22/17 07:55 12/22/17 07:55 INR, PTT INR 1.00 (0.82-1.09) 12/20/17 03:35 Problem List - Problems (1) Fecal impaction Code(s): K56.41 - FECAL IMPACTION (2) Acute urinary retention Code(s): R33.8 - OTHER RETENTION OF URINE (3) SIRS (systemic inflammatory response syndrome) Code(s): R65.10 - SIRS OF NON-INFECTIOUS ORIGIN W/O ACUTE ORGAN DYSFUNCTION (4) CAD (coronary artery disease) Code(s): I25.10 - ATHSCL HEART DISEASE OF [place] CORONARY ARTERY W/O ANG PCTRS Qualifiers: Coronary Disease-Associated Artery/Lesion type: [place] artery [place] vs. transplanted heart: [place] heart Associated angina: without angina Qualified Code(s): I25.10 - Atherosclerotic heart disease of [place] coronary artery without angina pectoris (5) Constipation Code(s): K59.00 - CONSTIPATION, UNSPECIFIED Qualifiers: Constipation type: unspecified constipation type Qualified Code(s): K59.00 - Constipation, unspecified (6) HLD (hyperlipidemia) Code(s): E78.5 - HYPERLIPIDEMIA, UNSPECIFIED Qualifiers: Hyperlipidemia type: unspecified Qualified Code(s): E78.5 - Hyperlipidemia , unspecified (7) HTN (hypertension) Code(s): I10 - ESSENTIAL (PRIMARY) HYPERTENSION Qualifiers: Hypertension type: essential hypertension Qualified Code(s): I10 - Essential (primary) hypertension Assessment/Plan (1) Fecal impaction Assessment/Plan: -s/p disimpaction and enemas -continue senna -surgery following and note reviewed -continue clear liquid diet as tolerated Code(s): K56.41 - FECAL IMPACTION (2) Acute urinary retention Assessment/Plan: -appreciate urology assistance -justice placed -will need to be discharged with justice Code(s): R33.8 - OTHER RETENTION OF URINE (3) SIRS (systemic inflammatory response syndrome) Assessment/Plan: -appreciate ID assistance and case discussed -continue hydration -no need for antibiotics -improving Code(s): R65.10 - SIRS OF NON-INFECTIOUS ORIGIN W/O ACUTE ORGAN DYSFUNCTION (4) CAD (coronary artery disease) Assessment/Plan: -quiescent -continue home regimen Code(s): I25.10 - ATHSCL HEART DISEASE OF [place] CORONARY ARTERY W/O ANG PCTRS Qualifiers: Coronary Disease-Associated Artery/Lesion type: [place] artery [place] vs. transplanted heart: [place] heart Associated angina: without angina Qualified Code(s): I25.10 - Atherosclerotic heart disease of [place] coronary artery without angina pectoris (5) Constipation Assessment/Plan: -as above Code(s): K59.00 - CONSTIPATION, UNSPECIFIED (6) HLD (hyperlipidemia) Assessment/Plan: -continue statin Code(s): E78.5 - HYPERLIPIDEMIA, UNSPECIFIED Qualifiers: Hyperlipidemia type: unspecified Qualified Code(s): E78.5 - Hyperlipidemia , unspecified (7) HTN (hypertension) Assessment/Plan: -controlled -continue toprol xl and norvasc Code(s): I10 - ESSENTIAL (PRIMARY) HYPERTENSION Qualifiers: Hypertension type: essential hypertension Qualified Code(s): I10 - Essential (primary) hypertension
--- NOTE | 2017-12-22 14:57 | PN ---
Progress Note, Physician History of Present Illness: Pt with fecal impaction contributing to urinary retention, but with poor bladder tone partly from overdistended bladder initially found on 12/05. Valdovinos placed at readmission 2d ago, and pt found to have essentially liquid stool, which she has trouble evacuating. Pt reports some abdominal pain now, knows she is distended. Denies flatus, but is baseline confused/demented. Reports a lot of liquid stool earlier today. - Current Medication List Current Medications: Active Medications Amlodipine Besylate (Norvasc -) 5 mg PO DAILY [facility] Last Admin: 12/22/17 09:24 Dose: 5 mg Aspirin (Ecotrin -) 81 mg PO DAILY [facility] Last Admin: 12/22/17 09:25 Dose: 81 mg Atorvastatin Calcium (Lipitor -) 40 mg PO HS [facility] Last Admin: 12/21/17 22:06 Dose: 40 mg Heparin Sodium (Porcine) (Heparin -) 5,000 unit SQ Q8H-IV [facility] Last Admin: 12/22/17 09:25 Dose: 5,000 unit Sodium Chloride (Normal Saline -) 1,000 mls @ 83 mls/hr IV ASDIR [facility] Last Admin: 12/22/17 06:06 Dose: 83 mls/hr Metoprolol Succinate (Toprol Xl -) 25 mg PO BID [facility] Last Admin: 12/22/17 09:24 Dose: 25 mg Montelukast Sodium (Singulair -) 10 mg PO HS [facility] Last Admin: 12/21/17 22:06 Dose: 10 mg Xxemk-0-Gjkm Ethyl Esters (Lovaza -) 1 gm PO DAILY [facility] Last Admin: 12/22/17 09:24 Dose: 1 gm Pantoprazole Sodium (Protonix -) 40 mg PO DAILY [facility] Last Admin: 12/22/17 09:25 Dose: 40 mg Quinapril HCl (Accupril -) 20 mg PO DAILY [facility] Last Admin: 12/22/17 09:25 Dose: 20 mg Senna (Senna -) 2 tab PO HS [facility] Last Admin: 12/21/17 22:06 Dose: 2 tab Tamoxifen Citrate (Tamoxifen Citrate) 20 mg PO DAILY [facility] Last Admin: 12/22/17 09:25 Dose: 20 mg - Objective Vital Signs: Vital Signs Temperature 98.5 F 12/22/17 08:00 Pulse Rate 68 12/22/17 08:00 Respiratory Rate 20 03/23/18 08:00 Blood Pressure 123/71 12/22/17 08:00 O2 Sat by Pulse Oximetry (%) 96 12/22/17 08:00 Constitutional: Yes: No Distress, Calm (sleeping, easily wakened), Thin Eyes: Yes: Conjunctiva Clear, EOM Intact Gastrointestinal: Yes: Soft, Distention, Tenderness (mild RUQ, RLQ), Other ( healed lower midline scar) ...Rectal Exam: Yes: Sphincter Tone Normal, Other (moderate to large amount of liquid light brown stool evacuated by patient with SENTHIL assistance and small bit of gas at end; vault mostly collapsed after this, but more liquid stool suspected higher up. pt reports feeling better after finishing) Genitourinary: Yes: Valdovinos Present. No: Hematuria Extremities: No: Cool, Cyanosis Integumentary: No: Jaundice, Rash Neurological: Yes: Alert, Confusion (mildly - baseline dementia) Labs: CBC, BMP 12/22/17 07:55 12/22/17 07:55 - ....Imaging X-ray: Pending Problem List - Problems (1) Fecal impaction Assessment/Plan: admitted to medicine Valdovinos for bladder decompression - should stay likely at least a week BEFORE trialed out stool in vault is too soft/liquid for patient to easily evacuate good amount out with digital sphincter dilation and pt pushing at same time continue motility agents to facilitate colon movement senna nightly stop stool softeners for now - pt needs formed stool to be able to evacuate clears ok until impaction cleared AXR pending to reevaluate stool burden will follow tomorrow Code(s): K56.41 - FECAL IMPACTION (2) Constipation Code(s): K59.00 - CONSTIPATION, UNSPECIFIED Qualifiers: Constipation type: unspecified constipation type Qualified Code(s): K59.00 - Constipation, unspecified (3) Acute urinary retention Assessment/Plan: Valdovinos in place bladder is large, floppy, likely atonic/poor tone leave Valdovinos probably at least a week before any voiding trial will need extended catheter time to allow bladder to regain tone, and until impaction is cleared and constipation is well-managed retention likely significantly related to fecal impaction, but also poor bladder tone (given recent episode 15 days ago) urology on board Code(s): R33.8 - OTHER RETENTION OF URINE (4) JASMIN (acute kidney injury) Assessment/Plan: likely secondary to acute retention, possibly element of dehydration monitor for improvement avoid nephrotoxics would not use Fleet's enemas or mag citrate at this point BUN still 24 slowly decreasing, Cr 0.8 Code(s): N17.9 - ACUTE KIDNEY FAILURE, UNSPECIFIED
[2017-12-22] MEDS: ATORVASTATIN CA 40 MG TABLET (FP) PO SCH (21:58)
[2017-12-22] MEDS: MONTELUKAST NA 10 MG TABLET PO SCH (21:58)
[2017-12-22] MEDS: SENNOSIDES 8.6MG TABLET (FP) PO SCH (21:58)
[2017-12-23] MEDS: HEPARIN NA (PORCINE) 5,000 UNITS/ML 1ML VIAL SQ SCH ×3 (02:00→18:50)
[2017-12-23 08:09] LABS: BASO % 0.6 % (0-2.0); EOS % 1.1 % (0-4.5); HEMOGLOBIN 10.6 GM/dL (10.7-15.3); LYMPH % 13.5 % (8-40); MCH 29.5 pg (25.7-33.7); MCHC 33.2 g/dl (32.0-36.0); MEAN CELL VOLUME 88.9 fl (80-96); MEAN PLT VOLUME 9.7 fl (7.5-11.1); MONO % 9.7 % (3.8-10.2); NEUT % 75.1 % (42.8-82.8); PLATELET COUNT 222 K/MM3 (134-434); RBC 3.61 M/mm3 (3.60-5.2); WHITE BLOOD COUNT 7.7 K/mm3 (4.0-10.0)
[2017-12-23] MEDS: SODIUM CHLORIDE 1,000 ML IV SCH ×2 (08:40→22:07)
[2017-12-23 08:46] LABS: ANION GAP 10 (8-16); BLOOD UREA NITROGEN 21 mg/dL (7-18); CALCIUM 7.7 mg/dL (8.5-10.1); CHLORIDE 112 mmol/L (98-107); CO2 22 mmol/L (21-32); GLUCOSE,RANDOM 82 mg/dL (74-106); MAGNESIUM 1.7 mg/dL (1.8-2.4); POTASSIUM 3.7 mmol/L (3.5-5.1); SODIUM 144 mmol/L (136-145)
[2017-12-23 08:47] LABS: CREATININE 0.7 mg/dL (0.55-1.02); PHOSPHOROUS 2.5 mg/dL (2.5-4.9)
[2017-12-23] MEDS ORDERED: PT OWN MED DRAWER 7, Y5N ONE (09:47)
[2017-12-23] MEDS: amLODIPine BESYLATE 5 MG TABLET (FP) PO SCH (09:56)
[2017-12-23] MEDS: PANTOPRAZOLE 40 MG TABLET (FP) PO SCH (09:57)
[2017-12-23] MEDS: ASPIRIN COATED 81 MG TABLET.EC PO SCH (09:57)
[2017-12-23] MEDS: TAMOXIFEN CITRATE 10 MG TABLET PO SCH (09:57)
[2017-12-23] MEDS: metoPROLOL SUCCINATE 25 MG TAB.SR.24H (FP) PO SCH ×2 (09:57→21:36)
[2017-12-23] MEDS: QUINAPRIL HCL 20 MG TABLET (FP) PO SCH (09:57)
[2017-12-23] MEDS: OMEGA-3 ACID ETHYL ESTERS (FATTY-ACIDS) 1 GM CAPSULE (FP) PO SCH (09:57)
--- NOTE | 2017-12-23 11:00 | PN ---
Progress Note, Physician History of Present Illness: Patient with some discomfort in suprapubic area, otherwise feeling OK, had moved bowels this morning, but was not sure if stool was formed or not. No fevers noted. - Current Medication List Current Medications: Active Medications Amlodipine Besylate (Norvasc -) 5 mg PO DAILY [facility] Last Admin: 12/23/17 09:56 Dose: 5 mg Aspirin (Ecotrin -) 81 mg PO DAILY [facility] Last Admin: 12/23/17 09:57 Dose: 81 mg Atorvastatin Calcium (Lipitor -) 40 mg PO HS [facility] Last Admin: 12/22/17 21:58 Dose: 40 mg Heparin Sodium (Porcine) (Heparin -) 5,000 unit SQ Q8H-IV [facility] Last Admin: 12/23/17 09:57 Dose: 5,000 unit Sodium Chloride (Normal Saline -) 1,000 mls @ 83 mls/hr IV ASDIR [facility] Last Admin: 12/23/17 08:40 Dose: 83 mls/hr Metoprolol Succinate (Toprol Xl -) 25 mg PO BID [facility] Last Admin: 12/23/17 09:57 Dose: 25 mg Montelukast Sodium (Singulair -) 10 mg PO HS [facility] Last Admin: 12/22/17 21:58 Dose: 10 mg Yuouf-2-Vvjj Ethyl Esters (Lovaza -) 1 gm PO DAILY [facility] Last Admin: 12/23/17 09:57 Dose: 1 gm Pantoprazole Sodium (Protonix -) 40 mg PO DAILY [facility] Last Admin: 12/23/17 09:57 Dose: 40 mg Quinapril HCl (Accupril -) 20 mg PO DAILY [facility] Last Admin: 12/23/17 09:57 Dose: 20 mg Senna (Senna -) 2 tab PO HS [facility] Last Admin: 12/22/17 21:58 Dose: 2 tab Tamoxifen Citrate (Tamoxifen Citrate) 20 mg PO DAILY [facility] Last Admin: 12/23/17 09:57 Dose: 20 mg - Objective Vital Signs: Vital Signs Temperature 97.1 F L 12/23/17 06:00 Pulse Rate 72 12/23/17 06:00 Respiratory Rate 16 12/23/17 06:00 Blood Pressure 114/75 12/23/17 06:00 O2 Sat by Pulse Oximetry (%) 96 12/22/17 21:00 Constitutional: Yes: No Distress, Calm Neck: Yes: Supple, Trachea Midline Cardiovascular: Yes: Regular Rate and Rhythm, S1, S2. No: Murmur Respiratory: Yes: Regular, CTA Bilaterally. No: Rales, Rhonchi, Wheezes Gastrointestinal: Yes: Normal Bowel Sounds, Soft, Distention (softly), Tenderness (mild in suprapubic region) Edema: No Neurological: Yes: Alert, Oriented Labs: CBC, BMP 12/23/17 07:20 12/23/17 07:20 INR, PTT INR 1.00 (0.82-1.09) 12/20/17 03:35 Assessment/Plan Current Active Problems Fecal impaction Urinary retention SIRS positive blood culture HPL HTN CAD -surgery following -likely bowel movements will have to be observed for another 3-4 days -plan for justice catheter for at least 7 days to allow for bladder muscle recovery -ID following for SIRS/ (+) blood cultures
--- NOTE | 2017-12-23 18:45 | PN ---
Progress Note, Physician History of Present Illness: Pt with fecal impaction contributing to urinary retention, but with poor bladder tone partly from overdistended bladder initially found on 12/05. Valdovinos placed at readmission, and pt found to have essentially liquid stool, which she has trouble evacuating. Pt reports continued abdominal distention and poor appetite, but tolerating clears. Thinks she had stool before after an enema. Tries to push periodically, but not sure what is coming out. - Current Medication List Current Medications: Active Medications Amlodipine Besylate (Norvasc -) 5 mg PO DAILY [facility] Last Admin: 12/23/17 09:56 Dose: 5 mg Aspirin (Ecotrin -) 81 mg PO DAILY [facility] Last Admin: 12/23/17 09:57 Dose: 81 mg Atorvastatin Calcium (Lipitor -) 40 mg PO HS [facility] Last Admin: 12/22/17 21:58 Dose: 40 mg Heparin Sodium (Porcine) (Heparin -) 5,000 unit SQ Q8H-IV [facility] Last Admin: 12/23/17 09:57 Dose: 5,000 unit Sodium Chloride (Normal Saline -) 1,000 mls @ 83 mls/hr IV ASDIR [facility] Last Admin: 12/23/17 08:40 Dose: 83 mls/hr Metoprolol Succinate (Toprol Xl -) 25 mg PO BID [facility] Last Admin: 12/23/17 09:57 Dose: 25 mg Montelukast Sodium (Singulair -) 10 mg PO HS [facility] Last Admin: 12/22/17 21:58 Dose: 10 mg Yotti-4-Txkn Ethyl Esters (Lovaza -) 1 gm PO DAILY [facility] Last Admin: 12/23/17 09:57 Dose: 1 gm Pantoprazole Sodium (Protonix -) 40 mg PO DAILY [facility] Last Admin: 12/23/17 09:57 Dose: 40 mg Quinapril HCl (Accupril -) 20 mg PO DAILY [facility] Last Admin: 12/23/17 09:57 Dose: 20 mg Senna (Senna -) 2 tab PO HS [facility] Last Admin: 12/22/17 21:58 Dose: 2 tab Tamoxifen Citrate (Tamoxifen Citrate) 20 mg PO DAILY [facility] Last Admin: 12/23/17 09:57 Dose: 20 mg - Objective Vital Signs: Vital Signs Temperature 98.1 F 12/23/17 15:13 Pulse Rate 67 12/23/17 15:13 Respiratory Rate 20 12/23/17 15:13 Blood Pressure 115/62 12/23/17 15:13 O2 Sat by Pulse Oximetry (%) 95 12/23/17 09:00 Constitutional: Yes: No Distress, Calm, Thin Eyes: Yes: Conjunctiva Clear, EOM Intact Gastrointestinal: Yes: Soft, Distention (with tympany, but less than at admission). No: Tenderness ...Rectal Exam: Yes: Hemorrhoids/External, Sphincter Tone Poor (somewhat ok/ somewhat lax), Other (small amount of liquidy light brown/yellowish stool ( handful) evacuated with pt effort and sphincter held open with finger, x 2; vault feels relatively empty otherwise.) Genitourinary: Yes: Valdovinos Present. No: Hematuria Musculoskeletal: No: Joint Stiffness, Joint Swelling Extremities: No: Cool, Cyanosis Integumentary: No: Jaundice, Rash Neurological: Yes: Alert, Confusion (baseline dementia) Labs: CBC, BMP 12/23/17 07:20 12/23/17 07:20 wbc down to normal Microbiology 12/21/17 15:30 Blood Culture - Preliminary Blood - Peripheral Venous NO GROWTH OBTAINED AFTER 48 HOURS, INCUBATION TO CONTINUE FOR 3 DAYS. 12/21/17 17:00 Blood Culture - Preliminary Blood - Peripheral Venous Pending Organism Bld Cx GS - GPC clusters - ....Imaging X-ray: Report Reviewed, Image Reviewed (from yesterday - no significant stool burden in vault area, no signs obstruction) Problem List - Problems (1) Fecal impaction Assessment/Plan: Valdovinos for bladder decompression - should stay likely at least a week BEFORE trialed out stool in vault is too soft/liquid for patient to easily evacuate small amount out with digital sphincter dilation and pt pushing at same time continue motility agents to facilitate colon movement senna nightly stop stool softeners for now - pt needs formed stool to be able to evacuate would advance diet to food and monitor stool quality Code(s): K56.41 - FECAL IMPACTION (2) Constipation Assessment/Plan: continue senna nightly, consider dulcolax po in am minimize softeners unless stool gets too hard to disimpact/pass/evacuate needs to be formed to be able to eliminate suspect patient does not self-hydrate well Code(s): K59.00 - CONSTIPATION, UNSPECIFIED Qualifiers: Constipation type: unspecified constipation type Qualified Code(s): K59.00 - Constipation, unspecified (3) Acute urinary retention Assessment/Plan: Valdovinos in place bladder is large, floppy, likely atonic/poor tone leave Valdovinos probably at least a week before any voiding trial will need extended catheter time to allow bladder to regain tone, and until impaction is cleared and constipation is well-managed retention likely significantly related to fecal impaction, but also poor bladder tone (given recent episode 15 days ago) urology on board Code(s): R33.8 - OTHER RETENTION OF URINE (4) JASMIN (acute kidney injury) Assessment/Plan: likely secondary to acute retention, possibly element of dehydration monitor for improvement avoid nephrotoxics would not use Fleet's enemas or mag citrate at this point BUN/Cr 21/0.7 decreasing slowly Code(s): N17.9 - ACUTE KIDNEY FAILURE, UNSPECIFIED (5) Positive blood culture Assessment/Plan: blood culture gram stain with GPC in clusters x 1 wbc now normal no fevers ?contaminant vs real? ID on board urine never cultured Code(s): R78.81 - BACTEREMIA
[2017-12-23] MEDS: MONTELUKAST NA 10 MG TABLET PO SCH (21:36)
[2017-12-23] MEDS: ATORVASTATIN CA 40 MG TABLET (FP) PO SCH (21:36)
[2017-12-23] MEDS: SENNOSIDES 8.6MG TABLET (FP) PO SCH (21:36)
[2017-12-24] MEDS: HEPARIN NA (PORCINE) 5,000 UNITS/ML 1ML VIAL SQ SCH ×3 (02:10→18:13)
[2017-12-24 07:58] LABS: BASO % 0.5 % (0-2.0); EOS % 1.1 % (0-4.5); HEMATOCRIT 34.7 % (32.4-45.2); HEMOGLOBIN 11.6 GM/dL (10.7-15.3); MCH 29.5 pg (25.7-33.7); MCHC 33.4 g/dl (32.0-36.0); MEAN CELL VOLUME 88.2 fl (80-96); MEAN PLT VOLUME 10.1 fl (7.5-11.1); NEUT % 75.4 % (42.8-82.8); PLATELET COUNT 213 K/MM3 (134-434); RBC 3.93 M/mm3 (3.60-5.2); RDW 13.7 % (11.6-15.6); WHITE BLOOD COUNT 8.5 K/mm3 (4.0-10.0)
--- NOTE | 2017-12-24 09:57 | PN ---
Progress Note, Physician History of Present Illness: Still on liquid diet (asking if she can have more). Otherwise, still with mild abd discomfort in central area. - Current Medication List Current Medications: Active Medications Amlodipine Besylate (Norvasc -) 5 mg PO DAILY [facility] Last Admin: 12/23/17 09:56 Dose: 5 mg Aspirin (Ecotrin -) 81 mg PO DAILY [facility] Last Admin: 12/23/17 09:57 Dose: 81 mg Atorvastatin Calcium (Lipitor -) 40 mg PO HS [facility] Last Admin: 12/23/17 21:36 Dose: 40 mg Heparin Sodium (Porcine) (Heparin -) 5,000 unit SQ Q8H-IV [facility] Last Admin: 12/24/17 02:10 Dose: 5,000 unit Sodium Chloride (Normal Saline -) 1,000 mls @ 83 mls/hr IV ASDIR [facility] Last Admin: 12/23/17 22:07 Dose: 83 mls/hr Metoprolol Succinate (Toprol Xl -) 25 mg PO BID [facility] Last Admin: 12/23/17 21:36 Dose: 25 mg Montelukast Sodium (Singulair -) 10 mg PO HS [facility] Last Admin: 12/23/17 21:36 Dose: 10 mg Uyrqh-5-Fuhi Ethyl Esters (Lovaza -) 1 gm PO DAILY [facility] Last Admin: 12/23/17 09:57 Dose: 1 gm Pantoprazole Sodium (Protonix -) 40 mg PO DAILY [facility] Last Admin: 12/23/17 09:57 Dose: 40 mg Quinapril HCl (Accupril -) 20 mg PO DAILY [facility] Last Admin: 12/23/17 09:57 Dose: 20 mg Senna (Senna -) 2 tab PO HS [facility] Last Admin: 12/23/17 21:36 Dose: 2 tab Tamoxifen Citrate (Tamoxifen Citrate) 20 mg PO DAILY [facility] Last Admin: 12/23/17 09:57 Dose: 20 mg - Objective Vital Signs: Vital Signs Temperature 97.5 F L 12/24/17 06:00 Pulse Rate 68 12/24/17 06:00 Respiratory Rate 16 12/24/17 06:00 Blood Pressure 150/86 12/24/17 06:00 O2 Sat by Pulse Oximetry (%) 95 12/23/17 21:00 Constitutional: Yes: No Distress, Calm Neck: Yes: Supple, Trachea Midline Cardiovascular: Yes: Regular Rate and Rhythm, S1, S2. No: Murmur Respiratory: Yes: Regular, CTA Bilaterally. No: Rales, Rhonchi, Wheezes Gastrointestinal: Yes: Normal Bowel Sounds, Soft, Distention (softly). No: Tenderness Edema: No Labs: CBC, BMP 12/24/17 07:15 INR, PTT INR 1.00 (0.82-1.09) 12/20/17 03:35 Assessment/Plan Current Active Problems Fecal impaction Urinary retention SIRS positive blood culture HPL HTN CAD -cont current treatment, remains afebrile with normal WBC off abx, even with positive blood culture, so likely contaminant
[2017-12-24] MEDS ORDERED: PT OWN MED DRAWER 7, Y5N ONE (10:21)
[2017-12-24] MEDS: metoPROLOL SUCCINATE 25 MG TAB.SR.24H (FP) PO SCH ×2 (10:24→21:26)
[2017-12-24] MEDS: QUINAPRIL HCL 20 MG TABLET (FP) PO SCH (10:24)
[2017-12-24] MEDS: ASPIRIN COATED 81 MG TABLET.EC PO SCH (10:24)
[2017-12-24] MEDS: TAMOXIFEN CITRATE 10 MG TABLET PO SCH (10:24)
[2017-12-24] MEDS: OMEGA-3 ACID ETHYL ESTERS (FATTY-ACIDS) 1 GM CAPSULE (FP) PO SCH (10:24)
[2017-12-24] MEDS: PANTOPRAZOLE 40 MG TABLET (FP) PO SCH (10:24)
[2017-12-24] MEDS: amLODIPine BESYLATE 5 MG TABLET (FP) PO SCH (10:24)
[2017-12-24] MEDS: SODIUM CHLORIDE 1,000 ML IV SCH ×2 (10:29→22:19)
[2017-12-24 10:59] LABS: CALCIUM 7.6 mg/dL (8.5-10.1); CHLORIDE 110 mmol/L (98-107); POTASSIUM 3.4 mmol/L (3.5-5.1); SODIUM 141 mmol/L (136-145)
[2017-12-24 11:05] LABS: ALBUMIN 2.4 g/dl (3.4-5.0); ALK PHOS 36 U/L (45-117); ANION GAP 11 (8-16); BILIRUBIN,TOTAL 0.4 mg/dL (0.2-1.0); BLOOD UREA NITROGEN 13 mg/dL (7-18); CO2 20 mmol/L (21-32); CREATININE 0.6 mg/dL (0.55-1.02); GLUCOSE,RANDOM 84 mg/dL (74-106); SGOT/AST 12 U/L (15-37); SGPT/ALT 11 U/L (12-78); TOT PROT 4.5 g/dl (6.4-8.2)
--- NOTE | 2017-12-24 16:28 | PN ---
Progress Note, Physician History of Present Illness: Pt admitted with fecal impaction contributing to urinary retention, but with poor bladder tone partly from overdistended bladder initially found on 12/05, had Valdovinos for unclear duration after d/c 12/12 to [facility]. Valdovinos placed at readmission 12/20 with 1.4L out, and pt found to have essentially liquid/soupy/ pasty stool, which she has trouble evacuating. Pt reports continued abdominal distention and poor appetite, but tolerated soft diet for lunch - only had a little, "it was not to my taste." Reports + BM today. Valdovinos in place with light yellow urine. - Current Medication List Current Medications: Active Medications Amlodipine Besylate (Norvasc -) [address] [facility] Last Admin: 12/24/17 10:24 Dose: 5 mg Aspirin (Ecotrin -) [address] [facility] Last Admin: 12/24/17 10:24 Dose: 81 mg Atorvastatin Calcium (Lipitor -) 40 mg PO [facility] Last Admin: 12/23/17 21:36 Dose: 40 mg Heparin Sodium (Porcine) (Heparin -) 5,000 unit SQ Q8H-IV [facility] Last Admin: 12/24/17 10:24 Dose: 5,000 unit Sodium Chloride (Normal Saline -) 1,000 mls @ 83 mls/hr IV ASDIR [facility] Last Admin: 12/24/17 10:29 Dose: 83 mls/hr Metoprolol Succinate (Toprol Xl -) [address] [facility] Last Admin: 12/24/17 10:24 Dose: 25 mg Montelukast Sodium (Singulair -) 10 mg PO [facility] Last Admin: 12/23/17 21:36 Dose: 10 mg [id number]-1-[id number] Ethyl Esters (Lovaza -) [address] [facility] Last Admin: 12/24/17 10:24 Dose: 1 gm Pantoprazole Sodium (Protonix -) [address] [facility] Last Admin: 12/24/17 10:24 Dose: 40 mg Quinapril HCl (Accupril -) [address] [facility] Last Admin: 12/24/17 10:24 Dose: 20 mg Senna (Senna -) 2 tab PO [facility] Last Admin: 12/23/17 21:36 Dose: 2 tab Tamoxifen Citrate (Tamoxifen Citrate) [address] [facility] Last Admin: 12/24/17 10:24 Dose: 20 mg - Objective Vital Signs: Vital Signs Temperature 98.3 F 12/24/17 14:35 Pulse Rate 69 12/24/17 14:35 Respiratory Rate 20 12/24/17 14:35 Blood Pressure 115/69 12/24/17 14:35 O2 Sat by Pulse Oximetry (%) 95 12/23/17 21:00 Constitutional: Yes: No Distress, Calm, Thin Eyes: Yes: Conjunctiva Clear, EOM Intact HENT: Yes: Atraumatic, Normocephalic Gastrointestinal: Yes: Soft, Distention. No: Tenderness ...Rectal Exam: Yes: Deferred Genitourinary: Yes: Valdovinos Present. No: Hematuria Extremities: No: Cool, Cyanosis Integumentary: No: Jaundice, Rash Neurological: Yes: Alert, Aphasia (difficulty with word-finding (not new)), Confusion Labs: CBC, BMP 12/24/17 07:15 12/24/17 07:15 Problem List - Problems (1) Fecal impaction Assessment/Plan: Valdovinos for bladder decompression - should stay likely at least a week BEFORE trialed out stool in vault is too soft/liquid for patient to easily evacuate having BMs though still softly distended, tympanic rectal deferred today continue motility agent/senna to facilitate colon movement no stool softeners for now - pt needs formed stool to be able to evacuate monitor stool quality on soft diet will check tomorrow Code(s): K56.41 - FECAL IMPACTION (2) Constipation Assessment/Plan: continue senna nightly, consider dulcolax po in mornings minimize softeners unless stool gets too hard to disimpact/pass/evacuate needs to be formed to be able to eliminate suspect patient does not self-hydrate well Code(s): K59.00 - CONSTIPATION, UNSPECIFIED Qualifiers: Constipation type: unspecified constipation type Qualified Code(s): K59.00 - Constipation, unspecified (3) Acute urinary retention Assessment/Plan: Valdovinos in place bladder is large, floppy, likely atonic/poor tone leave Valdovinos probably at least a week before any voiding trial will need extended catheter time to allow bladder to regain tone, and until impaction is cleared and constipation is well-managed retention likely significantly related to fecal impaction, but also poor bladder tone (given recent episode 15 days ago) urology consult noted Code(s): R33.8 - OTHER RETENTION OF URINE (4) JASMIN (acute kidney injury) Assessment/Plan: likely secondary to acute retention, possibly element of dehydration monitor for improvement avoid nephrotoxics would not use Fleet's enemas or mag citrate BUN/Cr 13/0.6, down to normal Code(s): N17.9 - ACUTE KIDNEY FAILURE, UNSPECIFIED (5) Positive blood culture Assessment/Plan: blood culture gram stain with GPC in clusters x 1 wbc normal no fevers suspect contaminant ID on board, no abx urine never cultured Code(s): R78.81 - BACTEREMIA
[2017-12-24] MEDS: SENNOSIDES 8.6MG TABLET (FP) PO SCH (21:26)
[2017-12-24] MEDS: ATORVASTATIN CA 40 MG TABLET (FP) PO SCH (21:26)
[2017-12-24] MEDS: MONTELUKAST NA 10 MG TABLET PO SCH (21:26)
[2017-12-25] MEDS: HEPARIN NA (PORCINE) 5,000 UNITS/ML 1ML VIAL SQ SCH ×3 (03:00→17:04)
[2017-12-25] MEDS: SODIUM CHLORIDE 1,000 ML IV SCH (06:09)
[2017-12-25 08:04] LABS: ALBUMIN 2.5 g/dl (3.4-5.0); ANION GAP 7 (8-16); BLOOD UREA NITROGEN 9 mg/dL (7-18); CALCIUM 7.5 mg/dL (8.5-10.1); CHLORIDE 113 mmol/L (98-107); CO2 24 mmol/L (21-32); GLUCOSE,RANDOM 81 mg/dL (74-106); POTASSIUM 3.2 mmol/L (3.5-5.1); SODIUM 144 mmol/L (136-145)
[2017-12-25 08:07] LABS: ALK PHOS 37 U/L (45-117); BILIRUBIN,TOTAL 0.5 mg/dL (0.2-1.0); CREATININE 0.6 mg/dL (0.55-1.02); SGOT/AST 12 U/L (15-37); SGPT/ALT 11 U/L (12-78); TOT PROT 4.5 g/dl (6.4-8.2)
[2017-12-25] MEDS ORDERED: PT OWN MED DRAWER 7, Y5N ONE (09:20)
[2017-12-25] MEDS: ASPIRIN COATED 81 MG TABLET.EC PO SCH (09:24)
[2017-12-25] MEDS: PANTOPRAZOLE 40 MG TABLET (FP) PO SCH (09:24)
[2017-12-25] MEDS: metoPROLOL SUCCINATE 25 MG TAB.SR.24H (FP) PO SCH ×2 (09:24→21:40)
[2017-12-25] MEDS: TAMOXIFEN CITRATE 10 MG TABLET PO SCH (09:24)
[2017-12-25] MEDS: amLODIPine BESYLATE 5 MG TABLET (FP) PO SCH (09:24)
[2017-12-25] MEDS: OMEGA-3 ACID ETHYL ESTERS (FATTY-ACIDS) 1 GM CAPSULE (FP) PO SCH (09:24)
[2017-12-25] MEDS: QUINAPRIL HCL 20 MG TABLET (FP) PO SCH (09:25)
--- NOTE | 2017-12-25 16:03 | PN ---
Progress Note, Physician Chief Complaint: Ms Thibodeaux says she did not eat much today because the food had too much sugar. Says she had two small bowel movements this am. No cp or sob. - Current Medication List Current Medications: Active Medications Amlodipine Besylate (Norvasc -) 5 mg PO DAILY [facility] Last Admin: 12/25/17 09:24 Dose: 5 mg Aspirin (Ecotrin -) 81 mg PO DAILY [facility] Last Admin: 12/25/17 09:24 Dose: 81 mg Atorvastatin Calcium (Lipitor -) 40 mg PO HS [facility] Last Admin: 12/24/17 21:26 Dose: 40 mg Bisacodyl (Dulcolax -) 10 mg PO DAILY [facility] Heparin Sodium (Porcine) (Heparin -) 5,000 unit SQ Q8H-IV [facility] Last Admin: 12/25/17 09:24 Dose: 5,000 unit Sodium Chloride (Normal Saline -) 1,000 mls @ 83 mls/hr IV ASDIR [facility] Last Admin: 12/25/17 06:09 Dose: Not Given Metoprolol Succinate (Toprol Xl -) 25 mg PO BID [facility] Last Admin: 12/25/17 09:24 Dose: 25 mg Montelukast Sodium (Singulair -) 10 mg PO HS [facility] Last Admin: 12/24/17 21:26 Dose: 10 mg [id number]-5-[id number] Ethyl Esters (Lovaza -) 1 gm PO DAILY [facility] Last Admin: 12/25/17 09:24 Dose: 1 gm Pantoprazole Sodium (Protonix -) 40 mg PO DAILY [facility] Last Admin: 12/25/17 09:24 Dose: 40 mg Quinapril HCl (Accupril -) 20 mg PO DAILY [facility] Last Admin: 12/25/17 09:25 Dose: 20 mg Senna (Senna -) 2 tab PO HS [facility] Last Admin: 12/24/17 21:26 Dose: 2 tab Tamoxifen Citrate (Tamoxifen Citrate) 20 mg PO DAILY [facility] Last Admin: 12/25/17 09:24 Dose: 20 mg - Objective Vital Signs: Vital Signs Temperature 36.8 C 12/25/17 15:43 Pulse Rate 94 H 12/25/17 15:43 Respiratory Rate 20 12/25/17 15:43 Blood Pressure 141/75 12/25/17 15:43 O2 Sat by Pulse Oximetry (%) 96 12/24/17 21:00 Constitutional: Yes: Well Nourished, No Distress, Calm Cardiovascular: Yes: Regular Rate and Rhythm. No: Gallop, Murmur, Rub Respiratory: Yes: Regular, CTA Bilaterally. No: Rales, Rhonchi, Wheezes Gastrointestinal: Yes: Normal Bowel Sounds, Soft, Distention. No: Tenderness Extremities: Yes: WNL Edema: No Labs: CBC, BMP 12/24/17 07:15 12/25/17 07:19 INR, PTT INR 1.00 (0.82-1.09) 12/20/17 03:35 Problem List - Problems (1) Fecal impaction Code(s): K56.41 - FECAL IMPACTION (2) Acute urinary retention Code(s): R33.8 - OTHER RETENTION OF URINE (3) SIRS (systemic inflammatory response syndrome) Code(s): R65.10 - SIRS OF NON-INFECTIOUS ORIGIN W/O ACUTE ORGAN DYSFUNCTION (4) CAD (coronary artery disease) Code(s): I25.10 - ATHSCL HEART DISEASE OF [place] CORONARY ARTERY W/O ANG PCTRS Qualifiers: Coronary Disease-Associated Artery/Lesion type: [place] artery [place] vs. transplanted heart: [place] heart Associated angina: without angina Qualified Code(s): I25.10 - Atherosclerotic heart disease of [place] coronary artery without angina pectoris (5) Constipation Code(s): K59.00 - CONSTIPATION, UNSPECIFIED Qualifiers: Constipation type: unspecified constipation type Qualified Code(s): K59.00 - Constipation, unspecified (6) HLD (hyperlipidemia) Code(s): E78.5 - HYPERLIPIDEMIA, UNSPECIFIED Qualifiers: Hyperlipidemia type: unspecified Qualified Code(s): E78.5 - Hyperlipidemia , unspecified (7) HTN (hypertension) Code(s): I10 - ESSENTIAL (PRIMARY) HYPERTENSION Qualifiers: Hypertension type: essential hypertension Qualified Code(s): I10 - Essential (primary) hypertension Assessment/Plan (1) Fecal impaction Assessment/Plan: -case d/w surgery -add bisacodyl in the am -continue senna at night -diet advanced, will change to diabetic since patient complains of too much sugar Code(s): K56.41 - FECAL IMPACTION (2) Acute urinary retention Assessment/Plan: -appreciate urology assistance -justice placed -will need to be discharged with justice Code(s): R33.8 - OTHER RETENTION OF URINE (3) SIRS (systemic inflammatory response syndrome) Assessment/Plan: -resolved Code(s): R65.10 - SIRS OF NON-INFECTIOUS ORIGIN W/O ACUTE ORGAN DYSFUNCTION (4) CAD (coronary artery disease) Assessment/Plan: -quiescent -continue home regimen Code(s): I25.10 - ATHSCL HEART DISEASE OF [place] CORONARY ARTERY W/O ANG PCTRS Qualifiers: Coronary Disease-Associated Artery/Lesion type: [place] artery [place] vs. transplanted heart: [place] heart Associated angina: without angina Qualified Code(s): I25.10 - Atherosclerotic heart disease of [place] coronary artery without angina pectoris (5) Constipation Assessment/Plan: -as above Code(s): K59.00 - CONSTIPATION, UNSPECIFIED (6) HLD (hyperlipidemia) Assessment/Plan: -continue statin Code(s): E78.5 - HYPERLIPIDEMIA, UNSPECIFIED Qualifiers: Hyperlipidemia type: unspecified Qualified Code(s): E78.5 - Hyperlipidemia , unspecified (7) HTN (hypertension) Assessment/Plan: -controlled -continue toprol xl and norvasc Code(s): I10 - ESSENTIAL (PRIMARY) HYPERTENSION Qualifiers: Hypertension type: essential hypertension Qualified Code(s): I10 - Essential (primary) hypertension
[2017-12-25] MEDS ORDERED: POTASSIUM CHLORIDE TABS 20 MEQ TABLET.ER (FP) PO ONE (20:35)
[2017-12-25] MEDS: SENNOSIDES 8.6MG TABLET (FP) PO SCH (21:40)
[2017-12-25] MEDS: MONTELUKAST NA 10 MG TABLET PO SCH (21:40)
[2017-12-25] MEDS: ATORVASTATIN CA 40 MG TABLET (FP) PO SCH (21:40)
[2017-12-25] MEDS ORDERED: MAGNESIUM SULF 50% (8.12 MEQ/2 ML-1 GM VIAL) IVPB ONE (22:15)
[2017-12-26] MEDS: HEPARIN NA (PORCINE) 5,000 UNITS/ML 1ML VIAL SQ SCH ×3 (02:39→18:50)
[2017-12-26] MEDS: SODIUM CHLORIDE 1,000 ML IV SCH (06:10)
[2017-12-26 08:01] LABS: BASO % 0.2 % (0-2.0); EOS % 0.2 % (0-4.5); HEMATOCRIT 32.7 % (32.4-45.2); HEMOGLOBIN 11.1 GM/dL (10.7-15.3); LYMPH % 8.2 % (8-40); MCH 29.6 pg (25.7-33.7); MCHC 33.8 g/dl (32.0-36.0); MEAN CELL VOLUME 87.5 fl (80-96); MEAN PLT VOLUME 10.4 fl (7.5-11.1); MONO % 9.3 % (3.8-10.2); NEUT % 82.1 % (42.8-82.8); PLATELET COUNT 169 K/MM3 (134-434); RBC 3.74 M/mm3 (3.60-5.2); RDW 13.8 % (11.6-15.6); WHITE BLOOD COUNT 13.5 K/mm3 (4.0-10.0)
[2017-12-26 08:13] LABS: ANION GAP 6 (8-16); BLOOD UREA NITROGEN 8 mg/dL (7-18); CALCIUM 7.3 mg/dL (8.5-10.1); CHLORIDE 107 mmol/L (98-107); CO2 27 mmol/L (21-32); GLUCOSE,RANDOM 101 mg/dL (74-106); MAGNESIUM 1.6 mg/dL (1.8-2.4); POTASSIUM 3.2 mmol/L (3.5-5.1); SODIUM 140 mmol/L (136-145)
[2017-12-26 08:14] LABS: CREATININE 0.6 mg/dL (0.55-1.02); PHOSPHOROUS 2.3 mg/dL (2.5-4.9)
[2017-12-26] MEDS ORDERED: PT OWN MED DRAWER 7, Y5N ONE (08:54)
[2017-12-26] MEDS: PANTOPRAZOLE 40 MG TABLET (FP) PO SCH (09:00)
[2017-12-26] MEDS: ASPIRIN COATED 81 MG TABLET.EC PO SCH (09:00)
[2017-12-26] MEDS: metoPROLOL SUCCINATE 25 MG TAB.SR.24H (FP) PO SCH ×2 (09:00→21:29)
[2017-12-26] MEDS: amLODIPine BESYLATE 5 MG TABLET (FP) PO SCH (09:00)
[2017-12-26] MEDS: BISACODYL 5 MG TABLET.DR (FP) PO SCH (09:00)
[2017-12-26] MEDS: QUINAPRIL HCL 20 MG TABLET (FP) PO SCH (09:00)
[2017-12-26] MEDS: OMEGA-3 ACID ETHYL ESTERS (FATTY-ACIDS) 1 GM CAPSULE (FP) PO SCH (09:00)
[2017-12-26] MEDS: TAMOXIFEN CITRATE 10 MG TABLET PO SCH (09:00)
[2017-12-26 09:52] LABS: URIC ACID 3.7 mg/dL (2.6-7.2)
--- NOTE | 2017-12-26 11:57 | PN ---
Progress Note, Physician Chief Complaint: Ms Thibodeaux complains of hand pain and swelling. Having more formed stool. No cp, sob, n/v. Appetite improved. - Current Medication List Current Medications: Active Medications Amlodipine Besylate (Norvasc -) 5 mg PO DAILY [facility] Last Admin: 12/26/17 09:00 Dose: 5 mg Aspirin (Ecotrin -) 81 mg PO DAILY [facility] Last Admin: 12/26/17 09:00 Dose: 81 mg Atorvastatin Calcium (Lipitor -) 40 mg PO HS [facility] Last Admin: 12/25/17 21:40 Dose: 40 mg Bisacodyl (Dulcolax -) 10 mg PO DAILY [facility] Last Admin: 12/26/17 09:00 Dose: 10 mg Heparin Sodium (Porcine) (Heparin -) 5,000 unit SQ Q8H-IV [facility] Last Admin: 12/26/17 09:00 Dose: 5,000 unit Sodium Chloride (Normal Saline -) 1,000 mls @ 83 mls/hr IV ASDIR [facility] Last Admin: 12/26/17 06:10 Dose: 83 mls/hr Potassium Chloride (Potassium Chloride 10 Meq Premix Ivpb -) 10 meq in 100 mls @ 100 mls/hr IVPB Q60M [facility] Stop: 12/26/17 13:59 Potassium Phosphate 16 mm/ (Sodium Chloride) 255.3333 mls @ 62.5 mls/hr IVPB ONCE ONE Stop: 12/26/17 15:59 Vancomycin HCl 1,000 mg/ (Dextrose) 250 mls @ 250 mls/hr IVPB ONCE ONE PRN Reason: Protocol Stop: 12/26/17 12:54 Metoprolol Succinate (Toprol Xl -) 25 mg PO BID [facility] Last Admin: 12/26/17 09:00 Dose: 25 mg Montelukast Sodium (Singulair -) 10 mg PO HS [facility] Last Admin: 12/25/17 21:40 Dose: 10 mg Ckhwi-1-Vjua Ethyl Esters (Lovaza -) 1 gm PO DAILY [facility] Last Admin: 12/26/17 09:00 Dose: 1 gm Pantoprazole Sodium (Protonix -) 40 mg PO DAILY [facility] Last Admin: 12/26/17 09:00 Dose: 40 mg Quinapril HCl (Accupril -) 20 mg PO DAILY [facility] Last Admin: 12/26/17 09:00 Dose: 20 mg Senna (Senna -) 2 tab PO HS [facility] Last Admin: 12/25/17 21:40 Dose: 2 tab Tamoxifen Citrate (Tamoxifen Citrate) 20 mg PO DAILY [facility] Last Admin: 12/26/17 09:00 Dose: 20 mg - Objective Vital Signs: Vital Signs Temperature 37.3 C 12/26/17 08:59 Pulse Rate 78 12/26/17 08:59 Respiratory Rate 18 12/26/17 09:00 Blood Pressure 127/46 12/26/17 08:59 O2 Sat by Pulse Oximetry (%) 98 12/26/17 09:00 Constitutional: Yes: Well Nourished, No Distress, Calm Cardiovascular: Yes: Regular Rate and Rhythm. No: Gallop, Murmur, Rub Respiratory: Yes: Regular, CTA Bilaterally. No: Rales, Rhonchi, Wheezes Gastrointestinal: Yes: Normal Bowel Sounds, Soft, Distention. No: Tenderness Extremities: Yes: Erythema (R hand) Edema: Yes Edema: RUE: 1+ Labs: CBC, BMP 12/26/17 07:22 12/26/17 07:22 INR, PTT INR 1.00 (0.82-1.09) 12/20/17 03:35 Problem List - Problems (1) Fecal impaction Code(s): K56.41 - FECAL IMPACTION (2) Acute urinary retention Code(s): R33.8 - OTHER RETENTION OF URINE (3) SIRS (systemic inflammatory response syndrome) Code(s): R65.10 - SIRS OF NON-INFECTIOUS ORIGIN W/O ACUTE ORGAN DYSFUNCTION (4) CAD (coronary artery disease) Code(s): I25.10 - ATHSCL HEART DISEASE OF [place] CORONARY ARTERY W/O ANG PCTRS Qualifiers: Coronary Disease-Associated Artery/Lesion type: [place] artery [place] vs. transplanted heart: [place] heart Associated angina: without angina Qualified Code(s): I25.10 - Atherosclerotic heart disease of [place] coronary artery without angina pectoris (5) Constipation Code(s): K59.00 - CONSTIPATION, UNSPECIFIED Qualifiers: Constipation type: unspecified constipation type Qualified Code(s): K59.00 - Constipation, unspecified (6) HLD (hyperlipidemia) Code(s): E78.5 - HYPERLIPIDEMIA, UNSPECIFIED Qualifiers: Hyperlipidemia type: unspecified Qualified Code(s): E78.5 - Hyperlipidemia , unspecified (7) HTN (hypertension) Code(s): I10 - ESSENTIAL (PRIMARY) HYPERTENSION Qualifiers: Hypertension type: essential hypertension Qualified Code(s): I10 - Essential (primary) hypertension Assessment/Plan (1) Fecal impaction Assessment/Plan: -improving -continue current management -tolerated diet well Code(s): K56.41 - FECAL IMPACTION (2) Acute urinary retention Assessment/Plan: -appreciate urology assistance -justice placed -will need to be discharged with justice Code(s): R33.8 - OTHER RETENTION OF URINE (3) SIRS (systemic inflammatory response syndrome) Assessment/Plan: -elevated WBC, concern for possible cellulitis -reconsult ID for possible broad spectrum IV antibiotics -give 1 dose vancomycin now Code(s): R65.10 - SIRS OF NON-INFECTIOUS ORIGIN W/O ACUTE ORGAN DYSFUNCTION (4) CAD (coronary artery disease) Assessment/Plan: -quiescent -continue home regimen Code(s): I25.10 - ATHSCL HEART DISEASE OF [place] CORONARY ARTERY W/O ANG PCTRS Qualifiers: Coronary Disease-Associated Artery/Lesion type: [place] artery [place] vs. transplanted heart: [place] heart Associated angina: without angina Qualified Code(s): I25.10 - Atherosclerotic heart disease of [place] coronary artery without angina pectoris (5) Constipation Assessment/Plan: -improving Code(s): K59.00 - CONSTIPATION, UNSPECIFIED (6) HLD (hyperlipidemia) Assessment/Plan: -continue statin Code(s): E78.5 - HYPERLIPIDEMIA, UNSPECIFIED Qualifiers: Hyperlipidemia type: unspecified Qualified Code(s): E78.5 - Hyperlipidemia , unspecified (7) HTN (hypertension) Assessment/Plan: -controlled -continue toprol xl and norvasc Code(s): I10 - ESSENTIAL (PRIMARY) HYPERTENSION Qualifiers: Hypertension type: essential hypertension Qualified Code(s): I10 - Essential (primary) hypertension (8) Cellulitis -case d/w surgery -consult hand surgery -order 1 dose vancomycin -ID consult as well
[2017-12-26] MEDS ORDERED: MAGNESIUM 2GM/50ML STERILE WATER IVPB IVPB ONE (12:00)
[2017-12-26] MEDS: LACTOBACILLUS ACIDOPHILUS 1 CAP PO SCH (12:17)
[2017-12-26] MEDS ORDERED: VANCOMYCIN 1,000 MG in DEXTROSE 5%-WATER - 250 ML IVPB ONE (12:30)
--- NOTE | 2017-12-26 12:44 | PN ---
Progress Note, Physician History of Present Illness: Pt admitted with fecal impaction contributing to urinary retention, but with poor bladder tone partly from overdistended bladder initially found on 12/05, had Valdovinos for unclear duration after d/c 12/12 to [facility]. Valdovinos placed at readmission 12/20 with 1.4L out, and pt found to have essentially liquid/soupy/ pasty stool, which she has trouble evacuating. Pt with some abdominal distention and poor appetite, but tolerating soft diet. Nurse reports small loosely formed BM today. Valdovinos in place with light yellow urine. Pt c/o right wrist pain - says she thinks she hit it on a siderail or something yesterday. Hurts to move entire hand/forearm. She denies having had an IV at that site this admission. - Current Medication List Current Medications: Active Medications Amlodipine Besylate (Norvasc -) 5 mg PO DAILY [facility] Last Admin: 12/26/17 09:00 Dose: 5 mg Aspirin (Ecotrin -) 81 mg PO DAILY [facility] Last Admin: 12/26/17 09:00 Dose: 81 mg Atorvastatin Calcium (Lipitor -) 40 mg PO HS [facility] Last Admin: 12/25/17 21:40 Dose: 40 mg Bisacodyl (Dulcolax -) 10 mg PO DAILY [facility] Last Admin: 12/26/17 09:00 Dose: 10 mg Heparin Sodium (Porcine) (Heparin -) 5,000 unit SQ Q8H-IV [facility] Last Admin: 12/26/17 09:00 Dose: 5,000 unit Sodium Chloride (Normal Saline -) 1,000 mls @ 83 mls/hr IV ASDIR [facility] Last Admin: 12/26/17 06:10 Dose: 83 mls/hr Potassium Chloride 10 meq/ (Sodium Chloride) 105 mls @ 100 mls/hr IVPB Q60M [facility] Stop: 12/26/17 13:59 Potassium Phosphate 16 mm/ (Sodium Chloride) 255.3333 mls @ 62.5 mls/hr IVPB ONCE ONE Stop: 12/26/17 18:05 Vancomycin HCl 1,000 mg/ (Dextrose) 250 mls @ 166.667 mls/hr IVPB ONCE ONE PRN Reason: Protocol Stop: 12/26/17 13:59 Lactobacillus Acidophilus (Bacid -) 1 tab PO DAILY [facility] Last Admin: 12/26/17 12:17 Dose: 1 tab Metoprolol Succinate (Toprol Xl -) 25 mg PO BID [facility] Last Admin: 12/26/17 09:00 Dose: 25 mg Montelukast Sodium (Singulair -) 10 mg PO HS [facility] Last Admin: 12/25/17 21:40 Dose: 10 mg [id number]-[id number] Ethyl Esters (Lovaza -) 1 gm PO DAILY [facility] Last Admin: 12/26/17 09:00 Dose: 1 gm Pantoprazole Sodium (Protonix -) 40 mg PO DAILY [facility] Last Admin: 12/26/17 09:00 Dose: 40 mg Quinapril HCl (Accupril -) 20 mg PO DAILY [facility] Last Admin: 12/26/17 09:00 Dose: 20 mg Senna (Senna -) 2 tab PO HS [facility] Last Admin: 12/25/17 21:40 Dose: 2 tab Tamoxifen Citrate (Tamoxifen Citrate) 20 mg PO DAILY [facility] Last Admin: 12/26/17 09:00 Dose: 20 mg - Objective Vital Signs: Vital Signs Temperature 99.2 F 12/26/17 08:59 Pulse Rate 78 12/26/17 08:59 Respiratory Rate 18 12/26/17 09:00 Blood Pressure 127/46 12/26/17 08:59 O2 Sat by Pulse Oximetry (%) 98 12/26/17 09:00 Vital Signs Period Temp Pulse Resp BP Sys/Canas Pulse Ox Last 24 Hr 98 F-99.2 F 77-94 18-20 127-142/46-83 98-98 Constitutional: Yes: No Distress, Calm, Thin Eyes: Yes: Conjunctiva Clear, EOM Intact HENT: Yes: Atraumatic, Normocephalic Gastrointestinal: Yes: Soft, Distention. No: Tenderness ...Rectal Exam: Yes: Deferred (until later today - per nursing, small formed but loose BM (not liquid) earlier) Genitourinary: Yes: Valdovinos Present. No: Hematuria Musculoskeletal: Yes: Joint Swelling (right wrist) Extremities: Yes: Erythema, Other (right wrist, thumb, part of hand swollen, erythematous, painful and tender, limited ROM) Edema: Yes (right wrist) Integumentary: Yes: Erythema (see above) Neurological: Yes: Alert, Confusion (baseline dementia) Labs: CBC, BMP 12/26/17 07:22 03/27/18 07:22 Microbiology 12/21/17 15:30 Blood Culture - Preliminary Blood - Peripheral Venous NO GROWTH OBTAINED AFTER 96 HOURS, INCUBATION TO CONTINUE FOR 1 DAYS. 12/21/17 17:00 Blood Culture - Final Blood - Peripheral Venous Staphylococcus Epidermidis Problem List - Problems (1) Fecal impaction Assessment/Plan: Valdovinos for bladder decompression - should stay likely at least a week BEFORE trialed out stool in vault is starting to form up having BMs though still softly distended, tympanic rectal deferred for now - will attend to wrist first, then check later continue motility agent/senna to facilitate colon movement would use stool softeners judiciously - pt needs formed stool to be able to evacuate monitor stool quality on soft diet likely will need SENTHIL periodically after discharge to evaluate for impaction, and /or enemas every 2-3 days to ensure emptying Code(s): K56.41 - FECAL IMPACTION (2) Constipation Assessment/Plan: continue senna nightly, added dulcolax po in mornings minimize softeners unless stool gets too hard to disimpact/pass/evacuate needs to be formed to be able to eliminate suspect patient does not self-hydrate well Code(s): K59.00 - CONSTIPATION, UNSPECIFIED Qualifiers: Constipation type: unspecified constipation type Qualified Code(s): K59.00 - Constipation, unspecified (3) Acute urinary retention Assessment/Plan: Valdovinos in place bladder is large, floppy, likely atonic/poor tone leave Valdovinos probably at least a week before any voiding trial will need extended catheter time to allow bladder to regain tone, and until impaction is cleared and constipation is well-managed retention likely significantly related to fecal impaction, but also poor bladder tone (given recent episode 15 days ago) urology consult noted Code(s): R33.8 - OTHER RETENTION OF URINE (4) JASMIN (acute kidney injury) Assessment/Plan: resolved Code(s): N17.9 - ACUTE KIDNEY FAILURE, UNSPECIFIED (5) Positive blood culture Assessment/Plan: blood culture gram stain with MR Efraín dominguez now with swollen, red right wrist - cellulitis vs fracture vs joint problem? cultures being repeated now in each arm Code(s): R78.81 - BACTEREMIA (6) Cellulitis of wrist Assessment/Plan: would consult hand surgery (Dr. Ash) obtain imaging per him elevate right forearm/wrist/hand above heart ID on board MRSE in blood, cultures being repeated Code(s): L03.119 - CELLULITIS OF UNSPECIFIED PART OF LIMB
--- NOTE | 2017-12-26 13:04 | CONSULT ---
Consult Consult Specialty:: hand surgery Referred by:: torres norwood MD Reason for Consultation:: right wrist redness and swelling - History of Present Illness Chief Complaint: right wrist pain and swelling History of Present Illness: 87 yo RHD female PMH dementia, HTN, CAD, diverticulosis, and contipation being treated for fecal impaction and acute urinary retention. This is now resoling with bowel regimen adjustments and justice catheterization. She reports no abdominal pain now, is somewhat confused. I am unclear if there is a preceding trauma to her right wrist which was noticed to be red and swollen. She may have bumped it on the bed rail. The focus is over the base of the right thumb progressing dorsally over the right wrist. In the past 2 - 3 days of worsening redness, swelling, pain, and declining mobility with the right arm from the shoulder and distal. We were asked to assess. 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 detached retina. 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 Home Medications - Allergies Allergies/Adverse Reactions: Allergies Allergy/AdvReac Type Severity Reaction Status Date / Time Penicillins Allergy Hives Verified 12/04/17 21:05 - Home Medications Home Medications: Ambulatory Orders Aspirin Coated [Ecotrin -] 81 mg PO DAILY 12/21/11 Montelukast Na [Singulair -] 10 mg PO HS 12/21/11 [place]-3/Dha/Epa/Fish Oil [Fish Oil 1,000 mg Softgel] 1 tab PO DAILY 12/21/11 Atorvastatin Ca [Lipitor] 40 mg PO HS 05/22/12 Metoprolol Succinate [Toprol XL -] 25 mg PO BID 05/22/12 Amlodipine Besylate [Norvasc -] 5 mg PO DAILY 08/16/13 Omeprazole [Prilosec (RX)] 40 mg PO DAILY 08/16/13 Polyethylene Glycol 3350 [Miralax 119 gm Btl -] 17 gm PO BID 10/03/14 Tamoxifen Citrate 20 mg PO DAILY 12/16/14 Acetaminophen [Tylenol .Regular Strength -] 650 mg PO Q6H PRN 30 Days tablet Sennosides [Senna -] 2 tab PO HS 30 Days tablet 12/12/17 Family Disease History - Family Disease History Family Disease History: Heart Disease: Father ( [place] age 80, had ulcer), Mother ( [place] age 70), [place]: Brother (colon cancer) Review of Systems - Review of Systems Constitutional: denies: Chills, Fever Eyes: denies: Double Vision, Recent Change in Vision HENT: denies: Difficult Swallowing, Throat Pain Neck: denies: Pain on Movement, Swollen Glands Cardiovascular: denies: Chest Pain, Palpitations Respiratory: denies: Cough, SOB Gastrointestinal: reports: Constipation. denies: Abdominal Pain Genitourinary: denies: Discharge, Dysuria Musculoskeletal: reports: Extremity Pain, Joint Pain, Joint Swelling Integumentary: reports: Erythema Neurological: reports: Confusion. denies: Change in LOC Endocrine: denies: Unexplained Weight Gain, Unexplained Weight Loss Hematology/Lymphatic: denies: Easily Bruised, Excessive Bleeding Psychiatric: denies: Anxiety, Depression Physical Exam Vital Signs: Vital Signs Temperature 99.2 F 12/26/17 08:59 Pulse Rate 78 12/26/17 08:59 Respiratory Rate 18 12/26/17 09:00 Blood Pressure 127/46 12/26/17 08:59 O2 Sat by Pulse Oximetry (%) 98 12/26/17 09:00 Vital Signs Period Temp Pulse Resp BP Sys/Canas Pulse Ox Last 24 Hr 97.4 F-103.1 F 77-93 18-89 103-144/52-76 98 Constitutional: Yes: No Distress, Calm, Thin Eyes: Yes: Conjunctiva Clear, EOM Intact HENT: Yes: Atraumatic, Normocephalic Neck: Yes: Supple, Trachea Midline Cardiovascular: Yes: Regular Rate and Rhythm, S1, S2 Respiratory: Yes: Regular, CTA Bilaterally Gastrointestinal: Yes: Normal Bowel Sounds, Soft, Distention. No: Tenderness ...Rectal Exam: Yes: Deferred Renal/: No: CVA Tenderness - Left, CVA Tenderness - Right Extremities: Yes: Deformity (prominet right shoulder swelling, Dorsal wrist swelling.), Erythema (right shoulder and right wrist, limted ROM and tender on exam). No: Cool, Cyanosis Edema: Yes Edema: RUE: Trace (radial wrsit) Integumentary: Yes: Erythema (right basal thumb and wrist). No: Rash Neurological: Yes: Alert, Confusion Psychiatric: Yes: Alert, Other (dementia) Labs: CBC, BMP 12/26/17 07:22 12/26/17 07:22 Imaging - Results Cat Scan: Report Reviewed, Image Reviewed (Right wrist study limited by artifact from right hip prosthesis, no fracture, no colletion only soft tissue edema and OA changes) Problem List - Problems (1) Cellulitis of wrist Assessment/Plan: 87yo RHD female with right wrist cellulitis after trauma no clear break in skin , right shoulder is also involved in this process, possible right shoulder effusion on exam. no collection or fracture seen on imaging of the wrist ( limited study). Motion is severely limited on exam of RUE proximal in the extremity. This may represent a septic joint. Right arm elevation above the heart IV antibiotics cover skin yovani and MRSA adequate analgesia CT scan right arm from shoulder to hand Orthopedic evaluation no specific wound care will follow Code(s): L03.119 - CELLULITIS OF UNSPECIFIED PART OF LIMB (2) Positive blood culture Code(s): R78.81 - BACTEREMIA (3) UTI (lower urinary tract infection) Code(s): N39.0 - URINARY TRACT INFECTION, SITE NOT SPECIFIED (4) JASMIN (acute kidney injury) Code(s): N17.9 - ACUTE KIDNEY FAILURE, UNSPECIFIED (5) Abdominal distension Code(s): R14.0 - ABDOMINAL DISTENSION (GASEOUS) (6) Constipation Code(s): K59.00 - CONSTIPATION, UNSPECIFIED Qualifiers: Constipation type: unspecified constipation type Qualified Code(s): K59.00 - Constipation, unspecified (7) Osteoarthritis Code(s): M19.90 - UNSPECIFIED OSTEOARTHRITIS, UNSPECIFIED SITE Qualifiers: Osteoarthritis location: knee Osteoarthritis type: primary Laterality: bilateral Qualified Code(s): M17.0 - Bilateral primary osteoarthritis of knee
[2017-12-26] MEDS: POTASSIUM CHLORIDE 10 MEQ in SODIUM CHLORIDE 100 ML IVPB SCH ×2 (13:16→17:24)
[2017-12-26] MEDS ORDERED: POTASSIUM PHOSPHATE 16 MM in SODIUM CHLORIDE 250 ML IVPB ONE (14:00)
--- NOTE | 2017-12-26 17:33 | PN ---
Progress Note, Physician History of Present Illness: Noted to have erythema and swelling R hand Thinks she may have struck it against bedrail No reports of catheter-related phlebitis No fever/ chills Blood c/s, CT hand ordered Uric acid normal Denies hx gout - Current Medication List Current Medications: Active Medications Amlodipine Besylate (Norvasc -) 5 mg PO DAILY [facility] Last Admin: 12/26/17 09:00 Dose: 5 mg Aspirin (Ecotrin -) 81 mg PO DAILY [facility] Last Admin: 12/26/17 09:00 Dose: 81 mg Atorvastatin Calcium (Lipitor -) 40 mg PO HS [facility] Last Admin: 12/25/17 21:40 Dose: 40 mg Bisacodyl (Dulcolax -) 10 mg PO DAILY [facility] Last Admin: 12/26/17 09:00 Dose: 10 mg Heparin Sodium (Porcine) (Heparin -) 5,000 unit SQ Q8H-IV [facility] Last Admin: 12/26/17 09:00 Dose: 5,000 unit Sodium Chloride (Normal Saline -) 1,000 mls @ 83 mls/hr IV ASDIR [facility] Last Admin: 12/26/17 06:10 Dose: 83 mls/hr Potassium Phosphate 16 mm/ (Sodium Chloride) 255.3333 mls @ 62.5 mls/hr IVPB ONCE ONE Stop: 12/26/17 18:05 Lactobacillus Acidophilus (Bacid -) 1 tab PO DAILY [facility] Last Admin: 12/26/17 12:17 Dose: 1 tab Metoprolol Succinate (Toprol Xl -) 25 mg PO BID [facility] Last Admin: 12/26/17 09:00 Dose: 25 mg Montelukast Sodium (Singulair -) 10 mg PO HS [facility] Last Admin: 12/25/17 21:40 Dose: 10 mg [id number] Ethyl Esters (Lovaza -) 1 gm PO DAILY [facility] Last Admin: 12/26/17 09:00 Dose: 1 gm Pantoprazole Sodium (Protonix -) 40 mg PO DAILY [facility] Last Admin: 12/26/17 09:00 Dose: 40 mg Quinapril HCl (Accupril -) 20 mg PO DAILY [facility] Last Admin: 12/26/17 09:00 Dose: 20 mg Senna (Senna -) 2 tab PO HS [facility] Last Admin: 12/25/17 21:40 Dose: 2 tab Tamoxifen Citrate (Tamoxifen Citrate) 20 mg PO DAILY [facility] Last Admin: 12/26/17 09:00 Dose: 20 mg - Objective Vital Signs: Vital Signs Temperature 98.2 F 12/26/17 14:00 Pulse Rate 78 12/26/17 14:00 Respiratory Rate 20 12/26/17 14:00 Blood Pressure 103/52 12/26/17 14:00 O2 Sat by Pulse Oximetry (%) 98 12/26/17 09:00 Constitutional: Yes: No Distress Cardiovascular: Yes: Regular Rate and Rhythm, S1, S2 Respiratory: Yes: CTA Bilaterally Gastrointestinal: Yes: Normal Bowel Sounds, Soft Extremities: Yes: Other (R hand swelling / erythema base of thumb to dorsum of wrist) Labs: CBC, BMP 12/26/17 07:22 12/26/17 07:22 INR, PTT INR 1.00 (0.82-1.09) 12/20/17 03:35 Assessment/Plan Cellulitis R hand PCN allergy Await c/s, CT hand Continue vancomycin
[2017-12-26] MEDS: VANCOMYCIN 1,000 MG in DEXTROSE 5%-WATER - 250 ML IVPB SCH (18:03)
[2017-12-26] MEDS: SENNOSIDES 8.6MG TABLET (FP) PO SCH (21:29)
[2017-12-26] MEDS: MONTELUKAST NA 10 MG TABLET PO SCH (21:29)
[2017-12-26] MEDS: ATORVASTATIN CA 40 MG TABLET (FP) PO SCH (21:29)
[2017-12-27] MEDS: ACETAMINOPHEN 325 MG TABLET (FP) PO PRN
[2017-12-27] MEDS: VANCOMYCIN 1,000 MG in DEXTROSE 5%-WATER - 250 ML IVPB SCH ×2 (01:08→14:19)
[2017-12-27] MEDS: HEPARIN NA (PORCINE) 5,000 UNITS/ML 1ML VIAL SQ SCH ×3 (01:09→18:35)
[2017-12-27 07:49] LABS: BASO % 0.2 % (0-2.0); HEMATOCRIT 32.1 % (32.4-45.2); HEMOGLOBIN 10.7 GM/dL (10.7-15.3); LYMPH % 6.4 % (8-40); MCH 29.3 pg (25.7-33.7); MCHC 33.4 g/dl (32.0-36.0); MEAN CELL VOLUME 87.7 fl (80-96); MEAN PLT VOLUME 10.5 fl (7.5-11.1); MONO % 11.2 % (3.8-10.2); NEUT % 82.2 % (42.8-82.8); PLATELET COUNT 156 K/MM3 (134-434); RBC 3.66 M/mm3 (3.60-5.2); RDW 13.9 % (11.6-15.6); WHITE BLOOD COUNT 20.1 K/mm3 (4.0-10.0)
[2017-12-27 08:25] LABS: ANION GAP 11 (8-16); BLOOD UREA NITROGEN 9 mg/dL (7-18); CALCIUM 7.4 mg/dL (8.5-10.1); CHLORIDE 106 mmol/L (98-107); CO2 22 mmol/L (21-32); GLUCOSE,RANDOM 77 mg/dL (74-106); MAGNESIUM 1.9 mg/dL (1.8-2.4); SODIUM 139 mmol/L (136-145)
[2017-12-27 08:27] LABS: CREATININE 0.6 mg/dL (0.55-1.02); PHOSPHOROUS 2.9 mg/dL (2.5-4.9)
[2017-12-27 09:02] LABS: POTASSIUM 2.7 mmol/L (3.5-5.1)
[2017-12-27] MEDS ORDERED: PT OWN MED DRAWER 7, Y5N ONE ×2 (09:48→14:06)
[2017-12-27] MEDS: SODIUM CHLORIDE 1,000 ML IV SCH ×2 (09:54→23:00)
[2017-12-27] MEDS: BISACODYL 5 MG TABLET.DR (FP) PO SCH (09:55)
[2017-12-27] MEDS: OMEGA-3 ACID ETHYL ESTERS (FATTY-ACIDS) 1 GM CAPSULE (FP) PO SCH (09:56)
[2017-12-27] MEDS: amLODIPine BESYLATE 5 MG TABLET (FP) PO SCH (09:56)
[2017-12-27] MEDS: ASPIRIN COATED 81 MG TABLET.EC PO SCH (09:56)
[2017-12-27] MEDS: LACTOBACILLUS ACIDOPHILUS 1 CAP PO SCH (09:56)
[2017-12-27] MEDS: QUINAPRIL HCL 20 MG TABLET (FP) PO SCH (09:56)
[2017-12-27] MEDS: PANTOPRAZOLE 40 MG TABLET (FP) PO SCH (09:56)
[2017-12-27] MEDS: TAMOXIFEN CITRATE 10 MG TABLET PO SCH (09:56)
[2017-12-27] MEDS: metoPROLOL SUCCINATE 25 MG TAB.SR.24H (FP) PO SCH ×2 (09:56→22:21)
[2017-12-27] MEDS ORDERED: POTASSIUM CHLORIDE ORAL LIQUID 20 MEQ/15 ML PO ONE (11:15)
--- NOTE | 2017-12-27 11:20 | PN ---
Progress Note, Physician Chief Complaint: Ms Thibodeaux says her right hand is still swollen and painful, but also that her right shoulder is as well. No cp, sob, n/v. - Current Medication List Current Medications: Active Medications Acetaminophen (Tylenol -) 650 mg PO Q6H PRN PRN Reason: FEVER Last Admin: 12/27/17 00:00 Dose: 650 mg Amlodipine Besylate (Norvasc -) 5 mg PO DAILY [facility] Last Admin: 12/27/17 09:56 Dose: 5 mg Aspirin (Ecotrin -) 81 mg PO DAILY [facility] Last Admin: 12/27/17 09:56 Dose: 81 mg Atorvastatin Calcium (Lipitor -) 40 mg PO HS [facility] Last Admin: 12/26/17 21:29 Dose: 40 mg Bisacodyl (Dulcolax -) 10 mg PO DAILY [facility] Last Admin: 12/27/17 09:55 Dose: 10 mg Heparin Sodium (Porcine) (Heparin -) 5,000 unit SQ Q8H-IV [facility] Last Admin: 12/27/17 09:55 Dose: 5,000 unit Sodium Chloride (Normal Saline -) 1,000 mls @ 83 mls/hr IV ASDIR [facility] Last Admin: 12/27/17 09:54 Dose: 83 mls/hr Vancomycin HCl 1,000 mg/ (Dextrose) 250 mls @ 200 mls/hr IVPB BID@0130,1330 [facility] Last Admin: 12/27/17 01:08 Dose: 200 mls/hr Potassium Chloride 10 meq/ (Sodium Chloride) 105 mls @ 100 mls/hr IVPB Q60M [facility] Stop: 12/27/17 14:14 Lactobacillus Acidophilus (Bacid -) 1 tab PO DAILY [facility] Last Admin: 12/27/17 09:56 Dose: 1 tab Metoprolol Succinate (Toprol Xl -) 25 mg PO BID [facility] Last Admin: 12/27/17 09:56 Dose: 25 mg Montelukast Sodium (Singulair -) 10 mg PO HS [facility] Last Admin: 12/26/17 21:29 Dose: 10 mg Pkely-4-Xyxn Ethyl Esters (Lovaza -) 1 gm PO DAILY [facility] Last Admin: 12/27/17 09:56 Dose: 1 gm Pantoprazole Sodium (Protonix -) 40 mg PO DAILY [facility] Last Admin: 12/27/17 09:56 Dose: 40 mg Quinapril HCl (Accupril -) 20 mg PO DAILY [facility] Last Admin: 12/27/17 09:56 Dose: 20 mg Senna (Senna -) 2 tab PO HS [facility] Last Admin: 12/26/17 21:29 Dose: 2 tab Tamoxifen Citrate (Tamoxifen Citrate) 20 mg PO DAILY [facility] Last Admin: 12/27/17 09:56 Dose: 20 mg - Objective Vital Signs: Vital Signs Temperature 36.3 C L 12/27/17 05:56 Pulse Rate 77 12/27/17 05:56 Respiratory Rate 18 12/27/17 05:56 Blood Pressure 117/59 12/27/17 05:56 O2 Sat by Pulse Oximetry (%) 98 12/26/17 21:00 Constitutional: Yes: Well Nourished, No Distress, Calm Cardiovascular: Yes: Regular Rate and Rhythm. No: Gallop, Murmur, Rub Respiratory: Yes: Regular, CTA Bilaterally. No: Rales, Rhonchi, Wheezes Gastrointestinal: Yes: Normal Bowel Sounds, Soft, Distention. No: Tenderness Extremities: Yes: Erythema (R hand) Edema: RUE: 1+ (R hand/shoulder) Labs: CBC, BMP 12/27/17 06:40 12/27/17 06:40 INR, PTT INR 1.00 (0.82-1.09) 12/20/17 03:35 Problem List - Problems (1) Fecal impaction Code(s): K56.41 - FECAL IMPACTION (2) Acute urinary retention Code(s): R33.8 - OTHER RETENTION OF URINE (3) SIRS (systemic inflammatory response syndrome) Code(s): R65.10 - SIRS OF NON-INFECTIOUS ORIGIN W/O ACUTE ORGAN DYSFUNCTION (4) CAD (coronary artery disease) Code(s): I25.10 - ATHSCL HEART DISEASE OF [place] CORONARY ARTERY W/O ANG PCTRS Qualifiers: Coronary Disease-Associated Artery/Lesion type: [place] artery [place] vs. transplanted heart: [place] heart Associated angina: without angina Qualified Code(s): I25.10 - Atherosclerotic heart disease of [place] coronary artery without angina pectoris (5) Constipation Code(s): K59.00 - CONSTIPATION, UNSPECIFIED Qualifiers: Constipation type: unspecified constipation type Qualified Code(s): K59.00 - Constipation, unspecified (6) HLD (hyperlipidemia) Code(s): E78.5 - HYPERLIPIDEMIA, UNSPECIFIED Qualifiers: Hyperlipidemia type: unspecified Qualified Code(s): E78.5 - Hyperlipidemia , unspecified (7) HTN (hypertension) Code(s): I10 - ESSENTIAL (PRIMARY) HYPERTENSION Qualifiers: Hypertension type: essential hypertension Qualified Code(s): I10 - Essential (primary) hypertension Assessment/Plan (1) Fecal impaction Assessment/Plan: -having bowel movements and improved bowel sounds -continue current regimen -may need to add some miralax to keep stool from becoming too hard Code(s): K56.41 - FECAL IMPACTION (2) Acute urinary retention Assessment/Plan: -appreciate urology assistance -justice placed -will need to be discharged with justice Code(s): R33.8 - OTHER RETENTION OF URINE (3) SIRS (systemic inflammatory response syndrome) Assessment/Plan: -case d/w ID -started on vancomycin -obtain shoulder MRI and ortho consult for possible R shoulder effusion Code(s): R65.10 - SIRS OF NON-INFECTIOUS ORIGIN W/O ACUTE ORGAN DYSFUNCTION (4) CAD (coronary artery disease) Assessment/Plan: -quiescent -continue home regimen Code(s): I25.10 - ATHSCL HEART DISEASE OF [place] CORONARY ARTERY W/O ANG PCTRS Qualifiers: Coronary Disease-Associated Artery/Lesion type: [place] artery [place] vs. transplanted heart: [place] heart Associated angina: without angina Qualified Code(s): I25.10 - Atherosclerotic heart disease of [place] coronary artery without angina pectoris (5) Constipation Assessment/Plan: -improving Code(s): K59.00 - CONSTIPATION, UNSPECIFIED (6) HLD (hyperlipidemia) Assessment/Plan: -continue statin Code(s): E78.5 - HYPERLIPIDEMIA, UNSPECIFIED Qualifiers: Hyperlipidemia type: unspecified Qualified Code(s): E78.5 - Hyperlipidemia , unspecified (7) HTN (hypertension) Assessment/Plan: -controlled -continue toprol xl and norvasc Code(s): I10 - ESSENTIAL (PRIMARY) HYPERTENSION Qualifiers: Hypertension type: essential hypertension Qualified Code(s): I10 - Essential (primary) hypertension (8) Cellulitis with possible shoulder effusion -blood cultures currently NGTD -antibiotics/MRI/ortho as above (9) Hypokalemia -replete -recheck
--- NOTE | 2017-12-27 11:35 | PN ---
Progress Note (short form) - Note Progress Note: continues with left hand pain unable to lift left shoulder due to pain febrile to 103 overnight no cough no abdominal pain Vital Signs Period Temp Pulse Resp BP Sys/Canas Pulse Ox Last 24 Hr 97.4 F-103.1 F 77-93 18-89 103-144/52-76 98 cor-rrr lungs clear abd soft,nt justice ext swelling left hand , ?effusion, no erythema left shoulder CBC, BMP 12/27/17 06:40 12/27/17 06:40 Microbiology 12/21/17 15:30 Blood - Peripheral Venous Blood Culture - Final NO GROWTH AFTER 5 DAYS INCUBATION 12/21/17 17:00 Blood - Peripheral Venous Blood Culture - Final Staphylococcus Epidermidis a/p fevers/leukocytosis MRI shoulder ?septic arthritis ortho eval, possible arthrocentesis UA and urine culture continue vancomycin add empiric cefepime d/w Dr Huddleston d/w Dr Ash
[2017-12-27] MEDS: POTASSIUM CHLORIDE 10 MEQ in SODIUM CHLORIDE 100 ML IVPB SCH ×3 (12:25→14:19)
[2017-12-27] MEDS: CEFEPIME HCL/D5W 1 GM/50 ML PREMIX BAG IVPB SCH ×2 (14:47→18:35)
[2017-12-27 17:12] LABS: ANION GAP 13 (8-16); BLOOD UREA NITROGEN 12 mg/dL (7-18); CALCIUM 7.3 mg/dL (8.5-10.1); CHLORIDE 107 mmol/L (98-107); CO2 20 mmol/L (21-32); CREATININE 0.7 mg/dL (0.55-1.02); GLUCOSE,RANDOM 158 mg/dL (74-106); SODIUM 140 mmol/L (136-145)
--- NOTE | 2017-12-27 17:57 | PN ---
Progress Note (short form) - Note Progress Note: Pt seen and examined. She is an 87 year old F pt with c/o right, dorsal hand and wrist swelling and pain since Monday, 3 days ago. She denies any recent history of trauma, accident, bug or animal bite, or recent infection. PE Right shoulder - is very mildly swollen. No erythema. No signs of cellulitis. Decreased ROM bc of pain, but can move. Main finding is tenderness over the anterior lateral aspect of the shoulder. Right wrist and hand - have an area of dorsal cellulitis, erythema, + tender, + warm/hot. Mild swelling dorsally. No signs of infected tendon sheaths. NVI Decreased ROM bc of pain and swelling. Xrays None done Ct Scan Right wrist - show no abnormalities. No abscess. No signs of infection /no fluid collection. Imp 87 yo F with a 3 day h/o right shoulder and dorsal wrist/hand pain, looks like superficial cellulitis. Rec No surgery necessary or possible at this time. Elevation and IV antibiotics as per ID. Will follow, the infection may manifest itself differently.
[2017-12-27 18:45] LABS: URINE APPEARANCE TURBID; URINE BILIRUBIN NEGATIVE (<2.0 mg/dL); URINE BLOOD 1+ (NEGATIVE); URINE COLOR AMBER; URINE GLUCOSE (UA) NEGATIVE (NEGATIVE); URINE KETONE NEGATIVE (NEGATIVE); URINE LEUK ESTERASE NEGATIVE (NEGATIVE); URINE NITRITE NEGATIVE (NEGATIVE); URINE UROBILINOGEN NEGATIVE mg/dL (0.2-1.0)
[2017-12-27 18:51] LABS: URINE PROTEIN 2+ (NEGATIVE)
[2017-12-27 19:14] LABS: EPI CELLS RARE /HPF (FEW); URINE BACTERIA RARE /hpf (NONE SEEN); URINE HYALINE CAST 9 /lpf; URINE MUCUS RARE
--- NOTE | 2017-12-27 21:46 | PN ---
Progress Note (short form) - Note Progress Note: Pt seen briefly in bed. Tolerating diet. Having BMs - had large one yesterday pm per nursing. Abd distention a little less - per pt "it's getting better." R wrist/hand still very painful, trying to elevate but is not always up. Vital Signs Period Temp Pulse Resp BP Sys/Canas Pulse Ox Last 24 Hr 97.4 F-103.1 F 71-92 18-20 110-142/59-72 99-99 had rectal temp PE: alert, somewhat confused (baseline) R hand and wrist swollen, warm, painful, tender. Minimally elevated - helped elevate higher on pillow. R shoulder also somewhat swollen, though not reddened , somewhat painful, limited ROM secondary to pain. abd soft, somewhat distended, nontender rectal deferred Valdovinos in place, was changed earlier to obtain culture but reportedly with minimal output - small amount of yellow urine in tubing CBC, BMP 12/27/17 06:40 12/27/17 16:00 Microbiology 12/26/17 12:35 Blood Culture - Preliminary Blood - Peripheral Venous NO GROWTH OBTAINED AFTER 24 HOURS, INCUBATION TO CONTINUE FOR 4 DAYS. 12/26/17 12:25 Blood Culture - Preliminary Blood - Peripheral Venous NO GROWTH OBTAINED AFTER 24 HOURS, INCUBATION TO CONTINUE FOR 4 DAYS. Urine Test Results Urine Color Bea 12/27/17 17:00 Urine Appearance Turbid 12/27/17 17:00 Urine pH 5.0 (5.0-8.0) 12/27/17 17:00 Ur Specific [place] 1.034 (1.001-1.035) 12/27/17 17:00 Urine Protein 2+ (NEGATIVE) H 12/27/17 17:00 Urine Glucose (UA) Negative (NEGATIVE) 12/27/17 17:00 Urine Ketones Negative (NEGATIVE) 12/27/17 17:00 Urine Blood 1+ (NEGATIVE) H 12/27/17 17:00 Urine Nitrite Negative (NEGATIVE) 12/27/17 17:00 Urine Bilirubin Negative (<2.0 mg/dL) 12/27/17 17:00 Ur Leukocyte Esterase Negative (NEGATIVE) 12/27/17 17:00 Ur Epithelial Cells Rare /HPF (FEW) 12/27/17 17:00 Urine Bacteria Rare /hpf (NONE SEEN) 12/27/17 17:00 Urine Mucus Rare 12/27/17 17:00 A/P: fecal impaction seems resolved - having regular BMs on regimen of senna and dulcolax will continue to monitor Valdovinos in place for urinary retention and to allow bladder to regain tone decreased output - ?etiology urine cx pending, blood cultures from both arms no growth so far R wrist/hand with cellulitis, R shoulder swollen as well - etiology unclear on antibiotics per ID seen by hand and ortho MRI of RUE pending Problem List - Problems (1) Fecal impaction Code(s): K56.41 - FECAL IMPACTION (2) Constipation Code(s): K59.00 - CONSTIPATION, UNSPECIFIED Qualifiers: Constipation type: unspecified constipation type Qualified Code(s): K59.00 - Constipation, unspecified (3) Acute urinary retention Code(s): R33.8 - OTHER RETENTION OF URINE (4) JASMIN (acute kidney injury) Code(s): N17.9 - ACUTE KIDNEY FAILURE, UNSPECIFIED (5) Positive blood culture Code(s): R78.81 - BACTEREMIA (6) Cellulitis of wrist Code(s): L03.119 - CELLULITIS OF UNSPECIFIED PART OF LIMB (7) Pain and swelling of right shoulder Code(s): M25.511 - PAIN IN RIGHT SHOULDER; M25.411 - EFFUSION, RIGHT SHOULDER
[2017-12-27] MEDS: ATORVASTATIN CA 40 MG TABLET (FP) PO SCH (22:20)
[2017-12-27] MEDS: SENNOSIDES 8.6MG TABLET (FP) PO SCH (22:21)
[2017-12-27] MEDS: MONTELUKAST NA 10 MG TABLET PO SCH (22:21)
[2017-12-28] MEDS ORDERED: PT OWN MED DRAWER 7, Y5N ONE ×3 (01:46→12:26)
[2017-12-28] MEDS: CEFEPIME HCL/D5W 1 GM/50 ML PREMIX BAG IVPB SCH ×3 (01:50→18:51)
[2017-12-28] MEDS: HEPARIN NA (PORCINE) 5,000 UNITS/ML 1ML VIAL SQ SCH ×3 (01:50→18:51)
[2017-12-28] MEDS: VANCOMYCIN 1,000 MG in DEXTROSE 5%-WATER - 250 ML IVPB SCH ×2 (02:20→13:50)
--- NOTE | 2017-12-28 09:07 | PN ---
Progress Note (short form) - Note Progress Note: Ortho Pt seen and examined- right hand cellulitis PE- right hand/wrist- + swelling, +erythema, decr r om nvi a/p Abx as per ID strict elevation ROM exercises warm soaks will follow d/w Dr. Carrion
[2017-12-28 09:21] LABS: BASO % 0.3 % (0-2.0); EOS % 0.6 % (0-4.5); HEMATOCRIT 27.6 % (32.4-45.2); HEMOGLOBIN 9.4 GM/dL (10.7-15.3); LYMPH % 7.7 % (8-40); MCH 29.6 pg (25.7-33.7); MCHC 34.2 g/dl (32.0-36.0); MEAN CELL VOLUME 86.7 fl (80-96); MEAN PLT VOLUME 10.8 fl (7.5-11.1); MONO % 8.2 % (3.8-10.2); NEUT % 83.2 % (42.8-82.8); PLATELET COUNT 162 K/MM3 (134-434); RBC 3.18 M/mm3 (3.60-5.2); WHITE BLOOD COUNT 13.7 K/mm3 (4.0-10.0)
[2017-12-28 09:38] LABS: CHLORIDE 108 mmol/L (98-107); POTASSIUM 3.1 mmol/L (3.5-5.1); SODIUM 139 mmol/L (136-145)
[2017-12-28 09:43] LABS: ANION GAP 8 (8-16); BLOOD UREA NITROGEN 11 mg/dL (7-18); CALCIUM 7.1 mg/dL (8.5-10.1); CO2 23 mmol/L (21-32); CREATININE 0.6 mg/dL (0.55-1.02); GLUCOSE,RANDOM 79 mg/dL (74-106); MAGNESIUM 1.5 mg/dL (1.8-2.4); PHOSPHOROUS 2.3 mg/dL (2.5-4.9)
[2017-12-28] MEDS: ASPIRIN COATED 81 MG TABLET.EC PO SCH (10:05)
[2017-12-28] MEDS: LACTOBACILLUS ACIDOPHILUS 1 CAP PO SCH (10:05)
[2017-12-28] MEDS: TAMOXIFEN CITRATE 10 MG TABLET PO SCH (10:05)
[2017-12-28] MEDS: amLODIPine BESYLATE 5 MG TABLET (FP) PO SCH (10:05)
[2017-12-28] MEDS: metoPROLOL SUCCINATE 25 MG TAB.SR.24H (FP) PO SCH ×2 (10:05→22:04)
[2017-12-28] MEDS: OMEGA-3 ACID ETHYL ESTERS (FATTY-ACIDS) 1 GM CAPSULE (FP) PO SCH (10:05)
[2017-12-28] MEDS: QUINAPRIL HCL 20 MG TABLET (FP) PO SCH (10:05)
[2017-12-28] MEDS: PANTOPRAZOLE 40 MG TABLET (FP) PO SCH (10:05)
--- NOTE | 2017-12-28 10:56 | PN ---
Progress Note (short form) - Note Progress Note: Pt seen briefly up in chair. Tolerating diet. Having BMs - had more liquid one this am per nursing. Abd distention still present, but soft. R wrist/hand still very painful, elevating, swelling down and erythema slightly improved. R shoulder with mild swelling, some tenderness anteriorly Vital Signs Period Temp Pulse Resp BP Sys/Canas Pulse Ox Last 24 Hr 97.4 F-99.2 F 71-78 18-20 114-140/64-68 99-99 PE: alert, somewhat confused (baseline) R hand and wrist less swollen, little less pink, still warm, painful, tender. Elevated on pillow. R shoulder also somewhat swollen, though not reddened, somewhat tender anteriorly, some limited ROM secondary to pain. abd soft, somewhat distended, nontender rectal deferred Valdovinos in place CBC,CMP WBC 13.7 K/mm3 (4.0-10.0) H D 12/28/17 07:45 RBC 3.18 M/mm3 (3.60-5.2) L 12/28/17 07:45 Hgb 9.4 GM/dL (10.7-15.3) L D 12/28/17 07:45 Hct 27.6 % (32.4-45.2) L 12/28/17 07:45 MCV 86.7 fl (80-96) 12/28/17 07:45 MCH 29.6 pg (25.7-33.7) 12/28/17 07:45 MCHC 34.2 g/dl (32.0-36.0) 12/28/17 07:45 RDW 14.0 % (11.6-15.6) 12/28/17 07:45 Plt Count 162 K/MM3 (134-434) 12/28/17 07:45 MPV 10.8 fl (7.5-11.1) 12/28/17 07:45 Total Counted 100 12/20/17 03:35 Neutrophils % 83.2 % (42.8-82.8) H 12/28/17 07:45 Neutrophils % (Manual) 91.0 % (42.8-82.8) H* 12/20/17 03:35 Band Neutrophils % 2.0 % 12/20/17 03:35 Lymphocytes % 7.7 % (8-40) L D 12/28/17 07:45 Lymphocytes % (Manual) 6.0 % (8-40) L 12/20/17 03:35 Monocytes % 8.2 % (3.8-10.2) 12/28/17 07:45 Monocytes % (Manual) 1 % (3.8-10.2) L 12/20/17 03:35 Eosinophils % 0.6 % (0-4.5) D 12/28/17 07:45 Eosinophils % (Manual) 0.0 % (0-4.5) 12/20/17 03:35 Basophils % 0.3 % (0-2.0) 12/28/17 07:45 Basophils % (Manual) 0.0 % (0-2.0) 12/20/17 03:35 Sodium 139 mmol/L (136-145) 12/28/17 07:45 Potassium 3.1 mmol/L (3.5-5.1) L 12/28/17 07:45 Chloride 108 mmol/L (98-107) H 12/28/17 07:45 Carbon Dioxide 23 mmol/L (21-32) 12/28/17 07:45 Anion Gap 8 (8-16) 12/28/17 07:45 BUN 11 mg/dL (7-18) 12/28/17 07:45 Creatinine 0.6 mg/dL (0.55-1.02) 12/28/17 07:45 Creat Clearance w eGFR > 60 (>60) 12/25/17 07:19 Random Glucose 79 mg/dL (74-106) 12/28/17 07:45 Calcium 7.1 mg/dL (8.5-10.1) L 12/28/17 07:45 Phosphorus 2.3 mg/dL (2.5-4.9) L 12/28/17 07:45 Magnesium 1.5 mg/dL (1.8-2.4) L 12/28/17 07:45 A/P: fecal impaction seems resolved - having regular BMs on regimen of senna and dulcolax will continue to monitor Valdovinos in place for urinary retention and to allow bladder to regain tone output 1100 yesterday, 500 last shift to this am urine cx pending, blood cultures from both arms no growth so far R wrist/hand with cellulitis, R shoulder swollen as well - etiology unclear on antibiotics per ID seen by hand and ortho MRI of RUE pending Problem List - Problems (1) Fecal impaction Code(s): K56.41 - FECAL IMPACTION (2) Constipation Code(s): K59.00 - CONSTIPATION, UNSPECIFIED Qualifiers: Constipation type: unspecified constipation type Qualified Code(s): K59.00 - Constipation, unspecified (3) Acute urinary retention Code(s): R33.8 - OTHER RETENTION OF URINE (4) JASMIN (acute kidney injury) Code(s): N17.9 - ACUTE KIDNEY FAILURE, UNSPECIFIED (5) Positive blood culture Code(s): R78.81 - BACTEREMIA (6) Cellulitis of wrist Code(s): L03.119 - CELLULITIS OF UNSPECIFIED PART OF LIMB (7) Pain and swelling of right shoulder Code(s): M25.511 - PAIN IN RIGHT SHOULDER; M25.411 - EFFUSION, RIGHT SHOULDER
[2017-12-28] MEDS ORDERED: MAGNESIUM SULF 50% (8.12 MEQ/2 ML-1 GM VIAL) IVPB ONE (11:28)
--- NOTE | 2017-12-28 11:49 | PN ---
Progress Note (short form) - Note Progress Note: ID Vancomycin and Cefepime T max [address] Carrion Selected Entries 12/27/17 12/27/17 20:03 20:09 Temperature 99.2 F Pulse Rate 73 Respiratory 18 Rate Blood Pressure 140/66 Erythema swelling dorsum of hand with discrete white macule no pus Significant deformity Microbiology 12/21/17 17:00 Blood - Peripheral Venous Blood Culture - Final Staphylococcus Epidermidis 12/26/17 12:35 Blood - Peripheral Venous Blood Culture - Preliminary NO GROWTH OBTAINED AFTER 24 HOURS, INCUBATION TO CONTINUE FOR 4 DAYS. 12/26/17 12:25 Blood - Peripheral Venous Blood Culture - Preliminary NO GROWTH OBTAINED AFTER 24 HOURS, INCUBATION TO CONTINUE FOR 4 DAYS. Laboratory Tests 12/26/17 12/28/17 12/28/17 07:22 07:45 07:45 WBC 13.7 H D Hgb 9.4 L D Hct 27.6 L Plt Count 162 BUN 11 Creatinine 0.6 Uric Acid 3.7 Assessment Cellulitis of the hand/wrist empiric antibiotics Plan Esr CRP Vanco level Latex
--- NOTE | 2017-12-28 11:53 | PN ---
Progress Note, Physician Chief Complaint: Ms Thibodeaux says her hand is feeling better today. Says it is less painful and she is moving it easier. Last night had watery stool. No cp, sob, n/v. - Current Medication List Current Medications: Active Medications Acetaminophen (Tylenol -) 650 mg PO Q6H PRN PRN Reason: FEVER Last Admin: 12/27/17 00:00 Dose: 650 mg Amlodipine Besylate (Norvasc -) 5 mg PO DAILY [facility] Last Admin: 12/28/17 10:05 Dose: 5 mg Aspirin (Ecotrin -) 81 mg PO DAILY [facility] Last Admin: 12/28/17 10:05 Dose: 81 mg Atorvastatin Calcium (Lipitor -) 40 mg PO HS [facility] Last Admin: 12/27/17 22:20 Dose: 40 mg Bisacodyl (Dulcolax -) 10 mg PO DAILY [facility] Last Admin: 12/27/17 09:55 Dose: 10 mg Cefepime HCl (Maxipime 1 Gm Premix Ivpb) 1 gm IVPB Q8H-IV [facility] PRN Reason: Protocol Last Admin: 12/28/17 10:05 Dose: 1 gm Heparin Sodium (Porcine) (Heparin -) 5,000 unit SQ Q8H-IV [facility] Last Admin: 12/28/17 10:05 Dose: 5,000 unit Sodium Chloride (Normal Saline -) 1,000 mls @ 83 mls/hr IV ASDIR [facility] Last Admin: 12/27/17 23:00 Dose: 83 mls/hr Vancomycin HCl 1,000 mg/ (Dextrose) 250 mls @ 200 mls/hr IVPB BID@0130,1330 [facility] Last Admin: 12/28/17 02:20 Dose: 200 mls/hr MAGNESIUM SULFATE IN WATER (Magnesium Sulf 2 G/50 Ml Bag) 2 gm in 50 mls @ 50 mls/hr IVPB ONCE ONE Stop: 12/28/17 13:14 Lactobacillus Acidophilus (Bacid -) 1 tab PO DAILY [facility] Last Admin: 12/28/17 10:05 Dose: 1 tab Magnesium Oxide (Mag-Ox -) 400 mg PO BID [facility] Metoprolol Succinate (Toprol Xl -) 25 mg PO BID [facility] Last Admin: 12/28/17 10:05 Dose: 25 mg Montelukast Sodium (Singulair -) 10 mg PO HS [facility] Last Admin: 12/27/17 22:21 Dose: 10 mg [id number]-[id number] Ethyl Esters (Lovaza -) 1 gm PO DAILY [facility] Last Admin: 12/28/17 10:05 Dose: 1 gm Pantoprazole Sodium (Protonix -) 40 mg PO DAILY [facility] Last Admin: 12/28/17 10:05 Dose: 40 mg Potassium Chloride (Potassium Chloride Oral Liquid) 40 meq PO ONCE ONE Stop: 12/28/17 12:01 Potassium Chloride (K-Dur -) 20 meq PO DAILY [facility] Potassium Phos/Sodium Phos (Phos-Nak Packet -) 1 packet PO BID [facility] Stop: 12/29/17 22:01 Quinapril HCl (Accupril -) 20 mg PO DAILY [facility] Last Admin: 12/28/17 10:05 Dose: 20 mg Senna (Senna -) 2 tab PO [facility] Last Admin: 12/27/17 22:21 Dose: 2 tab Tamoxifen Citrate (Tamoxifen Citrate) 20 mg PO DAILY [facility] Last Admin: 12/28/17 10:05 Dose: 20 mg - Objective Vital Signs: Vital Signs Temperature 37.1 C 12/28/17 10:00 Pulse Rate 78 12/28/17 10:00 Respiratory Rate 18 12/28/17 10:00 Blood Pressure 127/68 12/28/17 10:00 O2 Sat by Pulse Oximetry (%) 99 12/27/17 21:00 Constitutional: Yes: Well Nourished, No Distress, Calm Cardiovascular: Yes: Regular Rate and Rhythm. No: Gallop, Murmur, Rub Respiratory: Yes: Regular, CTA Bilaterally. No: Rales, Rhonchi, Wheezes Gastrointestinal: Yes: Normal Bowel Sounds, Soft, Distention. No: Tenderness Extremities: Yes: Erythema (R hand, improved) Edema: RUE: Trace (hand/shoulder: better today) Labs: CBC, BMP 12/28/17 07:45 12/28/17 07:45 INR, PTT INR 1.00 (0.82-1.09) 12/20/17 03:35 Problem List - Problems (1) Fecal impaction Code(s): K56.41 - FECAL IMPACTION (2) Acute urinary retention Code(s): R33.8 - OTHER RETENTION OF URINE (3) CAD (coronary artery disease) Code(s): I25.10 - ATHSCL HEART DISEASE OF [place] CORONARY ARTERY W/O ANG PCTRS Qualifiers: Coronary Disease-Associated Artery/Lesion type: [place] artery [place] vs. transplanted heart: [place] heart Associated angina: without angina Qualified Code(s): I25.10 - Atherosclerotic heart disease of [place] coronary artery without angina pectoris (4) Constipation Code(s): K59.00 - CONSTIPATION, UNSPECIFIED Qualifiers: Constipation type: unspecified constipation type Qualified Code(s): K59.00 - Constipation, unspecified (5) HLD (hyperlipidemia) Code(s): E78.5 - HYPERLIPIDEMIA, UNSPECIFIED Qualifiers: Hyperlipidemia type: unspecified Qualified Code(s): E78.5 - Hyperlipidemia , unspecified (6) HTN (hypertension) Code(s): I10 - ESSENTIAL (PRIMARY) HYPERTENSION Qualifiers: Hypertension type: essential hypertension Qualified Code(s): I10 - Essential (primary) hypertension (7) Sepsis Code(s): A41.9 - SEPSIS, UNSPECIFIED ORGANISM Assessment/Plan (1) Fecal impaction Assessment/Plan: -with loose stool today -? secondary to antibiotics -monitor, may need x-ray to evaluate if impaction has recurred Code(s): K56.41 - FECAL IMPACTION (2) Acute urinary retention Assessment/Plan: -appreciate urology assistance -justice placed -will need to be discharged with justice Code(s): R33.8 - OTHER RETENTION OF URINE (3) Sepsis Assessment/Plan: -case d/w ID -continue vancomycin -MRI pending, appreciate ortho assistance Code(s): (4) CAD (coronary artery disease) Assessment/Plan: -quiescent -continue home regimen Code(s): I25.10 - ATHSCL HEART DISEASE OF [place] CORONARY ARTERY W/O ANG PCTRS Qualifiers: Coronary Disease-Associated Artery/Lesion type: [place] artery [place] vs. transplanted heart: [place] heart Associated angina: without angina Qualified Code(s): I25.10 - Atherosclerotic heart disease of [place] coronary artery without angina pectoris (5) Constipation Assessment/Plan: -improving Code(s): K59.00 - CONSTIPATION, UNSPECIFIED (6) HLD (hyperlipidemia) Assessment/Plan: -continue statin Code(s): E78.5 - HYPERLIPIDEMIA, UNSPECIFIED Qualifiers: Hyperlipidemia type: unspecified Qualified Code(s): E78.5 - Hyperlipidemia , unspecified (7) HTN (hypertension) Assessment/Plan: -controlled -continue toprol xl and norvasc Code(s): I10 - ESSENTIAL (PRIMARY) HYPERTENSION Qualifiers: Hypertension type: essential hypertension Qualified Code(s): I10 - Essential (primary) hypertension (8) Cellulitis with possible shoulder effusion -blood cultures currently NGTD -antibiotics/MRI/ortho as above (9) Hypokalemia/magnesemia/phosphatemia -replete today -recheck in am
[2017-12-28] MEDS ORDERED: POTASSIUM CHLORIDE ORAL LIQUID 20 MEQ/15 ML PO ONE (12:00)
[2017-12-28] MEDS ORDERED: MAGNESIUM SULFATE IN WATER 2 GM/50 ML IVPB IVPB ONE (12:15)
[2017-12-28] MEDS: MAGNESIUM OXIDE 400 MG TABLET (FP) PO SCH ×2 (12:34→22:04)
[2017-12-28] MEDS: NAPH,MB-DB/K PH,MBDB POWDER PACKET PO SCH ×2 (12:35→22:05)
[2017-12-28] MEDS: BISACODYL 5 MG TABLET.DR (FP) PO SCH (12:55)
[2017-12-28] MEDS: SODIUM CHLORIDE 1,000 ML IV SCH (18:39)
[2017-12-28] MEDS: SENNOSIDES 8.6MG TABLET (FP) PO SCH (22:04)
[2017-12-28] MEDS: MONTELUKAST NA 10 MG TABLET PO SCH (22:04)
[2017-12-28] MEDS: ATORVASTATIN CA 40 MG TABLET (FP) PO SCH (22:04)
[2017-12-29] MEDS: VANCOMYCIN 1,000 MG in DEXTROSE 5%-WATER - 250 ML IVPB SCH ×2 (02:00→17:03)
[2017-12-29] MEDS ORDERED: PT OWN MED DRAWER 7, Y5N ONE (02:31)
[2017-12-29] MEDS: HEPARIN NA (PORCINE) 5,000 UNITS/ML 1ML VIAL SQ SCH ×3 (02:40→18:21)
[2017-12-29] MEDS: CEFEPIME HCL/D5W 1 GM/50 ML PREMIX BAG IVPB SCH ×3 (02:40→18:21)
[2017-12-29 08:47] LABS: BASO % 0.4 % (0-2.0); EOS % 0.8 % (0-4.5); HEMATOCRIT 30.9 % (32.4-45.2); HEMOGLOBIN 10.5 GM/dL (10.7-15.3); LYMPH % 8.9 % (8-40); MCH 29.8 pg (25.7-33.7); MCHC 33.9 g/dl (32.0-36.0); MEAN CELL VOLUME 88.1 fl (80-96); MONO % 7.1 % (3.8-10.2); NEUT % 82.8 % (42.8-82.8); PLATELET COUNT 190 K/MM3 (134-434); RBC 3.51 M/mm3 (3.60-5.2); RDW 14.3 % (11.6-15.6); WHITE BLOOD COUNT 10.4 K/mm3 (4.0-10.0)
[2017-12-29 09:16] LABS: ANION GAP 9 (8-16); BLOOD UREA NITROGEN 9 mg/dL (7-18); CALCIUM 7.6 mg/dL (8.5-10.1); CHLORIDE 108 mmol/L (98-107); CO2 24 mmol/L (21-32); GLUCOSE,RANDOM 88 mg/dL (74-106); POTASSIUM 3.2 mmol/L (3.5-5.1); SODIUM 141 mmol/L (136-145)
[2017-12-29 09:18] LABS: CREATININE 0.6 mg/dL (0.55-1.02); PHOSPHOROUS 2.5 mg/dL (2.5-4.9)
--- NOTE | 2017-12-29 09:40 | PN ---
Progress Note, Physician Chief Complaint: right wrist cellulitis History of Present Illness: 87 yo RHD female PMH dementia, HTN, CAD, diverticulosis, and contipation being treated for fecal impaction and acute urinary retention. This is now resoling with bowel regimen adjustments and justice catheterization. She reports no abdominal pain now, is somewhat confused. I am unclear if there is a preceding trauma to her right wrist which was noticed to be red and swollen. She may have bumped it on the bed rail. The focus is over the base of the right thumb progressing dorsally over the right wrist. In the past 2 - 3 days of worsening redness, swelling, pain, and declining mobility with the right arm from the shoulder and distal. We were asked to assess. - Current Medication List Current Medications: Active Medications Acetaminophen (Tylenol -) 650 mg PO Q6H PRN PRN Reason: FEVER Last Admin: 12/27/17 00:00 Dose: 650 mg Amlodipine Besylate (Norvasc -) 5 mg PO DAILY [facility] Last Admin: 12/28/17 10:05 Dose: 5 mg Aspirin (Ecotrin -) 81 mg PO DAILY [facility] Last Admin: 12/28/17 10:05 Dose: 81 mg Atorvastatin Calcium (Lipitor -) 40 mg PO HS [facility] Last Admin: 12/28/17 22:04 Dose: 40 mg Bisacodyl (Dulcolax -) 10 mg PO DAILY [facility] Last Admin: 12/28/17 12:55 Dose: 10 mg Cefepime HCl (Maxipime 1 Gm Premix Ivpb) 1 gm IVPB Q8H-IV [facility] PRN Reason: Protocol Last Admin: 12/29/17 02:40 Dose: 1 gm Heparin Sodium (Porcine) (Heparin -) 5,000 unit SQ Q8H-IV [facility] Last Admin: 12/29/17 02:40 Dose: 5,000 unit Sodium Chloride (Normal Saline -) 1,000 mls @ 83 mls/hr IV ASDIR [facility] Last Admin: 12/28/17 18:39 Dose: 83 mls/hr Vancomycin HCl 1,000 mg/ (Dextrose) 250 mls @ 200 mls/hr IVPB BID@0130,1330 [facility] Last Admin: 12/29/17 02:00 Dose: 200 mls/hr Lactobacillus Acidophilus (Bacid -) 1 tab PO DAILY [facility] Last Admin: 12/28/17 10:05 Dose: 1 tab Magnesium Oxide (Mag-Ox -) 400 mg PO BID [facility] Last Admin: 12/28/17 22:04 Dose: 400 mg Metoprolol Succinate (Toprol Xl -) 25 mg PO BID [facility] Last Admin: 12/28/17 22:04 Dose: 25 mg Montelukast Sodium (Singulair -) 10 mg PO HS [facility] Last Admin: 12/28/17 22:04 Dose: 10 mg [id number]-7-Rpbz Ethyl Esters (Lovaza -) 1 gm PO DAILY [facility] Last Admin: 12/28/17 10:05 Dose: 1 gm Pantoprazole Sodium (Protonix -) 40 mg PO DAILY [facility] Last Admin: 12/28/17 10:05 Dose: 40 mg Potassium Chloride (K-Dur -) 20 meq PO DAILY [facility] Potassium Phos/Sodium Phos (Phos-Nak Packet -) 1 packet PO BID [facility] Stop: 12/29/17 22:01 Last Admin: 12/28/17 22:05 Dose: 1 packet Quinapril HCl (Accupril -) 20 mg PO DAILY [facility] Last Admin: 12/28/17 10:05 Dose: 20 mg Senna (Senna -) 2 tab PO [facility] Last Admin: 12/28/17 22:04 Dose: 2 tab Tamoxifen Citrate (Tamoxifen Citrate) 20 mg PO DAILY [facility] Last Admin: 12/28/17 10:05 Dose: 20 mg - Objective Vital Signs: Vital Signs Temperature 98.2 F 12/29/17 08:00 Pulse Rate 73 12/29/17 08:00 Respiratory Rate 20 12/29/17 08:00 Blood Pressure 145/80 12/29/17 08:00 O2 Sat by Pulse Oximetry (%) 98 12/28/17 21:00 Vital Signs Period Temp Pulse Resp BP Sys/Canas Pulse Ox Last 24 Hr 98.2 F-99.5 F 73-91 18-20 113-147/58-97 98 Constitutional: Yes: No Distress, Calm, Thin Eyes: Yes: Conjunctiva Clear, EOM Intact HENT: Yes: Atraumatic, Normocephalic Neck: Yes: Supple, Trachea Midline Cardiovascular: Yes: Regular Rate and Rhythm, S1, S2. No: Murmur Respiratory: Yes: Regular, CTA Bilaterally Gastrointestinal: Yes: Normal Bowel Sounds, Soft. No: Tenderness ...Rectal Exam: Yes: Deferred Genitourinary: No: CVA Tenderness - Left, CVA Tenderness - Right Extremities: Yes: Erythema (right wrist). No: Cool, Cyanosis Edema: Yes Edema: RUE: 2+ (hand to forearm and anterior shoulder) Peripheral Pulses WNL: Yes Neurological: Yes: Alert, Confusion Psychiatric: Yes: Alert Labs: CBC, BMP 12/29/17 08:00 12/29/17 08:00 INR, PTT INR 1.00 (0.82-1.09) 12/20/17 03:35 Microbiology 12/26/17 12:35 Blood - Peripheral Venous Blood Culture - Preliminary NO GROWTH OBTAINED AFTER 72 HOURS, INCUBATION TO CONTINUE FOR 2 DAYS. 12/26/17 12:25 Blood - Peripheral Venous Blood Culture - Preliminary NO GROWTH OBTAINED AFTER 72 HOURS, INCUBATION TO CONTINUE FOR 2 DAYS. 12/27/17 18:00 Urine - Urine - Catheterized Urine Culture - Final NO GROWTH OBTAINED 12/21/17 15:30 Blood - Peripheral Venous Blood Culture - Final NO GROWTH AFTER 5 DAYS INCUBATION 12/21/17 17:00 Blood - Peripheral Venous Blood Culture - Final Staphylococcus Epidermidis - ....Imaging MRI: Pending, Image Reviewed Problem List - Problems (1) Cellulitis of wrist Assessment/Plan: 87yo RHD female with right wrist cellulitis after trauma no clear break in skin , right shoulder is also involved in this process, possible right shoulder effusion on exam. no collection or fracture seen on imaging of the wrist ( limited study). Motion is severely limited on exam of RUE proximal in the extremity. This may represent a septic joint. Right arm elevation above the heart IV antibiotics cover skin yovani and MRSA adequate analgesia CT scan right arm from shoulder to hand Orthopedic evaluation no specific wound care will follow Code(s): L03.119 - CELLULITIS OF UNSPECIFIED PART OF LIMB (2) Positive blood culture Code(s): R78.81 - BACTEREMIA (3) UTI (lower urinary tract infection) Code(s): N39.0 - URINARY TRACT INFECTION, SITE NOT SPECIFIED (4) JASMIN (acute kidney injury) Code(s): N17.9 - ACUTE KIDNEY FAILURE, UNSPECIFIED (5) Abdominal distension Code(s): R14.0 - ABDOMINAL DISTENSION (GASEOUS) (6) Constipation Code(s): K59.00 - CONSTIPATION, UNSPECIFIED Qualifiers: Constipation type: unspecified constipation type Qualified Code(s): K59.00 - Constipation, unspecified (7) Osteoarthritis Code(s): M19.90 - UNSPECIFIED OSTEOARTHRITIS, UNSPECIFIED SITE Qualifiers: Osteoarthritis location: knee Osteoarthritis type: primary Laterality: bilateral Qualified Code(s): M17.0 - Bilateral primary osteoarthritis of knee
[2017-12-29] MEDS: BISACODYL 5 MG TABLET.DR (FP) PO SCH (09:53)
[2017-12-29] MEDS: NAPH,MB-DB/K PH,MBDB POWDER PACKET PO SCH ×2 (09:54→22:01)
[2017-12-29] MEDS: metoPROLOL SUCCINATE 25 MG TAB.SR.24H (FP) PO SCH ×2 (09:54→22:00)
[2017-12-29] MEDS: amLODIPine BESYLATE 5 MG TABLET (FP) PO SCH (09:54)
[2017-12-29] MEDS: MAGNESIUM OXIDE 400 MG TABLET (FP) PO SCH ×2 (09:54→22:00)
[2017-12-29] MEDS: LACTOBACILLUS ACIDOPHILUS 1 CAP PO SCH (09:54)
[2017-12-29] MEDS: PANTOPRAZOLE 40 MG TABLET (FP) PO SCH (09:54)
[2017-12-29] MEDS: QUINAPRIL HCL 20 MG TABLET (FP) PO SCH (09:55)
[2017-12-29] MEDS: POTASSIUM CHLORIDE TABS 10 MEQ TABLET.ER (FP) PO SCH (09:55)
[2017-12-29] MEDS: OMEGA-3 ACID ETHYL ESTERS (FATTY-ACIDS) 1 GM CAPSULE (FP) PO SCH (09:55)
[2017-12-29] MEDS: ASPIRIN COATED 81 MG TABLET.EC PO SCH (09:55)
[2017-12-29] MEDS: TAMOXIFEN CITRATE 10 MG TABLET PO SCH (09:57)
[2017-12-29] MEDS: SODIUM CHLORIDE 1,000 ML IV SCH (10:36)
--- NOTE | 2017-12-29 12:22 | PN ---
Progress Note (short form) - Note Progress Note: MARKED DECREASE IN REDNESS WITH DECREASED PAIN PLAN: CONTINUE ABX PER ID, WILL FOLLOW
--- NOTE | 2017-12-29 16:22 | PN ---
Progress Note (short form) - Note Progress Note: Pt seen in bed. Tolerating diet. Having BMs daily per I/O record. Abd softly distended. R wrist/hand being elevat, on abx, can move better and swelling/ redness is improving. R shoulder with mild swelling, no redness but warmer than other side, also can abduct better and minimal if any direct tenderness. Vital Signs Period Temp Pulse Resp BP Sys/Canas Pulse Ox Last 24 Hr 98.2 F-99.3 F 73-91 18-20 113-147/58-97 98-98 PE: alert, somewhat confused (baseline) R hand and wrist less swollen, little less pink and warm, less tender with improved in home aide and ROM. Elevated from elbow on pillows. R shoulder little more swollen than left, warm though not reddened, also with improved ROM abd soft, somewhat distended, nontender rectal deferred Valdovinos in place, yellow urine - stat-lock replaced CBC, BMP 12/29/17 08:00 12/29/17 08:00 A/P: fecal impaction seems resolved - having regular BMs on regimen of senna and dulcolax will continue to monitor Valdovinos in place for urinary retention and to allow bladder to regain tone urine cx with no growth to date, blood cultures same R wrist/hand with cellulitis on antibiotics, improving R shoulder with some swelling and warmth but improved ROM - etiology unclear on antibiotics per ID seen by hand and ortho MRI of RUE not done Problem List - Problems (1) Fecal impaction Code(s): K56.41 - FECAL IMPACTION (2) Constipation Code(s): K59.00 - CONSTIPATION, UNSPECIFIED Qualifiers: Constipation type: unspecified constipation type Qualified Code(s): K59.00 - Constipation, unspecified (3) Acute urinary retention Code(s): R33.8 - OTHER RETENTION OF URINE (4) JASMIN (acute kidney injury) Code(s): N17.9 - ACUTE KIDNEY FAILURE, UNSPECIFIED (5) Positive blood culture Code(s): R78.81 - BACTEREMIA (6) Cellulitis of wrist Code(s): L03.119 - CELLULITIS OF UNSPECIFIED PART OF LIMB (7) Pain and swelling of right shoulder Code(s): M25.511 - PAIN IN RIGHT SHOULDER; M25.411 - EFFUSION, RIGHT SHOULDER
--- NOTE | 2017-12-29 16:25 | PN ---
Progress Note, Physician History of Present Illness: Reports less R hand pain Erythema nearly all resolved R hand still swollen No c/o shoulder pain Afebrile WBC improved - Current Medication List Current Medications: Active Medications Acetaminophen (Tylenol -) 650 mg PO Q6H PRN PRN Reason: FEVER Last Admin: 12/27/17 00:00 Dose: 650 mg Amlodipine Besylate (Norvasc -) 5 mg PO DAILY [facility] Last Admin: 12/29/17 09:54 Dose: 5 mg Aspirin (Ecotrin -) 81 mg PO DAILY [facility] Last Admin: 12/29/17 09:55 Dose: 81 mg Atorvastatin Calcium (Lipitor -) 40 mg PO HS [facility] Last Admin: 12/28/17 22:04 Dose: 40 mg Bisacodyl (Dulcolax -) 10 mg PO DAILY [facility] Last Admin: 12/29/17 09:53 Dose: 10 mg Cefepime HCl (Maxipime 1 Gm Premix Ivpb) 1 gm IVPB Q8H-IV MEG PRN Reason: Protocol Last Admin: 12/29/17 09:56 Dose: 1 gm Heparin Sodium (Porcine) (Heparin -) 5,000 unit SQ Q8H-IV [facility] Last Admin: 12/29/17 09:55 Dose: 5,000 unit Sodium Chloride (Normal Saline -) 1,000 mls @ 83 mls/hr IV ASDIR [facility] Last Admin: 12/29/17 10:36 Dose: 83 mls/hr Vancomycin HCl 1,000 mg/ (Dextrose) 250 mls @ 200 mls/hr IVPB BID@0130,1330 [facility] Last Admin: 12/29/17 02:00 Dose: 200 mls/hr Lactobacillus Acidophilus (Bacid -) 1 tab PO DAILY [facility] Last Admin: 12/29/17 09:54 Dose: 1 tab Magnesium Oxide (Mag-Ox -) 400 mg PO BID [facility] Last Admin: 12/29/17 09:54 Dose: 400 mg Metoprolol Succinate (Toprol Xl -) 25 mg PO BID [facility] Last Admin: 12/29/17 09:54 Dose: 25 mg Montelukast Sodium (Singulair -) 10 mg PO HS [facility] Last Admin: 12/28/17 22:04 Dose: 10 mg [id number]-[id number] Ethyl Esters (Lovaza -) 1 gm PO DAILY [facility] Last Admin: 12/29/17 09:55 Dose: 1 gm Pantoprazole Sodium (Protonix -) 40 mg PO DAILY [facility] Last Admin: 12/29/17 09:54 Dose: 40 mg Potassium Chloride (K-Dur -) 20 meq PO DAILY [facility] Last Admin: 12/29/17 09:55 Dose: 20 meq Potassium Phos/Sodium Phos (Phos-Nak Packet -) 1 packet PO BID [facility] Stop: 12/29/17 22:01 Last Admin: 12/29/17 09:54 Dose: 1 packet Quinapril HCl (Accupril -) 20 mg PO DAILY [facility] Last Admin: 12/29/17 09:55 Dose: 20 mg Senna (Senna -) 2 tab PO HS [facility] Last Admin: 12/28/17 22:04 Dose: 2 tab Tamoxifen Citrate (Tamoxifen Citrate) 20 mg PO DAILY [facility] Last Admin: 12/29/17 09:57 Dose: 20 mg - Objective Vital Signs: Vital Signs Temperature 98.4 F 12/29/17 14:00 Pulse Rate 79 12/29/17 14:00 Respiratory Rate 18 12/29/17 14:00 Blood Pressure 130/69 12/29/17 14:00 O2 Sat by Pulse Oximetry (%) 98 12/29/17 09:00 Constitutional: Yes: No Distress Cardiovascular: Yes: Regular Rate and Rhythm, S1, S2 Respiratory: Yes: CTA Bilaterally Gastrointestinal: Yes: Normal Bowel Sounds, Soft. No: Tenderness Extremities: Yes: Other (+ R hand swelling, minimal dorsal erythema Slight R shoulder swelling No erythema/ warmth) Labs: CBC, BMP 12/29/17 08:00 12/29/17 08:00 INR, PTT INR 1.00 (0.82-1.09) 12/20/17 03:35 Assessment/Plan Cellulitis R hand improved PCN allergy ? septic arthritis R shoulder Continue vancomycin/cefepime MRI shoulder
--- NOTE | 2017-12-29 16:26 | PN ---
Progress Note, Physician Chief Complaint: Ms Thibodeaux says her hand feels better. No cp, sob, n/v. Still with diarrhea. - Current Medication List Current Medications: Active Medications Acetaminophen (Tylenol -) 650 mg PO Q6H PRN PRN Reason: FEVER Last Admin: 12/27/17 00:00 Dose: 650 mg Amlodipine Besylate (Norvasc -) 5 mg PO DAILY [facility] Last Admin: 12/29/17 09:54 Dose: 5 mg Aspirin (Ecotrin -) 81 mg PO DAILY [facility] Last Admin: 12/29/17 09:55 Dose: 81 mg Atorvastatin Calcium (Lipitor -) 40 mg PO HS [facility] Last Admin: 12/28/17 22:04 Dose: 40 mg Bisacodyl (Dulcolax -) 10 mg PO DAILY [facility] Last Admin: 12/29/17 09:53 Dose: 10 mg Cefepime HCl (Maxipime 1 Gm Premix Ivpb) 1 gm IVPB Q8H-IV MEG PRN Reason: Protocol Last Admin: 12/29/17 09:56 Dose: 1 gm Heparin Sodium (Porcine) (Heparin -) 5,000 unit SQ Q8H-IV [facility] Last Admin: 12/29/17 09:55 Dose: 5,000 unit Sodium Chloride (Normal Saline -) 1,000 mls @ 83 mls/hr IV ASDIR [facility] Last Admin: 12/29/17 10:36 Dose: 83 mls/hr Vancomycin HCl 1,000 mg/ (Dextrose) 250 mls @ 200 mls/hr IVPB BID@0130,1330 [facility] Last Admin: 12/29/17 02:00 Dose: 200 mls/hr Lactobacillus Acidophilus (Bacid -) 1 tab PO DAILY [facility] Last Admin: 12/29/17 09:54 Dose: 1 tab Magnesium Oxide (Mag-Ox -) 400 mg PO BID [facility] Last Admin: 12/29/17 09:54 Dose: 400 mg Metoprolol Succinate (Toprol Xl -) 25 mg PO BID [facility] Last Admin: 12/29/17 09:54 Dose: 25 mg Montelukast Sodium (Singulair -) 10 mg PO HS [facility] Last Admin: 12/28/17 22:04 Dose: 10 mg Mtmqu-5-Fjso Ethyl Esters (Lovaza -) 1 gm PO DAILY [facility] Last Admin: 03/30/18 09:55 Dose: 1 gm Pantoprazole Sodium (Protonix -) 40 mg PO DAILY [facility] Last Admin: 12/29/17 09:54 Dose: 40 mg Potassium Chloride (K-Dur -) 20 meq PO DAILY [facility] Last Admin: 12/29/17 09:55 Dose: 20 meq Potassium Phos/Sodium Phos (Phos-Nak Packet -) 1 packet PO BID [facility] Stop: 12/29/17 22:01 Last Admin: 12/29/17 09:54 Dose: 1 packet Quinapril HCl (Accupril -) 20 mg PO DAILY [facility] Last Admin: 12/29/17 09:55 Dose: 20 mg Senna (Senna -) 2 tab PO HS [facility] Last Admin: 12/28/17 22:04 Dose: 2 tab Tamoxifen Citrate (Tamoxifen Citrate) 20 mg PO DAILY [facility] Last Admin: 12/29/17 09:57 Dose: 20 mg - Objective Vital Signs: Vital Signs Temperature 36.9 C 12/29/17 14:00 Pulse Rate 79 12/29/17 14:00 Respiratory Rate 18 12/29/17 14:00 Blood Pressure 130/69 12/29/17 14:00 O2 Sat by Pulse Oximetry (%) 98 12/29/17 09:00 Constitutional: Yes: Well Nourished, No Distress, Calm Cardiovascular: Yes: Regular Rate and Rhythm. No: Gallop, Murmur, Rub Respiratory: Yes: Regular, CTA Bilaterally. No: Rales, Rhonchi, Wheezes Gastrointestinal: Yes: Normal Bowel Sounds, Soft, Distention. No: Tenderness Extremities: Yes: Erythema (RUE) Edema: RUE: Trace Labs: CBC, BMP 12/29/17 08:00 12/29/17 08:00 INR, PTT INR 1.00 (0.82-1.09) 12/20/17 03:35 Problem List - Problems (1) Fecal impaction Code(s): K56.41 - FECAL IMPACTION (2) Acute urinary retention Code(s): R33.8 - OTHER RETENTION OF URINE (3) CAD (coronary artery disease) Code(s): I25.10 - ATHSCL HEART DISEASE OF [place] CORONARY ARTERY W/O ANG PCTRS Qualifiers: Qualified Code(s): I25.10 - Atherosclerotic heart disease of [place] coronary artery without angina pectoris (4) Constipation Code(s): K59.00 - CONSTIPATION, UNSPECIFIED Qualifiers: Qualified Code(s): K59.00 - Constipation, unspecified (5) HLD (hyperlipidemia) Code(s): E78.5 - HYPERLIPIDEMIA, UNSPECIFIED Qualifiers: Qualified Code(s): E78.5 - Hyperlipidemia, unspecified (6) HTN (hypertension) Code(s): I10 - ESSENTIAL (PRIMARY) HYPERTENSION Qualifiers: Qualified Code(s): I10 - Essential (primary) hypertension (7) Sepsis Code(s): A41.9 - SEPSIS, UNSPECIFIED ORGANISM Assessment/Plan (1) Fecal impaction Assessment/Plan: -Dr Frank following -continue current regimen Code(s): K56.41 - FECAL IMPACTION (2) Acute urinary retention Assessment/Plan: -appreciate urology assistance -justice placed -will need to be discharged with justice Code(s): R33.8 - OTHER RETENTION OF URINE (3) Sepsis Assessment/Plan: -continue vancomycin -MRI to be done today Code(s): (4) CAD (coronary artery disease) Assessment/Plan: -quiescent -continue home regimen Code(s): I25.10 - ATHSCL HEART DISEASE OF [place] CORONARY ARTERY W/O ANG PCTRS Qualifiers: Coronary Disease-Associated Artery/Lesion type: [place] artery [place] vs. transplanted heart: [place] heart Associated angina: without angina Qualified Code(s): I25.10 - Atherosclerotic heart disease of [place] coronary artery without angina pectoris (5) Constipation Assessment/Plan: -now with diarrhea -close monitoring as patient is high risk for impaction Code(s): K59.00 - CONSTIPATION, UNSPECIFIED (6) HLD (hyperlipidemia) Assessment/Plan: -continue statin Code(s): E78.5 - HYPERLIPIDEMIA, UNSPECIFIED Qualifiers: Hyperlipidemia type: unspecified Qualified Code(s): E78.5 - Hyperlipidemia , unspecified (7) HTN (hypertension) Assessment/Plan: -controlled -continue toprol xl and norvasc Code(s): I10 - ESSENTIAL (PRIMARY) HYPERTENSION Qualifiers: Hypertension type: essential hypertension Qualified Code(s): I10 - Essential (primary) hypertension (8) Cellulitis with possible shoulder effusion -blood cultures currently NGTD -antibiotics and MRI -ortho note reviewed (9) Hypokalemia/magnesemia/phosphatemia -continue magnesium and potassium supplementation
[2017-12-29] MEDS: ATORVASTATIN CA 40 MG TABLET (FP) PO SCH (22:00)
[2017-12-29] MEDS: MONTELUKAST NA 10 MG TABLET PO SCH (22:00)
[2017-12-29] MEDS: SENNOSIDES 8.6MG TABLET (FP) PO SCH (22:00)
[2017-12-30] MEDS: CEFEPIME HCL/D5W 1 GM/50 ML PREMIX BAG IVPB SCH ×3 (02:45→20:25)
[2017-12-30] MEDS: HEPARIN NA (PORCINE) 5,000 UNITS/ML 1ML VIAL SQ SCH ×3 (02:45→18:32)
[2017-12-30] MEDS: SODIUM CHLORIDE 1,000 ML IV SCH (05:30)
[2017-12-30] MEDS: ACETAMINOPHEN 325 MG TABLET (FP) PO PRN (07:02)
[2017-12-30 09:12] LABS: BASO % 0.7 % (0-2.0); EOS % 1.4 % (0-4.5); HEMATOCRIT 31.7 % (32.4-45.2); HEMOGLOBIN 10.7 GM/dL (10.7-15.3); LYMPH % 12.5 % (8-40); MCH 29.5 pg (25.7-33.7); MCHC 33.8 g/dl (32.0-36.0); MEAN CELL VOLUME 87.3 fl (80-96); MEAN PLT VOLUME 9.6 fl (7.5-11.1); MONO % 6.8 % (3.8-10.2); NEUT % 78.6 % (42.8-82.8); PLATELET COUNT 221 K/MM3 (134-434); RBC 3.63 M/mm3 (3.60-5.2); WHITE BLOOD COUNT 9.3 K/mm3 (4.0-10.0)
[2017-12-30 09:33] LABS: ANION GAP 7 (8-16); BLOOD UREA NITROGEN 9 mg/dL (7-18); CALCIUM 7.6 mg/dL (8.5-10.1); CHLORIDE 108 mmol/L (98-107); CO2 25 mmol/L (21-32); CREATININE 0.6 mg/dL (0.55-1.02); GLUCOSE,RANDOM 87 mg/dL (74-106); MAGNESIUM 1.5 mg/dL (1.8-2.4); PHOSPHOROUS 2.6 mg/dL (2.5-4.9); POTASSIUM 3.1 mmol/L (3.5-5.1); SODIUM 140 mmol/L (136-145)
[2017-12-30] MEDS ORDERED: PT OWN MED DRAWER 7, Y5N ONE ×3 (09:45→19:46)
[2017-12-30] MEDS: POTASSIUM CHLORIDE TABS 10 MEQ TABLET.ER (FP) PO SCH (09:55)
[2017-12-30] MEDS: MAGNESIUM OXIDE 400 MG TABLET (FP) PO SCH ×2 (09:55→21:50)
[2017-12-30] MEDS: amLODIPine BESYLATE 5 MG TABLET (FP) PO SCH (09:57)
[2017-12-30] MEDS: TAMOXIFEN CITRATE 10 MG TABLET PO SCH (09:58)
[2017-12-30] MEDS: PANTOPRAZOLE 40 MG TABLET (FP) PO SCH (09:58)
[2017-12-30] MEDS: metoPROLOL SUCCINATE 25 MG TAB.SR.24H (FP) PO SCH ×2 (10:00→21:46)
[2017-12-30] MEDS: BISACODYL 5 MG TABLET.DR (FP) PO SCH (10:01)
[2017-12-30] MEDS: LACTOBACILLUS ACIDOPHILUS 1 CAP PO SCH (10:02)
[2017-12-30] MEDS: ASPIRIN COATED 81 MG TABLET.EC PO SCH (10:02)
[2017-12-30] MEDS: QUINAPRIL HCL 20 MG TABLET (FP) PO SCH (10:03)
[2017-12-30] MEDS: OMEGA-3 ACID ETHYL ESTERS (FATTY-ACIDS) 1 GM CAPSULE (FP) PO SCH (10:04)
--- NOTE | 2017-12-30 12:04 | PN ---
Progress Note, Physician History of Present Illness: Awake, alert Seated in bed Reports less R hand pain Erythema nearly all resolved R hand less swollen. Improved ROM No c/o shoulder pain MRI done, results pending Afebrile WBC improved - Current Medication List Current Medications: Active Medications Acetaminophen (Tylenol -) 650 mg PO Q6H PRN PRN Reason: FEVER Last Admin: 12/30/17 07:02 Dose: 650 mg Amlodipine Besylate (Norvasc -) 5 mg PO DAILY [facility] Last Admin: 12/30/17 09:57 Dose: 5 mg Aspirin (Ecotrin -) 81 mg PO DAILY [facility] Last Admin: 12/30/17 10:02 Dose: 81 mg Atorvastatin Calcium (Lipitor -) 40 mg PO HS [facility] Last Admin: 12/29/17 22:00 Dose: 40 mg Bisacodyl (Dulcolax -) 10 mg PO DAILY [facility] Last Admin: 12/30/17 10:01 Dose: 10 mg Cefepime HCl (Maxipime 1 Gm Premix Ivpb) 1 gm IVPB Q8H-IV MEG PRN Reason: Protocol Last Admin: 12/30/17 09:52 Dose: 1 gm Heparin Sodium (Porcine) (Heparin -) 5,000 unit SQ Q8H-IV MEG Last Admin: 12/30/17 10:03 Dose: 5,000 unit Sodium Chloride (Normal Saline -) 1,000 mls @ 83 mls/hr IV ASDIR [facility] Last Admin: 12/30/17 05:30 Dose: Not Given Lactobacillus Acidophilus (Bacid -) 1 tab PO DAILY [facility] Last Admin: 12/30/17 10:02 Dose: 1 tab Magnesium Oxide (Mag-Ox -) 400 mg PO BID [facility] Last Admin: 12/30/17 09:55 Dose: 400 mg Metoprolol Succinate (Toprol Xl -) 25 mg PO BID [facility] Last Admin: 12/30/17 10:00 Dose: 25 mg Montelukast Sodium (Singulair -) 10 mg PO HS [facility] Last Admin: 12/29/17 22:00 Dose: 10 mg Hawbd-8-[id number] Ethyl Esters (Lovaza -) 1 gm PO DAILY [facility] Last Admin: 12/30/17 10:04 Dose: 1 gm Pantoprazole Sodium (Protonix -) 40 mg PO DAILY [facility] Last Admin: 12/30/17 09:58 Dose: 40 mg Potassium Chloride (K-Dur -) 20 meq PO DAILY [facility] Last Admin: 12/30/17 09:55 Dose: 20 meq Quinapril HCl (Accupril -) 20 mg PO DAILY [facility] Last Admin: 12/30/17 10:03 Dose: 20 mg Senna (Senna -) 2 tab PO HS [facility] Last Admin: 12/29/17 22:00 Dose: 2 tab Tamoxifen Citrate (Tamoxifen Citrate) 20 mg PO DAILY [facility] Last Admin: 12/30/17 09:58 Dose: 20 mg - Objective Vital Signs: Vital Signs Temperature 97.9 F 12/30/17 09:10 Pulse Rate 78 12/30/17 09:10 Respiratory Rate 18 12/30/17 09:10 Blood Pressure 124/79 12/30/17 09:10 O2 Sat by Pulse Oximetry (%) 98 12/30/17 09:00 Constitutional: Yes: No Distress Eyes: Yes: Conjunctiva Clear Cardiovascular: Yes: Regular Rate and Rhythm, S1, S2 Respiratory: Yes: CTA Bilaterally Gastrointestinal: Yes: Normal Bowel Sounds, Soft. No: Tenderness Extremities: Yes: Other (decreasing R hand swelling No erythema No R shoulder swelling/ erythema/ tenderness) Labs: CBC, BMP 12/30/17 08:30 12/30/17 08:30 INR, PTT INR 1.00 (0.82-1.09) 12/20/17 03:35 Assessment/Plan Cellulitis R hand improved PCN allergy ? septic arthritis R shoulder Continue cefepime Check MRI
--- NOTE | 2017-12-30 15:11 | PN ---
Progress Note (short form) - Note Progress Note: Pt seen in bed. Tolerating diet. Having BMs daily per I/O record. Abd softly distended but a little less. R wrist/hand with much improvement in swelling, very little pink left, moving near normally. R shoulder with better movement, minimal pain, MRI done - read pending. Vital Signs Period Temp Pulse Resp BP Sys/Canas Pulse Ox Last 24 Hr 97.9 F-98.6 F 70-82 18-18 118-135/67-79 98-98 PE: alert, somewhat confused (baseline) R hand and wrist much less swollen, very little erythema, improved larriman helper and nearly normal ROM. Still elevating on pillows. R shoulder also moving better abd soft, somewhat less distended, nontender rectal with normal tone, small bit of soft, light brown stool on fingertip but vault feels empty Valdovinos in place, light yellow urine CBC, BMP 12/30/17 08:30 12/30/17 08:30 A/P: fecal impaction resolved - having regular BMs on regimen of senna and dulcolax will continue to monitor - will check KUB just to ensure no stool burden above level of vault Valdovinos in place for urinary retention and to allow bladder to regain tone urine cx with no growth to date, blood cultures same R wrist/hand with resolving cellulitis on antibiotics R shoulder MRI read pending on antibiotics per ID seen by hand and ortho Problem List - Problems (1) Fecal impaction Code(s): K56.41 - FECAL IMPACTION (2) Constipation Code(s): K59.00 - CONSTIPATION, UNSPECIFIED Qualifiers: Constipation type: unspecified constipation type Qualified Code(s): K59.00 - Constipation, unspecified (3) Acute urinary retention Code(s): R33.8 - OTHER RETENTION OF URINE (4) JASMIN (acute kidney injury) Code(s): N17.9 - ACUTE KIDNEY FAILURE, UNSPECIFIED (5) Positive blood culture Code(s): R78.81 - BACTEREMIA (6) Cellulitis of wrist Code(s): L03.119 - CELLULITIS OF UNSPECIFIED PART OF LIMB (7) Pain and swelling of right shoulder Code(s): M25.511 - PAIN IN RIGHT SHOULDER; M25.411 - EFFUSION, RIGHT SHOULDER
--- NOTE | 2017-12-30 17:15 | PN ---
Physical Exam: SUBJECTIVE: Patient seen and examined. She denies fever, chills, she would like her to return to normal. OBJECTIVE: Vital Signs Period Temp Pulse Resp BP Sys/Canas Pulse Ox Last 24 Hr 97.9 F-98.6 F 70-82 18-18 118-135/67-79 98-98 PE Neuro: alert, awake, cn 2-12intact Pulm: CTAB CV: s1 s2 rrr Abd: s nt+ bs Ext: R hand erythema, mild swelling, rom in tact Laboratory Results - last 24 hr 12/29/17 12/29/17 12/30/17 08:00 18:15 08:30 WBC 9.3 RBC 3.63 Hgb 10.7 Hct 31.7 L MCV 87.3 MCH 29.5 MCHC 33.8 RDW 14.0 Plt Count 221 MPV 9.6 Neutrophils % 78.6 Lymphocytes % 12.5 D Monocytes % 6.8 Eosinophils % 1.4 Basophils % 0.7 Sodium Potassium Chloride Carbon Dioxide Anion Gap BUN Creatinine Random Glucose Calcium Phosphorus Magnesium Vancomycin Pre-Dose 21.988 H* Rheumatoid Arth Biomark 56.6 H 12/30/17 08:30 WBC RBC Hgb Hct MCV MCH MCHC RDW Plt Count MPV Neutrophils % Lymphocytes % Monocytes % Eosinophils % Basophils % Sodium 140 Potassium 3.1 L Chloride 108 H Carbon Dioxide 25 Anion Gap 7 L BUN 9 Creatinine 0.6 Random Glucose 87 Calcium 7.6 L Phosphorus 2.6 Magnesium 1.5 L Vancomycin Pre-Dose Rheumatoid Arth Biomark Active Medications Generic Name Dose Route Start Last Admin Trade Name Freq PRN Reason Stop Dose Admin Acetaminophen 650 mg 12/26/17 23:49 12/30/17 07:02 Tylenol - PO 650 mg Q6H PRN Administration FEVER Amlodipine Besylate 5 mg 12/20/17 10:00 12/30/17 09:57 Norvasc - PO 5 mg DAILY MEG Administration Aspirin 81 mg 12/20/17 10:00 12/30/17 10:02 Ecotrin - PO 81 mg DAILY MEG Administration Atorvastatin Calcium 40 mg 12/20/17 22:00 12/29/17 22:00 Lipitor - PO 40 mg HS MEG Administration Bisacodyl 10 mg 12/26/17 10:00 12/30/17 10:01 Dulcolax - PO 10 mg DAILY MEG Administration Cefepime HCl 1 gm 12/27/17 13:00 12/30/17 09:52 Maxipime 1 Gm Premix Ivpb IVPB 1 gm Q8H-IV MEG Administration Protocol Heparin Sodium (Porcine) 5,000 unit 12/20/17 10:00 12/30/17 10:03 Heparin - SQ 5,000 unit Q8H-IV MEG Administration Sodium Chloride 1,000 mls @ 83 mls/hr 12/20/17 05:30 12/30/17 05:30 Normal Saline - IV Not Given ASDIR MEG Lactobacillus Acidophilus 1 tab 12/26/17 12:00 12/30/17 10:02 Bacid - PO 1 tab DAILY MEG Administration Magnesium Oxide 400 mg 12/28/17 11:30 12/30/17 09:55 Mag-Ox - PO 400 mg BID MEG Administration Metoprolol Succinate 25 mg 12/20/17 10:00 12/30/17 10:00 Toprol Xl - PO 25 mg BID MEG Administration Montelukast Sodium 10 mg 12/20/17 22:00 12/29/17 22:00 Singulair - PO 10 mg HS MEG Administration Ijvar-9-Efdl Ethyl Esters 1 gm 12/20/17 10:00 12/30/17 10:04 Lovaza - PO 1 gm DAILY MEG Administration Pantoprazole Sodium 40 mg 12/20/17 10:00 12/30/17 09:58 Protonix - PO 40 mg DAILY MEG Administration Potassium Chloride 20 meq 12/29/17 10:00 12/30/17 09:55 K-Dur - PO 20 meq DAILY MEG Administration Quinapril HCl 20 mg 12/20/17 10:00 12/30/17 10:03 Accupril - PO 20 mg DAILY MEG Administration Senna 2 tab 12/20/17 22:00 12/29/17 22:00 Senna - PO 2 tab HS MEG Administration Tamoxifen Citrate 20 mg 12/20/17 10:00 12/30/17 09:58 Tamoxifen Citrate PO 20 mg DAILY MEG Administration Assessment: 87 year old RHD female PMHx dementia, HTN, CAD, diverticulosis, breast CA, and constipation being treated for fecal impaction and acute urinary retention. Plan: 1. Fecal impaction - Resolved - KUB ordered - Annmarie dulcolax 2. R hand cellulitis with possible shoulder effusion - Right hand / shoulder MRI pending - Continue Cefepime q8hr \ - Stop fluids 3. Acute urinary retention - DC with justice - Urology 4. CAD - ASA, lipitor, BB, FAVIAN 5. HLD - Continue statin 6. HTN - Controlled - Continue toprol xl and norvasc, accupril 7. Hypokalemia/magnesemia/phosphatemia - Continue magnesium and potassium supplementation 8. Breast CA - Tamoxifen Visit type - Emergency Visit Emergency Visit: Yes ED Registration Date: 12/20/17 Care time: The patient presented to the Emergency Department on the above date and was hospitalized for further evaluation of their emergent condition. - New Patient This patient is new to me today: Yes Date on this admission: 12/30/17 - Critical Care Critical Care patient: No
--- NOTE | 2017-12-30 17:40 | PN ---
Progress Note, Physician Chief Complaint: right wrist cellulitis History of Present Illness: 87 yo RHD female PMH dementia, HTN, CAD, diverticulosis, and contipation being treated for fecal impaction and acute urinary retention. The focus is over the base of the right thumb progressing dorsally over the right wrist. MRI done but is pending an official reading. Swelling is resolving. - Current Medication List Current Medications: Active Medications Acetaminophen (Tylenol -) 650 mg PO Q6H PRN PRN Reason: FEVER Last Admin: 12/30/17 07:02 Dose: 650 mg Amlodipine Besylate (Norvasc -) 5 mg PO DAILY [facility] Last Admin: 12/30/17 09:57 Dose: 5 mg Aspirin (Ecotrin -) 81 mg PO DAILY [facility] Last Admin: 12/30/17 10:02 Dose: 81 mg Atorvastatin Calcium (Lipitor -) 40 mg PO HS [facility] Last Admin: 12/29/17 22:00 Dose: 40 mg Bisacodyl (Dulcolax -) 10 mg PO DAILY [facility] Last Admin: 12/30/17 10:01 Dose: 10 mg Cefepime HCl (Maxipime 1 Gm Premix Ivpb) 1 gm IVPB Q8H-IV MEG PRN Reason: Protocol Last Admin: 12/30/17 09:52 Dose: 1 gm Heparin Sodium (Porcine) (Heparin -) 5,000 unit SQ Q8H-IV [facility] Last Admin: 12/30/17 10:03 Dose: 5,000 unit Sodium Chloride (Normal Saline -) 1,000 mls @ 83 mls/hr IV ASDIR [facility] Last Admin: 12/30/17 05:30 Dose: Not Given Lactobacillus Acidophilus (Bacid -) 1 tab PO DAILY [facility] Last Admin: 12/30/17 10:02 Dose: 1 tab Magnesium Oxide (Mag-Ox -) 400 mg PO BID [facility] Last Admin: 12/30/17 09:55 Dose: 400 mg Magnesium Sulfate (Magnesium Sulfate) 1 gm IVPB ONCE ONE Stop: 12/30/17 17:31 Metoprolol Succinate (Toprol Xl -) 25 mg PO BID [facility] Last Admin: 12/30/17 10:00 Dose: 25 mg Montelukast Sodium (Singulair -) 10 mg PO HS [facility] Last Admin: 12/29/17 22:00 Dose: 10 mg Uuatl-4-Dwcp Ethyl Esters (Lovaza -) 1 gm PO DAILY [facility] Last Admin: 12/30/17 10:04 Dose: 1 gm Pantoprazole Sodium (Protonix -) 40 mg PO DAILY [facility] Last Admin: 12/30/17 09:58 Dose: 40 mg Potassium Chloride (K-Dur -) 20 meq PO DAILY [facility] Last Admin: 12/30/17 09:55 Dose: 20 meq Potassium Chloride (Potassium Chloride Oral Liquid) 40 meq PO ONCE ONE Stop: 12/30/17 17:31 Quinapril HCl (Accupril -) 20 mg PO DAILY [facility] Last Admin: 12/30/17 10:03 Dose: 20 mg Senna (Senna -) 2 tab PO HS [facility] Last Admin: 12/29/17 22:00 Dose: 2 tab Tamoxifen Citrate (Tamoxifen Citrate) 20 mg PO DAILY [facility] Last Admin: 12/30/17 09:58 Dose: 20 mg - Objective Vital Signs: Vital Signs Temperature 97.9 F 12/30/17 09:10 Pulse Rate 78 12/30/17 09:10 Respiratory Rate 18 12/30/17 09:10 Blood Pressure 124/79 12/30/17 09:10 O2 Sat by Pulse Oximetry (%) 98 12/30/17 09:00 Vital Signs Period Temp Pulse Resp BP Sys/Canas Pulse Ox Last 24 Hr 97.9 F-98.6 F 70-82 18-18 118-135/67-79 98-98 Constitutional: Yes: Well Nourished, No Distress, Calm Eyes: Yes: Conjunctiva Clear, EOM Intact HENT: Yes: Atraumatic, Normocephalic Neck: Yes: Supple, Trachea Midline Cardiovascular: Yes: Regular Rate and Rhythm, S1, S2. No: Murmur Respiratory: Yes: Regular, CTA Bilaterally Gastrointestinal: Yes: Normal Bowel Sounds, Soft. No: Distention, Tenderness Genitourinary: No: CVA Tenderness - Left, CVA Tenderness - Right Extremities: Yes: Erythema (right and and wrist anterior shoulder, improving. Edema persists less tender on exam). No: Cool, Cyanosis Edema: Yes Edema: RUE: 1+ Peripheral Pulses WNL: Yes Peripheral Pulses: Left Radial: 2+, Right Radial: 2+ Integumentary: Yes: Erythema Neurological: Yes: Alert, Confusion Psychiatric: Yes: Alert Labs: CBC, BMP 12/30/17 08:30 12/30/17 08:30 INR, PTT INR 1.00 (0.82-1.09) 12/20/17 03:35 Problem List - Problems (1) Cellulitis of wrist Assessment/Plan: 87yo RHD female with right wrist cellulitis after trauma no clear break in skin , right shoulder is also involved in this process, possible right shoulder effusion on exam. no collection or fracture seen on imaging of the wrist ( limited study). Motion is severely limited on exam of RUE proximal in the extremity. This may represent a septic joint. Right arm elevation above the heart IV antibiotics cover skin yovani and MRSA adequate analgesia MRI reading Orthopedic evaluation appreciated no specific wound care will follow Code(s): L03.119 - CELLULITIS OF UNSPECIFIED PART OF LIMB (2) Positive blood culture Code(s): R78.81 - BACTEREMIA (3) UTI (lower urinary tract infection) Code(s): N39.0 - URINARY TRACT INFECTION, SITE NOT SPECIFIED (4) JASMIN (acute kidney injury) Code(s): N17.9 - ACUTE KIDNEY FAILURE, UNSPECIFIED (5) Abdominal distension Code(s): R14.0 - ABDOMINAL DISTENSION (GASEOUS) (6) Constipation Code(s): K59.00 - CONSTIPATION, UNSPECIFIED Qualifiers: Qualified Code(s): K59.00 - Constipation, unspecified (7) Osteoarthritis Code(s): M19.90 - UNSPECIFIED OSTEOARTHRITIS, UNSPECIFIED SITE Qualifiers: Qualified Code(s): M17.0 - Bilateral primary osteoarthritis of knee
[2017-12-30] MEDS ORDERED: POTASSIUM CHLORIDE ORAL LIQUID 20 MEQ/15 ML PO ONE (17:45)
[2017-12-30] MEDS ORDERED: MAGNESIUM SULF 50% (8.12 MEQ/2 ML-1 GM VIAL) IVPB ONE (17:45)
[2017-12-30] MEDS: MONTELUKAST NA 10 MG TABLET PO SCH (21:46)
[2017-12-30] MEDS: SENNOSIDES 8.6MG TABLET (FP) PO SCH (21:46)
[2017-12-30] MEDS: ATORVASTATIN CA 40 MG TABLET (FP) PO SCH (21:46)
[2017-12-31] MEDS: HEPARIN NA (PORCINE) 5,000 UNITS/ML 1ML VIAL SQ SCH ×3 (01:27→17:55)
[2017-12-31] MEDS: CEFEPIME HCL/D5W 1 GM/50 ML PREMIX BAG IVPB SCH ×3 (01:28→17:55)
[2017-12-31] MEDS: OMEGA-3 ACID ETHYL ESTERS (FATTY-ACIDS) 1 GM CAPSULE (FP) PO SCH (10:33)
[2017-12-31] MEDS: metoPROLOL SUCCINATE 25 MG TAB.SR.24H (FP) PO SCH ×2 (10:33→21:12)
[2017-12-31] MEDS: amLODIPine BESYLATE 5 MG TABLET (FP) PO SCH (10:33)
[2017-12-31] MEDS: POTASSIUM CHLORIDE TABS 10 MEQ TABLET.ER (FP) PO SCH (10:34)
[2017-12-31] MEDS: BISACODYL 5 MG TABLET.DR (FP) PO SCH (10:34)
[2017-12-31] MEDS: MAGNESIUM OXIDE 400 MG TABLET (FP) PO SCH ×2 (10:34→21:11)
[2017-12-31] MEDS: PANTOPRAZOLE 40 MG TABLET (FP) PO SCH (10:34)
[2017-12-31] MEDS: LACTOBACILLUS ACIDOPHILUS 1 CAP PO SCH (10:34)
[2017-12-31] MEDS: TAMOXIFEN CITRATE 10 MG TABLET PO SCH (10:34)
[2017-12-31] MEDS: ASPIRIN COATED 81 MG TABLET.EC PO SCH (10:34)
[2017-12-31] MEDS: QUINAPRIL HCL 20 MG TABLET (FP) PO SCH (10:34)
--- NOTE | 2017-12-31 11:23 | PN ---
Progress Note, Physician Chief Complaint: patient has no issues overnight she is doing well, she was wondering about her shoulder MRI besides that she is doing well - Current Medication List Current Medications: Active Medications Acetaminophen (Tylenol -) 650 mg PO Q6H PRN PRN Reason: FEVER Last Admin: 12/30/17 07:02 Dose: 650 mg Amlodipine Besylate (Norvasc -) 5 mg PO DAILY [facility] Last Admin: 12/31/17 10:33 Dose: 5 mg Aspirin (Ecotrin -) 81 mg PO DAILY [facility] Last Admin: 12/31/17 10:34 Dose: 81 mg Atorvastatin Calcium (Lipitor -) 40 mg PO HS [facility] Last Admin: 12/30/17 21:46 Dose: 40 mg Bisacodyl (Dulcolax -) 10 mg PO DAILY [facility] Last Admin: 12/31/17 10:34 Dose: 10 mg Cefepime HCl (Maxipime 1 Gm Premix Ivpb) 1 gm IVPB Q8H-IV [facility] PRN Reason: Protocol Last Admin: 12/31/17 10:35 Dose: 1 gm Heparin Sodium (Porcine) (Heparin -) 5,000 unit SQ Q8H-IV [facility] Last Admin: 12/31/17 10:35 Dose: 5,000 unit Lactobacillus Acidophilus (Bacid -) 1 tab PO DAILY [facility] Last Admin: 12/31/17 10:34 Dose: 1 tab Magnesium Oxide (Mag-Ox -) 400 mg PO BID [facility] Last Admin: 12/31/17 10:34 Dose: 400 mg Metoprolol Succinate (Toprol Xl -) 25 mg PO BID [facility] Last Admin: 12/31/17 10:33 Dose: 25 mg Montelukast Sodium (Singulair -) 10 mg PO HS [facility] Last Admin: 12/30/17 21:46 Dose: 10 mg Zzoyo-2-Ajpt Ethyl Esters (Lovaza -) 1 gm PO DAILY [facility] Last Admin: 12/31/17 10:33 Dose: 1 gm Pantoprazole Sodium (Protonix -) 40 mg PO DAILY [facility] Last Admin: 12/31/17 10:34 Dose: 40 mg Potassium Chloride (K-Dur -) 20 meq PO DAILY [facility] Last Admin: 12/31/17 10:34 Dose: 20 meq Quinapril HCl (Accupril -) 20 mg PO DAILY [facility] Last Admin: 04/01/18 10:34 Dose: 20 mg Senna (Senna -) 2 tab PO HS [facility] Last Admin: 12/30/17 21:46 Dose: 2 tab Tamoxifen Citrate (Tamoxifen Citrate) 20 mg PO DAILY [facility] Last Admin: 12/31/17 10:34 Dose: 20 mg - Objective Vital Signs: Vital Signs Temperature 98.7 F 12/31/17 10:00 Pulse Rate 80 12/31/17 10:00 Respiratory Rate 18 12/31/17 10:00 Blood Pressure 138/76 12/31/17 10:00 O2 Sat by Pulse Oximetry (%) 98 12/31/17 09:00 Constitutional: Yes: Well Nourished, No Distress, Calm Eyes: Yes: Conjunctiva Clear, EOM Intact HENT: Yes: Atraumatic, Normocephalic Neck: Yes: WNL, Supple, Trachea Midline Cardiovascular: Yes: WNL, Regular Rate and Rhythm Respiratory: Yes: WNL, Regular, CTA Bilaterally Gastrointestinal: Yes: WNL, Normal Bowel Sounds, Soft Edema: LLE: Trace, RLE: Trace Peripheral Pulses WNL: Yes Integumentary: Yes: WNL Labs: CBC, BMP 12/30/17 08:30 12/30/17 08:30 INR, PTT INR 1.00 (0.82-1.09) 12/20/17 03:35 Problem List - Problems (1) Fecal impaction in rectum Assessment/Plan: Resolved c/w Senna, dulcolax Code(s): K56.41 - FECAL IMPACTION (2) Hypokalemia Assessment/Plan: 40meq K BID x 1 day Code(s): E87.6 - HYPOKALEMIA (3) Cellulitis of wrist Assessment/Plan: Right hand / shoulder MRI pending - Continue Cefepime q8hr \ - Stop fluids Code(s): L03.119 - CELLULITIS OF UNSPECIFIED PART OF LIMB (4) Breast cancer, left Assessment/Plan: c/w tamoxifen Code(s): C50.912 - MALIGNANT NEOPLASM OF UNSPECIFIED SITE OF LEFT FEMALE BREAST (5) CAD (coronary artery disease) Assessment/Plan: stable c/w home medication Code(s): I25.10 - ATHSCL HEART DISEASE OF [place] CORONARY ARTERY W/O ANG PCTRS Qualifiers: Coronary Disease-Associated Artery/Lesion type: [place] artery [place] vs. transplanted heart: [place] heart Associated angina: without angina Qualified Code(s): I25.10 - Atherosclerotic heart disease of [place] coronary artery without angina pectoris (6) HLD (hyperlipidemia) Assessment/Plan: stable c/w home medicaiton Code(s): E78.5 - HYPERLIPIDEMIA, UNSPECIFIED Qualifiers: Hyperlipidemia type: unspecified Qualified Code(s): E78.5 - Hyperlipidemia , unspecified (7) HTN (hypertension) Assessment/Plan: stable c/w home medication Code(s): I10 - ESSENTIAL (PRIMARY) HYPERTENSION Qualifiers: Hypertension type: essential hypertension Qualified Code(s): I10 - Essential (primary) hypertension (8) Urinary retention Assessment/Plan: resolving Code(s): R33.9 - RETENTION OF URINE, UNSPECIFIED
[2017-12-31] MEDS: POTASSIUM CHLORIDE ORAL LIQUID 20 MEQ/15 ML PO SCH ×2 (12:25→21:32)
--- NOTE | 2017-12-31 12:53 | PN ---
Progress Note (short form) - Note Progress Note: Pt seen in bed. Tolerating diet. Having BMs daily per I/O record. Abd softly distended. R wrist/hand near normal. R shoulder with better movement, minimal pain, MRI shows chronic tears, joint effusion, subluxation, etc - defer to ortho. Pt seen with francois Jiang at bedside. Vital Signs Period Temp Pulse Resp BP Sys/Canas Pulse Ox Last 24 Hr 98 F-99.6 F 68-80 18-20 116-149/63-98 98-98 PE: alert, somewhat confused (baseline) R hand and wrist significantly improved, still slightly warm, vaguely pink around base of thumb R shoulder moving better abd soft, somewhat distended, nontender rectal deferred Valdovinos in place, light yellow urine no new labs K low yesterday, repleted A/P: fecal impaction resolved - having regular BMs on regimen of senna and dulcolax will continue to monitor - KUB showed some distal stool but no significant impaction/burden Valdovinos in place for urinary retention and to allow bladder to regain tone urine cx with no growth to date, blood cultures same R wrist/hand with resolving cellulitis on antibiotics R shoulder MRI - defer to ortho hand and ortho following trend labs - ordered for am Problem List - Problems (1) Fecal impaction Code(s): K56.41 - FECAL IMPACTION (2) Constipation Code(s): K59.00 - CONSTIPATION, UNSPECIFIED Qualifiers: Constipation type: unspecified constipation type Qualified Code(s): K59.00 - Constipation, unspecified (3) Acute urinary retention Code(s): R33.8 - OTHER RETENTION OF URINE (4) JASMIN (acute kidney injury) Code(s): N17.9 - ACUTE KIDNEY FAILURE, UNSPECIFIED (5) Positive blood culture Code(s): R78.81 - BACTEREMIA (6) Cellulitis of wrist Code(s): L03.119 - CELLULITIS OF UNSPECIFIED PART OF LIMB (7) Pain and swelling of right shoulder Code(s): M25.511 - PAIN IN RIGHT SHOULDER; M25.411 - EFFUSION, RIGHT SHOULDER
--- NOTE | 2017-12-31 13:28 | PN ---
Progress Note, Physician Chief Complaint: right wrist cellulitis History of Present Illness: 87 yo RHD female PMH dementia, HTN, CAD, diverticulosis, and contipation being treated for fecal impaction and acute urinary retention. The focus is over the base of the right thumb progressing dorsally over the right wrist. MRI done but is pending an official reading. Swelling is mostly resolved - Current Medication List Current Medications: Active Medications Acetaminophen (Tylenol -) 650 mg PO Q6H PRN PRN Reason: FEVER Last Admin: 12/30/17 07:02 Dose: 650 mg Amlodipine Besylate (Norvasc -) 5 mg PO DAILY [facility] Last Admin: 12/31/17 10:33 Dose: 5 mg Aspirin (Ecotrin -) 81 mg PO DAILY [facility] Last Admin: 12/31/17 10:34 Dose: 81 mg Atorvastatin Calcium (Lipitor -) 40 mg PO HS [facility] Last Admin: 12/30/17 21:46 Dose: 40 mg Bisacodyl (Dulcolax -) 10 mg PO DAILY [facility] Last Admin: 12/31/17 10:34 Dose: 10 mg Cefepime HCl (Maxipime 1 Gm Premix Ivpb) 1 gm IVPB Q8H-IV [facility] PRN Reason: Protocol Last Admin: 12/31/17 10:35 Dose: 1 gm Heparin Sodium (Porcine) (Heparin -) 5,000 unit SQ Q8H-IV [facility] Last Admin: 12/31/17 10:35 Dose: 5,000 unit Lactobacillus Acidophilus (Bacid -) 1 tab PO DAILY [facility] Last Admin: 12/31/17 10:34 Dose: 1 tab Magnesium Oxide (Mag-Ox -) 400 mg PO BID [facility] Last Admin: 12/31/17 10:34 Dose: 400 mg Metoprolol Succinate (Toprol Xl -) 25 mg PO BID [facility] Last Admin: 12/31/17 10:33 Dose: 25 mg Montelukast Sodium (Singulair -) 10 mg PO HS [facility] Last Admin: 12/30/17 21:46 Dose: 10 mg [id number]-9-[id number] Ethyl Esters (Lovaza -) 1 gm PO DAILY [facility] Last Admin: 12/31/17 10:33 Dose: 1 gm Pantoprazole Sodium (Protonix -) 40 mg PO DAILY [facility] Last Admin: 12/31/17 10:34 Dose: 40 mg Potassium Chloride (K-Dur -) 20 meq PO DAILY [facility] Last Admin: 12/31/17 10:34 Dose: 20 meq Potassium Chloride (Potassium Chloride Oral Liquid) 40 meq PO BID [facility] Stop: 01/01/18 08:00 Last Admin: 12/31/17 12:25 Dose: 40 meq Quinapril HCl (Accupril -) 20 mg PO DAILY [facility] Last Admin: 12/31/17 10:34 Dose: 20 mg Senna (Senna -) 2 tab PO HS [facility] Last Admin: 12/30/17 21:46 Dose: 2 tab Tamoxifen Citrate (Tamoxifen Citrate) 20 mg PO DAILY [facility] Last Admin: 12/31/17 10:34 Dose: 20 mg - Objective Vital Signs: Vital Signs Temperature 98.7 F 12/31/17 10:00 Pulse Rate 80 12/31/17 10:00 Respiratory Rate 18 12/31/17 10:00 Blood Pressure 138/76 12/31/17 10:00 O2 Sat by Pulse Oximetry (%) 98 12/31/17 09:00 Constitutional: Yes: Well Nourished, No Distress, Calm Eyes: Yes: Conjunctiva Clear, EOM Intact HENT: Yes: Atraumatic, Normocephalic Neck: Yes: Supple, Trachea Midline Cardiovascular: Yes: Regular Rate and Rhythm, S1, S2. No: Murmur Respiratory: Yes: Regular, CTA Bilaterally Gastrointestinal: Yes: Normal Bowel Sounds, Soft ...Rectal Exam: Yes: Deferred Genitourinary: No: CVA Tenderness - Left, CVA Tenderness - Right Extremities: No: Cool, Cyanosis Integumentary: No: Jaundice, Rash Neurological: Yes: Alert, Oriented Psychiatric: Yes: Alert, Oriented Labs: CBC, BMP 12/30/17 08:30 12/30/17 08:30 INR, PTT INR 1.00 (0.82-1.09) 12/20/17 03:35 Problem List - Problems (1) Cellulitis of wrist Assessment/Plan: 87yo RHD female with right wrist cellulitis after trauma no clear break in skin , right shoulder is also involved in this process, possible right shoulder effusion on exam. no collection or fracture seen on imaging of the wrist ( limited study). Motion is severely limited on exam of RUE proximal in the extremity. Right arm elevation above the heart IV antibiotics cover skin yovani and MRSA adequate analgesia Orthopedic re-evaluation appreciated no specific wound care will follow Code(s): L03.119 - CELLULITIS OF UNSPECIFIED PART OF LIMB (2) Positive blood culture Code(s): R78.81 - BACTEREMIA (3) UTI (lower urinary tract infection) Code(s): N39.0 - URINARY TRACT INFECTION, SITE NOT SPECIFIED (4) JASMIN (acute kidney injury) Code(s): N17.9 - ACUTE KIDNEY FAILURE, UNSPECIFIED (5) Abdominal distension Code(s): R14.0 - ABDOMINAL DISTENSION (GASEOUS) (6) Constipation Code(s): K59.00 - CONSTIPATION, UNSPECIFIED Qualifiers: Constipation type: unspecified constipation type Qualified Code(s): K59.00 - Constipation, unspecified (7) Osteoarthritis Code(s): M19.90 - UNSPECIFIED OSTEOARTHRITIS, UNSPECIFIED SITE Qualifiers: Osteoarthritis location: knee Osteoarthritis type: primary Laterality: bilateral Qualified Code(s): M17.0 - Bilateral primary osteoarthritis of knee
[2017-12-31] MEDS: SENNOSIDES 8.6MG TABLET (FP) PO SCH (21:11)
[2017-12-31] MEDS: MONTELUKAST NA 10 MG TABLET PO SCH (21:11)
[2017-12-31] MEDS: ATORVASTATIN CA 40 MG TABLET (FP) PO SCH (21:12)
[2017-12-31] MEDS: ACETAMINOPHEN 325 MG TABLET (FP) PO PRN (23:18)
[2018-01-01] MEDS ORDERED: PT OWN MED DRAWER 7, Y5N ONE ×2 (02:31→09:21)
[2018-01-01] MEDS: CEFEPIME HCL/D5W 1 GM/50 ML PREMIX BAG IVPB SCH ×2 (02:33→10:48)
[2018-01-01] MEDS: HEPARIN NA (PORCINE) 5,000 UNITS/ML 1ML VIAL SQ SCH ×3 (02:33→17:12)
[2018-01-01 08:56] LABS: BASO % 1.3 % (0-2.0); EOS % 2.3 % (0-4.5); HEMATOCRIT 30.7 % (32.4-45.2); HEMOGLOBIN 10.3 GM/dL (10.7-15.3); MCH 29.4 pg (25.7-33.7); MCHC 33.5 g/dl (32.0-36.0); MEAN CELL VOLUME 87.7 fl (80-96); MEAN PLT VOLUME 9.4 fl (7.5-11.1); MONO % 5.9 % (3.8-10.2); NEUT % 74.5 % (42.8-82.8); PLATELET COUNT 256 K/MM3 (134-434); RDW 14.4 % (11.6-15.6); WHITE BLOOD COUNT 9.6 K/mm3 (4.0-10.0)
[2018-01-01] MEDS: QUINAPRIL HCL 20 MG TABLET (FP) PO SCH (09:40)
[2018-01-01] MEDS: PANTOPRAZOLE 40 MG TABLET (FP) PO SCH (09:41)
[2018-01-01] MEDS: LACTOBACILLUS ACIDOPHILUS 1 CAP PO SCH (09:41)
[2018-01-01] MEDS: amLODIPine BESYLATE 5 MG TABLET (FP) PO SCH (09:41)
[2018-01-01] MEDS: ASPIRIN COATED 81 MG TABLET.EC PO SCH (09:41)
[2018-01-01] MEDS: BISACODYL 5 MG TABLET.DR (FP) PO SCH (09:41)
[2018-01-01] MEDS: TAMOXIFEN CITRATE 10 MG TABLET PO SCH (09:41)
[2018-01-01] MEDS: MAGNESIUM OXIDE 400 MG TABLET (FP) PO SCH ×2 (09:41→21:34)
[2018-01-01] MEDS: POTASSIUM CHLORIDE TABS 10 MEQ TABLET.ER (FP) PO SCH (09:41)
[2018-01-01] MEDS: OMEGA-3 ACID ETHYL ESTERS (FATTY-ACIDS) 1 GM CAPSULE (FP) PO SCH (09:41)
[2018-01-01] MEDS: metoPROLOL SUCCINATE 25 MG TAB.SR.24H (FP) PO SCH ×2 (09:42→21:33)
[2018-01-01 10:30] LABS: CHLORIDE 109 mmol/L (98-107); POTASSIUM 4.5 mmol/L (3.5-5.1); SODIUM 141 mmol/L (136-145)
[2018-01-01 10:45] LABS: ANION GAP 7 (8-16); BLOOD UREA NITROGEN 11 mg/dL (7-18); CALCIUM 8.2 mg/dL (8.5-10.1); CO2 25 mmol/L (21-32); CREATININE 0.7 mg/dL (0.55-1.02); GLUCOSE,RANDOM 79 mg/dL (74-106)
--- NOTE | 2018-01-01 13:52 | PN ---
Progress Note, Physician History of Present Illness: Awake, alert OOB in chair No c/o R hand or R shoulder pain Erythema/ swelling R hand resolved Afebrile WBC improved - Current Medication List Current Medications: Active Medications Acetaminophen (Tylenol -) 650 mg PO Q6H PRN PRN Reason: FEVER Last Admin: 12/31/17 23:18 Dose: 650 mg Amlodipine Besylate (Norvasc -) 5 mg PO DAILY [facility] Last Admin: 01/01/18 09:41 Dose: 5 mg Aspirin (Ecotrin -) 81 mg PO DAILY [facility] Last Admin: 01/01/18 09:41 Dose: 81 mg Atorvastatin Calcium (Lipitor -) 40 mg PO HS [facility] Last Admin: 12/31/17 21:12 Dose: 40 mg Bisacodyl (Dulcolax -) 10 mg PO DAILY [facility] Last Admin: 01/01/18 09:41 Dose: 10 mg Cefepime HCl (Maxipime 1 Gm Premix Ivpb) 1 gm IVPB Q8H-IV [facility] PRN Reason: Protocol Last Admin: 01/01/18 10:48 Dose: 1 gm Heparin Sodium (Porcine) (Heparin -) 5,000 unit SQ Q8H-IV [facility] Last Admin: 01/01/18 09:42 Dose: 5,000 unit Lactobacillus Acidophilus (Bacid -) 1 tab PO DAILY [facility] Last Admin: 01/01/18 09:41 Dose: 1 tab Magnesium Oxide (Mag-Ox -) 400 mg PO BID [facility] Last Admin: 01/01/18 09:41 Dose: 400 mg Metoprolol Succinate (Toprol Xl -) 25 mg PO BID [facility] Last Admin: 01/01/18 09:42 Dose: 25 mg Montelukast Sodium (Singulair -) 10 mg PO HS [facility] Last Admin: 12/31/17 21:11 Dose: 10 mg Xdipj-4-Tmbu Ethyl Esters (Lovaza -) 1 gm PO DAILY [facility] Last Admin: 01/01/18 09:41 Dose: 1 gm Pantoprazole Sodium (Protonix -) 40 mg PO DAILY [facility] Last Admin: 01/01/18 09:41 Dose: 40 mg Potassium Chloride (K-Dur -) 20 meq PO DAILY [facility] Last Admin: 01/01/18 09:41 Dose: 20 meq Quinapril HCl (Accupril -) 20 mg PO DAILY [facility] Last Admin: 01/01/18 09:40 Dose: 20 mg Senna (Senna -) 2 tab PO HS [facility] Last Admin: 12/31/17 21:11 Dose: 2 tab Tamoxifen Citrate (Tamoxifen Citrate) 20 mg PO DAILY [facility] Last Admin: 01/01/18 09:41 Dose: 20 mg - Objective Vital Signs: Vital Signs Temperature 98 F 01/01/18 05:38 Pulse Rate 70 01/01/18 09:00 Respiratory Rate 20 01/01/18 09:00 Blood Pressure 118/60 01/01/18 09:00 O2 Sat by Pulse Oximetry (%) 98 12/31/17 21:00 Constitutional: Yes: No Distress Cardiovascular: Yes: Regular Rate and Rhythm, S1, S2 Respiratory: Yes: CTA Bilaterally Gastrointestinal: Yes: Normal Bowel Sounds, Soft. No: Tenderness Extremities: Yes: Other (R hand swelling and erythema resolved R shoulder swelling resolved No tenderness) Labs: CBC, BMP 01/01/18 08:40 01/01/18 08:40 INR, PTT INR 1.00 (0.82-1.09) 12/20/17 03:35 Assessment/Plan Cellulitis R hand resolved R shoulder swelling resolved PCN allergy D/C antibiotics, observe Ortho follow up, MRI findings
--- NOTE | 2018-01-01 16:22 | PN ---
Progress Note, Physician Chief Complaint: Ms Thibodeaux says her hand feels better. No cp, sob, n/v. - Current Medication List Current Medications: Active Medications Acetaminophen (Tylenol -) 650 mg PO Q6H PRN PRN Reason: FEVER Last Admin: 12/31/17 23:18 Dose: 650 mg Amlodipine Besylate (Norvasc -) 5 mg PO DAILY [facility] Last Admin: 01/01/18 09:41 Dose: 5 mg Aspirin (Ecotrin -) 81 mg PO DAILY [facility] Last Admin: 01/01/18 09:41 Dose: 81 mg Atorvastatin Calcium (Lipitor -) 40 mg PO HS [facility] Last Admin: 12/31/17 21:12 Dose: 40 mg Bisacodyl (Dulcolax -) 10 mg PO DAILY [facility] Last Admin: 01/01/18 09:41 Dose: 10 mg Heparin Sodium (Porcine) (Heparin -) 5,000 unit SQ Q8H-IV [facility] Last Admin: 01/01/18 09:42 Dose: 5,000 unit Lactobacillus Acidophilus (Bacid -) 1 tab PO DAILY [facility] Last Admin: 01/01/18 09:41 Dose: 1 tab Magnesium Oxide (Mag-Ox -) 400 mg PO BID [facility] Last Admin: 01/01/18 09:41 Dose: 400 mg Metoprolol Succinate (Toprol Xl -) 25 mg PO BID [facility] Last Admin: 01/01/18 09:42 Dose: 25 mg Montelukast Sodium (Singulair -) 10 mg PO HS [facility] Last Admin: 12/31/17 21:11 Dose: 10 mg Glkwy-5-Kqyy Ethyl Esters (Lovaza -) 1 gm PO DAILY [facility] Last Admin: 01/01/18 09:41 Dose: 1 gm Pantoprazole Sodium (Protonix -) 40 mg PO DAILY [facility] Last Admin: 01/01/18 09:41 Dose: 40 mg Potassium Chloride (K-Dur -) 20 meq PO DAILY [facility] Last Admin: 01/01/18 09:41 Dose: 20 meq Quinapril HCl (Accupril -) 20 mg PO DAILY [facility] Last Admin: 01/01/18 09:40 Dose: 20 mg Senna (Senna -) 2 tab PO HS [facility] Last Admin: 12/31/17 21:11 Dose: 2 tab Tamoxifen Citrate (Tamoxifen Citrate) 20 mg PO DAILY [facility] Last Admin: 01/01/18 09:41 Dose: 20 mg - Objective Vital Signs: Vital Signs Temperature 36.6 C 01/01/18 05:38 Pulse Rate 70 01/01/18 09:00 Respiratory Rate 20 01/01/18 09:00 Blood Pressure 118/60 01/01/18 09:00 O2 Sat by Pulse Oximetry (%) 98 12/31/17 21:00 Constitutional: Yes: Well Nourished, No Distress, Calm Cardiovascular: Yes: Regular Rate and Rhythm. No: Gallop, Murmur, Rub Respiratory: Yes: Regular, CTA Bilaterally. No: Rales, Rhonchi, Wheezes Gastrointestinal: Yes: Normal Bowel Sounds, Soft. No: Distention, Tenderness Extremities: Yes: WNL Edema: No Labs: CBC, BMP 01/01/18 08:40 01/01/18 08:40 INR, PTT INR 1.00 (0.82-1.09) 12/20/17 03:35 Problem List - Problems (1) Fecal impaction Code(s): K56.41 - FECAL IMPACTION (2) Acute urinary retention Code(s): R33.8 - OTHER RETENTION OF URINE (3) CAD (coronary artery disease) Code(s): I25.10 - ATHSCL HEART DISEASE OF [place] CORONARY ARTERY W/O ANG PCTRS Qualifiers: Coronary Disease-Associated Artery/Lesion type: [place] artery [place] vs. transplanted heart: [place] heart Associated angina: without angina Qualified Code(s): I25.10 - Atherosclerotic heart disease of [place] coronary artery without angina pectoris (4) Constipation Code(s): K59.00 - CONSTIPATION, UNSPECIFIED Qualifiers: Constipation type: unspecified constipation type Qualified Code(s): K59.00 - Constipation, unspecified (5) HLD (hyperlipidemia) Code(s): E78.5 - HYPERLIPIDEMIA, UNSPECIFIED Qualifiers: Hyperlipidemia type: unspecified Qualified Code(s): E78.5 - Hyperlipidemia , unspecified (6) HTN (hypertension) Code(s): I10 - ESSENTIAL (PRIMARY) HYPERTENSION Qualifiers: Hypertension type: essential hypertension Qualified Code(s): I10 - Essential (primary) hypertension (7) Sepsis Code(s): A41.9 - SEPSIS, UNSPECIFIED ORGANISM Assessment/Plan (1) Fecal impaction Assessment/Plan: -Dr Monika following and case discussed -continue current regimen -doing well Code(s): K56.41 - FECAL IMPACTION (2) Acute urinary retention Assessment/Plan: -appreciate urology assistance -justice placed -will need to be discharged with justice Code(s): R33.8 - OTHER RETENTION OF URINE (3) Sepsis Assessment/Plan: -resolved -case d/w ID -stop all antibiotics today Code(s): (4) CAD (coronary artery disease) Assessment/Plan: -quiescent -continue home regimen Code(s): I25.10 - ATHSCL HEART DISEASE OF [place] CORONARY ARTERY W/O ANG PCTRS Qualifiers: Coronary Disease-Associated Artery/Lesion type: [place] artery [place] vs. transplanted heart: [place] heart Associated angina: without angina Qualified Code(s): I25.10 - Atherosclerotic heart disease of [place] coronary artery without angina pectoris (5) Constipation Assessment/Plan: -well controlled on current regimen Code(s): K59.00 - CONSTIPATION, UNSPECIFIED (6) HLD (hyperlipidemia) Assessment/Plan: -continue statin Code(s): E78.5 - HYPERLIPIDEMIA, UNSPECIFIED Qualifiers: Hyperlipidemia type: unspecified Qualified Code(s): E78.5 - Hyperlipidemia , unspecified (7) HTN (hypertension) Assessment/Plan: -controlled -continue toprol xl and norvasc Code(s): I10 - ESSENTIAL (PRIMARY) HYPERTENSION Qualifiers: Hypertension type: essential hypertension Qualified Code(s): I10 - Essential (primary) hypertension (8) Cellulitis with possible shoulder effusion -blood cultures currently NGTD -MRI reviewed -erythema resolved -case d/w ID, stop antibiotics today (9) Hypokalemia/magnesemia/phosphatemia -continue magnesium and potassium supplementation Dispo -possible d/c tomorrow to [facility]
--- NOTE | 2018-01-01 18:07 | PN ---
Progress Note (short form) - Note Progress Note: Pt seen and examined. Her right hand infection is dramatically better. She has no c/o pain. She has full ROM and function of both hands. No erythema, no swelling, non tender. Hand cellulitis has resolved completely. NTD from an ortho POV
[2018-01-01] MEDS: SENNOSIDES 8.6MG TABLET (FP) PO SCH (21:33)
[2018-01-01] MEDS: ATORVASTATIN CA 40 MG TABLET (FP) PO SCH (21:33)
[2018-01-01] MEDS: MONTELUKAST NA 10 MG TABLET PO SCH (21:34)
[2018-01-02] MEDS: HEPARIN NA (PORCINE) 5,000 UNITS/ML 1ML VIAL SQ SCH ×2 (02:10→09:32)
[2018-01-02 07:25] LABS: ANION GAP 8 (8-16); BLOOD UREA NITROGEN 14 mg/dL (7-18); CHLORIDE 107 mmol/L (98-107); CO2 27 mmol/L (21-32); CREATININE 0.7 mg/dL (0.55-1.02); GLUCOSE,RANDOM 85 mg/dL (74-106); MAGNESIUM 1.4 mg/dL (1.8-2.4); PHOSPHOROUS 2.4 mg/dL (2.5-4.9); SODIUM 142 mmol/L (136-145)
[2018-01-02 07:57] LABS: BASO % 0.7 % (0-2.0); EOS % 1.8 % (0-4.5); HEMATOCRIT 28.9 % (32.4-45.2); HEMOGLOBIN 9.7 GM/dL (10.7-15.3); MCH 29.4 pg (25.7-33.7); MCHC 33.5 g/dl (32.0-36.0); MEAN CELL VOLUME 87.6 fl (80-96); MEAN PLT VOLUME 9.3 fl (7.5-11.1); MONO % 5.4 % (3.8-10.2); NEUT % 78.1 % (42.8-82.8); PLATELET COUNT 268 K/MM3 (134-434); RDW 14.2 % (11.6-15.6); WHITE BLOOD COUNT 11.8 K/mm3 (4.0-10.0)
[2018-01-02] MEDS: amLODIPine BESYLATE 5 MG TABLET (FP) PO SCH (09:31)
[2018-01-02] MEDS: metoPROLOL SUCCINATE 25 MG TAB.SR.24H (FP) PO SCH (09:31)
[2018-01-02] MEDS: BISACODYL 5 MG TABLET.DR (FP) PO SCH (09:31)
[2018-01-02] MEDS: MAGNESIUM OXIDE 400 MG TABLET (FP) PO SCH (09:31)
[2018-01-02] MEDS: ASPIRIN COATED 81 MG TABLET.EC PO SCH (09:31)
[2018-01-02] MEDS: PANTOPRAZOLE 40 MG TABLET (FP) PO SCH (09:31)
[2018-01-02] MEDS: POTASSIUM CHLORIDE TABS 10 MEQ TABLET.ER (FP) PO SCH (09:32)
[2018-01-02] MEDS: LACTOBACILLUS ACIDOPHILUS 1 CAP PO SCH (09:32)
[2018-01-02] MEDS: OMEGA-3 ACID ETHYL ESTERS (FATTY-ACIDS) 1 GM CAPSULE (FP) PO SCH (09:32)
[2018-01-02] MEDS ORDERED: PT OWN MED DRAWER 7, Y5N ONE ×2 (09:34→09:37)
[2018-01-02] MEDS: QUINAPRIL HCL 20 MG TABLET (FP) PO SCH (09:36)
[2018-01-02] MEDS: TAMOXIFEN CITRATE 10 MG TABLET PO SCH (09:38)
[2018-01-02 10:46] VITALS: BP 127/66; PULSE 82; TEMP 98.2
[2018-01-02] MEDS ORDERED: MAGNESIUM 2GM/50ML STERILE WATER IVPB IVPB ONE (12:15)
--- NOTE | 2018-01-02 13:12 | DS ---
Physical Examination Vital Signs: Vital Signs Temperature 36.8 C 01/02/18 10:00 Pulse Rate 82 01/02/18 10:00 Respiratory Rate 19 01/02/18 10:00 Blood Pressure 127/66 01/02/18 10:00 O2 Sat by Pulse Oximetry (%) 98 01/02/18 10:00 Constitutional: Yes: Well Nourished, No Distress Cardiovascular: Yes: Regular Rate and Rhythm. No: Gallop, Murmur, Rub Respiratory: Yes: Regular, CTA Bilaterally. No: Rales, Rhonchi, Wheezes Gastrointestinal: Yes: Normal Bowel Sounds, Soft. No: Distention, Tenderness Extremities: Yes: WNL Labs: CBC, BMP 01/02/18 06:30 01/02/18 06:30 Discharge Summary Reason For Visit: LOWER UTI DISEASE Current Active Problems Cellulitis of wrist (Acute) Fecal impaction in rectum (Acute) Hypokalemia (Acute) Pain and swelling of right shoulder (Acute) Positive blood culture (Acute) UTI (lower urinary tract infection) (Acute) Hospital Course: (1) Fecal impaction Code(s): K56.41 - FECAL IMPACTION (2) Acute urinary retention Code(s): R33.8 - OTHER RETENTION OF URINE (3) Sepsis Code(s): (4) CAD (coronary artery disease) Code(s): I25.10 - ATHSCL HEART DISEASE OF [place] CORONARY ARTERY W/O ANG PCTRS Qualifiers: Coronary Disease-Associated Artery/Lesion type: [place] artery [place] vs. transplanted heart: [place] heart Associated angina: without angina Qualified Code(s): I25.10 - Atherosclerotic heart disease of [place] coronary artery without angina pectoris (5) Constipation Code(s): K59.00 - CONSTIPATION, UNSPECIFIED (6) HLD (hyperlipidemia) Code(s): E78.5 - HYPERLIPIDEMIA, UNSPECIFIED Qualifiers: Hyperlipidemia type: unspecified Qualified Code(s): E78.5 - Hyperlipidemia , unspecified (7) HTN (hypertension) Code(s): I10 - ESSENTIAL (PRIMARY) HYPERTENSION Qualifiers: Hypertension type: essential hypertension Qualified Code(s): I10 - Essential (primary) hypertension (8) Cellulitis with possible shoulder effusion (9) Hypokalemia/magnesemia/phosphatemia Ms Thibodeaux is an 87 year old female who comes in with fecal impaction. She was admitted to the hospital and seen by Dr Frank. Digital impaction was attempted and unsuccessful secondary to stool being too soft. Her stool softeners were stopped and instead she was placed on senna and bisacodyl. When the stool hardened she was able to void. She was also retaining secondary to impaction and bladder flaccidity. Valdovinos was placed and she will be discharged on this. She should follow up with her urologist for outpatient voiding trial. She should be continued on senna and bisacodyl. Her stool should be monitored closely, if does not have a bowel movement in 48 hours or quality of stool changes (becomes more liquid or solid) she should be evaluated for impaction. While here she developed cellulitis of her right hand. She was seen by ID and started on antibiotics. This has resolved. She is currently safe for discharge to SNF. 37 minutes spent in preparation of discharge Condition: Stable - Instructions Diet, Activity, Other Instructions: resume previous diet. Up with assistance, further activity per PT at SNF. Check cbc at SNF on 01/03 to evaluate leukocytosis, call ID if continues to elevate. Referrals: Lemuel Frank MD [Staff Physician] - Roger Carrion MD [Staff Physician] - Harinder Saldivar MD [Primary Care Provider] - Ford Dennis MD [Staff Physician] - Disposition: [facility] - Home Medications Comprehensive Discharge Medication List: Ambulatory Orders Aspirin Coated [Ecotrin -] 81 mg PO DAILY 12/21/11 Montelukast Na [Singulair -] 10 mg PO HS 12/21/11 [place]-3/Dha/Epa/Fish Oil [Fish Oil 1,000 mg Softgel] 1 tab PO DAILY 12/21/11 Atorvastatin Ca [Lipitor] 40 mg PO HS 05/22/12 Metoprolol Succinate [Toprol XL -] 25 mg PO BID 05/22/12 Amlodipine Besylate [Norvasc -] 5 mg PO DAILY 08/16/13 Omeprazole [Prilosec (RX)] 40 mg PO DAILY 08/16/13 Polyethylene Glycol 3350 [Miralax 119 gm Btl -] 17 gm PO BID 10/03/14 Tamoxifen Citrate 20 mg PO DAILY 12/16/14 Acetaminophen [Tylenol .Regular Strength -] 650 mg PO Q6H PRN 30 Days tablet Sennosides [Senna -] 2 tab PO HS 30 Days tablet 12/12/17 Bisacodyl [Bisacodyl -] 10 mg PO DAILY tablet. 01/02/18 Lactobacillus Acidophilus [Bacid -] 1 tab PO DAILY cap 01/02/18 Magnesium Oxide [Mag-Ox -] 400 mg PO BID tablet 01/02/18 Potassium Chloride [K-Dur -] 20 meq PO DAILY tablet.er 01/02/18 Quinapril HCl [Accupril -] 20 mg PO DAILY tablet 01/02/18
== END 2018-01-02 16:42 | DRG 388 ==
LOC: JER 02:07 → JERBED 04:59 → UNDOADMOB 05:33 → J6S 10:11 → OBSVTOIN 13:24
PROVIDERS: ADMIT Internal Medicine; ATTEND Internal Medicine
DX: K56.41 Fecal impaction (principal); A41.9 Sepsis, unspecified organism; N17.9 Acute kidney failure, unspecified; R65.10 Systemic inflammatory response syndrome (SIRS) of non-infectious origin without acute organ dysfunction; L03.113 Cellulitis of right upper limb; N39.0 Urinary tract infection, site not specified; I25.10 Atherosclerotic heart disease of native coronary artery without angina pectoris; I10 Essential (primary) hypertension; E78.5 Hyperlipidemia, unspecified; K21.9 Gastro-esophageal reflux disease without esophagitis; M54.9 Dorsalgia, unspecified; R14.0 Abdominal distension (gaseous); R33.9 Retention of urine, unspecified; K57.90 Diverticulosis of intestine, part unspecified, without perforation or abscess without bleeding; N31.9 Neuromuscular dysfunction of bladder, unspecified; H35.30 Unspecified macular degeneration; R50.9 Fever, unspecified; M17.0 Bilateral primary osteoarthritis of knee; M25.511 Pain in right shoulder; M25.411 Effusion, right shoulder; E87.6 Hypokalemia; E83.42 Hypomagnesemia; E83.39 Other disorders of phosphorus metabolism; D72.829 Elevated white blood cell count, unspecified; Z85.3 Personal history of malignant neoplasm of breast; Z88.0 Allergy status to penicillin; Z95.5 Presence of coronary angioplasty implant and graft; Z87.11 Personal history of peptic ulcer disease; Z87.891 Personal history of nicotine dependence
CPT/HCPCS: 36415; 71045-TC-FY; 73201-TC-RT; 73221-TC-RT; 74018-TC-FY; 74019-TC-FY; 80048; 80053; 81003; 81015; 82009; 82550; 83605; 83690; 83735; 84100; 84484; 84550; 85025; 85027; 85610; 85651; 86140; 86431; 87040; 87086; 87186; 93005; 93010; 97116-GP; 97161-GP; 99283-25; G0378; G0480; J1644; J7030

== ENCOUNTER 2018-01-16 19:53 | Inpatient (IN) | payer OTHER, BC ==
--- NOTE | 2018-01-16 20:19 | PDOC ---
History of Present Illness - General History Source: EMS, Intermediate Records - History of Present Illness Initial Comments: 01/16/18 20:38 The patient is an 87 year old female with a significant PMH of breast CA (s/p chemo), ASHD, HTN, hyperlipidemia, and GERD who presents to the emergency department from [facility] for evaluation of lethargy and shortness of breath. As per EMS, the patients heart rate dropped to the 30-40s en route and state she felt short of breath. They report administering 0.5mg of Atropine just prior to arrival. As per old records, the patient was recently discharged on 01/02/18 after being evaluated and treated for a UTI. The patient denies any other complaints at this time but appears mildly confused. The patient denies chest pain, shortness of breath, headache and dizziness. Denies fever, chills, nausea, vomit, diarrhea and constipation. Denies dysuria, frequency, urgency and hematuria. Allergies: Penicillins Past surgical history: Cardiac stent placement (2005). B/l knee repair. Right hip repair. Social history: Former smoker (remote past). No reported alcohol or drug use. PCP: Dr. Saldivar. <Tomy Kendall - Last Filed: 01/16/18 23:36> - General History Source: Intermediate Records <Contreras Wharton - Last Filed: 01/17/18 02:28> - General Chief Complaint: Shortness of Breath Stated Complaint: LETHARGIC Time Seen by Provider: 01/16/18 20:15 Past History <Tomy Kendall - Last Filed: 01/16/18 23:36> - Past Medical History Anemia: No Asthma: No Cancer: Yes (BREAST W/ LUMPECTOMY & RADIATION) Cardiac Disorders: Yes (ASHD W/ CARDIAC STENT) CVA: No COPD: No CHF: No DVT: No Dementia: No Diabetes: No GI Disorders: Yes (REFLUX,DIVERTICULOSIS) Disorders: No HTN: Yes Hypercholesterolemia: Yes Liver Disease: No Seizures: No Thyroid Disease: No - Surgical History Abdominal Surgery: Yes () Appendectomy: No (?) Cardiac Surgery: Yes (Stents 2005) Cholecystectomy: No Lung Surgery: No Neurologic Surgery: Yes (Epidural) Orthopedic Surgery: Yes (Hip Replacement Right,Juan Knee Replacements) - Family Disease History Family Disease History: Heart Disease: Father, Mother, Brother, [place]: Grandparents - Immunization History Td Vaccination: Yes TDAP Vaccination: Yes Immunization Up to Date: No - Suicide/Smoking/Psychosocial Hx Smoking History: Never smoked Have you smoked in the past 12 months: No If you are a former smoker, when did you quit?: Hx Alcohol Use: No Drug/Substance Use Hx: No Substance Use Type: None Hx Substance Use Treatment: No <Contreras Wharton - Last Filed: 01/17/18 02:28> - Past Medical History Allergies/Adverse Reactions: Allergies Allergy/AdvReac Type Severity Reaction Status Date / Time Penicillins Allergy Hives Verified 01/16/18 20:33 Home Medications: Ambulatory Orders Aspirin Coated [Ecotrin -] 81 mg PO DAILY 12/21/11 Montelukast Na [Singulair -] 10 mg PO HS 12/21/11 [place]-3/Dha/Epa/Fish Oil [Fish Oil 1,000 mg Softgel] 1 tab PO DAILY 12/21/11 Atorvastatin Ca [Lipitor] 40 mg PO HS 05/22/12 Metoprolol Succinate [Toprol XL -] 25 mg PO BID 05/22/12 Amlodipine Besylate [Norvasc -] 5 mg PO DAILY 08/16/13 Omeprazole [Prilosec (RX)] 40 mg PO DAILY 08/16/13 Polyethylene Glycol 3350 [Miralax 119 gm Btl -] 17 gm PO BID 10/03/14 Tamoxifen Citrate 20 mg PO DAILY 12/16/14 Acetaminophen [Tylenol .Regular Strength -] 650 mg PO Q6H PRN 30 Days tablet Sennosides [Senna -] 2 tab PO HS 30 Days tablet 12/12/17 Bisacodyl [Bisacodyl -] 10 mg PO DAILY tablet. 01/02/18 Lactobacillus Acidophilus [Bacid -] 1 tab PO DAILY cap 01/02/18 Magnesium Oxide [Mag-Ox -] 400 mg PO BID tablet 01/02/18 Potassium Chloride [K-Dur -] 20 meq PO DAILY tablet.er 01/02/18 Quinapril HCl [Accupril -] 20 mg PO DAILY tablet 01/02/18 Review of Systems - Review of Systems Able to Perform ROS?: Yes Comments:: 01/16/18 20:38 CONSTITUTIONAL: (+) Lethargy. Absent: fever, chills, diaphoresis, generalized weakness, malaise, loss of appetite HEENT: Absent: rhinorrhea, nasal congestion, throat pain, throat swelling, difficulty swallowing, mouth swelling, ear pain, eye pain, visual Changes CARDIOVASCULAR: (+) Slow heart rate. Absent: chest pain, syncope, palpitations, irregular heart rate, lightheadedness , peripheral edema RESPIRATORY: (+) Shortness of breath (resolved). Absent: cough, shortness of breath, dyspnea with exertion, orthopnea, wheezing, stridor, hemoptysis GASTROINTESTINAL: Absent: abdominal pain, abdominal distension, nausea, vomiting, diarrhea, constipation, melena, hematochezia GENITOURINARY: Absent: dysuria, frequency, urgency, hesitancy, hematuria, flank pain, genital pain MUSCULOSKELETAL: Absent: myalgia, arthralgia, joint swelling SKIN: Absent: rash, itching, pallor HEMATOLOGIC/IMMUNOLOGIC: Absent: easy bleeding, easy bruising, lymphadenopathy, frequent infections ENDOCRINE: Absent: unexplained weight gain, unexplained weight loss, heat intolerance, cold intolerance NEUROLOGIC: Absent: headache, focal weakness or paresthesias, dizziness, unsteady gait, seizure, mental status changes, bladder or bowel incontinence PSYCHIATRIC: Absent: anxiety, depression, suicidal or homicidal ideation, hallucinations. <Tomy Kendall - Last Filed: 01/16/18 23:36> *Physical Exam - Vital Signs Last Vital Signs Temp Pulse Resp BP Pulse Ox 99.0 F 74 12 95/59 84 L 01/16/18 20:00 01/16/18 20:00 01/16/18 20:00 01/16/18 20:00 01/16/18 20:00 - Physical Exam Comments: 01/16/18 20:39 GENERAL: Well developed, well nourished. Awake and alert. No acute distress. HEENT: Normocephalic, atraumatic. PERRLA, EOMI. No conjunctival pallor. Sclera are non- icteric. Moist mucous membranes. Oropharynx is clear. NECK: Supple. Full ROM. No JVD. Carotid pulses 2+ and symmetric, without bruits. No thyromegaly. No lymphadenopathy. CARDIOVASCULAR: Regular rate and rhythm. No murmurs, rubs, or gallops. Distal pulses are 2+ and symmetric. PULMONARY: (+) Decreased breath sounds. No wheezing, rales or rhonchi. ABDOMINAL: Soft. Non-tender. Non-distended. No rebound or guarding. No organomegaly. Normoactive bowel sounds. MUSCULOSKELETAL Normal range of motion at all joints. No bony deformities or tenderness. No CVA tenderness. EXTREMITIES: No cyanosis. No clubbing. No edema. No calf tenderness. SKIN: Warm and dry. Normal capillary refill. No rashes. No jaundice. NEUROLOGICAL: Alert, awake, appropriate. Cranial nerves 2-12 intact. No deficits to light touch and temperature in face, upper extremities and lower extremities. No motor deficits in the in face, upper extremities and lower extremities. Normoreflexic in the upper and lower extremities. Normal speech. Toes are downgoing bilaterally. PSYCHIATRIC: Cooperative. Good eye contact. Appropriate mood and affect. <Tomy Kendall - Last Filed: 01/16/18 23:36> Procedures - Intubation Time of Intubation: 00:05 Intubation Method: orotracheal Blade used: Mac Tube Size (Fr): 7.5 Medications: Etomidate, Rocuronium Tube position @ lip (cm): 24 Tube position confirmed by: Direct visualization, CO2 detector, Chest x-ray Breath Sounds after Intubation: equal Intubation Complications: no complications Post Intubation Xray: Yes (good position) <Contreras Wharton - Last Filed: 01/17/18 02:28> Heart Score/ECG Review #1 01/16/18 20:39 EKG done at 20:29 Vent rate 75 bpm Normal sinus rhythm Nonspecific intraventricular block Cannot rule out anterior infarct, age undetermined T wave abnormality, consider inferolateral ischemia Abnormal ECG <Tomy Kendall - Last Filed: 01/16/18 23:36> ED Treatment Course - LABORATORY CBC & Chemistry Diagram: 01/16/18 21:45 01/16/18 21:45 - Additional Consults Time Called: 23:30 Consult/PCP: Dr. Dowling (ICU) <Tomy Kendall - Last Filed: 01/16/18 23:36> - LABORATORY CBC & Chemistry Diagram: 01/16/18 21:45 01/16/18 21:45 <Contreras Wharton - Last Filed: 01/17/18 02:28> Medical Decision Making - Medical Decision Making 01/16/18 20:40 As per [facility] documents, the patient is designated as Full Code. <Tomy Kendall - Last Filed: 01/16/18 23:36> - Medical Decision Making 01/16/18 23:33 Dr. Wharton: The scribe's documentation has been prepared under my direction and personally reviewed by me in its entirery. I confirm that the note above accurately reflects all work, treatment, procedures, and medical decision making performed by me. Pt to be admitted to ICU. accepted by Dr. Dowling. Upon evaluation of oropharynx prior to intubation, it was observed that pt had round lesion to hard pallate. Unclear what it could be. Hospital aware. <Contreras Wharton - Last Filed: 01/17/18 02:28> *DC/Admit/Observation/Transfer <Tomy Kendall - Last Filed: 01/16/18 23:36> - Discharge Dispostion Admit: Yes <Contreras Wharton - Last Filed: 01/17/18 02:28> Diagnosis at time of Disposition: JASMIN (acute kidney injury), UTI (lower urinary tract infection), Hyperkalemia, SOB (shortness of breath) - Discharge Dispostion Condition at time of disposition: Stable
[2018-01-16] MEDS ORDERED: SODIUM CHLORIDE 1,000 ML IV STA (20:29)
[2018-01-16 21:18] LABS: URINE APPEARANCE SLCLOUDY; URINE BILIRUBIN NEGATIVE (<2.0 mg/dL); URINE BLOOD NEGATIVE (NEGATIVE); URINE COLOR YELLOW; URINE GLUCOSE (UA) NEGATIVE (NEGATIVE); URINE KETONE NEGATIVE (NEGATIVE); URINE NITRITE NEGATIVE (NEGATIVE); URINE PROTEIN NEGATIVE (NEGATIVE); URINE UROBILINOGEN NEGATIVE mg/dL (0.2-1.0)
[2018-01-16 21:19] LABS: URINE LEUK ESTERASE 1+ (NEGATIVE)
[2018-01-16 21:25] LABS: EPI CELLS RARE /HPF (FEW); URINE MUCUS RARE; YEAST RARE
[2018-01-16 21:57] LABS: BASO % 0.5 % (0-2.0); EOS % 0.1 % (0-4.5); HEMOGLOBIN 9.5 GM/dL (10.7-15.3); LYMPH % 11.9 % (8-40); MCH 28.5 pg (25.7-33.7); MCHC 32.6 g/dl (32.0-36.0); MEAN CELL VOLUME 87.4 fl (80-96); MEAN PLT VOLUME 9.9 fl (7.5-11.1); MONO % 4.8 % (3.8-10.2); NEUT % 82.7 % (42.8-82.8); PLATELET COUNT 208 K/MM3 (134-434); RBC 3.32 M/mm3 (3.60-5.2); RDW 14.3 % (11.6-15.6); WHITE BLOOD COUNT 17.9 K/mm3 (4.0-10.0)
[2018-01-16 22:10] LABS: INR 1.19 (0.82-1.09); PROTHROMBIN TIME (PATIENT) 13.5 SEC (9.98-11.88)
[2018-01-16 22:13] LABS: ACTIVATED PTT 22.9 SECONDS (26.9-34.4)
[2018-01-16 22:31] LABS: ALBUMIN 2.7 g/dl (3.4-5.0); ANION GAP 10 (8-16); BILIRUBIN,TOTAL 0.5 mg/dL (0.2-1.0); BLOOD UREA NITROGEN 36 mg/dL (7-18); CALCIUM 8.1 mg/dL (8.5-10.1); CHLORIDE 111 mmol/L (98-107); CO2 20 mmol/L (21-32); CREATININE 2.2 mg/dL (0.55-1.02); GLUCOSE,RANDOM 192 mg/dL (74-106); SGOT/AST 95 U/L (15-37); SGPT/ALT 57 U/L (12-78); SODIUM 141 mmol/L (136-145); TOT PROT 5.6 g/dl (6.4-8.2)
[2018-01-16 22:32] LABS: ALK PHOS 63 U/L (45-117)
[2018-01-16] MEDS ORDERED: CALCIUM GLUCONATE 10% - 1,000 MG/10 ML VIAL IVPUSH ONE (22:44)
[2018-01-16] MEDS ORDERED: SODIUM BICARBONATE 8.4% 50 MEQ/50 ML DISP.SYRIN IVPUSH ONE (22:44)
[2018-01-16] MEDS ORDERED: INSULIN REGULAR HUMAN 100 UNITS/ML *VIAL IVPUSH ONE (22:44)
[2018-01-16] MEDS ORDERED: DEXTROSE 50%-WATER - 25 GM/50 ML VIAL IVPUSH ONE (22:45)
[2018-01-16] MEDS ORDERED: CALCIUM CHLORIDE 1 GM/10 ML *DISP.SYRIN ONE (22:48)
[2018-01-16] MEDS ORDERED: DEXTROSE 50%-WATER 25 GM/50 ML DISP.SYRIN ONE (22:48)
[2018-01-16] MEDS ORDERED: INSULIN REGULAR HUMAN 100 UNITS/ML *VIAL ONE (22:49)
[2018-01-16] MEDS ORDERED: SODIUM BICARBONATE 8.4% - 50 ML ONE (22:49)
--- NOTE | 2018-01-16 23:14 | PN ---
Teaching Attending Note Name of Resident: Sara Coronel ATTENDING PHYSICIAN STATEMENT I saw and evaluated the patient. I reviewed the resident's note and discussed the case with the resident. I agree with the resident's findings and plan as documented. SUBJECTIVE: 87 F with pmhx. of breast ca (s/p chemo), ASHD, HTN, HLD, GERD, with recent admit for fecal impaction and cellulitis who presents with shortness of breath/ lethargy from [facility]. EMS and ED hx. noted HR dropped 30-40s en route to ED and Atropine 0.5mg was given. Upon my arrival to ED, pt. had RR 40's with 02 78 % on BIPAP, at that point decision was made to intubate patient for respiratory failure. OBJECTIVE: Physical: VS: Vital Signs Period Temp Pulse Resp BP Sys/Canas Pulse Ox Last 24 Hr 99.0 F 70-74 12-30 95-98/59-71 84-90 GEN: In severe Respiratory distress, unable to speak, on BIPAP at time of my arrival. HEENT: NCAT, PERRL, on BIPAP CARD: RRR S1, S2 RESP: Coarse breath sounds bilaterally ABD: BSx4, NTD to palpation EXT: +1 Pitting edema, bilateral and equal CBCD WBC 17.9 K/mm3 (4.0-10.0) H D 01/16/18 21:45 RBC 3.32 M/mm3 (3.60-5.2) L 01/16/18 21:45 Hgb 9.5 GM/dL (10.7-15.3) L 01/16/18 21:45 Hct 29.0 % (32.4-45.2) L 01/16/18 21:45 MCV 87.4 fl (80-96) 01/16/18 21:45 MCHC 32.6 g/dl (32.0-36.0) 01/16/18 21:45 RDW 14.3 % (11.6-15.6) 01/16/18 21:45 Plt Count 208 K/MM3 (134-434) D 01/16/18 21:45 MPV 9.9 fl (7.5-11.1) 01/16/18 21:45 CMP Sodium 141 mmol/L (136-145) 01/16/18 21:45 Potassium 6.0 mmol/L (3.5-5.1) H 01/16/18 21:45 Chloride 111 mmol/L (98-107) H 01/16/18 21:45 Carbon Dioxide 20 mmol/L (21-32) L 01/16/18 21:45 Anion Gap 10 (8-16) 01/16/18 21:45 BUN 36 mg/dL (7-18) H 01/16/18 21:45 Creatinine 2.2 mg/dL (0.55-1.02) H 01/16/18 21:45 Creat Clearance w eGFR 21.21 (>60) 01/16/18 21:45 Random Glucose 192 mg/dL (74-106) H 01/16/18 21:45 Calcium 8.1 mg/dL (8.5-10.1) L 01/16/18 21:45 Total Bilirubin 0.5 mg/dL (0.2-1.0) 01/16/18 21:45 AST 95 U/L (15-37) H 01/16/18 21:45 ALT 57 U/L (12-78) 01/16/18 21:45 Alkaline Phosphatase 63 U/L (45-117) 01/16/18 21:45 Total Protein 5.6 g/dl (6.4-8.2) L 01/16/18 21:45 Albumin 2.7 g/dl (3.4-5.0) L 01/16/18 21:45 CARDIAC ENZYMES Troponin I 0.41 ng/ml (0.00-0.05) H 01/16/18 21:45 Urine Test Results Urine Color Yellow 01/16/18 20:50 Urine Appearance Slcloudy 01/16/18 20:50 Urine pH 6.0 (5.0-8.0) 01/16/18 20:50 Ur Specific [place] 1.010 (1.001-1.035) 01/16/18 20:50 Urine Protein Negative (NEGATIVE) 01/16/18 20:50 Urine Glucose (UA) Negative (NEGATIVE) 01/16/18 20:50 Urine Ketones Negative (NEGATIVE) 01/16/18 20:50 Urine Blood Negative (NEGATIVE) 01/16/18 20:50 Urine Nitrite Negative (NEGATIVE) 01/16/18 20:50 Urine Bilirubin Negative (<2.0 mg/dL) 01/16/18 20:50 Ur Leukocyte Esterase 1+ (NEGATIVE) H 01/16/18 20:50 Ur Epithelial Cells Rare /HPF (FEW) 01/16/18 20:50 Urine Mucus Rare 01/16/18 20:50 CXR- NO Acute process Home Medications Medication Instructions Recorded Aspirin Coated [Ecotrin -] 81 mg PO DAILY 12/21/11 Montelukast Na [Singulair -] 10 mg PO HS 12/21/11 [place]-3/Dha/Epa/Fish Oil [Fish Oil 1 tab PO DAILY 12/21/11 1,000 mg Softgel] Atorvastatin Ca [Lipitor] 40 mg PO HS 05/22/12 Metoprolol Succinate [Toprol XL -] 25 mg PO BID 05/22/12 Amlodipine Besylate [Norvasc -] 5 mg PO DAILY 08/16/13 Omeprazole [Prilosec (RX)] 40 mg PO DAILY 08/16/13 Polyethylene Glycol 3350 [Miralax 17 gm PO BID 10/03/14 119 gm Btl -] Tamoxifen Citrate 20 mg PO DAILY 12/16/14 Acetaminophen [Tylenol .Regular 650 mg PO Q6H PRN 30 Days tablet 12/12/17 Strength -] Sennosides [Senna -] 2 tab PO HS 30 Days tablet 12/12/17 Bisacodyl [Bisacodyl -] 10 mg PO DAILY tablet. 01/02/18 Lactobacillus Acidophilus [Bacid -] 1 tab PO DAILY cap 01/02/18 Magnesium Oxide [Mag-Ox -] 400 mg PO BID tablet 01/02/18 Potassium Chloride [K-Dur -] 20 meq PO DAILY tablet.er 01/02/18 Quinapril HCl [Accupril -] 20 mg PO DAILY tablet 01/02/18 #1 01/16/18 20:39 EKG done at 20:29 Vent rate 75 bpm Normal sinus rhythm Nonspecific intraventricular block Cannot rule out anterior infarct, age undetermined T wave abnormality, consider inferolateral ischemia Abnormal ECG Urine Test Results Urine Color [place]ky[place] 01/17/18 02:00 Urine Appearance Cloudy 01/17/18 02:00 Urine pH 6.0 (5.0-8.0) 01/17/18 02:00 Ur Specific [place] 1.011 (1.001-1.035) 01/17/18 02:00 Urine Protein 2+ (NEGATIVE) H 01/17/18 02:00 Urine Glucose (UA) Negative (NEGATIVE) 01/17/18 02:00 Urine Ketones Negative (NEGATIVE) 01/17/18 02:00 Urine Blood 2+ (NEGATIVE) H 01/17/18 02:00 Urine Nitrite Negative (NEGATIVE) 01/17/18 02:00 Urine Bilirubin Negative (<2.0 mg/dL) 01/17/18 02:00 Ur Leukocyte Esterase 3+ (NEGATIVE) H D 01/17/18 02:00 Ur Epithelial Cells Rare /HPF (FEW) 01/16/18 20:50 Urine Bacteria Rare /hpf (NONE SEEN) 01/17/18 02:00 Urine Mucus Rare 01/16/18 20:50 ASSESSMENT AND PLAN: 87 F with pmhx. of breast ca (s/p chemo), ASHD, HTN, HLD, GERD, with recent admit for fecal impaction and cellulitis who presents with shortness of breath/ lethargy being admitted for Sepsis and Acute Respiratory Failure 1.) Acute Hypoxic Respiratory Failure - DDx: PE/ Sepsis - ABG/CXR - Wells 2.5 - Empiric Hep. gtt- Pt. on Tamoxifen 2.) Multi-Organ System Failure-Septic Shock - Stat fluid rescuistation- 6L - Levophed - Most likely due to UTI - NEVES CX - IVF - Repeat LA - Vanco/Cefepime 3.) Acute Renal Failure - RO Hydronephrosis - Nephro consult - ? Obstructive Uropathy - Valdovinos - Renal US - U lytes - Renally dose all meds - Hold FAVIAN 4.) ASHD - Hold BP meds - C/W ASA 6.) Troponin Elevation - Demand Vs. Rf - Trend Trop/EKG - Cardio 7.) Prolonged Qt - Stat Mg2+ - Avoid Qt Prolonging agents 8.) Dvt Ppx - Hep. Gtt Place in ICU CC Time: 60 Minutes
[2018-01-16 23:18] LABS: VENOUS PC02 38.6 mmHg (38-52); VENOUS PH 7.29 (7.32-7.42)
[2018-01-16 23:20] LABS: VENOUS PO2 19.9 mmHg (28-48)
[2018-01-16 23:32] LABS: ARTERIAL BLD GAS O2 SATURATION 99.2 % (90-98.9); ARTERIAL BLOOD GAS PCO2 20.9 mmHg (35-45); ARTERIAL BLOOD GAS pH 7.38 (7.35-7.45)
[2018-01-16 23:37] LABS: ALLENS TEST POSITIVE
[2018-01-16 23:39] LABS: ARTERIAL BLOOD GAS BASE EXCESS -11.5 meq/l (-2-2)
[2018-01-16] MEDS ORDERED: RAPID SEQUENCE INTUBATION KIT NR ONE (23:40)
[2018-01-17] MEDS ORDERED: DOPAMINE 400 MG/D5W - 400,000 MCG/250 ML INFUS.BAG IVPB ONE ×2 (00:02→00:12)
[2018-01-17] MEDS ORDERED: DOPAMINE 400 MG/D5W - 400,000 MCG/250 ML INFUS.BAG IVPB SCH (00:15)
[2018-01-17] MEDS ORDERED: HEPARIN NA (PORCINE) 5,000 UNITS/ML 1ML VIAL IVPUSH PRN ×2 (00:43)
[2018-01-17] MEDS ORDERED: SODIUM CHLORIDE 1,000 ML IV SCH (00:45)
[2018-01-17] MEDS ORDERED: HEPARIN SOD,PORK IN 0.45% NACL 25,000 UNITS/500 ML INFUS.BAG IVPB SCH (00:45)
[2018-01-17] MEDS ORDERED: NOREPINEPHRINE BITARTRATE 8,000 MCG in DEXTROSE 5%-WATER - 492 ML IV SCH (00:45)
[2018-01-17] MEDS ORDERED: WATER IVPB ONE (01:02)
[2018-01-17] MEDS ORDERED: DEXTROSE 5% IVPB ONE (01:02)
[2018-01-17] MEDS ORDERED: VANCOMYCIN IVPB ONE (01:02)
[2018-01-17] MEDS ORDERED: NOREPINEPHRINE BITARTRATE 4 MG/4 ML ML IV ONE ×2 (01:10→01:12)
--- NOTE | 2018-01-17 01:21 | HP ---
CHIEF COMPLAINT: SOB PCP: Dr Saldivar HISTORY OF PRESENT ILLNESS: 87yo F with a PMHx of Breast CA (s/p chemo on tamoxifen), CAD who presents to ER from [facility] due to dizziness and lethargy. On route per EMS, patient became bradycardic to 30s, which improved w/ Atropine 0.5. In the ER, her MAPs dropped from 80s to 50s. Labs were notable for leukocytosis and severe lactic acidosis. IVF boluses were given and septic protocol was initiated. Upon medicine team's arrival in the ER, her BPs were not responding to fluids. O2 sat gradually decreased from 80 to 50% even on BiPAP 100%, and she continued to have deep agonal breathing, prompting rapid sequence ET intubation in the ER. Peripheral dopamine was initiated, and an IO line was placed for transition into Levophed. Recent Travel: Unable to obtain PAST MEDICAL HISTORY: Breast CA (s/p chemo on tamoxifen), HTN, HLD, CAD PAST SURGICAL HISTORY: Cardiac stent placement (2005). B/l knee repair. Right hip repair. Social History: Unable to obtain Allergies: Penicillins Allergy (Verified 01/16/18 20:33) Hives HOME MEDICATIONS: Home Medications Medication Instructions Recorded Aspirin Coated [Ecotrin -] 81 mg PO DAILY 12/21/11 Montelukast Na [Singulair -] 10 mg PO HS 12/21/11 [place]-3/Dha/Epa/Fish Oil [Fish Oil 1 tab PO DAILY 12/21/11 1,000 mg Softgel] Atorvastatin Ca [Lipitor] 40 mg PO HS 05/22/12 Metoprolol Succinate [Toprol XL -] 25 mg PO BID 05/22/12 Amlodipine Besylate [Norvasc -] 5 mg PO DAILY 08/16/13 Omeprazole [Prilosec (RX)] 40 mg PO DAILY 08/16/13 Polyethylene Glycol 3350 [Miralax 17 gm PO BID 10/03/14 119 gm Btl -] Tamoxifen Citrate 20 mg PO DAILY 12/16/14 Acetaminophen [Tylenol .Regular 650 mg PO Q6H PRN 30 Days tablet 12/12/17 Strength -] Sennosides [Senna -] 2 tab PO HS 30 Days tablet 12/12/17 Bisacodyl [Bisacodyl -] 10 mg PO DAILY tablet. 01/02/18 Lactobacillus Acidophilus [Bacid -] 1 tab PO DAILY cap 01/02/18 Magnesium Oxide [Mag-Ox -] 400 mg PO BID tablet 01/02/18 Potassium Chloride [K-Dur -] 20 meq PO DAILY tablet.er 01/02/18 Quinapril HCl [Accupril -] 20 mg PO DAILY tablet 01/02/18 REVIEW OF SYSTEMS Unable to obtain PHYSICAL EXAMINATION Vital Signs Period Temp Pulse Resp BP Sys/Canas Pulse Ox Last 24 Hr 99.0 F 70-79 12-30 70-98/45-71 84-90 GEN: Prior to being intubated, patient was awake, alert, oriented x3 but with labored breathing and agitation HEENT: PERRLA, Difficult to assess EOM due to agitation, +JVD CV: S1, S2, RRR LUNG: Bibasilar crackles ABD: Soft, NT, ND MSK: No edema, no erythema NEURO: Difficult to assess due to agitation. Movements were generally symmetric , no facial droop. EKG: NSR at 45bpm. Compared to old EKG there are TWI in inferior and lateral leads Likely new RBBB S1Q3T3 pattern seen. ASSESSMENT/PLAN: 87yo F with a PMHx of Breast CA (s/p chemo on tamoxifen), CAD who presents to ER from [facility] due to dizziness and lethargy, found to be in respiratory failure and multisystem organ failure # Respiratory Failure -- Intubated in the ER. Likely secondary to metabolic acidosis from sepsis. However in light of malignancy hx and tamoxifen use, a submassive PE cannot be ruled out. Will start heparin ggt w/ PE protocol. Unable to obtain CTA due to JASMIN. Consider VQ. Repeat ABG in AM. # Multisystem Organ Failure -- Suspicious for UTI as underlying source. One-time renally dosed Vanc and Cefepime given. BP was initially unresponsive to IVF, so pressors were initiated. On levophed now, will uptitrate to max and continue to bolus. Will start Vasopressin if needed. Will receive total 6L bolus and then standing 125cc /hr. Severe lactic acidosis is uptrending, likely due to period of prolonged hypotension in ER (about 30min). F/u Bcx, Ucx. Hold BP meds. ID consult # Metabolic Acidosis -- Likely secondary to lactic acidosis from septic shock. # JASMIN -- Likely pre-renal 2/2 shock. Normal Cr at baseline. Strict I&O. Will obtain Ulytes and renal u/s to r/o other pathology. Nephro consult. # Troponins -- Likely demand since it is downtrending. Trend trops. EKG in AM. Echo. # Hyperkalemia -- Likely from taking daily home K-Dur and ACEi. No hyperacute T wave on EKG. Given cocktail in ER including insulin, D50, bicarb, Ca2+ gluc. Repeat K+ in AM # Prolonged QTc -- 542ms on EKG. Avoid prolonging agents. Will give extra Mag 1g through IV. EKG in AM. # FEN/PPx -- IVNS at 125cc/hr. NPO. Hepatin ggt # Dispo -- Admit to ICU. Accepted. -- Pt is full code as per OR records. Poor prognosis. Dayday Cisse (HCP) called in ICU, on her way. Case d/w Dr Flores & Dr Laisha Coronel MD - [id number] Night Refrig[employer] Specialist CC time: 80 min Visit type - Emergency Visit Emergency Visit: Yes ED Registration Date: 01/16/18 Care time: The patient presented to the Emergency Department on the above date and was hospitalized for further evaluation of their emergent condition. - New Patient This patient is new to me today: Yes Date on this admission: 01/17/18 - Critical Care Critical Care patient: Yes Total Critical Care Time (in minutes): 80 Critical Care Statement: The care of this patient involved high complexity decision making to prevent further life threatening deterioration of the patient 's condition and/or to evaluate & treat vital organ system(s) failure or risk of failure. Hospitalist Screening - Colonoscopy Questionnaire Colonoscopy Questionnaire: Colonoscopy Questionnaire - Patient: 50 - 75 years old and never had a screening colonoscopy: Unknown History of colon or rectal polyps, or CA: Unknown History of IBD, Crohn's disease or UC: Unknown History of abdominal radiation therapy as a child: Unknown - Relative: 1 with colon or rectal CA, or polyps at age 60 or younger: Unknown Colon or rectal CA diagnosed at age 45 or younger: Unknown Multiple relatives with colon or rectal CA: Unknown - Outcome: Screening Result: Negative Screen
[2018-01-17] MEDS ORDERED: MIDAZOLAM 100 MG in SODIUM CHLORIDE 100 ML IVPB SCH (01:30)
[2018-01-17] MEDS ORDERED: FENTANYL INJECTION 500 MCG in DEXTROSE 5%-WATER - 90 ML IVPB SCH (01:30)
[2018-01-17] MEDS ORDERED: CEFEPIME 2 GM in DEXTROSE 5%-WATER 100 ML IVPB ONE (01:45)
[2018-01-17] MEDS ORDERED: fentaNYL CITRATE 250 MCG/5 ML VIAL ONE (01:45)
[2018-01-17 01:50] LABS: ARTERIAL BLD GAS O2 SATURATION 99.3 % (90-98.9); ARTERIAL BLOOD GAS PCO2 27.4 mmHg (35-45); ARTERIAL BLOOD GAS pH 7.27 (7.35-7.45)
[2018-01-17] MEDS ORDERED: MAGNESIUM SULF 50% (8.12 MEQ/2 ML-1 GM VIAL) IVPB ONE (01:51)
[2018-01-17 01:52] LABS: ALLENS TEST POSITIVE
[2018-01-17 01:55] LABS: ARTERIAL BLOOD GAS BASE EXCESS -13.4 meq/l (-2-2)
[2018-01-17 02:30] LABS: URINE APPEARANCE CLOUDY; URINE BILIRUBIN NEGATIVE (<2.0 mg/dL); URINE BLOOD 2+ (NEGATIVE); URINE COLOR DKYELLOW; URINE GLUCOSE (UA) NEGATIVE (NEGATIVE); URINE KETONE NEGATIVE (NEGATIVE); URINE NITRITE NEGATIVE (NEGATIVE); URINE UROBILINOGEN NEGATIVE mg/dL (0.2-1.0)
[2018-01-17 02:42] LABS: URINE LEUK ESTERASE 3+ (NEGATIVE); URINE PROTEIN 2+ (NEGATIVE)
[2018-01-17 02:46] LABS: URINE BACTERIA RARE /hpf (NONE SEEN); URINE HYALINE CAST 4 /lpf; YEAST MANY
[2018-01-17] MEDS ORDERED: SODIUM CHLORIDE 1,000 ML IV STA ×5 (02:58→03:00)
[2018-01-17] MEDS ORDERED: VASOPRESSIN 50 UNITS in SODIUM CHLORIDE 97.5 ML IVPB SCH (03:00)
[2018-01-17] MEDS ORDERED: VASOPRESSIN 20 UNITS/ML VIAL IV ONE (03:01)
[2018-01-17 03:09] VITALS: BMI 24.9
--- NOTE | 2018-01-17 03:20 | PN ---
Repeat PE for Septic Shock - Vital Signs Vital Signs: Vital Signs Temperature 97.1 F L 01/17/18 01:30 Pulse Rate 97 H Respiratory Rate 26 Blood Pressure 105/68 O2 Sat by Pulse Oximetry (%) 30 L Please note, O2 saturation is detected as 20s-30s on the pulse ox. However, this is likely a false reading because it is not consistent with the ABG I have reviewed the most recent vital signs: Yes - PE CV for Spetic Shock: Regular Rhythm, Regular Rate, S1, S2 Lungs: Crackles Vascular: Left Radial: 2+, Right Radial: 2+, Left Doralis Pedis: 2+, Right Dorsalis Pedis: 2+ Capillary Refill: >3 seconds Skin exam: Clammy, Cool
[2018-01-17 03:41] VITALS: BP 93/62; PULSE 93; TEMP 97.3
[2018-01-17] MEDS ORDERED: SODIUM BICARBONATE 8.4% - 50 ML ONE (04:15)
--- NOTE | 2018-01-17 05:07 | HOSP ---
Subjective - Review of Symptoms Events since last encounter: Paged due to bradycardia Pt seen and examined. HR on monitor was sinus adam in the 30s. Atropine 1mg x2 given with short-lived response. BP gradually trended down to 50s/30s on max dose Levophed and Vasopressin. While examining the patient, no pulse was detected. CPR was initiated at 04:07am. ACLS protocol was meticulously followed with additional bicarbonate given for met. acidosis. Rhythm was consistently asystole during rhythm checks. After 6 rounds and 15 min, a collective decision was made to cease. Patient is unresponsive to verbal, tactile, or painful stimuli No pulse. No heart sounds. No spontaneous respirations Pupils are nonreactive. No gag reflex HR 0 and BP 0/0. Time of 04:25am Family notified. Support given. Van STAHL notified by RN. Dr Flores was present during code. Visit type - Emergency Visit Emergency Visit: No - New Patient This patient is new to me today: No - Critical Care Critical Care patient: Yes Total Critical Care Time (in minutes): 30 Critical Care Statement: The care of this patient involved high complexity decision making to prevent further life threatening deterioration of the patient 's condition and/or to evaluate & treat vital organ system(s) failure or risk of failure.
--- NOTE | 2018-01-17 05:08 | HOSP ---
Subjective - Review of Symptoms Subjective: CODE BLUE Called and ROHAN CODE started 4:07 AM CPR Started EPI Administered Rhythm asystole BICARB Rythm continued to be Asystole Family Notified Code called at 4:25 Physical Examination Vital Signs: Vital Signs Temperature 97.3 F L 01/17/18 03:30 Pulse Rate 93 H 01/17/18 03:30 Respiratory Rate 25 H 01/17/18 03:30 Blood Pressure 93/62 01/17/18 03:30 O2 Sat by Pulse Oximetry (%) 85 L 01/17/18 00:00 Labs: CBC, BMP 01/16/18 21:45 01/16/18 21:45
[2018-01-17] MEDS ORDERED: MUPIROCIN 2% TOPICAL OINTMENT FOR DECOLONIZATION NS SCH (10:00)
--- NOTE | 2018-01-17 11:44 | EKG ---
Test Reason : Blood Pressure : / mmHG Vent. Rate : 075 BPM Atrial Rate : 075 BPM P-R Int : 196 ms QRS Dur : 128 ms QT Int : 486 ms P-R-T Axes : 055 072 -43 degrees QTc Int : 542 ms NORMAL SINUS RHYTHM NON-SPECIFIC INTRA-VENTRICULAR CONDUCTION BLOCK CANNOT RULE OUT ANTERIOR INFARCT , AGE UNDETERMINED T WAVE ABNORMALITY, CONSIDER INFEROLATERAL ISCHEMIA ABNORMAL ECG WHEN COMPARED WITH ECG OF 20-DEC-2017 02:24, CA INTERVAL HAS DECREASED QUESTIONABLE CHANGE IN QRS DURATION Confirmed by VIANNEY HERNANDEZ, GRAYSON ([id number]) on 01/17/2018 11:44:21 AM Referred By: Confirmed By:GRAYSON FAITH MD
[2018-01-17] MEDS ORDERED: CHLORHEXIDINE GLUCONATE 4% CLEANSER FOR DECOLONIZATION TP SCH (22:00)
[2018-01-18] MEDS ORDERED: ETOMIDATE 40 MG/20 ML VIAL IVPUSH ONE (02:59)
[2018-01-18] MEDS ORDERED: ROCURONIUM BROMIDE 50 MG/5 ML VIAL IV ONE (02:59)
== END 2018-01-17 06:30 | disposition expired | DRG 871 ==
LOC: JER 19:53 → JERBED 23:04 → UNDOADMIN 23:25 → JICU 01-17 01:10
PROVIDERS: ADMIT Internal Medicine; ATTEND Internal Medicine
PROC: 5A1935Z Respiratory Ventilation, Less than 24 Consecutive Hours (ICD-10-PCS; principal; 2018-01-17)
DX: A41.89 Other specified sepsis (principal); R65.21 Severe sepsis with septic shock; J96.01 Acute respiratory failure with hypoxia; N17.9 Acute kidney failure, unspecified; N39.0 Urinary tract infection, site not specified; E87.2 Acidosis; I24.8 Other forms of acute ischemic heart disease; I25.10 Atherosclerotic heart disease of native coronary artery without angina pectoris; E78.5 Hyperlipidemia, unspecified; I10 Essential (primary) hypertension; K21.9 Gastro-esophageal reflux disease without esophagitis; K57.90 Diverticulosis of intestine, part unspecified, without perforation or abscess without bleeding; E87.5 Hyperkalemia; I45.81 Long QT syndrome; R00.1 Bradycardia, unspecified; Z96.653 Presence of artificial knee joint, bilateral; Z95.5 Presence of coronary angioplasty implant and graft; Z85.3 Personal history of malignant neoplasm of breast; Z96.641 Presence of right artificial hip joint
CPT/HCPCS: 36415; 36600; 71045-TC-FY; 76775-TC; 80053; 81003; 81015; 82272; 82436; 82550; 82570; 82803; 82962; 83605; 83735; 84133; 84300; 84484; 85025; 85610; 85730; 87040; 87070; 87086; 87205; 93005; 93010; 94002; 99285-25; J7030